=== PATIENT | male | born 1970 | race Caucasian/White ===

== ENCOUNTER 2017-07-08 16:45 | Inpatient (IN) | payer MEDICAID, SELFPAY ==
[2017-07-08] VITALS (16 sets, daily range): BP systolic 113–173; BP diastolic 72–119; PULSE 55–84; RESP 11–24; TEMP 36.2–37.3; O2SAT 95–100; BMI 24.3; BMI 29.2; BMI 27.5
--- NOTE | 2017-07-08 17:02 | CT_ITS ---
STUDY: CT BRAIN WITHOUT CONTRAST REASON FOR EXAM: Male, 46 years old. CVA. Prior head injury. RADIATION DOSAGE (If Supplied By Facility): CTDIvol = ( 44.99 ) mGy, DLP = ( 796.11 ) mGycm TECHNIQUE: Transaxial CT imaging of the brain was performed without administration of intravenous contrast material. Individualized dose optimization techniques were used for this CT. COMPARISON: July 25, 2016 FINDINGS: Again seen are small calcific densities in the subcutaneous fat of the bilateral parietal regions. The soft tissues are otherwise unremarkable. There are remote aurea holes in the right frontal bone. The calvarium is otherwise intact. There are surgical changes about the right orbit which appear unchanged from prior exam. Normal size ventricles and extra-axial spaces for the patient's age. Normal white matter tracts of the cerebral hemispheres. There is minimal hypodensity beneath the aurea holes in the right frontal lobe which is chronic. Normal basal ganglia and thalami. Normal brainstem. Normal cerebellum. There is no intracranial hemorrhage. There are no findings of an acute ischemic infarction. Normal visualized paranasal sinuses. CT/Brain/Head without Contrast IMPRESSION: 1. No evidence for acute intracranial process. Again seen is stable encephalomalacia in the right frontal area underlying remote aurea holes. 2. Stable fracture of the right orbit and facial bones with surgical fusion unchanged from prior study N.B. : The above information has been verbally conveyed by Lalo Garza DO to Anastasiia Jaramillo, Referring Physician, on 07/08/2017 17:25:10 (ET). Electronically Signed: Lalo Garza DO at 17:25 EDT Tel [phone], Service support , N.B. : The above information has been verbally conveyed by Lalo Garza DO to Anastasiia Jaramillo, Referring Physician, on 07/08/2017 17:25:10 (ET).
--- NOTE | 2017-07-08 17:05 | RAD_ITS ---
STUDY: X-RAY CHEST REASON FOR EXAM: Male, 46 years old. Possible OD. Altered mental status. TECHNIQUE: Single AP portable view of the chest. COMPARISON: December 04, 2015. FINDINGS: Without There is a decreased inspiratory effort. There is no focal mass or infiltrate in the lungs. There is a linear density in the left upper lobe with subpleural calcifications. Normal size heart. Normal mediastinum and davonte. Normal visualized pulmonary arteries. Normal visualized aortic arch and descending thoracic aorta. Normal visualized thoracic spine. Normal visualized ribs, clavicles, and shoulders. There is no demonstrated abnormality of the visualized soft tissue structures of the upper abdomen. RAD/Chest 1 View IMPRESSION: Limited inspiration. Atelectasis versus infiltrate in the left upper lobe. The study is otherwise unremarkable Electronically Signed: Lalo Garza DO at 17:33 EDT Tel [phone], Service support ,
--- NOTE | 2017-07-08 17:07 | EKG12_ITS ---
Test Reason : STROKE Blood Pressure : / mmHG Vent. Rate : 055 BPM Atrial Rate : 055 BPM P-R Int : 126 ms QRS Dur : 098 ms QT Int : 410 ms P-R-T Axes : 000 -24 -12 degrees QTc Int : 392 ms Sinus bradycardia Inferior infarct , age undetermined Abnormal ECG Confirmed by LUCIA ORTEGA ([id number]), editor managing newspaper BRINDA SABILLON ([id number]) on 07/11/2017 1:30:55 PM Referred By: Confirmed By:LUCIA ORTEGA
[2017-07-08 17:20] LABS: Bedside Glucose 90 mg/dL (70-110)
--- NOTE | 2017-07-08 17:39 | CT_ITS ---
STUDY: CTA OF THE BRAIN REASON FOR EXAM: Male, 46 years old. Stroke protocol. RADIATION DOSAGE (If Supplied By Facility): CTDIvol = ( 25.77 ) mGy, DLP = ( 694.99 ) mGycm TECHNIQUE: CT angiography was performed with a multi-detector CT scanner. Data acquisition was obtained from the skull base through the vertex following intravenous administration of ml of . MIP images were reconstructed from the axial data set. Post-processing of the angiographic images was performed, with multiplanar reformation and 3D reconstruction. Individualized dose optimization techniques were used for this CT. COMPARISON: CT of the head, July 08, 2017. FINDINGS: Normal bilateral petrous carotid arteries. Normal right cavernous carotid artery with a normal supraclinoid bifurcation. Normal left cavernous carotid artery with a normal supraclinoid bifurcation. Normal right A1 segments of the anterior cerebral artery. Normal left A1 segments of the anterior cerebral artery. Normal intact anterior communicating artery (ACOM). Normal bilateral A2 segments of the anterior cerebral arteries. Normal right M1 and M2 segments of the middle cerebral arteries, with a normal M1 bifurcation. Normal left M1 and M2 segments of the middle cerebral arteries, with a normal M1 bifurcation. There is non-visualization of the right posterior communicating artery (PCOM). Normal left posterior communicating artery (PCOM). Normal bilateral vertebral arteries. Normal basilar artery with a normal basilar bifurcation. The visualized bilateral superior cerebellar (SCA) arteries are normal. Normal bilateral P1, P2 and visualized P3 segments of the posterior cerebral arteries. There is no demonstrated aneurysm of the [place]. There is encephalomalacia in the right frontal area underlying remote aurea holes. This is unchanged from the earlier CT. CT/CTA Head W/WO Contrast IMPRESSION: Normal [place] without a demonstrated aneurysm or hemodynamically significant stenosis. Electronically Signed: Lalo Garza DO at 18:17 EDT Tel [phone], Service support ,
--- NOTE | 2017-07-08 17:39 | CT_ITS ---
STUDY: CTA NECK WITH CONTRAST REASON FOR EXAM: Male, 46 years old. Stroke protocol. CVA. RADIATION DOSAGE (If Supplied By Facility): CTDIvol = ( 25.77 ) mGy, DLP = ( 694.99 ) mGycm TECHNIQUE: CT angiography with multi-detector data acquisition was performed from the aortic arch to the skull base following intravenous administration of 75 ml of Isovue 370 contrast. MIP images were reconstructed from the axial data set. Post-processing of the angiographic images was performed, with multiplanar reformation and 3D reconstruction. Individualized dose optimization techniques were used for this CT. COMPARISON: None. FINDINGS: AORTIC ARCH: Normal visualized aortic arch. Normal origins of the brachiocephalic, left common carotid, and left subclavian arteries. RIGHT CAROTID ARTERIES: Normal right common carotid artery (CCA). Normal right common carotid bulb. Normal origin of the right internal carotid (ICA) artery without a hemodynamically significant stenosis. Normal visualized cervical portion of the right internal carotid artery. Normal origin of the right external carotid artery (ECA). LEFT CAROTID ARTERIES: Normal left common carotid artery (CCA). Normal left common carotid bulb. Normal origin of the left internal carotid (ICA) artery without a hemodynamically significant stenosis. Normal visualized cervical portion of the left internal carotid artery. Normal origin of the left external carotid artery (ECA). VERTEBRAL ARTERIES: Normal bilateral vertebral arteries. There are marked degenerative changes of the cervical spine. CT/CTA Neck W/WO Contrast IMPRESSION: Normal bilateral cervical carotid and vertebral arteries. Electronically Signed: Lalo Garza DO at 18:19 EDT Tel [phone], Service support ,
[2017-07-08 17:40] LABS: Absolute Lymphocyte Count 1.35 X10^3/ul (0.83-4.51); Absolute Neutrophil Count 2.9 X10^3/uL (2.0-7.7); Basophil# 0.02 X10^3/uL; Basophil% 0.4 % (0-1); Eosinophil# 0.18 X10^3/uL; Eosinophils% 3.6 % (0-5); Hematocrit 43.9 % (40-54); Hemoglobin 14.1 g/dl (13.0-16.5); Lymphocyte # 1.35 X10^3/ul (4.0); Lymphocyte % 26.7 % (19-41); Mean Corp Hgb Conc 32.1 g/gl (32-36); Mean Corpuscular Hgb 30.3 pg (27.0-32.0); Mean Corpuscular Volume 94.2 fL (80-94); Mean Platelet Vol. 10.6 fl (6.2-12.0); Monocyte# 0.56 X10^3/uL; Monocyte% 11.1 % (0-10); Neutrophil # 2.94 X10^3/uL (2.7-7.7); Platelet Count 246 K/mm3 (150-450); RBC Distribution Width CV 12.5 % (11.6-14.6); RBC Distribution Width SD 42.2 fl (35.1-43.9); Red Blood Count 4.66 M/mm3 (4.6-6.2); White Blood Count 5.1 K/mm3 (4.4-11.0)
[2017-07-08 17:41] LABS: POSITIVE COUNT NO; POSITIVE DIFFERENTIAL NO; POSITIVE MORPHOLOGY NO
[2017-07-08 17:48] LABS: Partial Thromboplast Time 25.5 Seconds (24.1-36.2)
--- NOTE | 2017-07-08 17:56 | ED.RN ---
PT CONTINUOUSLY SAYS YES FOR EVERTHING. ANY OTHER RESPONSE HE SEEMS TO STRUGGLE AND IS NOT ABLE TO GET IT OUT. FOR INITIAL NIH PT WAS ABLE TO LOOK AT ME AND FOLLOW MY FINGER. FOR 2ND NIH HE SAID YES WHEN ASKED IF HE WAS LOOKING AT ME BUT WAS NOT. HE WAS NOT ABLE TO FOLLOW THE FIINGER AT ALL. PT IS BLIND IN THE RIGHT EYE. PT IMPROVED VERY SLIGHLY WITH THE RIGHT ARM. HE MOVES IT TO SCRATCH HIS NOSE WHEN NEEDED TO BUT NOT WHEN ASKED TO. VERY LITTLE EFFORT AGAINST GRAVITY. PT SHOW NO REACTION TO TOUCH ON EXTREMITIS. WITH HIS LIMITED COMMUNICATION IT IS UNKNOWN TO THE EXTENT IF HIS SENSORY IS INTACT.
[2017-07-08 17:57] LABS: Anion Gap 5 (5-15); BUN 11 mg/dL (7-18); BUN/Creat Ratio 9.6 RATIO (10-20); Calcium,Total 9.2 mg/dL (8.5-10.1); Chloride 103 mmol/L (98-107); Creatinine, Serum 1.14 mg/dL (0.70-1.30); EST Glomerular Filtration Rate 73 mL/min (>60); Est Glom Filt Rate - Afr Amer 88 mL/min (>60); Estimated Creatinine Clearance 81.82 ml/min; Glucose 88 mg/dL (74-106); Potassium 4.4 mmol/L (3.5-5.1); Sodium Level 139 mmol/L (136-145)
--- NOTE | 2017-07-08 18:01 | ED.RN ---
RADIOLOGY STATED HE SNEEZED AND HAD A BRIEF SEIZURE, BODY TWITCHING, WHILE GETTING HIS CTA. THEY STATED IT LASTED ROUGHLY 20 SEC AND TEN TE PT WAS BACK TO HIS BASELINE. PHYSICIAN NOTIFIED
--- NOTE | 2017-07-08 18:04 | ED.VISSUMM ---
- ER Visit Summary Date of Service: 07/08/17 Chief Complaint: Aphasia History of Present Illness: The patient is a 46 M presenting with change in mental status. Approximately 35 minutes prior to arrival patient developed change in mental status. He is unable to answer questions other than he answers all questions with the word yes. He is unable to follow commands. He has a history of stroke April 2017. At that time he presented with left-sided weakness and change in mental status. Physical Examination: Vitals are stable. Patient is afebrile. Alert no acute distress. HEENT exam chronic right eye irregularity and drainage Neck is supple. Lungs are clear and equal bilaterally. Heart is regular rate and rhythm. Abdomen is soft nontender nondistended. Extremities are unremarkable. Skin is warm and dry. NIH 8 Remainder of exam is unremarkable. Emergency Department Course and Treatment: Patient is unable to follow commands or answer questions. He has weakness of the right upper extremity. Stroke team was activated on patient arrival. CT head shows no acute process. EKG is sinus bradycardia rate of 55. CBC chemistries unremarkable. INR is 1.0. Troponin is negative. Discussed with Dr. Howard who recommends a stat CTA head and neck. Patient had a stroke 2 months ago and is not a TPA candidate. While in CT scan he had 20 second generalized seizure. CTA head and neck was unremarkable. Discussed with Dr. Howard. He recommends loading with Keppra. Recommends admission for MRI, EEG. Discussed with the hospitalist for admission. Disposition: Admission Impression: Generalized seizure, aphasia, right upper extremity weakness This note was generated with [employer] dictation software. It may contain incorrect words, spelling, and punctuation that were not noted in review of the chart prior to signing ED Disposition - Plan for ED Patient: Chief Complaint: Alt LOC Referrals: Care Physician,No Primary [Primary Care Provider] -
--- NOTE | 2017-07-08 18:08 | ED.DCSUM_ITS ---
- ER Visit Summary Date of Service: 07/08/17 Chief Complaint: Aphasia History of Present Illness: The patient is a 46 M presenting with change in mental status. Approximately 35 minutes prior to arrival patient developed change in mental status. He is unable to answer questions other than he answers all questions with the word yes. He is unable to follow commands. He has a history of stroke April 2017. At that time he presented with left- sided weakness and change in mental status. Physical Examination: Vitals are stable. Patient is afebrile. Alert no acute distress. HEENT exam chronic right eye irregularity and drainage Neck is supple. Lungs are clear and equal bilaterally. Heart is regular rate and rhythm. Abdomen is soft nontender nondistended. Extremities are unremarkable. Skin is warm and dry. NIH 8 Remainder of exam is unremarkable. Emergency Department Course and Treatment: Patient is unable to follow commands or answer questions. He has weakness of the right upper extremity. Stroke team was activated on patient arrival. CT head shows no acute process. EKG is sinus bradycardia rate of 55. CBC chemistries unremarkable. INR is 1.0. Troponin is negative. Discussed with Dr. Howard who recommends a stat CTA head and neck. Patient had a stroke 2 months ago and is not a TPA candidate. While in CT scan he had 20 second generalized seizure. CTA head and neck was unremarkable. Discussed with Dr. Howard. He recommends loading with Keppra. Recommends admission for MRI, EEG. Discussed with the hospitalist for admission. Disposition: Admission Impression: Generalized seizure, aphasia, right upper extremity weakness This note was generated with [employer] dictation software. It may contain incorrect words, spelling, and punctuation that were not noted in review of the chart prior to signing ED Disposition - Plan for ED Patient: Chief Complaint: Alt LOC Referrals: Care Physician,No Primary [Primary Care Provider] -
--- NOTE | 2017-07-08 19:05 | ED.RN ---
PT APPEARS TO BE HAVING TWITCHING EPISODE WHICH HAS HIM LEANING TOWARDS THE LEFT. HE IS ABLE TO VERBALLY RESPOND DURING THIS TIME BUT HIS BODY IS RIGID. WHEN THE EPISODE ENDS HIS SPEECH APPEARS TO BE MORE CLEAR THOUGH STILL VERY LIMITED. PT IS ALSO ABLE TO TURN HIS HEAD AND LOOK AT PEOPLE AROUND HIM. PHYSICIAN IS AWARE OF THESE EPISODE AND THAT THEY INTERMITTENTLY HAPPEN
--- NOTE | 2017-07-08 19:36 | PCM.HP.STD ---
Problem List (1) CVA (cerebral vascular accident) Status: Chronic Qualifiers: CVA mechanism: unspecified Qualified Code(s): I63.9 - Cerebral infarction, unspecified Comment: 04/2017 right medial occipital lobe CVA (2) Seizure disorder Status: Chronic (3) HTN (hypertension) Status: Chronic Qualifiers: Hypertension type: essential hypertension Qualified Code(s): I10 - Essential (primary) hypertension (4) HLD (hyperlipidemia) Status: Chronic Qualifiers: Hyperlipidemia type: unspecified Qualified Code(s): E78.5 - Hyperlipidemia, unspecified (5) GERD (gastroesophageal reflux disease) Status: Chronic Qualifiers: Esophagitis presence: esophagitis presence not specified Qualified Code(s): K21.9 - Gastro-esophageal reflux disease without esophagitis (6) Iron deficiency anemia Status: Chronic Qualifiers: Iron deficiency anemia type: unspecified iron deficiency Qualified Code(s): D50.9 - Iron deficiency anemia, unspecified (7) Anxiety and depression Status: Chronic (8) Acute ischemic stroke Status: Acute (9) Seizure in response to acute event Status: Acute History of Present Illness Date of Admission: 07/08/17 Chief Complaint: Aphasia, Seizure The patient is a 46 y/o M w/ PMHx: Seizure disorder s/p Trauma as Youth w/ facial/head surgery, 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 In the ED patient noted initially to answer yes to every questions and was unable to follow any commands. In the ED NIH 8-->RN 13, difficult to assess secondary to not following commands. In the ED work-up included AF, HR 55-->78, BP 165/96, RR 13, 99% on 2L NC, unremarkable CBC, normal coags, unremarkable BMP, normal trop x 1, CT brain w/ no acute evidence stroke, stable encephalomalacia R frontal area underlying remote aurea holes, stable fracture R orbit and facial bones with surgical fusion unchanged from prior study, CXR with atelectasis LUE otherwise unremarkable, CTA Head and Neck unremarkable. In the ED patient administered narcan secondary to concern for vicodin accidental overdose noted per son and keppra 1,000 IV load. While in the ED obtaining CT Head, patient was noted to have onset suspected generalized seizure activity lasting ~ 20 seconds. Patient with recent CVA Rere thus no TPA candidate. Neurology contacted upon his presentation and recommended given normal appearing CTA Head and Neck admission, pending UTox/EtOH levels, MRI brain without and without, EEG with planned evaluation in AM in addition to continued keppra 750 mg BID. Patient following start of Keppra load had repeat generalized seizure lasing 1 min 30 seconds, resolved following IV ativan in the ED. Neurology updated and requested continued plan of care. Past Medical History Past Medical History (Chronic Problems): Chronic Problems (This Medical Record has been edited. Action required.) CVA (cerebral vascular accident) (Chronic) 04/2017 right medial occipital lobe CVA Seizure disorder (Chronic) HTN (hypertension) (Chronic) HLD (hyperlipidemia) (Chronic) GERD (gastroesophageal reflux disease) (Chronic) Iron deficiency anemia (Chronic) Anxiety and depression (Chronic) Allergies Penicillins Allergy (Verified 05/16/16 04:12) Hives propoxyphene napsylate [From Darvocet-N] Allergy (Verified 05/16/16 04:12) Other hot flashes Home Medications: Ambulatory Orders Medication Instructions Recorded Aspirin [Aspirin, Baby] 81 mg PO DAILY@0800 10/17/13 Carboxymethylcellulose Sodium 15 ml OP DAILY 10/17/13 [Lubricant Eye] Etodolac [Etodolac ER] 400 mg PO BID PRN 10/17/13 Fenofibrate [Tricor] 145 mg PO DAILY 10/17/13 Ferrous Sulfate [Iron Supplement] 345 mg PO BID 10/17/13 Multivit-Min/FA/Lycopene/Lut 1 each PO DAILY 10/17/13 [Centrum Silver Tablet] Franklin-3/Dha/Epa/Fish Oil [Fish Oil 1,000 mg PO BID 10/17/13 Dr 500 mg Softgel] Omeprazole [Prilosec] 20 mg PO BID 10/17/13 Tamsulosin HCl [Flomax] 0.4 mg PO QHS 10/17/13 Acetaminophen/Diphenhydramine 1 each PO Q6H PRN PRN 10/23/15 [Tylenol Pm Ex-Strength Caplet] Docusate Sodium [Colace] 100 mg PO BID 10/23/15 Neomycin Sulfate/Polymyxin/Hc 1 drop OPHTHALMIC 4X/DAY 10/23/15 [Otocort Soln] Sertraline HCl 50 mg PO DAILY 07/25/16 Docusate Sodium [Colace] 100 mg PO DAILY 04/27/17 Fenofibrate [Tricor] 145 mg PO DAILY 04/27/17 Ferrous Sulfate 325 mg PO DAILY@0800 04/27/17 Meloxicam 15 mg PO DAILY 04/27/17 Sertraline HCl [Zoloft] 50 mg PO DAILY 04/27/17 Tamsulosin HCl 0.4 mg PO TID 04/27/17 Neomycin/Polymyxin B/Dexametha 2 drop OPHTHALMIC DAILY 04/28/17 [Msygzo-Wqoen-Ahftcegw Eye Drop] Omeprazole 40 mg PO DAILY 04/28/17 Sodium Chloride 3.5 gm OP 4X/DAY PRN 04/29/17 Aspirin [Aspirin, Baby] 81 mg PO DAILY@0800 tab.chew 05/02/17 Atorvastatin Calcium [Lipitor] 80 mg PO QHS #30 tab 05/02/17 Clopidogrel Bisulfate [Plavix] 75 mg PO DAILY 30 Days #30 tab 05/02/17 Surgical History: - - Interval facial surgery as well as right eye surgery and bur hole status post head trauma as youth, left lower extremity surgery status post trauma as youth. Psychiatric History: Anxiety, Depression Lives: With Family Smoking Status: Former smoker Tobacco Use: Non-smoker Alcohol: None Drugs: None - *Family History Maternal History Items: Diabetes, Heart Disease Paternal History Items: - - from suicide. Review of Systems Constitutional: Denies: Chills, Fever, Weight Change HEENT: Denies: Head Aches, Sinus Congestion, Sinus Drainage Cardiovascular: Denies: Chest Pain, Palpitations Respiratory: Denies: Cough, Shortness of breath at rest, Sputum production Gastrointestinal: Denies: Abdominal Pain, Nausea, Vomiting Genitourinary: Denies: Dysuria Musculoskeletal: Denies: Joint Pain, Joint Tenderness Skin: Denies: Rash, Wounds Neurological: Reports: Balance problems, Confusion, Focal weakness. Denies: Numbness, Tingling Psychiatric: Reports: Anxiety, Depression. Denies: Homicidal Ideations, Suicidal Ideations Hematologic/ Lymphatic: Reports: Anemia - ROS given per family present, Patient unable to give ROS secondary to post-ictal status.. Denies: Easy Bruising, Easy Bleeding VTE Information - Inpt Only VTE Present on Admission: No VTE Mechan Device Prophylaxis: SCD's VTE Pharm Prophylaxis ordered?: Yes Patient Problems: Active and Suspected Problems (This Medical Record has been edited. Action required.) Acute ischemic stroke (Acute) Seizure in response to acute event (Acute) Subjective: Laying in the ED bed, recent seizure, s/p ativan, no acute distress. Objective: Physical Examination: General: Minimally awakens to stimuli, recent seizure, post-ictal s/p ativan, not alert, not oriented, unable to follow commands, laying in the ED bed, NAD. Skin: normal color, turgor, no icterus, cyanosis. HEENT: AT/NC, several old facial/head scars from trauma as youth, R eye prosthesis, blind R eye, unable to assess EOM, LP sluggish, dry MM, no carotid bruits or JVD noted. Lungs: Diminished BS BL bases, no rales, ronchi or wheezing. Heart: regular rate and rhythm; no gallop, rub audible. Abdomen: soft, NTTP, ND, normal BS, no HSM. Extremities: no cyanosis, clubbing, or edema. Neurological: Minimally awakens to stimuli, recent seizure, post-ictal s/p ativan, not alert, not oriented, unable to follow commands, laying in the ED bed; cognitive function not baseline intact; LE sluggish; unable to assess CN, unable to assess sensation, occasional movement L side UE w/ pain, equiv bab. Psychiatric: affect appears flat, sedate, no acute evidence of depressive or anxiety feelings. - Physical Exam Vital Signs Temp Pulse Resp BP Pulse Ox 97.2 F L 78 24 H 153/119 H 100 07/08/17 16:47 07/08/17 19:00 07/08/17 19:00 07/08/17 19:00 07/08/17 19:00 Oxygen Flow Rate (L/min) 2 Oxygen Delivery Method Nasal Cannula Weight: 203 lb 7.787 oz Body Mass Index (BMI) 29.2 Finger Stick Blood Glucose 90 Laboratory Tests Past 24 Hrs 07/08/17 07/08/1707/08/18 16:52 16:52 16:52 WBC 5.1 RBC 4.66 Hgb 14.1 Hct 43.9 MCV 94.2 H MCH 30.3 MCHC 32.1 RDW 12.5 RDW Differential 42.2 Plt Count 246 MPV 10.6 Immature Gran % (Auto) 0.200 Neut % (Auto) 58.0 Lymph % (Auto) 26.7 Barber % (Auto) 11.1 H Eos % (Auto) 3.6 Baso % (Auto) 0.4 Absolute Neuts (auto) 2.9 Absolute Lymphs (auto) 1.35 Total Counted Not Reportable PT 13.0 INR 1.0 APTT 25.5 Sodium 139 Potassium 4.4 Chloride 103 Carbon Dioxide 31.0 Anion Gap 5 BUN 11 Creatinine 1.14 Estim Creat Clear Calc 81.82 Est GFR (MDRD) Af Amer 88 Est GFR (MDRD) Non-Af 73 BUN/Creatinine Ratio 9.6 L Glucose 88 Calcium 9.2 Troponin I < 0.02 POC Glucose 07/08/17 16:56 POC Glucose 90 Assessment/Plan Active and Suspected Problems (This Medical Record has been edited. 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 In the ED patient noted initially to answer yes to every questions and was unable to follow any commands. (1) R Sided Hemiplegia, Aphasia concerning for Recurrent CVA w/ Seizure Activity w/ Prior Seizure history youth s/p head trauma w/ Prior 04/2017 Acute R Medial Occipital CVA: In the ED work-up included AF, HR 55-->78, BP 165/96, RR 13, 99% on 2L NC, unremarkable CBC, normal coags, unremarkable BMP, normal trop x 1, CT brain w/ no acute evidence stroke, stable encephalomalacia R frontal area underlying remote aurea holes, stable fracture R orbit and facial bones with surgical fusion unchanged from prior study, CXR with atelectasis LUE otherwise unremarkable, CTA Head and Neck unremarkable. UTox, EtOH level pending, family denies elicit drugs. Will admit to the ICU, will obtain MRI Brain without and without, CTA head and neck without acute findings, recent ECHO 04/2017 thus will not repeat, obtain EEG in AM, PT/OT/Speech/Nutrition evaluation per protocol. Pending Neurology evaluation. Will allow permissive HTN, IVFs, maintain on SD ASA given unsafe oral intake, once appropriate restart BP regimen, statin w/ AM FLP, fall precautions. Mag, Phos, TSH pending. PRN ativan IV for recurrent seizure activity. 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 (3) Hypertension: Permissive. (4) Hyperlipidemia: Holding oral agent, FLP in AM. (5) Anxiety and Depression: Holding oral regimen. (6) GERD: Famotidine IV. (7) DVT Prophylaxis: SCDs, lovenox. Code Visit Inpatient E&M: 26473 Init Hosp L3
--- NOTE | 2017-07-08 19:46 | HP.PCM_ITS ---
Problem List (1) CVA (cerebral vascular accident) Status: Chronic Qualifiers: CVA mechanism: unspecified Qualified Code(s): I63.9 - Cerebral infarction, unspecified Comment: 04/2017 right medial occipital lobe CVA (2) Seizure disorder Status: Chronic (3) HTN (hypertension) Status: Chronic Qualifiers: Hypertension type: essential hypertension Qualified Code(s): I10 - Essential (primary) hypertension (4) HLD (hyperlipidemia) Status: Chronic Qualifiers: Hyperlipidemia type: unspecified Qualified Code(s): E78.5 - Hyperlipidemia , unspecified (5) GERD (gastroesophageal reflux disease) Status: Chronic Qualifiers: Esophagitis presence: esophagitis presence not specified Qualified Code(s) : K21.9 - Gastro-esophageal reflux disease without esophagitis (6) Iron deficiency anemia Status: Chronic Qualifiers: Iron deficiency anemia type: unspecified iron deficiency Qualified Code(s) : D50.9 - Iron deficiency anemia, unspecified (7) Anxiety and depression Status: Chronic (8) Acute ischemic stroke Status: Acute (9) Seizure in response to acute event Status: Acute History of Present Illness Date of Admission: 07/08/17 Chief Complaint: Aphasia, Seizure The patient is a 46 y/o M w/ PMHx: Seizure disorder s/p Trauma as Youth w/ facial/head surgery, 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 In the ED patient noted initially to answer yes to every questions and was unable to follow any commands. In the ED NIH 8-->RN 13, difficult to assess secondary to not following commands. In the ED work-up included AF, HR 55-->78, BP 165/96, RR 13, 99% on 2L NC, unremarkable CBC, normal coags, unremarkable BMP, normal trop x 1, CT brain w/ no acute evidence stroke, stable encephalomalacia R frontal area underlying remote aurea holes, stable fracture R orbit and facial bones with surgical fusion unchanged from prior study, CXR with atelectasis LUE otherwise unremarkable, CTA Head and Neck unremarkable. In the ED patient administered narcan secondary to concern for vicodin accidental overdose noted per son and keppra 1,000 IV load. While in the ED obtaining CT Head, patient was noted to have onset suspected generalized seizure activity lasting ~ 20 seconds. Patient with recent CVA Rere thus no TPA candidate. Neurology contacted upon his presentation and recommended given normal appearing CTA Head and Neck admission, pending UTox/EtOH levels, MRI brain without and without, EEG with planned evaluation in AM in addition to continued keppra 750 mg BID. Patient following start of Keppra load had repeat generalized seizure lasing 1 min 30 seconds, resolved following IV ativan in the ED. Neurology updated and requested continued plan of care. Past Medical History Past Medical History (Chronic Problems): Chronic Problems (This Medical Record has been edited. Action required.) CVA (cerebral vascular accident) (Chronic) 04/2017 right medial occipital lobe CVA Seizure disorder (Chronic) HTN (hypertension) (Chronic) HLD (hyperlipidemia) (Chronic) GERD (gastroesophageal reflux disease) (Chronic) Iron deficiency anemia (Chronic) Anxiety and depression (Chronic) Allergies Penicillins Allergy (Verified 05/16/16 04:12) Hives propoxyphene napsylate [From Darvocet-N] Allergy (Verified 05/16/16 04:12) Other hot flashes Home Medications: Ambulatory Orders Medication Instructions Recorded Aspirin [Aspirin, Baby] 81 mg PO DAILY@0800 10/17/13 Carboxymethylcellulose Sodium 15 ml OP DAILY 10/17/13 [Lubricant Eye] Etodolac [Etodolac ER] 400 mg PO BID PRN 10/17/13 Fenofibrate [Tricor] 145 mg PO DAILY 10/17/13 Ferrous Sulfate [Iron Supplement] 345 mg PO BID 10/17/13 Multivit-Min/FA/Lycopene/Lut 1 each PO DAILY 10/17/13 [Centrum Silver Tablet] [place]-3/Dha/Epa/Fish Oil [Fish Oil 1,000 mg PO BID 10/17/13 Dr 500 mg Softgel] Omeprazole [Prilosec] 20 mg PO BID 10/17/13 Tamsulosin HCl [Flomax] 0.4 mg PO QHS 10/17/13 Acetaminophen/Diphenhydramine 1 each PO Q6H PRN PRN 10/23/15 [Tylenol Pm Ex-Strength Caplet] Docusate Sodium [Colace] 100 mg PO BID 10/23/15 Neomycin Sulfate/Polymyxin/Hc 1 drop OPHTHALMIC 4X/DAY 10/23/15 [Otocort Soln] Sertraline HCl 50 mg PO DAILY 07/25/16 Docusate Sodium [Colace] 100 mg PO DAILY 04/27/17 Fenofibrate [Tricor] 145 mg PO DAILY 04/27/17 Ferrous Sulfate 325 mg PO DAILY@0800 04/27/17 Meloxicam 15 mg PO DAILY 04/27/17 Sertraline HCl [Zoloft] 50 mg PO DAILY 04/27/17 Tamsulosin HCl 0.4 mg PO TID 04/27/17 Neomycin/Polymyxin B/Dexametha 2 drop OPHTHALMIC DAILY 04/28/17 [Nptbuv-Grinp-Nskuujkj Eye Drop] Omeprazole 40 mg PO DAILY 04/28/17 Sodium Chloride 3.5 gm OP 4X/DAY PRN 04/29/17 Aspirin [Aspirin, Baby] 81 mg PO DAILY@0800 tab.chew 05/02/17 Atorvastatin Calcium [Lipitor] 80 mg PO QHS #30 tab 05/02/17 Clopidogrel Bisulfate [Plavix] 75 mg PO DAILY 30 Days #30 tab 05/02/17 Surgical History: - - Interval facial surgery as well as right eye surgery and bur hole status post head trauma as youth, left lower extremity surgery status post trauma as youth. Psychiatric History: Anxiety, Depression Lives: With Family Smoking Status: Former smoker Tobacco Use: Non-smoker Alcohol: None Drugs: None - *Family History Maternal History Items: Diabetes, Heart Disease Paternal History Items: - - from suicide. Review of Systems Constitutional: Denies: Chills, Fever, Weight Change HEENT: Denies: Head Aches, Sinus Congestion, Sinus Drainage Cardiovascular: Denies: Chest Pain, Palpitations Respiratory: Denies: Cough, Shortness of breath at rest, Sputum production Gastrointestinal: Denies: Abdominal Pain, Nausea, Vomiting Genitourinary: Denies: Dysuria Musculoskeletal: Denies: Joint Pain, Joint Tenderness Skin: Denies: Rash, Wounds Neurological: Reports: Balance problems, Confusion, Focal weakness. Denies: Numbness, Tingling Psychiatric: Reports: Anxiety, Depression. Denies: Homicidal Ideations, Suicidal Ideations Hematologic/ Lymphatic: Reports: Anemia - ROS given per family present, Patient unable to give ROS secondary to post-ictal status.. Denies: Easy Bruising, Easy Bleeding VTE Information - Inpt Only VTE Present on Admission: No VTE Mechan Device Prophylaxis: SCD's VTE Pharm Prophylaxis ordered?: Yes Patient Problems: Active and Suspected Problems (This Medical Record has been edited. Action required.) Acute ischemic stroke (Acute) Seizure in response to acute event (Acute) Subjective: Laying in the ED bed, recent seizure, s/p ativan, no acute distress. Objective: Physical Examination: General: Minimally awakens to stimuli, recent seizure, post-ictal s/p ativan, not alert, not oriented, unable to follow commands, laying in the ED bed, NAD. Skin: normal color, turgor, no icterus, cyanosis. HEENT: AT/NC, several old facial/head scars from trauma as youth, R eye prosthesis, blind R eye, unable to assess EOM, LP sluggish, dry MM, no carotid bruits or JVD noted. Lungs: Diminished BS BL bases, no rales, ronchi or wheezing. Heart: regular rate and rhythm; no gallop, rub audible. Abdomen: soft, NTTP, ND, normal BS, no HSM. Extremities: no cyanosis, clubbing, or edema. Neurological: Minimally awakens to stimuli, recent seizure, post-ictal s/p ativan, not alert, not oriented, unable to follow commands, laying in the ED bed ; cognitive function not baseline intact; LE sluggish; unable to assess CN, unable to assess sensation, occasional movement L side UE w/ pain, equiv bab. Psychiatric: affect appears flat, sedate, no acute evidence of depressive or anxiety feelings. - Physical Exam Vital Signs Temp Pulse Resp BP Pulse Ox 97.2 F L 78 24 H 153/119 H 100 07/08/17 16:47 07/08/17 19:00 07/08/17 19:00 07/08/17 19:00 07/08/17 19:00 Oxygen Flow Rate (L/min) 2 Oxygen Delivery Method Nasal Cannula Weight: 203 lb 7.787 oz Body Mass Index (BMI) 29.2 Finger Stick Blood Glucose 90 Laboratory Tests Past 24 Hrs 07/08/17 07/08/1707/08/18 16:52 16:52 16:52 WBC 5.1 RBC 4.66 Hgb 14.1 Hct 43.9 MCV 94.2 H MCH 30.3 MCHC 32.1 RDW 12.5 RDW Differential 42.2 Plt Count 246 MPV 10.6 Immature Gran % (Auto) 0.200 Neut % (Auto) 58.0 Lymph % (Auto) 26.7 [place] % (Auto) 11.1 H Eos % (Auto) 3.6 Baso % (Auto) 0.4 Absolute Neuts (auto) 2.9 Absolute Lymphs (auto) 1.35 Total Counted Not Reportable PT 13.0 INR 1.0 APTT 25.5 Sodium 139 Potassium 4.4 Chloride 103 Carbon Dioxide 31.0 Anion Gap 5 BUN 11 Creatinine 1.14 Estim Creat Clear Calc 81.82 Est GFR (MDRD) Af Amer 88 Est GFR (MDRD) Non-Af 73 BUN/Creatinine Ratio 9.6 L Glucose 88 Calcium 9.2 Troponin I < 0.02 POC Glucose 07/08/17 16:56 POC Glucose 90 Assessment/Plan Active and Suspected Problems (This Medical Record has been edited. 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 In the ED patient noted initially to answer yes to every questions and was unable to follow any commands. (1) R Sided Hemiplegia, Aphasia concerning for Recurrent CVA w/ Seizure Activity w/ Prior Seizure history youth s/p head trauma w/ Prior 04/2017 Acute R Medial Occipital CVA: In the ED work-up included AF, HR 55-->78, BP 165/96, RR 13, 99% on 2L NC, unremarkable CBC, normal coags, unremarkable BMP, normal trop x 1, CT brain w/ no acute evidence stroke, stable encephalomalacia R frontal area underlying remote aurea holes, stable fracture R orbit and facial bones with surgical fusion unchanged from prior study, CXR with atelectasis LUE otherwise unremarkable, CTA Head and Neck unremarkable. UTox, EtOH level pending , family denies elicit drugs. Will admit to the ICU, will obtain MRI Brain without and without, CTA head and neck without acute findings, recent ECHO 2017 thus will not repeat, obtain EEG in AM, PT/OT/Speech/Nutrition evaluation per protocol. Pending Neurology evaluation. Will allow permissive HTN, IVFs, maintain on MN ASA given unsafe oral intake, once appropriate restart BP regimen , statin w/ AM FLP, fall precautions. Mag, Phos, TSH pending. PRN ativan IV for recurrent seizure activity. 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 (3) Hypertension: Permissive. (4) Hyperlipidemia: Holding oral agent, FLP in AM. (5) Anxiety and Depression: Holding oral regimen. (6) GERD: Famotidine IV. (7) DVT Prophylaxis: SCDs, lovenox. Code Visit Inpatient E&M: 38278 Init Hosp L3
[2017-07-08] MEDS: LORazepam 2 MG/ML Syringe 1 MG IV (19:53)
--- NOTE | 2017-07-08 20:04 | ED.RN ---
THIS RN ENTERED ROOM, PT TWITCHING IN ALL LIMBS, FACIAL GRIMACING. AFTER SEVERAL MINUTES, PT STARTED TONIC-CLONIC SEIZURE, LEGS AND ARMS UP IN AIR AND RIGID, FACE RED AND CONTORTED- THESE MOVEMENTS LASTED APPROX 1 MIN 15 SECONDS, PT POSTICTAL AFTER EXCEPT FOR SLIGHT TWITCHING THROUGHOUT BODY, ATIVAN 1MG IV GIVEN PER MD.
--- NOTE | 2017-07-08 20:08 | ED.RN ---
PT UNABLE TO COMMUNICATE REGARDING HOME MEDS, FAMILY SENT HOME TO GET MEDICATION BOTTLES, HAVE NOT RETURNED.
[2017-07-08 21:00] LABS: Amphetamine Urine VISTA NEGATIVE (<1000 ng/mL); Barbiturate Urine VISTA NEGATIVE (< 200 ng/mL); Benzodiazepine Urine VISTA NEGATIVE (< 200 ng/mL); Cocaine Urine VISTA NEGATIVE (< 300 ng/mL); Ecstacy Urine VISTA NEGATIVE (< 500 ng/mL); Methadone Urine VISTA NEGATIVE (< 300 ng/mL); PCP Urine VISTA NEGATIVE (< 25 ng/mL); THC Urine VISTA NEGATIVE (< 50 ng/mL); Vista UDS pH Range 6
--- NOTE | 2017-07-08 21:22 | MRI_ITS ---
STUDY: MRI BRAIN WITH AND WITHOUT CONTRAST REASON FOR EXAM: Male, 46 years old. Seizure and altered mental status. TECHNIQUE: Standardized multiplanar fat and water weighted pulse sequences were obtained. 8 ml of Gadavist contrast material was administered intravenously for the contrast portion of the examination. COMPARISON: None. FINDINGS: Normal size of the ventricles and extra-axial spaces for the patient's age. Right frontal region of encephalomalacia and postoperative craniotomy changes are present. Right facial postoperative changes and plating are present. There is no evidence for recent intracranial ischemia or other cause of cytotoxic edema on diffusion weighted imaging (DWI). Normal T2* images of the brain without demonstrated susceptibility artifact. There is no demonstrated hemosiderin stain. Normal bilateral basal ganglia. Normal thalami. There is no extra-axial fluid accumulation. Normal flow voids within the major intracranial circulation suggesting patency by spin echo criteria. Normal venous enhancement. There is no enhancing intra-axial or extra-axial abnormality. Normal sella turcica, pituitary gland, infundibular stalk, optic chiasm and hypothalamus. Normal tectal plate and pineal gland. Normal midbrain, paul and medulla. Normal cerebellum. Normal basal cisterns. Normal bilateral temporal bones. Normal bilateral internal auditory canals. No demonstrated orbital abnormality, within the constraints of a routine brain study. Normal visualized paranasal sinuses. Normal calvarium and skull base. Normal visualized soft tissue structures. Normal visualized upper cervical spine. MRI/Brain W/WO Contrast IMPRESSION: 1. Right frontal encephalomalacia changes and postoperative changes as above. No evidence of acute intracranial bleed, mass or ischemia. Electronically Signed: David Husain DO at 12:41 EDT , Service support ,
--- NOTE | 2017-07-08 21:30 | NURSING ---
Unable to assess NIH. Pt. is currently postdictal.
[2017-07-08 21:59] LABS: Bacteria 0 SEEN /hpf (None Seen); Mucous, Urine 0 SEEN /hpf (<or=2+); Squamous Epithelial Cells - UA 0 SEEN /hpf (0-5); White Blood Cells 0 SEEN /hpf (0-5)
[2017-07-08 22:41] LABS: AST(SGOT) 22 U/L (15-37); Alanine Aminotransfer ALT/SGPT 27 U/L (16-61); Albumin, Serum 3.9 g/dL (3.2-5.0); Alkaline Phosphatase 40 U/L (45-117); Bilirubin, Direct 0.09 mg/dL (0.00-0.30); Globulin 3.9 g/dL (2.2-4.2); Magnesium 1.9 mg/dL (1.6-2.6); Protein, Total 7.8 g/dL (6.4-8.2)
[2017-07-08 22:43] LABS: Color, Urine Yellow (Yellow); Glucose, Dipstick Normal (Normal); Ketone-Dipstick Negative (Negative); Leukocyte Esterase-Dipstick Negative /ul (Negative); Nitrite-Dipstick Negative (Negative); Occult Blood-Urine 10 /ul (Negative); Protein-Dipstick Negative (Negative); Urine Bilirubin Dipstick Negative (Negative); Urine Clarity Sl. Cloudy (Clear); Urine Urobilinogen 1 mg/dl (Normal)
[2017-07-08 22:48] LABS: Phosphorus 3.4 mg/dL (2.5-4.9)
[2017-07-08 23:04] LABS: Red Blood Cells-Urine 0-5 SEEN /hpf (0-5)
[2017-07-08 23:15] LABS: M R Staph aureus DNA By PCR Negative (Negative); Probe Check PASS; Specimen Processing Control PASS
[2017-07-08] MEDS: Neomycin/Bacitracin/Polymyxin Opth. Ointment 1 APPLIC RIGHT EYE (23:27)
[2017-07-09] VITALS (28 sets, daily range): BP systolic 112–159; BP diastolic 64–92; PULSE 54–78; RESP 11–22; TEMP 36.9–37.9; O2SAT 91–98; BMI 27.5
[2017-07-09] MEDS: Neomycin/Bacitracin/Polymyxin Opth. Ointment 1 APPLIC RIGHT EYE ×4 (04:43→22:15)
[2017-07-09] MEDS: 0.9% NaCl Peripheral Flush Adult/Peds IV ×2 (04:44→09:43)
[2017-07-09 04:51] LABS: Hematocrit 41.3 % (40-54); Hemoglobin 13.2 g/dl (13.0-16.5); Mean Corpuscular Hgb 30.2 pg (27.0-32.0); Mean Corpuscular Volume 94.5 fL (80-94); Platelet Count 214 K/mm3 (150-450); RBC Distribution Width CV 12.8 % (11.6-14.6); RBC Distribution Width SD 43.8 fl (35.1-43.9); Red Blood Count 4.37 M/mm3 (4.6-6.2); White Blood Count 7.3 K/mm3 (4.4-11.0)
[2017-07-09 04:53] LABS: Scan Indicated on CBC? Y/N NO
[2017-07-09 05:08] LABS: ALB/GLOB Ratio 0.9 RATIO (0.9-2.4); AST(SGOT) 19 U/L (15-37); Alanine Aminotransfer ALT/SGPT 24 U/L (16-61); Albumin, Serum 3.4 g/dL (3.2-5.0); Alkaline Phosphatase 36 U/L (45-117); Anion Gap 8 (5-15); BUN 10 mg/dL (7-18); BUN/Creat Ratio 10.1 RATIO (10-20); Calcium,Total 8.4 mg/dL (8.5-10.1); Chloride 103 mmol/L (98-107); Cholesterol 205 mg/dL (200); Creatinine, Serum 0.99 mg/dL (0.70-1.30); EST Glomerular Filtration Rate 85 mL/min (>60); Est Glom Filt Rate - Afr Amer 103 mL/min (>60); Estimated Creatinine Clearance 94.22 ml/min; Globulin 3.6 g/dL (2.2-4.2); Glucose 86 mg/dL (74-106); High Density Lipoprotein 33 mg/dL; Potassium 3.5 mmol/L (3.5-5.1); Sodium Level 139 mmol/L (136-145); Triglycerides 147 mg/dL; Very Low Density Lipoprotein 29 mg/dL (5-40)
[2017-07-09] MEDS: 0.9% Normal Saline 1,000 ML 100 ML IV ×2 (07:15→18:28)
[2017-07-09] MEDS: Enoxaparin 40 MG/0.4 ML Syringe SC (09:42)
--- NOTE | 2017-07-09 11:23 | PN_ITS ---
Patient Problems: Active and Suspected Problems (This Medical Record has been edited. Action required.) Acute ischemic stroke (Acute) Seizure in response to acute event (Acute) Subjective: Patient was admitted last night for aphagia and seizure-like movement. He had recent acute right medial occipital lobe ischemic stroke with left-sided weakness in April 2017. Time is admitted with aphasia intermittent noted by the family talking irrelevant and incoherent. The patient is lethargic in ICU. Temperature low-grade 99.4 Fahrenheit in ICU. Intake and output review shows positive fluid balance 460 mL. Vitals/I&O's: Vital Signs Temp Pulse Resp BP Pulse Ox 99.3 F H 57 L 14 132/80 H 95 07/09/17 09:00 07/09/17 09:00 07/09/17 09:00 07/09/17 09:00 07/09/17 09:00 Oxygen Flow Rate (L/min) 2 Oxygen Delivery Method Room Air Weight: 194 lb 14.218 oz Body Mass Index (BMI) 27.5 Intake and Output for Last 24 Hours 07/07/17 07/08/17 07/09/17 23:59 23:59 23:59 Intake Total 190 / 190 684 / 684 Output Total 800 / 800 225 / 225 Balance -610 / -610 459 / 459 General: Confused, Disoriented, Lethargic, - HEENT: Atraumatic, Normocephalic, - - Right eye cornea sloughs out with redness suggestive of conjunctivitis. 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 Left eye pupil is reactive. Old facial/head a scar from trauma at youth. Oral: Dry Mucosa Neck: Supple, No JVD, Negative Carotid Bruits Lungs: No rhonchi, No wheeze, No rales, Diminished Cardiovascular: Regular rate, Regular Rhythm, Normal S2, No murmurs, Bradycardic - Bradycardia, HR runs in 50s- 60s Abdomen: Bowel Sounds Present, Soft, Non Tender, Non-Distended, - - Fully catheter Extremities: No edema Musculoskeletal: - Neurological: - - Complete neuro exam not possible as patient is not able to follow command. Patient awakes momentarily on verbal stimulus. Post icteric. Laboratory Results 07/08/17 20:18: Urine Opiates Screen NEGATIVE, Urine Methadone Screen NEGATIVE, Ur Barbiturates Screen NEGATIVE, Ur Phencyclidine Scrn NEGATIVE, Ur Amphetamines Screen NEGATIVE, U Methamphetamin-MDMA NEGATIVE, U Benzodiazepines Scrn NEGATIVE, Urine Cocaine Screen NEGATIVE, U Cannabinoids Screen NEGATIVE, Ur Drug Screen Comment 07/08/17 21:40: MRSA (PCR) Negative 07/08/17 21:55: Urine Color Yellow, Urine Clarity Sl. Cloudy, Urine pH 8.0, Ur Specific [place] 1.010, Urine Protein Negative, Urine Glucose (UA) Normal, Urine Ketones Negative, Urine Occult Blood 10 H, Urine Nitrite Negative, Urine Bilirubin Negative, Urine Urobilinogen 1 H, Ur Leukocyte Esterase Negative, Urine RBC 0-5 SEEN, Urine WBC 0 SEEN, Ur Squamous Epith Cells 0 SEEN, Urine Bacteria 0 SEEN, Urine Mucus 0 SEEN 07/09/17 04:40: WBC 7.3, RBC 4.37 L, Hgb 13.2, Hct 41.3, MCV 94.5 H, MCH 30.2, MCHC 32.0, RDW 12.8, RDW Differential 43.8, Plt Count 214, MPV 10.0 07/09/17 04:40: Sodium 139, Potassium 3.5, Chloride 103, Carbon Dioxide 28.0, Anion Gap 8, BUN 10, Creatinine 0.99, Estim Creat Clear Calc 94.22, Est GFR ( MDRD) Af Amer 103, Est GFR (MDRD) Non-Af 85, BUN/Creatinine Ratio 10.1, Glucose 86, Calcium 8.4 L, Total Bilirubin 0.40, AST 19, ALT 24, Alkaline Phosphatase 36 L, Total Protein 7.0, Albumin 3.4, Globulin 3.6, Albumin/Globulin Ratio 0.9, Triglycerides 147, Cholesterol 205 H, LDL Cholesterol 143 H, VLDL Cholesterol 29 , HDL Cholesterol 33 L Current Medications Aspirin (Aspirin) 300 mg RECTAL DAILY [facility] Last Admin: 07/09/17 09:38 Dose: Not Given Enoxaparin Sodium (Lovenox) 40 mg SC DAILY@1000 [facility] Last Admin: 07/09/17 09:42 Dose: 40 mg Sodium Chloride () 1,000 mls @ 100 mls/hr IV .Q10H [facility] Last Admin: 07/09/17 07:15 Dose: 100 mls/hr Levetiracetam 750 mg/ N/A 150 mls @ 600 mls/hr IV BID [facility] Last Admin: 07/09/17 10:27 Dose: 600 mls/hr Famotidine (Pepcid 20mg) 20 mg in 50 mls @ 150 mls/hr IV Q12 [facility] Last Admin: 07/09/17 09:42 Dose: 150 mls/hr Sodium Chloride () 250 mls @ 15 mls/hr IV .[id number] PRN PRN Reason: SALINE FLUSH Lorazepam (Ativan) 2 mg PO Q2H PRN PRN; Protocol PRN Reason: CIWA score > 8 but <15 Lorazepam (Ativan) 2 mg PO UD PRN; Protocol PRN Reason: CIWA score >/=15. Lorazepam (Ativan) 2 mg IV Q2H PRN PRN; Protocol PRN Reason: CIWA score > 8 but <15 Lorazepam (Ativan) 2 mg IV UD PRN; Protocol PRN Reason: CIWA score >/=15. Lorazepam (Ativan) 1 mg IV Q4H PRN PRN PRN Reason: PRN seizure Magnesium Hydroxide (Milk Of Magnesia) 30 ml PO DAILY PRN PRN PRN Reason: Constipation Neomycin/Polymyxin/Bacitracin (Neosporin) 1 applic RIGHT EYE Q6H [facility] Last Admin: 07/09/17 04:43 Dose: 1 applicatio Ondansetron HCl (Zofran) 4 mg IV Q8H PRN PRN PRN Reason: NAUSEA Promethazine HCl (Phenergan (Ll)) 12.5 mg IV Q6H PRN PRN PRN Reason: NAUSEA/VOMITING Sodium Chloride () 5 - 30 ml IV UD PRN PRN Reason: SALINE FLUSH Last Admin: 07/09/17 09:43 Dose: 10 ml Medical Necessity - Tobacco Use Smoking Status: Former smoker Tobacco Use: Non-smoker Assessment/Plan Active and Suspected Problems (This Medical Record has been edited. Action required.) Acute ischemic stroke (Acute) Seizure in response to acute event (Acute) The 46-year-old gentleman with history of recent stroke was admitted for aphasia and seizure-like movement. He had recent acute right medial occipital lobe ischemic stroke with left-sided weakness in April 2017. Time is admitted with aphasia intermittent noted by the family talking irrelevant and incoherent. 1) right-sided hemiplegia with aphasia concern of acute stroke with history of recent stroke in April 2017: Patient CT head and neck is unremarkable. Neuro consult. On stroke protocol with PT/OT/speech/nutrition evaluation. Neuro consult. On permissive hypertension, IV fluid, BP and glucose control as per stroke protocol. Fall prevention. Right brain is ordered. U tox is negative. Alcohol level is normal. 2). Seizure disorder: Patient has history of seizure probably posttraumatic/ stroke associated: Neuro consult for further recommendation. On Keppra and as needed IV Ativan. On seizure precaution. 3. Hypertension: Keep the BP in permissive range as per stroke protocol for 24 hours. 4. Other comorbidities include anxiety and depression, GERD and dyslipidemia: Lipid profile shows LDL 143, total cholesterol 205 HDL 33. Will start on atorvastatin when speech clears for diet Clinical Impression(s) from Imaging Studies Brain CT 07/08/17 17:02 IMPRESSION: 1. No evidence for acute intracranial process. Again seen is stable encephalomalacia in the right frontal area underlying remote aurea holes. 2. Stable fracture of the right orbit and facial bones with surgical fusion unchanged from prior study Chest X-Ray 07/08/17 17:05 IMPRESSION: Limited inspiration. Atelectasis versus infiltrate in the left upper lobe. The study is otherwise unremarkable Head CTA 07/08/17 17:39 IMPRESSION: Normal [place] of [place] without a demonstrated aneurysm or hemodynamically significant stenosis. Neck CTA 07/08/17 17:39 IMPRESSION: Normal bilateral cervical carotid and vertebral arteries. Laboratory Results 07/08/17 16:52: WBC 5.1, RBC 4.66, Hgb 14.1, Hct 43.9, MCV 94.2 H, MCH 30.3, MCHC 32.1, RDW 12.5, RDW Differential 42.2, Plt Count 246, MPV 10.6, Immature Gran % (Auto) 0.200, Neut % (Auto) 58.0, Lymph % (Auto) 26.7, [place] % (Auto) 11.1 H, Eos % (Auto) 3.6, Baso % (Auto) 0.4, Absolute Neuts (auto) 2.9, Absolute Lymphs (auto) 1.35, Total Counted Not Reportable 07/08/17 16:52: PT 13.0, INR 1.0, APTT 25.5 07/08/17 16:52: Sodium 139, Potassium 4.4, Chloride 103, Carbon Dioxide 31.0, Anion Gap 5, BUN 11, Creatinine 1.14, Estim Creat Clear Calc 81.82, Est GFR ( MDRD) Af Amer 88, Est GFR (MDRD) Non-Af 73, BUN/Creatinine Ratio 9.6 L, Glucose 88, Calcium 9.2, Troponin I < 0.02 07/08/17 16:52: Ethyl Alcohol 5.0 07/08/17 16:52: Magnesium 1.9, Total Bilirubin 0.40, Direct Bilirubin 0.09, AST 22, ALT 27, Alkaline Phosphatase 40 L, Total Protein 7.8, Albumin 3.9, Globulin 3.9 07/08/17 16:52: Phosphorus 3.4 07/08/17 16:56: POC Glucose 90 07/08/17 20:18: Urine Opiates Screen NEGATIVE, Urine Methadone Screen NEGATIVE, Ur Barbiturates Screen NEGATIVE, Ur Phencyclidine Scrn NEGATIVE, Ur Amphetamines Screen NEGATIVE, U Methamphetamin-MDMA NEGATIVE, U Benzodiazepines Scrn NEGATIVE, Urine Cocaine Screen NEGATIVE, U Cannabinoids Screen NEGATIVE, Ur Drug Screen Comment 07/08/17 21:40: MRSA (PCR) Negative 07/08/17 21:55: Urine Color Yellow, Urine Clarity Sl. Cloudy, Urine pH 8.0, Ur Specific [place] 1.010, Urine Protein Negative, Urine Glucose (UA) Normal, Urine Ketones Negative, Urine Occult Blood 10 H, Urine Nitrite Negative, Urine Bilirubin Negative, Urine Urobilinogen 1 H, Ur Leukocyte Esterase Negative, Urine RBC 0-5 SEEN, Urine WBC 0 SEEN, Ur Squamous Epith Cells 0 SEEN, Urine Bacteria 0 SEEN, Urine Mucus 0 SEEN 07/09/17 04:40: WBC 7.3, RBC 4.37 L, Hgb 13.2, Hct 41.3, MCV 94.5 H, MCH 30.2, MCHC 32.0, RDW 12.8, RDW Differential 43.8, Plt Count 214, MPV 10.0 07/09/17 04:40: Sodium 139, Potassium 3.5, Chloride 103, Carbon Dioxide 28.0, Anion Gap 8, BUN 10, Creatinine 0.99, Estim Creat Clear Calc 94.22, Est GFR ( MDRD) Af Amer 103, Est GFR (MDRD) Non-Af 85, BUN/Creatinine Ratio 10.1, Glucose 86, Calcium 8.4 L, Total Bilirubin 0.40, AST 19, ALT 24, Alkaline Phosphatase 36 L, Total Protein 7.0, Albumin 3.4, Globulin 3.6, Albumin/Globulin Ratio 0.9, Triglycerides 147, Cholesterol 205 H, LDL Cholesterol 143 H, VLDL Cholesterol 29 , HDL Cholesterol 33 L Code Visit Inpatient E&M: 71569 Subs Hosp L3
--- NOTE | 2017-07-09 13:23 | CON.PCM_ITS ---
Reason for Consult Date of Consultation: 07/09/17 Reason for Consultation: seizure History of Present Illness: The patient is a 46 year old M unable to give history, as below he apparently had a sz in the ED. currently stable in ICU, breathing room air, awakens to voice but unable to answer questions or follow commands. stable per rn anesthetist, no sz overnight. 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 In the ED patient noted initially to answer yes to every questions and was unable to follow any commands. In the ED NIH 8-->RN 13, difficult to assess secondary to not following commands. In the ED work-up included AF, HR 55-->78, BP 165/96, RR 13 , 99% on 2L NC, unremarkable CBC, normal coags, unremarkable BMP, normal trop x 1, CT brain w/ no acute evidence stroke, stable encephalomalacia R frontal area underlying remote aurea holes, stable fracture R orbit and facial bones with surgical fusion unchanged from prior study, CXR with atelectasis LUE otherwise unremarkable, CTA Head and Neck unremarkable. In the ED patient administered narcan secondary to concern for vicodin accidental overdose noted per son and keppra 1,000 IV load. While in the ED obtaining CT Head, patient was noted to have onset suspected generalized seizure activity lasting ~ 20 seconds. Patient with recent CVA Rere thus no TPA candidate. Neurology contacted upon his presentation and recommended given normal appearing CTA Head and Neck admission , pending UTox/EtOH levels, MRI brain without and without, EEG with planned evaluation in AM in addition to continued keppra 750 mg BID. Patient following start of Keppra load had repeat generalized seizure lasing 1 min 30 seconds, resolved following IV ativan in the ED. Neurology updated and requested continued plan of care. Past Medical History Past Medical History (Chronic Problems): Chronic Problems (This Medical Record has been edited. Action required.) CVA (cerebral vascular accident) (Chronic) 04/2017 right medial occipital lobe CVA Seizure disorder (Chronic) HTN (hypertension) (Chronic) HLD (hyperlipidemia) (Chronic) GERD (gastroesophageal reflux disease) (Chronic) Iron deficiency anemia (Chronic) Anxiety and depression (Chronic) Allergies Penicillins Allergy (Verified 07/08/17 21:32) Hives propoxyphene napsylate [From Darvocet-N] Allergy (Verified 07/08/17 21:32) Other hot flashes Home Medications: Ambulatory Orders Medication Instructions Recorded Aspirin [Aspirin, Baby] 81 mg PO DAILY@0800 10/17/13 Etodolac [Etodolac ER] 400 mg PO BID 10/17/13 Ferrous Sulfate [Iron Supplement] 345 mg PO DAILY 10/17/13 Multivit-Min/FA/Lycopene/Lut 1 each PO DAILY 10/17/13 [Centrum Silver Tablet] Omeprazole [Prilosec] 20 mg PO DAILY 10/17/13 Tamsulosin HCl [Flomax] 0.4 mg PO QHS 10/17/13 Neomycin Sulfate/Polymyxin/Hc 1 drop OPHTHALMIC 4X/DAY 10/23/15 [Otocort Soln] Sertraline HCl 50 mg PO DAILY 07/25/16 Docusate Sodium [Colace] 100 mg PO DAILY 04/27/17 Acetaminophen [Tylenol Extra 500 mg PO Q6H PRN 07/08/17 Strength] Atorvastatin Calcium [Lipitor] 20 mg PO QHS 07/08/17 Mineral Oil/Petrolatum,White 3.5 gm OP BID 07/08/17 [Lubricant Eye Ointment] [place]-3 Fatty Acids/Fish Oil [Fish 1 each PO BID 07/08/17 Oil 1,000 mg Capsule] Surgical History: - - Interval facial surgery as well as right eye surgery and bur hole status post head trauma as youth, left lower extremity surgery status post trauma as youth. Psychiatric History: Anxiety, Depression Lives: With Family Smoking Status: Former smoker Tobacco Use: Non-smoker Alcohol: None Drugs: None - *Family History Maternal History Items: Diabetes, Heart Disease Paternal History Items: - - from suicide. Review of Systems Unable to obtain accurate/complete ROS d/t: unobtainable due to ams Patient Problems: Active and Suspected Problems (This Medical Record has been edited. Action required.) Acute ischemic stroke (Acute) Seizure in response to acute event (Acute) Objective: right eye appears remote traumaleft eye normal symmetric grimace bilat spontaneous movemtns - Physical Exam Vital Signs Temp Pulse Resp BP Pulse Ox 37.7 C H 56 L 15 145/81 H 94 07/09/17 13:00 07/09/17 13:00 07/09/17 13:00 07/09/17 13:00 07/09/17 13:00 Oxygen Flow Rate (L/min) 2 Oxygen Delivery Method Room Air Weight: 88.4 kg Body Mass Index (BMI) 27.5 Intake and Output for Last 24 Hours 07/07/17 07/08/17 07/09/17 23:59 23:59 23:59 Intake Total 190 / 190 684 / 684 Output Total 800 / 800 225 / 225 Balance -610 / -610 459 / 459 Laboratory Tests Past 24 Hrs 07/08/17 07/08/17 07/08/17 20:18 21:40 21:55 WBC RBC Hgb Hct MCV MCH MCHC RDW RDW Differential Plt Count MPV Sodium Potassium Chloride Carbon Dioxide Anion Gap BUN Creatinine Estim Creat Clear Calc Est GFR (MDRD) Af Amer Est GFR (MDRD) Non-Af BUN/Creatinine Ratio Glucose Calcium Total Bilirubin AST ALT Alkaline Phosphatase Total Protein Albumin Globulin Albumin/Globulin Ratio Triglycerides Cholesterol LDL Cholesterol VLDL Cholesterol HDL Cholesterol Urine Color Yellow Urine Clarity Sl. Cloudy Urine pH 8.0 Ur Specific [place] 1.010 Urine Protein Negative Urine Glucose (UA) Normal Urine Ketones Negative Urine Occult Blood 10 H Urine Nitrite Negative Urine Bilirubin Negative Urine Urobilinogen 1 H Ur Leukocyte Esterase Negative Urine RBC 0-5 SEEN Urine WBC 0 SEEN Ur Squamous Epith Cells 0 SEEN Urine Bacteria 0 SEEN Urine Mucus 0 SEEN Urine Opiates Screen NEGATIVE Urine Methadone Screen NEGATIVE Ur Barbiturates Screen NEGATIVE Ur Phencyclidine Scrn NEGATIVE Ur Amphetamines Screen NEGATIVE U Methamphetamin-MDMA NEGATIVE U Benzodiazepines Scrn NEGATIVE Urine Cocaine Screen NEGATIVE U Cannabinoids Screen NEGATIVE Ur Drug Screen Comment MRSA (PCR) Negative 07/09/17 07/09/17 04:40 04:40 WBC 7.3 RBC 4.37 L Hgb 13.2 Hct 41.3 MCV 94.5 H MCH 30.2 MCHC 32.0 RDW 12.8 RDW Differential 43.8 Plt Count 214 MPV 10.0 Sodium 139 Potassium 3.5 Chloride 103 Carbon Dioxide 28.0 Anion Gap 8 BUN 10 Creatinine 0.99 Estim Creat Clear Calc 94.22 Est GFR (MDRD) Af Amer 103 Est GFR (MDRD) Non-Af 85 BUN/Creatinine Ratio 10.1 Glucose 86 Calcium 8.4 L Total Bilirubin 0.40 AST 19 ALT 24 Alkaline Phosphatase 36 L Total Protein 7.0 Albumin 3.4 Globulin 3.6 Albumin/Globulin Ratio 0.9 Triglycerides 147 Cholesterol 205 H LDL Cholesterol 143 H VLDL Cholesterol 29 HDL Cholesterol 33 L Urine Color Urine Clarity Urine pH Ur Specific [place] Urine Protein Urine Glucose (UA) Urine Ketones Urine Occult Blood Urine Nitrite Urine Bilirubin Urine Urobilinogen Ur Leukocyte Esterase Urine RBC Urine WBC Ur Squamous Epith Cells Urine Bacteria Urine Mucus Urine Opiates Screen Urine Methadone Screen Ur Barbiturates Screen Ur Phencyclidine Scrn Ur Amphetamines Screen U Methamphetamin-MDMA U Benzodiazepines Scrn Urine Cocaine Screen U Cannabinoids Screen Ur Drug Screen Comment MRSA (PCR) mri reviewed, subtle abnormal high signal left thalamus consistent with recent sz. Current Home Med List Medication Instructions Recorded Confirmed Type Aspirin [Aspirin, Baby] 81 mg PO DAILY@0800 10/17/13 07/08/17 History Etodolac [Etodolac ER] 400 mg PO BID 10/17/13 07/08/17 History Ferrous Sulfate [Iron Supplement] 345 mg PO DAILY 10/17/13 07/08/17 History Multivit-Min/FA/Lycopene/Lut 1 each PO DAILY 10/17/13 07/08/17 History [Centrum Silver Tablet] Omeprazole [Prilosec] 20 mg PO DAILY 10/17/13 07/08/17 History Tamsulosin HCl [Flomax] 0.4 mg PO QHS 10/17/13 07/08/17 History Neomycin Sulfate/Polymyxin/Hc 1 drop OPHTHALMIC 4X/DAY 10/23/15 07/08/17 History [Otocort Soln] Sertraline HCl 50 mg PO DAILY 07/25/16 07/08/17 History Docusate Sodium [Colace] 100 mg PO DAILY 04/27/17 07/08/17 History Acetaminophen [Tylenol Extra 500 mg PO Q6H PRN 07/08/17 07/08/17 History Strength] Atorvastatin Calcium [Lipitor] 20 mg PO QHS 07/08/17 07/08/17 History Mineral Oil/Petrolatum,White 3.5 gm OP BID 07/08/17 07/08/17 History [Lubricant Eye Ointment] [place]-3 Fatty Acids/Fish Oil [Fish 1 each PO BID 07/08/17 07/08/17 History Oil 1,000 mg Capsule] Current Medications Generic Name Dose Route Start Last Admin Trade Name Freq PRN Reason Stop Dose Admin Aspirin 300 mg 07/09/17 10:00 07/09/17 09:38 Aspirin RECTAL Not Given DAILY SABA Enoxaparin Sodium 40 mg 07/09/17 10:00 07/09/17 09:42 Lovenox SC 40 mg DAILY@1000 SABA Administration Sodium Chloride 1,000 mls @ 100 mls/hr 07/08/17 21:22 07/09/17 07:15 IV 100 mls/hr .Q10H SABA Administration Levetiracetam 750 mg/ N/A 150 mls @ 600 mls/hr 07/08/17 22:00 07/09/17 10:27 IV 600 mls/hr BID SABA Administration Famotidine 20 mg in 50 mls @ 150 mls/hr 07/08/17 22:00 07/09/17 09:42 Pepcid 20mg IV 150 mls/hr Q12 SABA Administration Sodium Chloride 250 mls @ 15 mls/hr 07/09/17 01:40 IV .[id number] PRN SALINE FLUSH Lorazepam 2 mg 07/08/17 21:22 Ativan PO Q2H PRN PRN CIWA score > 8 but <15 Protocol Lorazepam 2 mg 07/08/17 21:22 Ativan PO UD PRN CIWA score >/=15. Protocol Lorazepam 2 mg 07/08/17 21:22 Ativan IV Q2H PRN PRN CIWA score > 8 but <15 Protocol Lorazepam 2 mg 07/08/17 21:22 Ativan IV UD PRN CIWA score >/=15. Protocol Lorazepam 1 mg 07/08/17 21:22 Ativan IV Q4H PRN PRN PRN seizure Magnesium Hydroxide 30 ml 07/08/17 21:22 Milk Of Magnesia PO DAILY PRN PRN Constipation Neomycin/Polymyxin/Bacitracin 1 applic 07/08/17 22:45 07/09/17 04:43 Neosporin RIGHT EYE 1 applicatio Q6H SABA Administration Ondansetron HCl 4 mg 07/08/17 21:22 Zofran IV Q8H PRN PRN NAUSEA Promethazine HCl 12.5 mg 07/08/17 21:22 Phenergan (Ll) IV Q6H PRN PRN NAUSEA/VOMITING Sodium Chloride 5 - 30 ml 07/09/17 01:40 07/09/17 09:43 IV 10 ml UD PRN Administration SALINE FLUSH Assessment/Plan Active and Suspected Problems (This Medical Record has been edited. Action required.) Acute ischemic stroke (Acute) Seizure in response to acute event (Acute) 1. gtc, now postictal improving, continue keppra, change to po when able eeg when feasible, repeat mri next week to eval for resolution of left thalamic signal abnormalities 2. recent occip infarct s/ptpa: no evidence new stroke, continue bp control, statin , asa
[2017-07-10] VITALS (18 sets, daily range): BP systolic 121–163; BP diastolic 65–84; PULSE 48–66; RESP 12–20; TEMP 36.8–37.6; O2SAT 94–99
[2017-07-10] MEDS: 0.9% Normal Saline 1,000 ML 100 ML IV (05:10)
[2017-07-10] MEDS: Neomycin/Bacitracin/Polymyxin Opth. Ointment 1 APPLIC RIGHT EYE ×4 (05:12→22:02)
--- NOTE | 2017-07-10 08:26 | PCM.PN.HOSP ---
Patient Problems: Active and Suspected Problems (This Medical Record has been edited. Action required.) Acute ischemic stroke (Acute) Seizure in response to acute event (Acute) Subjective: The patient does not follow simple command. Opens eyes on verbal stimulation. utters incomprehensible sounds/words. No fever. HR 50-60s; sinus bradycardia Objective: General: Confused, Disoriented, Lethargic, - HEENT: Atraumatic, Normocephalic, Right eye cornea sloughs out with redness suggestive of conjunctivitis although conjunctivitis improving. 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 Left eye pupil is reactive. Old facial/head a scar from trauma at youth. Oral: Dry Mucosa Neck: Supple, No JVD, Negative Carotid Bruits Lungs: No rhonchi, No wheeze, No rales, Diminished Cardiovascular: Regular rate, Regular Rhythm, Normal S2, No murmurs, Bradycardic - Bradycardia, HR runs in 50s- 60s Abdomen: Bowel Sounds Present, Soft, Non Tender, Non-Distended, - - Macario catheter Extremities: No edema Musculoskeletal: - Neurological: - Complete neuro exam not possible as patient is not able to follow command. Patient awakes momentarily on verbal stimulus. Post icteric. Right Knee DTR 3/4 Vitals/I&O's: Vital Signs Temp Pulse Resp BP Pulse Ox 98.5 F 55 L 12 121/69 H 97 07/10/17 07:00 07/10/17 07:00 07/10/17 07:00 07/10/17 07:00 07/10/17 07:33 Oxygen Flow Rate (L/min) 2 Oxygen Delivery Method Room Air Weight: 197 lb 8.547 oz Body Mass Index (BMI) 27.5 Intake and Output for Last 24 Hours 07/08/17 07/09/17 07/10/17 23:59 23:59 23:59 Intake Total 190 / 190 1854 / 1854 1224 / 1224 Output Total 800 / 800 1025 / 1025 425 / 425 Balance -610 / -610 829 / 829 799 / 799 Current Medications Aspirin (Aspirin) 300 mg RECTAL DAILY [facility] Last Admin: 07/09/17 09:38 Dose: Not Given Enoxaparin Sodium (Lovenox) 40 mg SC DAILY@1000 [facility] Last Admin: 03/17/18 09:42 Dose: 40 mg Sodium Chloride () 1,000 mls @ 100 mls/hr IV .Q10H [facility] Last Admin: 07/10/17 05:10 Dose: 100 mls/hr Levetiracetam 750 mg/ N/A 150 mls @ 600 mls/hr IV BID [facility] Last Admin: 07/09/17 22:14 Dose: 600 mls/hr Famotidine (Pepcid 20mg) 20 mg in 50 mls @ 150 mls/hr IV Q12 [facility] Last Admin: 07/09/17 22:15 Dose: 150 mls/hr Sodium Chloride () 250 mls @ 15 mls/hr IV .[id number] PRN PRN Reason: SALINE FLUSH Lorazepam (Ativan) 2 mg PO Q2H PRN PRN; Protocol PRN Reason: CIWA score > 8 but <15 Lorazepam (Ativan) 2 mg PO UD PRN; Protocol PRN Reason: CIWA score >/=15. Lorazepam (Ativan) 2 mg IV Q2H PRN PRN; Protocol PRN Reason: CIWA score > 8 but <15 Lorazepam (Ativan) 2 mg IV UD PRN; Protocol PRN Reason: CIWA score >/=15. Lorazepam (Ativan) 1 mg IV Q4H PRN PRN PRN Reason: PRN seizure Magnesium Hydroxide (Milk Of Magnesia) 30 ml PO DAILY PRN PRN PRN Reason: Constipation Neomycin/Polymyxin/Bacitracin (Neosporin) 1 applic RIGHT EYE Q6H [facility] Last Admin: 07/10/17 05:12 Dose: 1 applicatio Ondansetron HCl (Zofran) 4 mg IV Q8H PRN PRN PRN Reason: NAUSEA Promethazine HCl (Phenergan (Ll)) 12.5 mg IV Q6H PRN PRN PRN Reason: NAUSEA/VOMITING Sodium Chloride () 5 - 30 ml IV UD PRN PRN Reason: SALINE FLUSH Last Admin: 07/09/17 09:43 Dose: 10 ml Medical Necessity - Tobacco Use Smoking Status: Former smoker Tobacco Use: Non-smoker Assessment/Plan Active and Suspected Problems (This Medical Record has been edited. Action required.) Acute ischemic stroke (Acute) Seizure in response to acute event (Acute) The 46-year-old gentleman with history of recent stroke was admitted for aphasia and seizure-like movement. He had recent acute right medial occipital lobe ischemic stroke with left-sided weakness in April 2017. Time is admitted with aphasia intermittent noted by the family talking irrelevant and incoherent. 1) right-sided weakness with aphasia; most likely related to postictal state after seizure. acute stroke ruled out. history of recent stroke in April 2017: Patient CT head and neck is unremarkable. Neuro consult. On stroke protocol with PT/OT/speech/nutrition evaluation. Neuro consult. On permissive hypertension, IV fluid, BP and glucose control as per stroke protocol. Fall prevention. Right brain MRI showed right frontal encephalomalacia changes and postoperative changes. No evidence of acute intracranial bleed, mass or ischemia. U tox is negative. Alcohol level is normal. Patient seems stable for transfer to PCU. 2). Generalized tonic-clonic seizure with history of epilepsy: Patient has history of seizure probably posttraumatic/stroke associated: Seen by neurologist and advised MRI brain after 1 week; he does not as outpatient. On Keppra and as needed IV Ativan. On seizure precaution. 3. Hypertension: Keep the BP in permissive range as per stroke protocol for 24 hours. Blood pressure is in normal range 4. Other comorbidities include anxiety and depression, GERD and dyslipidemia: Lipid profile shows LDL 143, total cholesterol 205 HDL 33. Will start on atorvastatin when speech clears for diet. Clinical Impression(s) from Imaging Studies Brain CT 07/08/17 17:02 IMPRESSION: 1. No evidence for acute intracranial process. Again seen is stable encephalomalacia in the right frontal area underlying remote aurea holes. 2. Stable fracture of the right orbit and facial bones with surgical fusion unchanged from prior study Chest X-Ray 07/08/17 17:05 IMPRESSION: Limited inspiration. Atelectasis versus infiltrate in the left upper lobe. The study is otherwise unremarkable Electronically Signed: Lalo Garza DO at 17:33 EDT Tel [phone], Service support , Head CTA 07/08/17 17:39 IMPRESSION: Normal [place] without a demonstrated aneurysm or hemodynamically significant stenosis. Electronically Signed: Lalo Garza DO at 18:17 EDT Tel [phone], Service support , Neck CTA 07/08/17 17:39 IMPRESSION: Normal bilateral cervical carotid and vertebral arteries. Electronically Signed: Lalo Garza, DO at 18:19 EDT Tel [phone], Service support , Brain MRI 07/08/17 21:22 IMPRESSION: 1. Right frontal encephalomalacia changes and postoperative changes as above. No evidence of acute intracranial bleed, mass or ischemia. Electronically Signed: David Husain, DO at 12:41 EDT , Service support , Laboratory Results 07/08/17 16:52: WBC 5.1, RBC 4.66, Hgb 14.1, Hct 43.9, MCV 94.2 H, MCH 30.3, MCHC 32.1, RDW 12.5, RDW Differential 42.2, Plt Count 246, MPV 10.6, Immature Gran % (Auto) 0.200, Neut % (Auto) 58.0, Lymph % (Auto) 26.7, [place] % (Auto) 11.1 H, Eos % (Auto) 3.6, Baso % (Auto) 0.4, Absolute Neuts (auto) 2.9, Absolute Lymphs (auto) 1.35, Total Counted Not Reportable 07/08/17 16:52: PT 13.0, INR 1.0, APTT 25.5 07/08/17 16:52: Sodium 139, Potassium 4.4, Chloride 103, Carbon Dioxide 31.0, Anion Gap 5, BUN 11, Creatinine 1.14, Estim Creat Clear Calc 81.82, Est GFR (MDRD) Af Amer 88, Est GFR (MDRD) Non-Af 73, BUN/Creatinine Ratio 9.6 L, Glucose 88, Calcium 9.2, Troponin I < 0.02 07/08/17 16:52: Ethyl Alcohol 5.0 07/08/17 16:52: Magnesium 1.9, Total Bilirubin 0.40, Direct Bilirubin 0.09, AST 22, ALT 27, Alkaline Phosphatase 40 L, Total Protein 7.8, Albumin 3.9, Globulin 3.9 03/16/18 16:52: Phosphorus 3.4 07/08/17 16:56: POC Glucose 90 07/08/17 20:18: Urine Opiates Screen NEGATIVE, Urine Methadone Screen NEGATIVE, Ur Barbiturates Screen NEGATIVE, Ur Phencyclidine Scrn NEGATIVE, Ur Amphetamines Screen NEGATIVE, U Methamphetamin-MDMA NEGATIVE, U Benzodiazepines Scrn NEGATIVE, Urine Cocaine Screen NEGATIVE, U Cannabinoids Screen NEGATIVE, Ur Drug Screen Comment 07/08/17 21:40: MRSA (PCR) Negative 07/08/17 21:55: Urine Color Yellow, Urine Clarity Sl. Cloudy, Urine pH 8.0, Ur Specific [place] 1.010, Urine Protein Negative, Urine Glucose (UA) Normal, Urine Ketones Negative, Urine Occult Blood 10 H, Urine Nitrite Negative, Urine Bilirubin Negative, Urine Urobilinogen 1 H, Ur Leukocyte Esterase Negative, Urine RBC 0-5 SEEN, Urine WBC 0 SEEN, Ur Squamous Epith Cells 0 SEEN, Urine Bacteria 0 SEEN, Urine Mucus 0 SEEN 07/09/17 04:40: WBC 7.3, RBC 4.37 L, Hgb 13.2, Hct 41.3, MCV 94.5 H, MCH 30.2, MCHC 32.0, RDW 12.8, RDW Differential 43.8, Plt Count 214, MPV 10.0 07/09/17 04:40: Sodium 139, Potassium 3.5, Chloride 103, Carbon Dioxide 28.0, Anion Gap 8, BUN 10, Creatinine 0.99, Estim Creat Clear Calc 94.22, Est GFR (MDRD) Af Amer 103, Est GFR (MDRD) Non-Af 85, BUN/Creatinine Ratio 10.1, Glucose 86, Calcium 8.4 L, Total Bilirubin 0.40, AST 19, ALT 24, Alkaline Phosphatase 36 L, Total Protein 7.0, Albumin 3.4, Globulin 3.6, Albumin/Globulin Ratio 0.9, Triglycerides 147, Cholesterol 205 H, LDL Cholesterol 143 H, VLDL Cholesterol 29, HDL Cholesterol 33 L Code Visit Inpatient E&M: 03576 Subs Hosp L3
--- NOTE | 2017-07-10 08:45 | PN_ITS ---
Patient Problems: Active and Suspected Problems (This Medical Record has been edited. Action required.) Acute ischemic stroke (Acute) Seizure in response to acute event (Acute) Subjective: The patient does not follow simple command. Opens eyes on verbal stimulation. utters incomprehensible sounds/words. No fever. HR 50-60s; sinus bradycardia Objective: General: Confused, Disoriented, Lethargic, - HEENT: Atraumatic, Normocephalic, Right eye cornea sloughs out with redness suggestive of conjunctivitis although conjunctivitis improving. 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 Left eye pupil is reactive. Old facial /head a scar from trauma at youth. Oral: Dry Mucosa Neck: Supple, No JVD, Negative Carotid Bruits Lungs: No rhonchi, No wheeze, No rales, Diminished Cardiovascular: Regular rate, Regular Rhythm, Normal S2, No murmurs, Bradycardic - Bradycardia, HR runs in 50s- 60s Abdomen: Bowel Sounds Present, Soft, Non Tender, Non-Distended, - - Macario catheter Extremities: No edema Musculoskeletal: - Neurological: - Complete neuro exam not possible as patient is not able to follow command. Patient awakes momentarily on verbal stimulus. Post icteric. Right Knee DTR 3/4 Vitals/I&O's: Vital Signs Temp Pulse Resp BP Pulse Ox 98.5 F 55 L 12 121/69 H 97 07/10/17 07:00 07/10/17 07:00 07/10/17 07:00 07/10/17 07:00 07/10/17 07:33 Oxygen Flow Rate (L/min) 2 Oxygen Delivery Method Room Air Weight: 197 lb 8.547 oz Body Mass Index (BMI) 27.5 Intake and Output for Last 24 Hours 07/08/17 07/09/17 07/10/17 23:59 23:59 23:59 Intake Total 190 / 190 1854 / 1854 1224 / 1224 Output Total 800 / 800 1025 / 1025 425 / 425 Balance -610 / -610 829 / 829 799 / 799 Current Medications Aspirin (Aspirin) 300 mg RECTAL DAILY [facility] Last Admin: 07/09/17 09:38 Dose: Not Given Enoxaparin Sodium (Lovenox) 40 mg SC DAILY@1000 [facility] Last Admin: 03/17/18 09:42 Dose: 40 mg Sodium Chloride () 1,000 mls @ 100 mls/hr IV .Q10H [facility] Last Admin: 07/10/17 05:10 Dose: 100 mls/hr Levetiracetam 750 mg/ N/A 150 mls @ 600 mls/hr IV BID [facility] Last Admin: 07/09/17 22:14 Dose: 600 mls/hr Famotidine (Pepcid 20mg) 20 mg in 50 mls @ 150 mls/hr IV Q12 [facility] Last Admin: 07/09/17 22:15 Dose: 150 mls/hr Sodium Chloride () 250 mls @ 15 mls/hr IV .[id number] PRN PRN Reason: SALINE FLUSH Lorazepam (Ativan) 2 mg PO Q2H PRN PRN; Protocol PRN Reason: CIWA score > 8 but <15 Lorazepam (Ativan) 2 mg PO UD PRN; Protocol PRN Reason: CIWA score >/=15. Lorazepam (Ativan) 2 mg IV Q2H PRN PRN; Protocol PRN Reason: CIWA score > 8 but <15 Lorazepam (Ativan) 2 mg IV UD PRN; Protocol PRN Reason: CIWA score >/=15. Lorazepam (Ativan) 1 mg IV Q4H PRN PRN PRN Reason: PRN seizure Magnesium Hydroxide (Milk Of Magnesia) 30 ml PO DAILY PRN PRN PRN Reason: Constipation Neomycin/Polymyxin/Bacitracin (Neosporin) 1 applic RIGHT EYE Q6H [facility] Last Admin: 07/10/17 05:12 Dose: 1 applicatio Ondansetron HCl (Zofran) 4 mg IV Q8H PRN PRN PRN Reason: NAUSEA Promethazine HCl (Phenergan (Ll)) 12.5 mg IV Q6H PRN PRN PRN Reason: NAUSEA/VOMITING Sodium Chloride () 5 - 30 ml IV UD PRN PRN Reason: SALINE FLUSH Last Admin: 07/09/17 09:43 Dose: 10 ml Medical Necessity - Tobacco Use Smoking Status: Former smoker Tobacco Use: Non-smoker Assessment/Plan Active and Suspected Problems (This Medical Record has been edited. Action required.) Acute ischemic stroke (Acute) Seizure in response to acute event (Acute) The 46-year-old gentleman with history of recent stroke was admitted for aphasia and seizure-like movement. He had recent acute right medial occipital lobe ischemic stroke with left-sided weakness in April 2017. Time is admitted with aphasia intermittent noted by the family talking irrelevant and incoherent. 1) right-sided weakness with aphasia; most likely related to postictal state after seizure. acute stroke ruled out. history of recent stroke in April 2017 : Patient CT head and neck is unremarkable. Neuro consult. On stroke protocol with PT/OT/speech/nutrition evaluation. Neuro consult. On permissive hypertension, IV fluid, BP and glucose control as per stroke protocol. Fall prevention. Right brain MRI showed right frontal encephalomalacia changes and postoperative changes. No evidence of acute intracranial bleed, mass or ischemia. U tox is negative. Alcohol level is normal. Patient seems stable for transfer to PCU. 2). Generalized tonic-clonic seizure with history of epilepsy: Patient has history of seizure probably posttraumatic/stroke associated: Seen by neurologist and advised MRI brain after 1 week; he does not as outpatient. On Keppra and as needed IV Ativan. On seizure precaution. 3. Hypertension: Keep the BP in permissive range as per stroke protocol for 24 hours. Blood pressure is in normal range 4. Other comorbidities include anxiety and depression, GERD and dyslipidemia: Lipid profile shows LDL 143, total cholesterol 205 HDL 33. Will start on atorvastatin when speech clears for diet. Clinical Impression(s) from Imaging Studies Brain CT 07/08/17 17:02 IMPRESSION: 1. No evidence for acute intracranial process. Again seen is stable encephalomalacia in the right frontal area underlying remote aurea holes. 2. Stable fracture of the right orbit and facial bones with surgical fusion unchanged from prior study Chest X-Ray 07/08/17 17:05 IMPRESSION: Limited inspiration. Atelectasis versus infiltrate in the left upper lobe. The study is otherwise unremarkable Electronically Signed: Lalo Garza DO at 17:33 EDT Tel [phone], Service support , Head CTA 07/08/17 17:39 IMPRESSION: Normal [place] [facility] [place] [facility] [place] without a demonstrated aneurysm or hemodynamically significant stenosis. Electronically Signed: Lalo Garza DO at 18:17 EDT Tel [phone], Service support , Neck CTA 07/08/17 17:39 IMPRESSION: Normal bilateral cervical carotid and vertebral arteries. Electronically Signed: Lalo Garza, DO at 18:19 EDT Tel [phone], Service support , Brain MRI 07/08/17 21:22 IMPRESSION: 1. Right frontal encephalomalacia changes and postoperative changes as above. No evidence of acute intracranial bleed, mass or ischemia. Electronically Signed: David Husain, DO at 12:41 EDT , Service support , Laboratory Results 07/08/17 16:52: WBC 5.1, RBC 4.66, Hgb 14.1, Hct 43.9, MCV 94.2 H, MCH 30.3, MCHC 32.1, RDW 12.5, RDW Differential 42.2, Plt Count 246, MPV 10.6, Immature Gran % (Auto) 0.200, Neut % (Auto) 58.0, Lymph % (Auto) 26.7, [place] % (Auto) 11.1 H, Eos % (Auto) 3.6, Baso % (Auto) 0.4, Absolute Neuts (auto) 2.9, Absolute Lymphs (auto) 1.35, Total Counted Not Reportable 07/08/17 16:52: PT 13.0, INR 1.0, APTT 25.5 07/08/17 16:52: Sodium 139, Potassium 4.4, Chloride 103, Carbon Dioxide 31.0, Anion Gap 5, BUN 11, Creatinine 1.14, Estim Creat Clear Calc 81.82, Est GFR ( MDRD) Af Amer 88, Est GFR (MDRD) Non-Af 73, BUN/Creatinine Ratio 9.6 L, Glucose 88, Calcium 9.2, Troponin I < 0.02 07/08/17 16:52: Ethyl Alcohol 5.0 07/08/17 16:52: Magnesium 1.9, Total Bilirubin 0.40, Direct Bilirubin 0.09, AST 22, ALT 27, Alkaline Phosphatase 40 L, Total Protein 7.8, Albumin 3.9, Globulin 3.9 03/16/18 16:52: Phosphorus 3.4 07/08/17 16:56: POC Glucose 90 07/08/17 20:18: Urine Opiates Screen NEGATIVE, Urine Methadone Screen NEGATIVE, Ur Barbiturates Screen NEGATIVE, Ur Phencyclidine Scrn NEGATIVE, Ur Amphetamines Screen NEGATIVE, U Methamphetamin-MDMA NEGATIVE, U Benzodiazepines Scrn NEGATIVE, Urine Cocaine Screen NEGATIVE, U Cannabinoids Screen NEGATIVE, Ur Drug Screen Comment 07/08/17 21:40: MRSA (PCR) Negative 07/08/17 21:55: Urine Color Yellow, Urine Clarity Sl. Cloudy, Urine pH 8.0, Ur Specific [place] 1.010, Urine Protein Negative, Urine Glucose (UA) Normal, Urine Ketones Negative, Urine Occult Blood 10 H, Urine Nitrite Negative, Urine Bilirubin Negative, Urine Urobilinogen 1 H, Ur Leukocyte Esterase Negative, Urine RBC 0-5 SEEN, Urine WBC 0 SEEN, Ur Squamous Epith Cells 0 SEEN, Urine Bacteria 0 SEEN, Urine Mucus 0 SEEN 07/09/17 04:40: WBC 7.3, RBC 4.37 L, Hgb 13.2, Hct 41.3, MCV 94.5 H, MCH 30.2, MCHC 32.0, RDW 12.8, RDW Differential 43.8, Plt Count 214, MPV 10.0 07/09/17 04:40: Sodium 139, Potassium 3.5, Chloride 103, Carbon Dioxide 28.0, Anion Gap 8, BUN 10, Creatinine 0.99, Estim Creat Clear Calc 94.22, Est GFR ( MDRD) Af Amer 103, Est GFR (MDRD) Non-Af 85, BUN/Creatinine Ratio 10.1, Glucose 86, Calcium 8.4 L, Total Bilirubin 0.40, AST 19, ALT 24, Alkaline Phosphatase 36 L, Total Protein 7.0, Albumin 3.4, Globulin 3.6, Albumin/Globulin Ratio 0.9, Triglycerides 147, Cholesterol 205 H, LDL Cholesterol 143 H, VLDL Cholesterol 29 , HDL Cholesterol 33 L Code Visit Inpatient E&M: 92745 Subs Hosp L3
[2017-07-10] MEDS: Enoxaparin 40 MG/0.4 ML Syringe SC (10:02)
[2017-07-10] MEDS: Aspirin 300 MG Suppository RECTAL (10:28)
[2017-07-10] MEDS: Ondansetron 4 MG/2 ML Vial IV ×2 (10:50→18:09)
--- NOTE | 2017-07-10 20:05 | RAD_ITS ---
STUDY: X-RAY - ABDOMEN/PELVIS REASON FOR EXAM: Male, 46 years old. Abdominal distention. TECHNIQUE: AP supine and decubitus views of the abdomen and pelvis. COMPARISON: None. FINDINGS: Normal visualized lung bases. IVC filter in place showing normal orientation. Mobile gallstones are noted. There is an unremarkable bowel gas pattern. There is no demonstrated free abdominal air. The visualized liver, spleen and kidneys are grossly normal in size and morphology. Normal soft tissue structures. Normal visualized osseous structures. RAD/Abd Decub and/or Erect(Portabl IMPRESSION: 1. No evidence of air-fluid levels or dilatation to suggest ileus versus obstruction. 2. Multiple gallstones. 3. IVC filter showing normal orientation. Electronically Signed: David Husain DO at 20:38 EDT , Service support ,
[2017-07-11] VITALS (10 sets, daily range): BP systolic 134–149; BP diastolic 79–88; PULSE 46–84; RESP 8–18; TEMP 37–37.7; O2SAT 94–98
[2017-07-11 05:00] LABS: Basophil# 0.02 X10^3/uL; Basophil% 0.4 % (0-1); Eosinophil# 0.18 X10^3/uL; Eosinophils% 3.6 % (0-5); Hematocrit 39.4 % (40-54); Hemoglobin 12.8 g/dl (13.0-16.5); Lymphocyte % 22.3 % (19-41); Mean Corp Hgb Conc 32.5 g/gl (32-36); Mean Corpuscular Hgb 30.2 pg (27.0-32.0); Mean Corpuscular Volume 92.9 fL (80-94); Mean Platelet Vol. 10.4 fl (6.2-12.0); Monocyte# 0.68 X10^3/uL; Monocyte% 13.8 % (0-10); Neutrophil # 2.95 X10^3/uL (2.7-7.7); Neutrophil % 59.7 % (47-70); Platelet Count 203 K/mm3 (150-450); RBC Distribution Width CV 12.2 % (11.6-14.6); RBC Distribution Width SD 40.6 fl (35.1-43.9); Red Blood Count 4.24 M/mm3 (4.6-6.2); White Blood Count 4.9 K/mm3 (4.4-11.0)
[2017-07-11 05:05] LABS: POSITIVE COUNT NO; POSITIVE DIFFERENTIAL NO; POSITIVE MORPHOLOGY NO
[2017-07-11] MEDS: Neomycin/Bacitracin/Polymyxin Opth. Ointment 1 APPLIC RIGHT EYE ×3 (05:20→22:30)
[2017-07-11 05:22] LABS: Anion Gap 9 (5-15); BUN 8 mg/dL (7-18); BUN/Creat Ratio 9.6 RATIO (10-20); CPK Total, Creatine Kinase 108 U/L (39-308); Calcium,Total 8.4 mg/dL (8.5-10.1); Chloride 103 mmol/L (98-107); Creatinine, Serum 0.83 mg/dL (0.70-1.30); EST Glomerular Filtration Rate 105 mL/min (>60); Est Glom Filt Rate - Afr Amer 127 mL/min (>60); Estimated Creatinine Clearance 112.38 ml/min; Glucose 98 mg/dL (74-106); Potassium 3.7 mmol/L (3.5-5.1); Sodium Level 138 mmol/L (136-145)
[2017-07-11] MEDS: Enoxaparin 40 MG/0.4 ML Syringe SC (10:28)
--- NOTE | 2017-07-11 10:42 | MRI_ITS ---
STUDY: MRI BRAIN WITHOUT CONTRAST REASON FOR EXAM: Male, 46 years old. Status post seizure with abnormal thalamic signal undergoing bilateral-up examination. TECHNIQUE: Standardized multiplanar fat and water weighted pulse sequences were obtained. COMPARISON: MRI BRAIN-July 09, 2017 FINDINGS: Normal size of the ventricles and extra-axial spaces for the patient's age. There is re-demonstration of an area of encephalomalacia of the middle frontal gyrus of the right frontal lobe with minimal surrounding white matter gliosis (axial T2 series 6, image 18; axial T2 FLAIR series 7, image 18). There are a limited number of small white matter hyperintensities, distributed throughout the deep white matter tracts of the cerebral hemispheres, consistent with mild chronic white matter ischemic changes. There is no evidence for recent intracranial ischemia or other cause of cytotoxic edema on diffusion weighted imaging (DWI). Normal T2* images of the brain without demonstrated susceptibility artifact. There is no demonstrated hemosiderin stain. There are prominent perivascular spaces (PVS) involving the basal ganglia. There is mild prominence of the pulvinar of the left thalamus (axial T2 series 8, image 12), with minimal increased signal in the DWI images (axial DWI series 5, image 14), with normal signal on the ADC map (axial series 500 image 14). This finding is stable and unchanged as compared the prior examination of July 09, 2017. There is otherwise no enhancement T1 postcontrast images. There is no extra-axial fluid accumulation. Normal flow voids within the major intracranial circulation suggesting patency by spin echo criteria. Normal sella turcica, pituitary gland, infundibular stalk, optic chiasm and hypothalamus. Normal tectal plate and pineal gland. Normal midbrain, paul and medulla. Normal cerebellum. Normal basal cisterns. Normal bilateral temporal bones. Normal bilateral internal auditory canals. No demonstrated orbital abnormality, within the constraints of a routine brain study. Again noted are postsurgical changes with surgical plating involving the right maxilla and right zygomatic temporal arch (axial T2 series 6, image 5). Normal visualized soft tissue structures. Normal visualized upper cervical spine. MRI/Brain without Contrast IMPRESSION: 1. Mild stable asymmetric prominence of the pulvinar of the right thalamus, unchanged compared to the prior examination of July 09, 2017. 2. Encephalomalacia with surrounding white matter gliosis of the right frontal lobe. 3. No acute or evolving process. 4. Postsurgical changes the right maxilla and right zygomatic temporal arch. Electronically Signed: Jeronimo Barnett DO at 13:45 EDT Tel , Service support ,
--- NOTE | 2017-07-11 10:42 | PN.NEURO_ITS ---
Patient Problems: Active and Suspected Problems (This Medical Record has been edited. Action required.) Acute ischemic stroke (Acute) Seizure in response to acute event (Acute) Subjective: pt remains nonverbal, follows simple commands Objective: exam improved no facial asymmetry moves bilat upper and lower ext to command squeezes and releases to command mute - Physical Exam Vital Signs Temp Pulse Resp BP Pulse Ox 37.1 C 47 L 8 L 138/81 H 98 07/11/17 08:00 07/11/17 08:00 07/11/17 08:00 07/11/17 08:00 07/11/17 08:00 Oxygen Flow Rate (L/min) 2 Oxygen Delivery Method Room Air Weight: 88.6 kg Body Mass Index (BMI) 27.5 Intake and Output for Last 24 Hours 07/09/17 07/10/17 07/11/17 23:59 23:59 23:59 Intake Total 1854 / 1854 2003 / 2003 930 / 930 Output Total 1025 / 1025 725 / 725 1625 / 1625 Balance 829 / 829 1279 / 1279 -695 / -695 Laboratory Tests Past 24 Hrs 07/11/17 07/11/17 04:50 04:50 WBC 4.9 RBC 4.24 L Hgb 12.8 L Hct 39.4 L MCV 92.9 MCH 30.2 MCHC 32.5 RDW 12.2 RDW Differential 40.6 Plt Count 203 MPV 10.4 Immature Gran % (Auto) 0.200 Neut % (Auto) 59.7 Lymph % (Auto) 22.3 [place] % (Auto) 13.8 H Eos % (Auto) 3.6 Baso % (Auto) 0.4 Absolute Neuts (auto) 3.0 Absolute Lymphs (auto) 1.10 Total Counted Not Reportable Sodium 138 Potassium 3.7 Chloride 103 Carbon Dioxide 26.0 Anion Gap 9 BUN 8 Creatinine 0.83 Estim Creat Clear Calc 112.38 Est GFR (MDRD) Af Amer 127 Est GFR (MDRD) Non-Af 105 BUN/Creatinine Ratio 9.6 L Glucose 98 Calcium 8.4 L Total Creatine Kinase 108 Current Medications Generic Name Dose Route Start Last Admin Trade Name Freq PRN Reason Stop Dose Admin Aspirin 300 mg 07/09/17 10:00 07/10/17 10:28 Aspirin RECTAL 300 mg DAILY [facility] Administration Enoxaparin Sodium 40 mg 07/09/17 10:00 07/11/17 10:28 Lovenox SC 40 mg DAILY@1000 [facility] Administration Levetiracetam 750 mg/ N/A 150 mls @ 600 mls/hr 07/08/17 22:00 07/10/17 22:02 IV 600 mls/hr BID [facility] Administration Famotidine 20 mg in 50 mls @ 150 mls/hr 07/08/17 22:00 07/11/17 10:21 Pepcid 20mg IV 150 mls/hr Q12 [facility] Administration Sodium Chloride 250 mls @ 15 mls/hr 07/09/17 01:40 IV .[id number] PRN SALINE FLUSH Potassium Chloride 20 meq/ 1,010 mls @ 75 mls/hr 07/10/17 12:00 07/11/17 05: 20 Dextrose/Sodium Chloride IV 75 mls/hr .[id number] [facility] Administration Lorazepam 2 mg 07/08/17 21:22 Ativan PO Q2H PRN PRN CIWA score > 8 but <15 Protocol Lorazepam 2 mg 07/08/17 21:22 Ativan PO UD PRN CIWA score >/=15. Protocol Lorazepam 2 mg 07/08/17 21:22 Ativan IV Q2H PRN PRN CIWA score > 8 but <15 Protocol Lorazepam 2 mg 07/08/17 21:22 Ativan IV UD PRN CIWA score >/=15. Protocol Lorazepam 1 mg 07/08/17 21:22 Ativan IV Q4H PRN PRN PRN seizure Magnesium Hydroxide 30 ml 07/08/17 21:22 Milk Of Magnesia PO DAILY PRN PRN Constipation Neomycin/Polymyxin/Bacitracin 1 applic 07/08/17 22:45 07/11/17 05:20 Neosporin RIGHT EYE 1 applicatio Q6H [facility] Administration Ondansetron HCl 4 mg 07/10/17 10:48 07/10/17 18:09 Zofran IV 4 mg Q4H PRN PRN Administration NAUSEA/VOMITING Promethazine HCl 12.5 mg 07/08/17 21:22 Phenergan (Ll) IV Q6H PRN PRN NAUSEA/VOMITING Sodium Chloride 5 - 30 ml 07/09/17 01:40 07/09/17 09:43 IV 10 ml UD PRN Administration SALINE FLUSH Medical Necessity - Tobacco Use Smoking Status: Former smoker Tobacco Use: Non-smoker Assessment/Plan Active and Suspected Problems (This Medical Record has been edited. Action required.) Acute ischemic stroke (Acute) Seizure in response to acute event (Acute) 1. gtc, now postictal continues to improve, continue keppra, change to po when able repeat mri to eval for resolution of left thalamic signal abnormalities 2. recent occip infarct s/ptpa: no evidence new stroke, continue bp control, statin , asa
[2017-07-11] MEDS: Aspirin 300 MG Suppository RECTAL (11:01)
--- NOTE | 2017-07-11 11:42 | EEG ---
- Electroencephalogram Date of service 07/09/17 This is an 18 channel EEG performed with EKG reference leads, and photic stimulation utilizing the international 1020 electrode placement protocol on this 46-year-old male with a witnessed seizure. Background activity is slow at 5-6 Hz symmetrically. There are intermittent at times continuous left temporal sharp waves focused around the T3 electrode. Stimulation generates a normal symmetric driving response in the posterior leads. EKG rhythm recording is normal sinus rhythm throughout. Impression: This is an abnormal electroencephalogram due to the presence of left temporal sharp waves frequently, this is a epileptiform focus.
--- NOTE | 2017-07-11 17:38 | PCM.PROGNOTE ---
Patient Problems: Active and Suspected Problems (This Medical Record has been edited. Action required.) Acute ischemic stroke (Acute) Seizure in response to acute event (Acute) Subjective: Patient was seen and examined today, he would not respond verbally to any questions and did not follow any commands. EEG showed an epileptic focus, patient is still n.p.o. and is getting IV fluids and IV seizure medications. Patient is probably still post ictal, if he is unable to eat tomorrow I will have to address his nutritional needs. Speech therapy is seeing the patient - Physical Exam General: Alert, Well developed, - - Patient is nonverbal, does not follow commands HEENT: Normocephalic Oral: Moist Mucosa Neck: Supple, No JVD, No Nuchal Rigidity, Trachea Midline, Thyroid Normal Size and Texture Lungs: Clear to auscultation, Normal air movement, No rhonchi, No wheeze, No rales Cardiovascular: Regular rate, Regular Rhythm, Normal S1, Normal S2, No murmurs, No Ectopic Activity, PMI Normal, No rub noted, No Gallop Abdomen: Bowel Sounds Present, Soft, Non Tender, Non-Distended, No hernias noted Extremities: No clubbing, No cyanosis, No edema Skin: No rashes, No breakdown Neurological: Cranial nerves II-XII grossly intact, Neuro grossly intact Psych/Mental Status: Flat Affect, - - he is alert but does not respond to verbal stimuli Vital Signs Temp Pulse Resp BP Pulse Ox 98.6 F 62 17 149/79 H 98 07/11/17 14:14 07/11/17 16:00 07/11/17 14:14 07/11/17 14:14 07/11/17 14:14 Oxygen Flow Rate (L/min) 2 Oxygen Delivery Method Room Air Weight: 88.6 kg Body Mass Index (BMI) 27.5 Intake and Output for Last 24 Hours 07/09/17 07/10/17 07/11/17 23:59 23:59 23:59 Intake Total 1854 / 1854 2003 1420 / 1420 Output Total 1025 / 1025 725 / 725 2425 / 2425 Balance 829 / 829 1279 / 1279 -1005 / -1005 Laboratory Tests Past 24 Hrs 07/11/17 07/11/17 04:50 04:50 WBC 4.9 RBC 4.24 L Hgb 12.8 L Hct 39.4 L MCV 92.9 MCH 30.2 MCHC 32.5 RDW 12.2 RDW Differential 40.6 Plt Count 203 MPV 10.4 Immature Gran % (Auto) 0.200 Neut % (Auto) 59.7 Lymph % (Auto) 22.3 [place] % (Auto) 13.8 H Eos % (Auto) 3.6 Baso % (Auto) 0.4 Absolute Neuts (auto) 3.0 Absolute Lymphs (auto) 1.10 Total Counted Not Reportable Sodium 138 Potassium 3.7 Chloride 103 Carbon Dioxide 26.0 Anion Gap 9 BUN 8 Creatinine 0.83 Estim Creat Clear Calc 112.38 Est GFR (MDRD) Af Amer 127 Est GFR (MDRD) Non-Af 105 BUN/Creatinine Ratio 9.6 L Glucose 98 Calcium 8.4 L Total Creatine Kinase 108 Medical Necessity - Tobacco Use Smoking Status: Former smoker Tobacco Use: Non-smoker Assessment/Plan Active and Suspected Problems (This Medical Record has been edited. Action required.) Acute ischemic stroke (Acute) Seizure in response to acute event (Acute) #1 generalized clonic tonic seizure-patient appears postictal at this time, neurology is following the patient, he is getting IV antiseizure medications #2 cerebrovascular disease-no acute CVA noted #3 generalized debility-PT and OT will continue to work with patient as well as speech therapy, patient still appears to be postictal at this time Code Visit Inpatient E&M: [id number] Subs Hosp L2
[2017-07-11] MEDS: LORazepam 2 MG/ML Syringe 1 MG IV (22:30)
[2017-07-11] MEDS: 0.9% NaCl Peripheral Flush Adult/Peds IV (22:31)
[2017-07-12] VITALS (16 sets, daily range): BP systolic 109–136; BP diastolic 77–90; PULSE 56–78; RESP 12–18; TEMP 36.7–37.2; O2SAT 94–100
[2017-07-12] MEDS: 0.9% NaCl Peripheral Flush Adult/Peds IV ×3 (01:37→23:18)
[2017-07-12] MEDS: Haloperidol Lactate 5 MG/ML Vial IV ×2 (01:37→23:18)
[2017-07-12] MEDS: Neomycin/Bacitracin/Polymyxin Opth. Ointment 1 APPLIC RIGHT EYE ×4 (05:13→21:58)
[2017-07-12] MEDS: Enoxaparin 40 MG/0.4 ML Syringe SC (09:13)
[2017-07-12] MEDS: Aspirin 300 MG Suppository RECTAL (09:18)
--- NOTE | 2017-07-12 11:14 | NURSING ---
EEG in progress
--- NOTE | 2017-07-12 11:52 | PN.NEURO_ITS ---
Patient Problems: Active and Suspected Problems (This Medical Record has been edited. Action required.) Acute ischemic stroke (Acute) Seizure in response to acute event (Acute) Subjective: Patient somewhat more responsive today than yesterday, he does respond to verbal stimuli although briefly. staff weapons officer had noted similar. Objective: Neuro exam stable, moves all extremities spontaneously, - Physical Exam Vital Signs Temp Pulse Resp BP Pulse Ox 37.1 C 67 13 119/86 H 94 07/12/17 10:52 07/12/17 10:52 07/12/17 10:52 07/12/17 10:52 07/12/17 10:52 Oxygen Flow Rate (L/min) 2 Oxygen Delivery Method Room Air Weight: 88.5 kg Body Mass Index (BMI) 27.5 Intake and Output for Last 24 Hours 07/10/17 07/11/17 07/12/17 23:59 23:59 23:59 Intake Total 2003 3642 / 3642 515 / 515 Output Total 725 / 725 3625 / 3625 300 / 300 Balance 1279 / 1279 215 / 215 eeg reviewed, continues to have intermittent left temporo-occip sharp waves, improved compared to previous Medical Necessity - Tobacco Use Smoking Status: Former smoker Tobacco Use: Non-smoker Assessment/Plan Active and Suspected Problems (This Medical Record has been edited. Action required.) Acute ischemic stroke (Acute) Seizure in response to acute event (Acute) 1. gtc, now postictal. eeg improved continues to improve, continue keppra, change to po when able repeat mri to eval for resolution of left thalamic signal abnormalities: reviewed, stable, will need outpt f/u mri in 3 months 2. recent occip infarct s/ptpa: no evidence new stroke, continue bp control, statin , asa
--- NOTE | 2017-07-12 11:53 | EEG ---
- Electroencephalogram Date of service 07/12/17 18 channel bedside electroencephalogram is performed utilizing the International 10-20 electrode placement protocol on this 46-year-old male with a history of seizures. EEG is performed to evaluate for improvement of epileptiform changes after anticonvulsant therapy. Photic stimulation and EKG reference leads were placed, hyperventilation was not performed. Background activity remains low at 5-7 Hz symmetrically throughout the recording. There are intermittent low amplitude left temporal parietal sharp waves noted throughout the recording however these are much less frequent compared to the previous recording. No seizures are noted. Impression: Abnormal EEG due to the presence of diffuse moderate slowing as well as intermittent epileptiform changes, improved compared to previous electroencephalogram.
--- NOTE | 2017-07-12 13:26 | CASEMGMT ---
JABARI called patient's sister and left her a voice mail inquiring if she has a contact number to patient's son Justin. JABARI also called patient's mom's number leaving her a voice mail requesting the same. JABARI also called Geri in TCU who is covering for Alla in the rehab unit. JABARI left her a voice mail asking if she could talk with Dr Becker about patient going to the rehab unit. Mirian SARAVIA MSW
--- NOTE | 2017-07-12 13:30 | NURSING ---
Seen by speech therapy.
--- NOTE | 2017-07-12 14:24 | CASEMGMT ---
JABARI received a call from patient's sister, Jessie. She said Justin's phone number is [phone]. Mirian SARAVIA MSW
--- NOTE | 2017-07-12 14:56 | CASEMGMT ---
SW called patient's son Justin. SW spoke to him about d/c planning. He put SW on speaker phone so his grandma (patient's mom) could participate in conversation. They are okay with patient going to a [facility] short term if needed. He said the only thing is, it would have to be in [facility]. He mentioned patient has been to [facility] in the past. He also mentioned [facility] okay. JABARI told him that SW will follow and assist with d/c planning. Mirian SARAVIA MSW
--- NOTE | 2017-07-12 15:42 | CASEMGMT ---
JABARI called [facility] with referral as well as faxed referral. SW to follow for d/c planning. Mirian SARAVIA MSW
--- NOTE | 2017-07-12 16:25 | PCM.PROGNOTE ---
Patient Problems: Active and Suspected Problems (This Medical Record has been edited. Action required.) Acute ischemic stroke (Acute) Seizure in response to acute event (Acute) Subjective: Patient was seen and examined today, he is still not responding to verbal stimuli at the time of my examination early in the morning however, patient did become more responsive later on today. EEG was repeated today and showed generalized slowing with intermittent periods of epileptiform foci - Physical Exam General: Alert, No apparent distress, Well developed HEENT: Normocephalic Oral: Moist Mucosa Neck: Supple, No JVD, No Nuchal Rigidity, Trachea Midline, Thyroid Normal Size and Texture Lungs: Clear to auscultation, Normal air movement, No rhonchi, No wheeze, No rales Cardiovascular: Regular rate, Regular Rhythm, Normal S1, Normal S2, No murmurs, No Ectopic Activity Abdomen: Bowel Sounds Present, Soft, Non Tender, Non-Distended, No Hepato-splenomegaly, No hernias noted Extremities: No clubbing, No cyanosis, No edema Skin: No rashes, No breakdown Neurological: Cranial nerves II-XII grossly intact Psych/Mental Status: Flat Affect, - - Patient is alert but does not respond to verbal stimuli Vital Signs Temp Pulse Resp BP Pulse Ox 98.1 F 60 16 122/77 H 95 07/12/17 14:00 07/12/17 14:00 07/12/17 14:00 07/12/17 14:00 07/12/17 14:00 Oxygen Flow Rate (L/min) 2 Oxygen Delivery Method Room Air Weight: 88.5 kg Body Mass Index (BMI) 27.5 Intake and Output for Last 24 Hours 07/10/17 07/11/17 07/12/17 23:59 23:59 23:59 Intake Total 2003 3642 / 3642 1201 / 1201 Output Total 725 / 725 3625 / 3625 900 / 900 Balance 1279 / 1279 301 / 301 Medical Necessity - Tobacco Use Smoking Status: Former smoker Tobacco Use: Non-smoker Assessment/Plan Active and Suspected Problems (This Medical Record has been edited. Action required.) Acute ischemic stroke (Acute) Seizure in response to acute event (Acute) #1 generalized clonic tonic seizure-patient appears postictal at this time, neurology is following the patient, he is getting IV antiseizure medications #2 cerebrovascular disease-no acute CVA noted, continue rectal aspirin #3 generalized debility-PT and OT will continue to work with patient as well as speech therapy, patient still appears to be postictal at this time, unknown whether the patient will need temporary placement in a long-term facility Code Visit Inpatient E&M: 75289 Subs Hosp L2
--- NOTE | 2017-07-12 16:28 | PN_ITS ---
Patient Problems: Active and Suspected Problems (This Medical Record has been edited. Action required.) Acute ischemic stroke (Acute) Seizure in response to acute event (Acute) Subjective: Patient was seen and examined today, he is still not responding to verbal stimuli at the time of my examination early in the morning however, patient did become more responsive later on today. EEG was repeated today and showed generalized slowing with intermittent periods of epileptiform foci - Physical Exam General: Alert, No apparent distress, Well developed HEENT: Normocephalic Oral: Moist Mucosa Neck: Supple, No JVD, No Nuchal Rigidity, Trachea Midline, Thyroid Normal Size and Texture Lungs: Clear to auscultation, Normal air movement, No rhonchi, No wheeze, No rales Cardiovascular: Regular rate, Regular Rhythm, Normal S1, Normal S2, No murmurs, No Ectopic Activity Abdomen: Bowel Sounds Present, Soft, Non Tender, Non-Distended, No Hepato- splenomegaly, No hernias noted Extremities: No clubbing, No cyanosis, No edema Skin: No rashes, No breakdown Neurological: Cranial nerves II-XII grossly intact Psych/Mental Status: Flat Affect, - - Patient is alert but does not respond to verbal stimuli Vital Signs Temp Pulse Resp BP Pulse Ox 98.1 F 60 16 122/77 H 95 07/12/17 14:00 07/12/17 14:00 07/12/17 14:00 07/12/17 14:00 07/12/17 14:00 Oxygen Flow Rate (L/min) 2 Oxygen Delivery Method Room Air Weight: 88.5 kg Body Mass Index (BMI) 27.5 Intake and Output for Last 24 Hours 07/10/17 07/11/17 07/12/17 23:59 23:59 23:59 Intake Total 2003 3642 / 3642 1201 / 1201 Output Total 725 / 725 3625 / 3625 900 / 900 Balance 1279 / 1279 301 / 301 Medical Necessity - Tobacco Use Smoking Status: Former smoker Tobacco Use: Non-smoker Assessment/Plan Active and Suspected Problems (This Medical Record has been edited. Action required.) Acute ischemic stroke (Acute) Seizure in response to acute event (Acute) #1 generalized clonic tonic seizure-patient appears postictal at this time, neurology is following the patient, he is getting IV antiseizure medications #2 cerebrovascular disease-no acute CVA noted, continue rectal aspirin #3 generalized debility-PT and OT will continue to work with patient as well as speech therapy, patient still appears to be postictal at this time, unknown whether the patient will need temporary placement in a longterm facility Code Visit Inpatient E&M: 53686 Subs Hosp L2
[2017-07-13] VITALS (11 sets, daily range): BP systolic 112–125; BP diastolic 82–93; PULSE 58–86; RESP 12–16; TEMP 36.2–37.9; O2SAT 93–100
[2017-07-13] MEDS: 0.9% NaCl Peripheral Flush Adult/Peds IV (02:10)
[2017-07-13] MEDS: LORazepam 2 MG/ML Syringe IV (02:10)
--- NOTE | 2017-07-13 02:20 | NURSING ---
Patient yelling out that he has to pee. Able to follow commands as this RN assisted with urinal. Patient would not communicate the year or where he was. Will continue to monitor.
[2017-07-13] MEDS: Neomycin/Bacitracin/Polymyxin Opth. Ointment 1 APPLIC RIGHT EYE ×4 (05:05→21:42)
--- NOTE | 2017-07-13 09:37 | CASEMGMT ---
Addendum entered by Azra Rivero 07/13/17 12:36: SW called [facility] again, spoke w/Jessie, she did not review the referral yet, she will review it and let this SW know. RAMEZ Canales, RODBUSTER Original Note: SW called [facility], message left inquiring about if they can take pt in the event rehab cannot take pt. SW will continue to follow. RAMEZ Canales, RODBUSTER
[2017-07-13] MEDS: Enoxaparin 40 MG/0.4 ML Syringe SC (10:01)
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
--- NOTE | 2017-07-13 13:00 | PN_ITS ---
Patient Problems: Active and Suspected Problems (This Medical Record has been edited. Action required.) Acute ischemic stroke (Acute) Seizure in response to acute event (Acute) Subjective: Patient was seen and examined today, he remains confused and does not speak to this examiner. No recurrent seizures have been noted since yesterday speech therapy is allowing the patient to eat with supervision - Physical Exam General: No apparent distress, Well developed, Confused, Lethargic HEENT: Normocephalic Oral: Moist Mucosa Neck: Supple, No JVD, No Nuchal Rigidity, Trachea Midline, Thyroid Normal Size and Texture Lungs: Clear to auscultation, Normal air movement, No rhonchi, No wheeze, No rales Cardiovascular: Regular rate, Regular Rhythm, Normal S1, Normal S2, No murmurs, No Ectopic Activity, PMI Normal, No rub noted, No Gallop Abdomen: Bowel Sounds Present, Soft, Non Tender, Non-Distended, No hernias noted Extremities: No clubbing, No cyanosis, No edema, Capillary Refill Less than 3 Seconds Skin: No rashes, No breakdown Musculoskeletal: No Tenderness to Palpation of Joints or Extremities Neurological: Cranial nerves II-XII grossly intact, Neuro grossly intact Psych/Mental Status: - - Patient is lethargic this morning and confused Vital Signs Temp Pulse Resp BP Pulse Ox 97.2 F L 77 12 119/93 H 95 07/13/17 10:00 07/13/17 10:00 07/13/17 10:00 07/13/17 10:00 07/13/17 10:00 Oxygen Flow Rate (L/min) 2 Oxygen Delivery Method Room Air Weight: 88.5 kg Body Mass Index (BMI) 27.5 Intake and Output for Last 24 Hours 07/11/17 07/12/17 07/13/17 23:59 23:59 23:59 Intake Total 3642 / 3642 2147 / 2147 1199 / 1199 Output Total 3625 / 3625 1150 / 1150 1150 / 1150 Balance 997 / 997 49 / 49 Medical Necessity - Tobacco Use Smoking Status: Former smoker Tobacco Use: Non-smoker Assessment/Plan Active and Suspected Problems (This Medical Record has been edited. Action required.) Acute ischemic stroke (Acute) Seizure in response to acute event (Acute) #1 generalized clonic tonic seizure-patient appears postictal at this time, neurology is following the patient, he is getting IV antiseizure medications, no change in treatment at this time #2 cerebrovascular disease-no acute CVA noted, continue rectal aspirin #3 generalized debility-PT and OT will continue to work with patient as well as speech therapy, patient still appears to be postictal at this time, it seems likely the patient will require short-term placement in a longterm facility Code Visit Inpatient E&M: 04209 Subs Hosp L2
[2017-07-13] MEDS: Aspirin 300 MG Suppository RECTAL (14:15)
--- NOTE | 2017-07-13 15:01 | CASEMGMT ---
Received a phone call from Jessie mendoza [facility] and they are not going to accept patient. They do not feel he will get the therapy needed as patient's insurance (Medicaid) does not allow much therapy in nursing homes. SW to follow for d/c planning. Mirian SARAVIA WASTEWATER MANAGER
[2017-07-13] MEDS: Famotidine 20 MG Tablet PO (21:39)
[2017-07-13] MEDS: Acetaminophen 325 MG Tablet 650 MG PO (21:39)
[2017-07-14] VITALS (7 sets, daily range): BP systolic 91–116; BP diastolic 55–83; PULSE 57–74; RESP 11–18; TEMP 36.4–36.8; O2SAT 95–97
[2017-07-14] MEDS: Neomycin/Bacitracin/Polymyxin Opth. Ointment 1 APPLIC RIGHT EYE ×2 (04:44→17:03)
[2017-07-14] MEDS: Famotidine 20 MG Tablet PO (08:05)
[2017-07-14] MEDS: Aspirin 81 MG TAB.CHEW PO (08:05)
--- NOTE | 2017-07-14 08:53 | CASEMGMT ---
Addendum entered by Azra Rivero 07/14/17 10:51: SW called son Justin, message left. RAMEZ Canales, ELIZABETH Original Note: Addendum entered by Azra Rivero 07/14/17 10:50: [facility] can take pt, as per Shanna, she came to see pt from the facility. JABARI is still waiting to hear if pt will be accepted to our rehab unit. JABARI will continue to follow. RAMEZ Canales, ELIZABETH Original Note: SW spoke w/Sarina at [facility], she states they are still considering pt, however he would only get 30 minutes of therapy per day under Medicaid. She states they can do some restorative therapy and do the best they can do for the pt to get him the therapy he needs. JABARI faxed updates for their reconsideration. Physician speaking w/juliette about reconsidering for rehab. JABARI will continue to follow. RAMEZ Canales, ELIZABETH
[2017-07-14] MEDS: Enoxaparin 40 MG/0.4 ML Syringe SC (09:41)
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
--- NOTE | 2017-07-14 14:57 | CASEMGMT ---
Spoke with Geri and Dr Ugarte has accepted patient in the rehab unit. SW will let physician know as he will send patient today. SW will also let patient know this information and give him a pamphlet regarding visiting hours. Mirian JOHNSON
--- NOTE | 2017-07-14 15:08 | CASEMGMT ---
JABARI spoke with patient letting him know he will be going to the inpatient rehab unit here at [facility] today. JABARI gave him a pamphlet letting him know that there are visiting hours and JABARI has highlighted them on the pamphlet. JABARI also called patient's son and left him a voice mail letting him know patient will be going to the hospital's rehab unit today. JABARI then received a return call from Justin. JABARI let him know about patient going to [facility] 4th floor rehab unit. JABARI told him patient will be getting 3 hours of therapy daily so he can get home faster. He said he would be in later to see patient. Plan: [facility] 4th floor rehab unit. Mirian SARAVIA MSW
--- NOTE | 2017-07-14 15:29 | CASEMGMT ---
JABARI called [facility] and let Sarina know that patient will be going to [facility] 4th floor rehab unit. She thanked JABARI for the update. Mirian SARAVIA MSW
--- NOTE | 2017-07-14 16:04 | PCM.TXEXTCAR ---
- Diet 07/13/17 11:15 Diet: Regular Diet Food consistency:: Mechanical Soft/Ground Liquid Consistency:: Regular/Thin Dietary Modifications:: Mechanical Soft Diet Is pt able to select menu?: No Diet Comments: Supervision w/ assist, thin via straw, upright 90, meds crushed in puree - Wound(s) R eye Wound Type: past injury - Therapies Weight Bearing: Full weight bearing Physical Therapy: Eval and Treat Occupational Therapy: Eval and Treat Speech Therapy: Eval and Treat - Problem/Diagnosis (1) Cerebrovascular disease Status: Chronic Comment: recent occipital infarct Current Visit: Yes (2) Dysphagia Status: Acute Current Visit: Yes (3) Seizure disorder Status: Chronic Current Visit: Yes (4) GERD (gastroesophageal reflux disease) Status: Chronic Current Visit: Yes (5) Anxiety and depression Status: Chronic Current Visit: Yes - Allergies/Procedures Done in Hospital Allergies/Adverse Reactions: Allergies Penicillins Allergy (Verified 07/08/17 21:32) Hives propoxyphene napsylate [From Darvocet-N] Allergy (Verified 07/08/17 21:32) Other hot flashes Procedures: Electroencephalogram - Type of Care/Length of Stay Estimated LOS: Convalescent Care Less Than 30 days Type of Care Needed: Acute Rehab Rehab Potential: Good Prognosis: Good - Additional Orders/Day of Discharge H&P will serve as current which was dated: 07/08/17 Day of Discharge: 07/14/17 - Dietary and Speech Recommendations Dietitian Recommendations/Changes: Will provide Ensure pudding or magic cup w/ meals for additional calories/protein if consumed. - Follow Up Care Primary Care Physician: Care Physician,No Primary [Primary Care Provider] -
[2017-07-14] MEDS: 0.9% NaCl Peripheral Flush Adult/Peds IV (16:59)
[2017-07-14] MEDS: Ondansetron 4 MG/2 ML Vial IV (17:00)
--- NOTE | 2017-07-17 10:37 | PCM.DC.SUM ---
Discharge Date and Diagnosis Date of Admission: 07/08/17 Date of Discharge: 07/14/17 - Primary Discharge Diagnosis #1 generalized tonic-clonic seizures #2 cerebrovascular disease #3 generalized debility #4 encephalopathy secondary to postictal state - Secondary Discharge Diagnosis Chronic Problems (This Medical Record has been edited. Action required.) CVA (cerebral vascular accident) (Chronic) 04/2017 right medial occipital lobe CVA Seizure disorder (Chronic) HTN (hypertension) (Chronic) HLD (hyperlipidemia) (Chronic) GERD (gastroesophageal reflux disease) (Chronic) Iron deficiency anemia (Chronic) Anxiety and depression (Chronic) Cerebrovascular disease (Chronic) recent occipital infarct Hospital Course and Treatment Operations: None Procedures: Electroencephalogram Summary of Care Provided: The patient is a 46 year old M who was seen in the emergency room at [facility] with a change in mental status. He was unable to follow commands or answer any questions. Stroke team was activated on arrival to the emergency room, CT showed no acute process, CBC was unremarkable, chemistry was unremarkable. Neurologist was contacted and recommended to set CT of the head and neck, while in the CT department patient had 05/16 generalized tonic-clonic seizure. CT of the head neck was unremarkable. Patient was loaded with IV Keppra and admitted to ICU, EEG was performed which showed a focus of seizure activity. Patient remained postictal for several days in the ICU, he finally woke up and became more appropriate. Patient was seen by PT and OT, it was felt he would benefit from custodial facility placement or placement in the rehab unit at [facility]. On 07/14/17, patient was seen and examined felt to be stable for transfer to the rehab department at [facility]. Discharge Diet: No Restrictions Home Medications: Medications to take at Discharge Etodolac [Etodolac ER] 400 mg PO BID 10/17/13 Omeprazole [Prilosec] 20 mg PO DAILY 10/17/13 Tamsulosin HCl [Flomax] 0.4 mg PO QHS 10/17/13 Sertraline HCl 50 mg PO DAILY 07/25/16 Atorvastatin Calcium [Lipitor] 20 mg PO QHS 07/08/17 Mineral Oil/Petrolatum,White [Lubricant Eye Ointment] 3.5 gm OP BID 07/08/17 Acetaminophen [Tylenol Tablet] 650 mg PO Q6H PRN PRN tablet 07/14/17 Aspirin [Aspirin, Baby] 81 mg PO DAILY@0800 07/14/17 levETIRAcetam oral solution [Keppra Solution] 750 mg PO BID 07/14/17 Primary Care Physician: Care Physician,No Primary [Primary Care Provider] - Disposition: Inpt Rehab Unit/Facility Minutes spent on discharge:: 35 Patient Condition:: Stable Medical Necessity - Tobacco Use Smoking Status: Former smoker Tobacco Use: Non-smoker Meaningful Use Info Meaningful Use Diagnoses (Choose all that apply): None applicable Code Visit Inpatient E&M: 28697 Disch Hosp
--- NOTE | 2017-07-17 10:41 | DS.PCM_ITS ---
Discharge Date and Diagnosis Date of Admission: 07/08/17 Date of Discharge: 07/14/17 - Primary Discharge Diagnosis #1 generalized tonic-clonic seizures #2 cerebrovascular disease #3 generalized debility #4 encephalopathy secondary to postictal state - Secondary Discharge Diagnosis Chronic Problems (This Medical Record has been edited. Action required.) CVA (cerebral vascular accident) (Chronic) 04/2017 right medial occipital lobe CVA Seizure disorder (Chronic) HTN (hypertension) (Chronic) HLD (hyperlipidemia) (Chronic) GERD (gastroesophageal reflux disease) (Chronic) Iron deficiency anemia (Chronic) Anxiety and depression (Chronic) Cerebrovascular disease (Chronic) recent occipital infarct Hospital Course and Treatment Operations: None Procedures: Electroencephalogram Summary of Care Provided: The patient is a 46 year old M who was seen in the emergency room at [facility] with a change in mental status. He was unable to follow commands or answer any questions. Stroke team was activated on arrival to the emergency room, CT showed no acute process, CBC was unremarkable, chemistry was unremarkable. Neurologist was contacted and recommended to set CT of the head and neck, while in the CT department patient had 05/16 generalized tonic-clonic seizure. CT of the head neck was unremarkable. Patient was loaded with IV Keppra and admitted to ICU, EEG was performed which showed a focus of seizure activity. Patient remained postictal for several days in the ICU, he finally woke up and became more appropriate. Patient was seen by PT and OT, it was felt he would benefit from shelter facility placement or placement in the rehab unit at [facility]. On 07/14/17, patient was seen and examined felt to be stable for transfer to the rehab department at [facility]. Discharge Diet: No Restrictions Home Medications: Medications to take at Discharge Etodolac [Etodolac ER] 400 mg PO BID 10/17/13 Omeprazole [Prilosec] 20 mg PO DAILY 10/17/13 Tamsulosin HCl [Flomax] 0.4 mg PO QHS 10/17/13 Sertraline HCl 50 mg PO DAILY 07/25/16 Atorvastatin Calcium [Lipitor] 20 mg PO QHS 07/08/17 Mineral Oil/Petrolatum,White [Lubricant Eye Ointment] 3.5 gm OP BID 07/08/17 Acetaminophen [Tylenol Tablet] 650 mg PO Q6H PRN PRN tablet 07/14/17 Aspirin [Aspirin, Baby] 81 mg PO DAILY@0800 07/14/17 levETIRAcetam oral solution [Keppra Solution] 750 mg PO BID 07/14/17 Primary Care Physician: Care Physician,No Primary [Primary Care Provider] - Disposition: Inpt Rehab Unit/Facility Minutes spent on discharge:: 35 Patient Condition:: Stable Medical Necessity - Tobacco Use Smoking Status: Former smoker Tobacco Use: Non-smoker Meaningful Use Info Meaningful Use Diagnoses (Choose all that apply): None applicable Code Visit Inpatient E&M: 88171 Disch Hosp
== END 2017-07-14 17:16 | disposition designated cancer center or children's hospital (05) | DRG 25 ==
LOC: ED 17:19 → ICU 19:55 → PCU 07-14 11:25
PROVIDERS: Internal Medicine; Admitting Provider Family Medicine; Emergency Provider Emergency Medicine; Visit Provider Internal Medicine
DX: G40.909 Epilepsy, unspecified, not intractable, without status epilepticus (principal); G93.40 Encephalopathy, unspecified; E78.5 Hyperlipidemia, unspecified; G93.89 Other specified disorders of brain; F32.9 Major depressive disorder, single episode, unspecified; F41.9 Anxiety disorder, unspecified; I10 Essential (primary) hypertension; R53.1 Weakness; K21.9 Gastro-esophageal reflux disease without esophagitis; Z87.891 Personal history of nicotine dependence; Z87.828 Personal history of other (healed) physical injury and trauma; Z86.73 Personal history of transient ischemic attack (TIA), and cerebral infarction without residual deficits; N40.0 Benign prostatic hyperplasia without lower urinary tract symptoms
CPT/HCPCS: 36415; 51702; 70450; 70496; 70498; 70551; 70553; 71045; 73502; 74019; 80048; 80053; 80061; 80076; 80307; 80320; 81001; 81240; 81241; 82550; 82962; 83735; 84100; 84484; 85025; 85027; 85300; 85301; 85302; 85303; 85610; 85730; 86146; 86147; 87641; 92507; 92523; 92526; 93005; 95819; 97110; 97112; 97116; 97163; 97166; 97530; 97535; 99285; A9585; J7030; J7050; Q9967; A4216; G0480; J2405

== ENCOUNTER 2017-07-14 17:28 | Inpatient (IN) | payer MEDICAID, SELFPAY ==
[2017-07-14 17:33] VITALS: BP 118/80; PULSE 70; RESP 16; TEMP 36.5; O2SAT 100; BMI 26.6; BMI 26.7
--- NOTE | 2017-07-14 18:47 | NURSING ---
Aware he is a fall risk and must ask for staff assist, demonstrated call simon use.
[2017-07-14 19:45] VITALS: BP 122/78; PULSE 74; RESP 17; TEMP 36.6; O2SAT 100
[2017-07-14] MEDS: Senna/Docusate Sodium 1 Tablet 2 TABLET PO (21:53)
[2017-07-14] MEDS: Petrolatum,White 3.75GM OPTH.TUBE 1 APPLIC OP (21:53)
[2017-07-14] MEDS: Atorvastatin Calcium 20 MG Tablet PO (21:54)
[2017-07-14] MEDS: levETIRAcetam Oral Solution 500 MG/5 ML 750 MG PO (21:54)
[2017-07-14] MEDS: Tamsulosin HCl 0.4 MG Capsule PO (21:54)
[2017-07-14] MEDS: Neomycin/Bacitracin/Polymyxin Opth. Ointment 1 APPLIC RIGHT EYE (22:24)
[2017-07-15 03:04] VITALS: BMI 26.6
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
[2017-07-15] MEDS: Acetaminophen 325 MG Tablet 650 MG PO (05:35)
[2017-07-15 06:00] LABS: Hematocrit 41.7 % (40-54); Hemoglobin 13.7 g/dl (13.0-16.5); Mean Corp Hgb Conc 32.9 g/gl (32-36); Mean Corpuscular Hgb 30.2 pg (27.0-32.0); Mean Corpuscular Volume 91.9 fL (80-94); Mean Platelet Vol. 10.4 fl (6.2-12.0); Platelet Count 197 K/mm3 (150-450); RBC Distribution Width CV 12.5 % (11.6-14.6); RBC Distribution Width SD 41.7 fl (35.1-43.9); Red Blood Count 4.54 M/mm3 (4.6-6.2); White Blood Count 4.8 K/mm3 (4.4-11.0)
[2017-07-15 06:06] LABS: Scan Indicated on CBC? Y/N NO
[2017-07-15 06:19] LABS: Anion Gap 7 (5-15); BUN 7 mg/dL (7-18); BUN/Creat Ratio 7.6 RATIO (10-20); Calcium,Total 8.7 mg/dL (8.5-10.1); Chloride 105 mmol/L (98-107); Creatinine, Serum 0.92 mg/dL (0.70-1.30); EST Glomerular Filtration Rate 94 mL/min (>60); Est Glom Filt Rate - Afr Amer 113 mL/min (>60); Estimated Creatinine Clearance 101.39 ml/min; Glucose 94 mg/dL (74-106); Potassium 3.8 mmol/L (3.5-5.1); Sodium Level 141 mmol/L (136-145)
[2017-07-15] MEDS: Enoxaparin 40 MG/0.4 ML Syringe SC (06:30)
[2017-07-15 08:18] VITALS: BP 130/82; PULSE 72; RESP 16; TEMP 36.1; O2SAT 94
[2017-07-15] MEDS: Aspirin 81 MG TAB.CHEW PO (08:27)
[2017-07-15] MEDS: levETIRAcetam Oral Solution 500 MG/5 ML 750 MG PO ×2 (08:27→21:55)
[2017-07-15] MEDS: Petrolatum,White 3.75GM OPTH.TUBE 1 APPLIC OP ×2 (08:29→21:54)
[2017-07-15] MEDS: Meloxicam 15 MG Tablet PO (08:30)
[2017-07-15] MEDS: Sertraline 50 MG Tablet PO (08:30)
[2017-07-15] MEDS: Pantoprazole Sodium 20 MG Tablet PO (08:30)
[2017-07-15] MEDS: Senna/Docusate Sodium 1 Tablet 2 TABLET PO (08:32)
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
[2017-07-15] MEDS: Neomycin/Bacitracin/Polymyxin Opth. Ointment 1 APPLIC RIGHT EYE ×4 (10:08→21:54)
--- NOTE | 2017-07-15 11:55 | PCM.RU.PYE ---
Admission Information Status Changes from Prescreening?: No changes Identified Actual Problem List:: Falls, Cognitve Impr/Memory Loss, Alteration in Sleep, Mobility Impaired, Self Care Deficit, Ineffect.D/C Plan r/t Psy Potential Problem List:: DVT, Bleeding, Infection, UTI, Aspiration, Falls, Skin Integrity, Depression Risk of Complications DVT: LMWH, RONNY Hose, Sequential Compression Device Bleeding: Monitor Lab Values, Nursing to Teach Precautions for anti-coagulation therapy., Wound, if applicable, to be assessed every shift., Stroke patients assessed for lethargy or change in status. Infection: Clinical Staff to Monitor for S/S of infection:, S/S of infection include fever, redness, warmth, etc. Urinary Tract Infection: Monitor for frequency, burning, discomfort, or incontinence., Nursing will obtain urine sample for urinalysis and C&S when ordered. Aspiration: Clinical staff will monitor for coughing, drooling, congestion., Speech will evaluate swallowing and dsyphasia., Nursing will monitor patient swallowing during meals. Falls: Patient will be evaluated for Fall Precautions, Patient will be placed on Fall Precautions as indicated per protocol. Skin Breakdown: Nursing will assess skin daily using assessment tool., Nursing will place on Skin Breakdown Precautions as indicated. Pain: Clinical staff will assess patient's pain level per protocol., Medications will be given, if needed, and the pain level reassessed., Other methods: Massage, distraction, decrease stimulus, etc. used PRN. Plan of Care Patient requires physician specializing in physical medicine and rehab oversight to provide close medical supervision of rehab issues including: Pain Management, Sleep Problems, Bowel and Bladder, Medical and co-morbidity Management, DVT prophylaxis, Rehabilitation Leadership, Coordination of treatment team Patient needs Physical Therapy: For a minimum of 1 hour, At least 5 out of 7 days Patient needs Physical Therapy to improve:: Mobility, Mobility, Mobility, Strengthening, Transfers, Stretching, ROM, Endurance, Stairs, Gait, Balance Patient needs Occupational Therapy: For a minimum of 1 hour, At least 5 out of 7 days Patient needs Occupational Therapy to improve ADL's incl.: Eating, Grooming, Bathing, Dressing, Toileting, Toilet transfers, Community Reintegration, Higher functioning activities, Household tasks, Adaptive Equipment, Splinting, Other activities as determined Patient requires speech therapy: For a minimum of 1 hour, At least 5 out of 7 days Patient requires speech therapy for: Swallowing, Cognition, Language Skills, Compensatory Strategies Patient requires 24/ Rehabilitation Nursing for: Pain Issues, Identifying and preventing risk factors, Monitoring and reporting current medical conditions, Assisting with ambulation, transfer, and all ADL's, Teaching patients about disease process and medications, Family teaching, Providing safe environment, Bowel and Bladder Issues, Skin integrity, Medication Management Patient needs University Internship/ Case Management for: Discharge Planning, Arranging Home Equipment or Services, Family Interventions Patient needs Dietary and Nutrition Services for: Adequate Nutrition, Nutritional Supplements, Nutritional Education Goals Patient will remain: free from falls, or injury at time of discharge. Patient will perform bed mobility at: MOD I level of assist. Patient will complete transfers from bed to chair at: MOD I level of assist. Patient will ambulate: 100 feet, with MOD I assist, with LRD Patient will complete upper body dressing at: MOD I level of assist. Patient will complete lower body dressing at: MOD I level of assist. Patient will complete toileting at: MOD I level of assist. Patient will perform bathing at: MOD I level of assist. Patient will complete grooming at: MOD I level of assist. Patient will complete home management skills at: MOD I level of assist. Patient will achieve: 12 stairs, at MOD I assist Patient will have pain level of: of 3 or less Patient's skin will: remain intact, free from infection. Patient will receive: adequate nutrition. Discharge Planning Pt Prognosis for Sig. Practical Improv. w/in Reasonable Time: Good Anticipated D/C Destination: Home with Outpt Therapy Was Preadmission Assessment Accurate?: Yes
[2017-07-15 14:40] VITALS: O2SAT 93
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
[2017-07-15 17:00] VITALS: BMI 26.6
--- NOTE | 2017-07-15 19:33 | PCM.PROGNOTE ---
Patient Problems: Active and Suspected Problems (This Medical Record has been edited. Action required.) Tinea unguium (Acute) Pain in left toe(s) (Acute) Pain in right toe(s) (Acute) Subjective: Patient was consulted to podiatry for thickened, discolored, elongated, painful toenails with the presence of subungual debris of toenails 1,2,3,4 and 5 of the right and left foot. Patient was evaluated bedside. No feelings of nausea, vomiting, fever, chills, or shortness of breath. - Physical Exam General: Alert, Cooperative, No apparent distress Extremities: Capillary Refill Less than 3 Seconds, No Calf Tenderness - negative marksu and russell sign bilateral, Edema - slight lower extremity edma bilateral, Peripheral Pulses Normal - DP pulses palpable bilateral and PT pulses non palpable bilateral Skin: No rashes, No breakdown, - - Thickened, discolored, elongated, painful toenails with the presence of subungual debris of toenails 1,2,3,4,5 of the right and left foot. Musculoskeletal: No Tenderness to Palpation of Joints or Extremities, - - tenderness to palpation of aforementioned toenails Neurological: Sensory exam intact to light touch and pain Psych/Mental Status: Appropriate Vital Signs Temp Pulse Resp BP Pulse Ox 97 F L 72 16 130/82 H 93 07/15/17 08:18 07/15/17 08:18 07/15/17 08:18 07/15/17 08:18 07/15/17 14:40 Oxygen Delivery Method Room Air Weight: 84.4 kg Body Mass Index (BMI) 26.6 Finger Stick Blood Glucose 90 Intake and Output for Last 24 Hours 07/13/17 07/14/17 07/15/17 23:59 23:59 23:59 Intake Total 120 / 120 600 / 600 Output Total 275 / 275 150 / 150 Balance -155 / -155 450 / 450 Laboratory Tests Past 24 Hrs 07/15/17 07/15/17 05:30 05:30 WBC 4.8 RBC 4.54 L Hgb 13.7 Hct 41.7 MCV 91.9 MCH 30.2 MCHC 32.9 RDW 12.5 RDW Differential 41.7 Plt Count 197 MPV 10.4 Sodium 141 Potassium 3.8 Chloride 105 Carbon Dioxide 29.0 Anion Gap 7 BUN 7 Creatinine 0.92 Estim Creat Clear Calc 101.39 Est GFR (MDRD) Af Amer 113 Est GFR (MDRD) Non-Af 94 BUN/Creatinine Ratio 7.6 L Glucose 94 Calcium 8.7 Medical Necessity - Tobacco Use Smoking Status: Former smoker Assessment/Plan Active and Suspected Problems (This Medical Record has been edited. Action required.) Tinea unguium (Acute) Pain in left toe(s) (Acute) Pain in right toe(s) (Acute) Patient was examined and evaluated beside. His toenails 1,2,3,4,5 of the right and left foot were carefully debrided using a nail nipper. This was done without incident and the patient indicated that his toenails felt better post debridement. Podiatry will follow on an as needed basis. Thank you for this consult.
[2017-07-15 20:09] VITALS: BP 129/74; PULSE 62; RESP 16; TEMP 36.6; O2SAT 96
[2017-07-15 21:50] VITALS: PULSE 62; RESP 16; O2SAT 96
[2017-07-15] MEDS: QUEtiapine 25 MG Tablet PO (21:54)
[2017-07-15] MEDS: Atorvastatin Calcium 20 MG Tablet PO (21:54)
[2017-07-15] MEDS: Tamsulosin HCl 0.4 MG Capsule PO (21:54)
[2017-07-16] MEDS: Enoxaparin 40 MG/0.4 ML Syringe SC (05:20)
--- NOTE | 2017-07-16 05:51 | NURSING ---
LPNs fims and handoff reviewed
[2017-07-16 08:30] VITALS: O2SAT 93
[2017-07-16] MEDS: Senna/Docusate Sodium 1 Tablet 2 TABLET PO ×2 (09:13→20:22)
[2017-07-16] MEDS: levETIRAcetam Oral Solution 500 MG/5 ML 750 MG PO ×2 (09:13→20:19)
[2017-07-16] MEDS: Aspirin 81 MG TAB.CHEW PO (09:13)
[2017-07-16] MEDS: Pantoprazole Sodium 20 MG Tablet PO (09:13)
[2017-07-16] MEDS: Meloxicam 15 MG Tablet PO (09:13)
[2017-07-16] MEDS: Sertraline 50 MG Tablet PO (09:13)
[2017-07-16 10:00] VITALS: BP 111/82; PULSE 83; RESP 18; TEMP 36.6; O2SAT 100
[2017-07-16] MEDS: Petrolatum,White 3.75GM OPTH.TUBE 1 APPLIC OP ×2 (10:41→20:21)
[2017-07-16] MEDS: Neomycin/Bacitracin/Polymyxin Opth. Ointment 1 APPLIC RIGHT EYE ×4 (10:41→20:21)
[2017-07-16 17:00] VITALS: BMI 26.6
[2017-07-16 18:52] VITALS: BP 113/70; PULSE 61; RESP 18; TEMP 36.7; O2SAT 96
[2017-07-16] MEDS: Tamsulosin HCl 0.4 MG Capsule PO (20:19)
[2017-07-16] MEDS: Atorvastatin Calcium 20 MG Tablet PO (20:21)
[2017-07-16] MEDS: QUEtiapine 25 MG Tablet PO (20:22)
[2017-07-16 23:57] VITALS: BMI 26.6
--- NOTE | 2017-07-17 05:07 | NURSING ---
Reviewed LPNs fims and handoff
[2017-07-17] MEDS: Enoxaparin 40 MG/0.4 ML Syringe SC (06:47)
[2017-07-17 07:22] VITALS: BP 104/74; PULSE 58; RESP 18; TEMP 36.4; O2SAT 95
[2017-07-17 07:44] VITALS: O2SAT 97
[2017-07-17] MEDS: Sertraline 50 MG Tablet PO (07:45)
[2017-07-17] MEDS: levETIRAcetam Oral Solution 500 MG/5 ML 750 MG PO ×2 (07:46→19:53)
[2017-07-17] MEDS: Pantoprazole Sodium 20 MG Tablet PO (07:46)
[2017-07-17] MEDS: Aspirin 81 MG TAB.CHEW PO (07:46)
[2017-07-17] MEDS: Meloxicam 15 MG Tablet PO (07:46)
[2017-07-17] MEDS: Senna/Docusate Sodium 1 Tablet 2 TABLET PO ×2 (07:47→19:59)
[2017-07-17 08:41] VITALS: BMI 26.6
[2017-07-17] MEDS: Neomycin/Bacitracin/Polymyxin Opth. Ointment 1 APPLIC RIGHT EYE ×4 (09:59→19:53)
[2017-07-17] MEDS: Petrolatum,White 3.75GM OPTH.TUBE 1 APPLIC OP ×2 (09:59→19:52)
--- NOTE | 2017-07-17 10:54 | NURSING ---
patient ambulated back and forth to C couple of steps x 2 assist d/t vision loss and unsteadiness multiple times this shift.
[2017-07-17] MEDS: Acetaminophen 325 MG Tablet 650 MG PO (12:09)
[2017-07-17 19:20] VITALS: PULSE 50; RESP 16; O2SAT 97; BMI 26.6
[2017-07-17] MEDS: Atorvastatin Calcium 20 MG Tablet PO (19:52)
[2017-07-17] MEDS: QUEtiapine 25 MG Tablet PO (19:52)
[2017-07-17] MEDS: Tamsulosin HCl 0.4 MG Capsule PO (19:52)
[2017-07-17 20:01] VITALS: BP 129/69; PULSE 50; RESP 16; TEMP 36.5; O2SAT 97
--- NOTE | 2017-07-18 02:03 | NURSING ---
Reviewed LPNs fims and handoff
[2017-07-18 05:00] VITALS: BMI 26.6
[2017-07-18] MEDS: Enoxaparin 40 MG/0.4 ML Syringe SC (05:15)
[2017-07-18 08:58] VITALS: BP 125/79; PULSE 70; RESP 16; TEMP 36.6; O2SAT 97
[2017-07-18] MEDS: Neomycin/Bacitracin/Polymyxin Opth. Ointment 1 APPLIC RIGHT EYE ×4 (09:02→20:16)
[2017-07-18] MEDS: Meloxicam 15 MG Tablet PO (09:02)
[2017-07-18] MEDS: levETIRAcetam Oral Solution 500 MG/5 ML 750 MG PO ×2 (09:02→20:15)
[2017-07-18] MEDS: Sertraline 50 MG Tablet PO (09:02)
[2017-07-18] MEDS: Aspirin 81 MG TAB.CHEW PO (09:02)
[2017-07-18] MEDS: Pantoprazole Sodium 20 MG Tablet PO (09:02)
[2017-07-18] MEDS: Petrolatum,White 3.75GM OPTH.TUBE 1 APPLIC OP ×2 (09:03→20:16)
--- NOTE | 2017-07-18 09:56 | PCM.PN.NEU ---
Subjective: Patient seen and examined. Tolerating therapy. No more night terrors since admission. Denies any shortness of breath or chest pains. Denies any aura or flashing lights. Tolerating regular diet. No issues with GI/. - Physical Exam General: Alert, Oriented x3, Cooperative HEENT: Atraumatic, PERRLA, EOMI, Normocephalic Neck: Supple, No JVD, Negative Carotid Bruits Lungs: Clear to auscultation, Normal air movement Cardiovascular: Regular rate, No murmurs Abdomen: Bowel Sounds Present, Soft, Non Tender Extremities: No edema, Capillary Refill Less than 3 Seconds Skin: No rashes, No breakdown Musculoskeletal: No Tenderness to Palpation of Joints or Extremities Neurological: Cranial nerves II-XII grossly intact Psych/Mental Status: Normal Affect, Appropriate Vital Signs Temp Pulse Resp BP Pulse Ox 97.9 F 70 16 125/79 H 97 07/18/17 08:58 07/18/17 08:58 07/18/17 08:58 07/18/17 08:58 07/18/17 08:58 Oxygen Delivery Method Room Air Weight: 84.4 kg Body Mass Index (BMI) 26.6 Finger Stick Blood Glucose 90 Intake and Output for Last 24 Hours 07/16/17 07/17/17 07/18/17 23:59 23:59 23:59 Intake Total 120 / 120 480 / 480 240 / 240 Balance 120 / 120 480 / 480 240 / 240 Active Medications Acetaminophen (Tylenol) 650 mg PO Q6H PRN PRN PRN Reason: PAIN Last Admin: 07/17/17 12:09 Dose: 650 mg Aspirin (Aspirin, Baby) 81 mg PO DAILY@0800 [facility] Last Admin: 07/18/17 09:02 Dose: 81 mg Atorvastatin Calcium (Lipitor) 20 mg PO QHS [facility] Last Admin: 07/17/17 19:52 Dose: 20 mg Bisacodyl (Dulcolax) 10 mg RECTAL .PRN X 1 PRN PRN Reason: Constipation Enoxaparin Sodium (Lovenox) 40 mg SC DAILY@0600 [facility] Last Admin: 07/18/17 05:15 Dose: 40 mg Levetiracetam (Keppra Oral Solution) 750 mg PO BID [facility] Last Admin: 07/18/17 09:02 Dose: 750 mg Lorazepam (Ativan) 1 mg PO Q6H PRN PRN PRN Reason: AGITATION Magnesium Hydroxide (Milk Of Magnesia) 30 ml PO .PRN X 1 PRN PRN Reason: Constipation Meloxicam (Mobic) 15 mg PO DAILY [facility] Last Admin: 07/18/17 09:02 Dose: 15 mg Multi-Ingredient Cream (Lacrilube) 1 applic OP BID [facility] Last Admin: 07/18/17 09:03 Dose: 1 applicatio Neomycin/Polymyxin/Bacitracin (Neosporin) 1 applic RIGHT EYE 4X/DAY [facility] Last Admin: 07/18/17 09:02 Dose: 1 applic Pantoprazole Sodium (Protonix) 20 mg PO DAILY [facility] Last Admin: 07/18/17 09:02 Dose: 20 mg Quetiapine Fumarate (Seroquel) 25 mg PO QHS [facility] Last Admin: 07/17/17 19:52 Dose: 25 mg Senna/Docusate Sodium (Senokot-S, Sharmila-Colace) 2 tablet PO BID [facility] Last Admin: 07/18/17 09:00 Dose: Not Given Sertraline HCl (Zoloft) 50 mg PO DAILY [facility] Last Admin: 07/18/17 09:02 Dose: 50 mg Tamsulosin HCl (Flomax) 0.4 mg PO QHS [facility] Last Admin: 07/17/17 19:52 Dose: 0.4 mg Medical Necessity - Tobacco Use Smoking Status: Former smoker Assessment/Plan Debility 2/2 status epilepticus, complicated by a previous right medial occipital lobe stroke. Goal of rehab is [place] of functional independence. Plan: - Physical therapy for gait and balance - Occupational Therapy for ADLs - Speech therapy - As needed analgesics - Bowel protocol - Stroke prevention on ASA, Statin and Lovenox - DVT prophylaxis: SCDs, ASA, Lovenox - Seizures => Keppra 750mg BID - Hx BPH: continue Flomax - Hx Anxiety: continue Zoloft - Night terrors Started on Seroquel 25mg at HS, will obtain an EKG prior to giving first dose
--- NOTE | 2017-07-18 10:01 | PN.NEURO_ITS ---
Subjective: Patient seen and examined. Tolerating therapy. No more night terrors since admission. Denies any shortness of breath or chest pains. Denies any aura or flashing lights. Tolerating regular diet. No issues with GI/. - Physical Exam General: Alert, Oriented x3, Cooperative HEENT: Atraumatic, PERRLA, EOMI, Normocephalic Neck: Supple, No JVD, Negative Carotid Bruits Lungs: Clear to auscultation, Normal air movement Cardiovascular: Regular rate, No murmurs Abdomen: Bowel Sounds Present, Soft, Non Tender Extremities: No edema, Capillary Refill Less than 3 Seconds Skin: No rashes, No breakdown Musculoskeletal: No Tenderness to Palpation of Joints or Extremities Neurological: Cranial nerves II-XII grossly intact Psych/Mental Status: Normal Affect, Appropriate Vital Signs Temp Pulse Resp BP Pulse Ox 97.9 F 70 16 125/79 H 97 07/18/17 08:58 07/18/17 08:58 07/18/17 08:58 07/18/17 08:58 07/18/17 08:58 Oxygen Delivery Method Room Air Weight: 84.4 kg Body Mass Index (BMI) 26.6 Finger Stick Blood Glucose 90 Intake and Output for Last 24 Hours 07/16/17 07/17/17 07/18/17 23:59 23:59 23:59 Intake Total 120 / 120 480 / 480 240 / 240 Balance 120 / 120 480 / 480 240 / 240 Active Medications Acetaminophen (Tylenol) 650 mg PO Q6H PRN PRN PRN Reason: PAIN Last Admin: 07/17/17 12:09 Dose: 650 mg Aspirin (Aspirin, Baby) 81 mg PO DAILY@0800 [facility] Last Admin: 07/18/17 09:02 Dose: 81 mg Atorvastatin Calcium (Lipitor) 20 mg PO QHS [facility] Last Admin: 07/17/17 19:52 Dose: 20 mg Bisacodyl (Dulcolax) 10 mg RECTAL .PRN X 1 PRN PRN Reason: Constipation Enoxaparin Sodium (Lovenox) 40 mg SC DAILY@0600 [facility] Last Admin: 07/18/17 05:15 Dose: 40 mg Levetiracetam (Keppra Oral Solution) 750 mg PO BID [facility] Last Admin: 07/18/17 09:02 Dose: 750 mg Lorazepam (Ativan) 1 mg PO Q6H PRN PRN PRN Reason: AGITATION Magnesium Hydroxide (Milk Of Magnesia) 30 ml PO .PRN X 1 PRN PRN Reason: Constipation Meloxicam (Mobic) 15 mg PO DAILY [facility] Last Admin: 07/18/17 09:02 Dose: 15 mg Multi-Ingredient Cream (Lacrilube) 1 applic OP BID [facility] Last Admin: 07/18/17 09:03 Dose: 1 applicatio Neomycin/Polymyxin/Bacitracin (Neosporin) 1 applic RIGHT EYE 4X/DAY [facility] Last Admin: 07/18/17 09:02 Dose: 1 applic Pantoprazole Sodium (Protonix) 20 mg PO DAILY [facility] Last Admin: 07/18/17 09:02 Dose: 20 mg Quetiapine Fumarate (Seroquel) 25 mg PO QHS [facility] Last Admin: 07/17/17 19:52 Dose: 25 mg Senna/Docusate Sodium (Senokot-S, Sharmila-Colace) 2 tablet PO BID [facility] Last Admin: 07/18/17 09:00 Dose: Not Given Sertraline HCl (Zoloft) 50 mg PO DAILY [facility] Last Admin: 07/18/17 09:02 Dose: 50 mg Tamsulosin HCl (Flomax) 0.4 mg PO QHS [facility] Last Admin: 07/17/17 19:52 Dose: 0.4 mg Medical Necessity - Tobacco Use Smoking Status: Former smoker Assessment/Plan Debility 2/2 status epilepticus, complicated by a previous right medial occipital lobe stroke. Goal of rehab is [place] of functional independence. Plan: - Physical therapy for gait and balance - Occupational Therapy for ADLs - Speech therapy - As needed analgesics - Bowel protocol - Stroke prevention on ASA, Statin and Lovenox - DVT prophylaxis: SCDs, ASA, Lovenox - Seizures => Keppra 750mg BID - Hx BPH: continue Flomax - Hx Anxiety: continue Zoloft - Night terrors Started on Seroquel 25mg at HS, will obtain an EKG prior to giving first dose
[2017-07-18 10:42] VITALS: BMI 26.6
[2017-07-18 19:37] VITALS: BP 118/73; PULSE 58; RESP 16; TEMP 36.7; O2SAT 96
[2017-07-18] MEDS: Tamsulosin HCl 0.4 MG Capsule PO (20:15)
[2017-07-18] MEDS: Atorvastatin Calcium 20 MG Tablet PO (20:16)
[2017-07-18] MEDS: Senna/Docusate Sodium 1 Tablet 2 TABLET PO (20:16)
[2017-07-18] MEDS: QUEtiapine 25 MG Tablet PO (20:20)
[2017-07-18 23:14] VITALS: BMI 26.6
--- NOTE | 2017-07-19 01:38 | NURSING ---
Reviewed and agree with COOKER SULFITE documentation and [facility] charting.
[2017-07-19] MEDS: Enoxaparin 40 MG/0.4 ML Syringe SC (05:15)
[2017-07-19] MEDS: Acetaminophen 325 MG Tablet 650 MG PO (05:53)
[2017-07-19 08:32] VITALS: BP 130/77; PULSE 85; RESP 16; TEMP 37.3; O2SAT 98
[2017-07-19] MEDS: Aspirin 81 MG TAB.CHEW PO (08:58)
[2017-07-19] MEDS: Sertraline 50 MG Tablet PO (08:58)
[2017-07-19] MEDS: Senna/Docusate Sodium 1 Tablet 2 TABLET PO ×2 (08:59→20:33)
[2017-07-19] MEDS: Pantoprazole Sodium 20 MG Tablet PO (08:59)
[2017-07-19] MEDS: Petrolatum,White 3.75GM OPTH.TUBE 1 APPLIC OP ×2 (08:59→20:32)
[2017-07-19] MEDS: levETIRAcetam Oral Solution 500 MG/5 ML 750 MG PO ×2 (09:00→20:31)
[2017-07-19] MEDS: Neomycin/Bacitracin/Polymyxin Opth. Ointment 1 APPLIC RIGHT EYE ×4 (11:24→20:33)
[2017-07-19] MEDS: Meloxicam 15 MG Tablet PO (11:24)
--- NOTE | 2017-07-19 12:08 | PN.NEURO_ITS ---
Subjective: patient seen lying quietly in bed. No new complaints. Tolerating therapy. No issues with /GI. - Physical Exam General: Alert, Oriented x3, Cooperative HEENT: Atraumatic, PERRLA, EOMI, Normocephalic Neck: Supple, No JVD, Negative Carotid Bruits Lungs: Clear to auscultation, Normal air movement Cardiovascular: Regular rate, No murmurs Abdomen: Bowel Sounds Present, Soft, Non Tender Extremities: No edema, Capillary Refill Less than 3 Seconds Skin: No rashes, No breakdown Musculoskeletal: No Tenderness to Palpation of Joints or Extremities Neurological: Cranial nerves II-XII grossly intact Psych/Mental Status: Normal Affect, Appropriate Vital Signs Temp Pulse Resp BP Pulse Ox 99.2 F H 85 16 130/77 H 98 07/19/17 08:32 07/19/17 08:32 07/19/17 08:32 07/19/17 08:32 07/19/17 08:32 Oxygen Delivery Method Room Air Weight: 84.4 kg Body Mass Index (BMI) 26.6 Finger Stick Blood Glucose 90 Intake and Output for Last 24 Hours 07/17/17 07/18/17 07/19/17 23:59 23:59 23:59 Intake Total 480 / 480 480 / 480 420 / 420 Balance 480 / 480 480 / 480 420 / 420 Active Medications Acetaminophen (Tylenol) 650 mg PO Q6H PRN PRN PRN Reason: PAIN Last Admin: 07/19/17 05:53 Dose: 650 mg Aspirin (Aspirin, Baby) 81 mg PO DAILY@0800 [facility] Last Admin: 07/19/17 08:58 Dose: 81 mg Atorvastatin Calcium (Lipitor) 20 mg PO QHS [facility] Last Admin: 07/18/17 20:16 Dose: 20 mg Bisacodyl (Dulcolax) 10 mg RECTAL .PRN X 1 PRN PRN Reason: Constipation Enoxaparin Sodium (Lovenox) 40 mg SC DAILY@0600 [facility] Last Admin: 07/19/17 05:15 Dose: 40 mg Levetiracetam (Keppra Oral Solution) 750 mg PO BID [facility] Last Admin: 07/19/17 09:00 Dose: 750 mg Lorazepam (Ativan) 1 mg PO Q6H PRN PRN PRN Reason: AGITATION Magnesium Hydroxide (Milk Of Magnesia) 30 ml PO .PRN X 1 PRN PRN Reason: Constipation Meloxicam (Mobic) 15 mg PO DAILY [facility] Last Admin: 07/19/17 11:24 Dose: 15 mg Multi-Ingredient Cream (Lacrilube) 1 applic OP BID [facility] Last Admin: 07/19/17 08:59 Dose: 1 applicatio Neomycin/Polymyxin/Bacitracin (Neosporin) 1 applic RIGHT EYE 4X/DAY [facility] Last Admin: 07/19/17 11:24 Dose: 1 applic Pantoprazole Sodium (Protonix) 20 mg PO DAILY [facility] Last Admin: 07/19/17 08:59 Dose: 20 mg Quetiapine Fumarate (Seroquel) 25 mg PO QHS [facility] Last Admin: 07/18/17 20:20 Dose: 25 mg Senna/Docusate Sodium (Senokot-S, Sharmila-Colace) 2 tablet PO BID [facility] Last Admin: 07/19/17 08:59 Dose: 2 tablet Sertraline HCl (Zoloft) 50 mg PO DAILY [facility] Last Admin: 07/19/17 08:58 Dose: 50 mg Tamsulosin HCl (Flomax) 0.4 mg PO QHS [facility] Last Admin: 07/18/17 20:15 Dose: 0.4 mg Medical Necessity - Tobacco Use Smoking Status: Former smoker Assessment/Plan Debility 2/2 status epilepticus, complicated by a previous right medial occipital lobe stroke. Goal of rehab is judaism of functional independence. Plan: - Physical therapy for gait and balance - Occupational Therapy for ADLs - Speech therapy - As needed analgesics - Bowel protocol - Stroke prevention on ASA, Statin and Lovenox - DVT prophylaxis: SCDs, ASA, Lovenox - Seizures => Keppra 750mg BID - Hx BPH: continue Flomax - Hx Anxiety: continue Zoloft - Night terrors Started on Seroquel 25mg at HS, will obtain an EKG prior to giving first dose
[2017-07-19 14:24] VITALS: BMI 26.6
[2017-07-19 19:38] VITALS: BP 119/74; PULSE 60; RESP 16; TEMP 36.9; O2SAT 98
[2017-07-19] MEDS: Tamsulosin HCl 0.4 MG Capsule PO (20:31)
[2017-07-19] MEDS: QUEtiapine 25 MG Tablet PO (20:33)
[2017-07-19] MEDS: Atorvastatin Calcium 20 MG Tablet PO (20:34)
[2017-07-19 23:52] VITALS: BMI 26.6
--- NOTE | 2017-07-20 01:00 | NURSING ---
Reviewed and agree with [employer] documentation and [facility] charting.
[2017-07-20] MEDS: Enoxaparin 40 MG/0.4 ML Syringe SC (05:16)
[2017-07-20] MEDS: Senna/Docusate Sodium 1 Tablet 2 TABLET PO ×2 (08:19→22:56)
[2017-07-20] MEDS: Pantoprazole Sodium 20 MG Tablet PO (08:19)
[2017-07-20] MEDS: Aspirin 81 MG TAB.CHEW PO (08:19)
[2017-07-20] MEDS: levETIRAcetam Oral Solution 500 MG/5 ML 750 MG PO ×2 (08:20→22:57)
[2017-07-20] MEDS: Meloxicam 15 MG Tablet PO (08:20)
[2017-07-20] MEDS: Sertraline 50 MG Tablet PO (08:20)
[2017-07-20 08:21] VITALS: BP 111/76; PULSE 76; RESP 17; TEMP 36.5; O2SAT 91
[2017-07-20] MEDS: Petrolatum,White 3.75GM OPTH.TUBE 1 APPLIC OP ×2 (08:23→22:56)
--- NOTE | 2017-07-20 08:56 | PCM.PN.NEU ---
Subjective: Patient seen and examined. Tolerating therapy. No new complaints. Denies any shortness of breath or chest pains. No issues with GI/. - Physical Exam General: Alert, Oriented x3, Cooperative HEENT: Atraumatic, PERRLA, EOMI, Normocephalic Neck: Supple, No JVD, Negative Carotid Bruits Lungs: Clear to auscultation, Normal air movement Cardiovascular: Regular rate, No murmurs Abdomen: Bowel Sounds Present, Soft, Non Tender Extremities: No edema, Capillary Refill Less than 3 Seconds Skin: No rashes, No breakdown Musculoskeletal: No Tenderness to Palpation of Joints or Extremities Neurological: Cranial nerves II-XII grossly intact Psych/Mental Status: Normal Affect, Appropriate Vital Signs Temp Pulse Resp BP Pulse Ox 97.7 F L 76 17 111/76 91 07/20/17 08:21 07/20/17 08:21 07/20/17 08:21 07/20/17 08:21 07/20/17 08:21 Oxygen Delivery Method Room Air Weight: 85.9 kg Body Mass Index (BMI) 26.6 Finger Stick Blood Glucose 90 Intake and Output for Last 24 Hours 07/18/17 07/19/17 07/20/17 23:59 23:59 23:59 Intake Total 480 / 480 660 / 660 420 / 420 Balance 480 / 480 660 / 660 420 / 420 Active Medications Acetaminophen (Tylenol) 650 mg PO Q6H PRN PRN PRN Reason: PAIN Last Admin: 07/19/17 05:53 Dose: 650 mg Aspirin (Aspirin, Baby) 81 mg PO DAILY@0800 [facility] Last Admin: 07/20/17 08:19 Dose: 81 mg Atorvastatin Calcium (Lipitor) 20 mg PO QHS [facility] Last Admin: 07/19/17 20:34 Dose: 20 mg Bisacodyl (Dulcolax) 10 mg RECTAL .PRN X 1 PRN PRN Reason: Constipation Enoxaparin Sodium (Lovenox) 40 mg SC DAILY@0600 [facility] Last Admin: 07/20/17 05:16 Dose: 40 mg Levetiracetam (Keppra Oral Solution) 750 mg PO BID [facility] Last Admin: 07/20/17 08:20 Dose: 750 mg Lorazepam (Ativan) 1 mg PO Q6H PRN PRN PRN Reason: AGITATION Magnesium Hydroxide (Milk Of Magnesia) 30 ml PO .PRN X 1 PRN PRN Reason: Constipation Meloxicam (Mobic) 15 mg PO DAILY [facility] Last Admin: 07/20/17 08:20 Dose: 15 mg Multi-Ingredient Cream (Lacrilube) 1 applic OP BID [facility] Last Admin: 07/20/17 08:23 Dose: 1 applicatio Neomycin/Polymyxin/Bacitracin (Neosporin) 1 applic RIGHT EYE 4X/DAY [facility] Last Admin: 07/19/17 20:33 Dose: 1 applic Pantoprazole Sodium (Protonix) 20 mg PO DAILY [facility] Last Admin: 07/20/17 08:19 Dose: 20 mg Quetiapine Fumarate (Seroquel) 25 mg PO QHS [facility] Last Admin: 07/19/17 20:33 Dose: 25 mg Senna/Docusate Sodium (Senokot-S, Sharmila-Colace) 2 tablet PO BID [facility] Last Admin: 07/20/17 08:19 Dose: 2 tablet Sertraline HCl (Zoloft) 50 mg PO DAILY [facility] Last Admin: 07/20/17 08:20 Dose: 50 mg Tamsulosin HCl (Flomax) 0.4 mg PO QHS [facility] Last Admin: 07/19/17 20:31 Dose: 0.4 mg Medical Necessity - Tobacco Use Smoking Status: Former smoker Assessment/Plan Debility 2/2 status epilepticus, complicated by a previous right medial occipital lobe stroke. Goal of rehab is [place] of functional independence. Plan: - Physical therapy for gait and balance - Occupational Therapy for ADLs - Speech therapy - As needed analgesics - Bowel protocol - Stroke prevention on ASA, Statin and Lovenox - DVT prophylaxis: SCDs, ASA, Lovenox - Seizures => Keppra 750mg BID - Hx BPH: continue Flomax - Hx Anxiety: continue Zoloft - Night terrors Started on Seroquel 25mg at HS, will obtain an EKG prior to giving first dose - Check labs this morning, CBC, CMP
--- NOTE | 2017-07-20 09:06 | PN.NEURO_ITS ---
Subjective: Patient seen and examined. Tolerating therapy. No new complaints. Denies any shortness of breath or chest pains. No issues with GI/. - Physical Exam General: Alert, Oriented x3, Cooperative HEENT: Atraumatic, PERRLA, EOMI, Normocephalic Neck: Supple, No JVD, Negative Carotid Bruits Lungs: Clear to auscultation, Normal air movement Cardiovascular: Regular rate, No murmurs Abdomen: Bowel Sounds Present, Soft, Non Tender Extremities: No edema, Capillary Refill Less than 3 Seconds Skin: No rashes, No breakdown Musculoskeletal: No Tenderness to Palpation of Joints or Extremities Neurological: Cranial nerves II-XII grossly intact Psych/Mental Status: Normal Affect, Appropriate Vital Signs Temp Pulse Resp BP Pulse Ox 97.7 F L 76 17 111/76 91 07/20/17 08:21 07/20/17 08:21 07/20/17 08:21 07/20/17 08:21 07/20/17 08:21 Oxygen Delivery Method Room Air Weight: 85.9 kg Body Mass Index (BMI) 26.6 Finger Stick Blood Glucose 90 Intake and Output for Last 24 Hours 07/18/17 07/19/17 07/20/17 23:59 23:59 23:59 Intake Total 480 / 480 660 / 660 420 / 420 Balance 480 / 480 660 / 660 420 / 420 Active Medications Acetaminophen (Tylenol) 650 mg PO Q6H PRN PRN PRN Reason: PAIN Last Admin: 07/19/17 05:53 Dose: 650 mg Aspirin (Aspirin, Baby) 81 mg PO DAILY@0800 [facility] Last Admin: 07/20/17 08:19 Dose: 81 mg Atorvastatin Calcium (Lipitor) 20 mg PO QHS [facility] Last Admin: 07/19/17 20:34 Dose: 20 mg Bisacodyl (Dulcolax) 10 mg RECTAL .PRN X 1 PRN PRN Reason: Constipation Enoxaparin Sodium (Lovenox) 40 mg SC DAILY@0600 [facility] Last Admin: 07/20/17 05:16 Dose: 40 mg Levetiracetam (Keppra Oral Solution) 750 mg PO BID [facility] Last Admin: 07/20/17 08:20 Dose: 750 mg Lorazepam (Ativan) 1 mg PO Q6H PRN PRN PRN Reason: AGITATION Magnesium Hydroxide (Milk Of Magnesia) 30 ml PO .PRN X 1 PRN PRN Reason: Constipation Meloxicam (Mobic) 15 mg PO DAILY [facility] Last Admin: 07/20/17 08:20 Dose: 15 mg Multi-Ingredient Cream (Lacrilube) 1 applic OP BID [facility] Last Admin: 07/20/17 08:23 Dose: 1 applicatio Neomycin/Polymyxin/Bacitracin (Neosporin) 1 applic RIGHT EYE 4X/DAY [facility] Last Admin: 07/19/17 20:33 Dose: 1 applic Pantoprazole Sodium (Protonix) 20 mg PO DAILY [facility] Last Admin: 07/20/17 08:19 Dose: 20 mg Quetiapine Fumarate (Seroquel) 25 mg PO QHS [facility] Last Admin: 07/19/17 20:33 Dose: 25 mg Senna/Docusate Sodium (Senokot-S, Sharmila-Colace) 2 tablet PO BID [facility] Last Admin: 07/20/17 08:19 Dose: 2 tablet Sertraline HCl (Zoloft) 50 mg PO DAILY [facility] Last Admin: 07/20/17 08:20 Dose: 50 mg Tamsulosin HCl (Flomax) 0.4 mg PO QHS [facility] Last Admin: 07/19/17 20:31 Dose: 0.4 mg Medical Necessity - Tobacco Use Smoking Status: Former smoker Assessment/Plan Debility 2/2 status epilepticus, complicated by a previous right medial occipital lobe stroke. Goal of rehab is mormonism of functional independence. Plan: - Physical therapy for gait and balance - Occupational Therapy for ADLs - Speech therapy - As needed analgesics - Bowel protocol - Stroke prevention on ASA, Statin and Lovenox - DVT prophylaxis: SCDs, ASA, Lovenox - Seizures => Keppra 750mg BID - Hx BPH: continue Flomax - Hx Anxiety: continue Zoloft - Night terrors Started on Seroquel 25mg at HS, will obtain an EKG prior to giving first dose - Check labs this morning, CBC, CMP
[2017-07-20 10:21] LABS: Hematocrit 44.6 % (40-54); Hemoglobin 14.5 g/dl (13.0-16.5); Mean Corp Hgb Conc 32.5 g/gl (32-36); Mean Corpuscular Hgb 30.3 pg (27.0-32.0); Mean Corpuscular Volume 93.1 fL (80-94); Mean Platelet Vol. 10.4 fl (6.2-12.0); Platelet Count 246 K/mm3 (150-450); RBC Distribution Width CV 12.4 % (11.6-14.6); RBC Distribution Width SD 41.6 fl (35.1-43.9); Red Blood Count 4.79 M/mm3 (4.6-6.2); White Blood Count 6.5 K/mm3 (4.4-11.0)
[2017-07-20 10:22] LABS: Scan Indicated on CBC? Y/N NO
[2017-07-20 10:57] LABS: ALB/GLOB Ratio 0.8 RATIO (0.9-2.4); AST(SGOT) 33 U/L (15-37); Alanine Aminotransfer ALT/SGPT 47 U/L (16-61); Albumin, Serum 3.5 g/dL (3.2-5.0); Alkaline Phosphatase 61 U/L (45-117); Anion Gap 8 (5-15); BUN 13 mg/dL (7-18); Calcium,Total 8.9 mg/dL (8.5-10.1); Chloride 101 mmol/L (98-107); Creatinine, Serum 0.93 mg/dL (0.70-1.30); EST Glomerular Filtration Rate 92 mL/min (>60); Est Glom Filt Rate - Afr Amer 112 mL/min (>60); Globulin 4.6 g/dL (2.2-4.2); Glucose 107 mg/dL (74-106); Protein, Total 8.1 g/dL (6.4-8.2); Sodium Level 136 mmol/L (136-145)
[2017-07-20] MEDS: Neomycin/Bacitracin/Polymyxin Opth. Ointment 1 APPLIC RIGHT EYE ×4 (11:35→22:56)
[2017-07-20 12:08] VITALS: BMI 26.6
--- NOTE | 2017-07-20 19:26 | NURSING ---
PT TAKEN VIA WHEELCHAIR BY HIS SON TO VISIT [facility]. WILL RETURN SOON. PT REPORTS TO FEEL WELL. SPEECH IS CLEAR AND APPROPRIATE.
[2017-07-20 20:23] VITALS: BP 135/81; PULSE 60; RESP 12; TEMP 36.6; O2SAT 97
[2017-07-20] MEDS: QUEtiapine 25 MG Tablet PO (22:55)
[2017-07-20] MEDS: Atorvastatin Calcium 20 MG Tablet PO (22:56)
[2017-07-20] MEDS: Tamsulosin HCl 0.4 MG Capsule PO (22:58)
[2017-07-21 05:00] VITALS: BMI 26.6
[2017-07-21] MEDS: Enoxaparin 40 MG/0.4 ML Syringe SC (05:48)
[2017-07-21 07:32] VITALS: BP 117/72; PULSE 68; RESP 18; TEMP 36.6; O2SAT 95
[2017-07-21] MEDS: Sertraline 50 MG Tablet PO (08:03)
[2017-07-21] MEDS: Meloxicam 15 MG Tablet PO (08:03)
[2017-07-21] MEDS: Senna/Docusate Sodium 1 Tablet 2 TABLET PO (08:03)
[2017-07-21] MEDS: Aspirin 81 MG TAB.CHEW PO (08:03)
[2017-07-21] MEDS: levETIRAcetam Oral Solution 500 MG/5 ML 750 MG PO (08:03)
[2017-07-21] MEDS: Pantoprazole Sodium 20 MG Tablet PO (08:03)
--- NOTE | 2017-07-21 08:45 | PCM.PN.NEU ---
Subjective: Staffed in team meeting. Family at bedside. Questions answered. With Physical therapy, he is walking using the walking about 60 to 70 feet, he needs max cues to navigate around objects. He is able to go up and down 10 steps with one hand rail. He performed the TUG (Get up and Go) test x 10 in 25 sec, prior to this would take 3 to 4 minutes. With Occupational therapy he is managing his clothing at moderate assist, he is moderate independence for using the bathroom, he is able to wipe himself, does need cues to remind him to wash his hands. With Speech therapy, he is having issues with is perception it is improving, he is able to feed himself now and is on a Mechanical soft diet, still has some issues with swallowing. With Nursing no issues. His vision is worse after his seizures per his family and him, according to the family he was driving and was independent with his own care, will have him see the poultry farmer, he was positive for Anti-cardiolipin IgM AB will consult Hematology. He will need a driving assessment evaluation prior to regaining his driving privileges. - Physical Exam General: Alert, Oriented x3, Cooperative HEENT: Atraumatic, PERRLA, EOMI, Normocephalic Neck: Supple, No JVD, Negative Carotid Bruits Lungs: Clear to auscultation, Normal air movement Cardiovascular: Regular rate, No murmurs Abdomen: Bowel Sounds Present, Soft, Non Tender Extremities: No edema, Capillary Refill Less than 3 Seconds Skin: No rashes, No breakdown Musculoskeletal: No Tenderness to Palpation of Joints or Extremities Neurological: Cranial nerves II-XII grossly intact Psych/Mental Status: Normal Affect, Appropriate Vital Signs Temp Pulse Resp BP Pulse Ox 97.8 F 68 18 117/72 95 07/21/17 07:32 07/21/17 07:32 07/21/17 07:32 07/21/17 07:32 07/21/17 07:32 Oxygen Delivery Method Room Air Weight: 85.9 kg Body Mass Index (BMI) 26.6 Finger Stick Blood Glucose 90 Intake and Output for Last 24 Hours 07/19/17 07/20/17 07/21/17 23:59 23:59 23:59 Intake Total 660 / 660 980 / 980 Balance 660 / 660 980 / 980 Laboratory Tests Past 24 Hrs 07/20/17 07/20/17 10:05 10:05 WBC 6.5 RBC 4.79 Hgb 14.5 Hct 44.6 MCV 93.1 MCH 30.3 MCHC 32.5 RDW 12.4 RDW Differential 41.6 Plt Count 246 MPV 10.4 Sodium 136 Potassium 4.0 Chloride 101 Carbon Dioxide 27.0 Anion Gap 8 BUN 13 Creatinine 0.93 Estim Creat Clear Calc 100.30 Est GFR (MDRD) Af Amer 112 Est GFR (MDRD) Non-Af 92 BUN/Creatinine Ratio 14.0 Glucose 107 H Calcium 8.9 Total Bilirubin 0.30 AST 33 ALT 47 Alkaline Phosphatase 61 Total Protein 8.1 Albumin 3.5 Globulin 4.6 H Albumin/Globulin Ratio 0.8 L Active Medications Acetaminophen (Tylenol) 650 mg PO Q6H PRN PRN PRN Reason: PAIN Last Admin: 07/19/17 05:53 Dose: 650 mg Aspirin (Aspirin, Baby) 81 mg PO DAILY@0800 [facility] Last Admin: 07/21/17 08:03 Dose: 81 mg Atorvastatin Calcium (Lipitor) 20 mg PO QHS [facility] Last Admin: 07/20/17 22:56 Dose: 20 mg Bisacodyl (Dulcolax) 10 mg RECTAL .PRN X 1 PRN PRN Reason: Constipation Enoxaparin Sodium (Lovenox) 40 mg SC DAILY@0600 [facility] Last Admin: 07/21/17 05:48 Dose: 40 mg Levetiracetam (Keppra Oral Solution) 750 mg PO BID [facility] Last Admin: 07/21/17 08:03 Dose: 750 mg Lorazepam (Ativan) 1 mg PO Q6H PRN PRN PRN Reason: AGITATION Magnesium Hydroxide (Milk Of Magnesia) 30 ml PO .PRN X 1 PRN PRN Reason: Constipation Meloxicam (Mobic) 15 mg PO DAILY [facility] Last Admin: 07/21/17 08:03 Dose: 15 mg Multi-Ingredient Cream (Lacrilube) 1 applic OP BID [facility] Last Admin: 07/20/17 22:56 Dose: 1 applicatio Neomycin/Polymyxin/Bacitracin (Neosporin) 1 applic RIGHT EYE 4X/DAY [facility] Last Admin: 07/20/17 22:56 Dose: 1 applic Nutritional Formula (Lactose Free) (Ensure Enlive) 120 ml PO 4X/DAY [facility] Pantoprazole Sodium (Protonix) 20 mg PO DAILY [facility] Last Admin: 07/21/17 08:03 Dose: 20 mg Quetiapine Fumarate (Seroquel) 25 mg PO QHS [facility] Last Admin: 07/20/17 22:55 Dose: 25 mg Senna/Docusate Sodium (Senokot-S, Sharmila-Colace) 2 tablet PO BID [facility] Last Admin: 07/21/17 08:03 Dose: 2 tablet Sertraline HCl (Zoloft) 50 mg PO DAILY [facility] Last Admin: 07/21/17 08:03 Dose: 50 mg Tamsulosin HCl (Flomax) 0.4 mg PO QHS [facility] Last Admin: 07/20/17 22:58 Dose: 0.4 mg Medical Necessity - Tobacco Use Smoking Status: Former smoker Assessment/Plan Debility 2/2 status epilepticus, complicated by a previous right medial occipital lobe stroke. Goal of rehab is yazdanism of functional independence. Plan: - Physical therapy for gait and balance - Occupational Therapy for ADLs - Speech therapy - As needed analgesics - Bowel protocol - Stroke prevention on ASA, Statin and Lovenox - DVT prophylaxis: SCDs, ASA, Lovenox - Seizures => Keppra 750mg BID - Hx BPH: continue Flomax - Hx Anxiety: continue Zoloft - Night terrors Started on Seroquel 25mg at HS, will obtain an EKG prior to giving first dose - Check labs this morning, CBC, CMP - Consult Hematology for positive IgM AB - Consult Ophthalmology for worsening vision since seizures
--- NOTE | 2017-07-21 08:56 | PN.NEURO_ITS ---
Subjective: Staffed in team meeting. Family at bedside. Questions answered. With Physical therapy, he is walking using the walking about 60 to 70 feet, he needs max cues to navigate around objects. He is able to go up and down 10 steps with one hand rail. He performed the TUG (Get up and Go) test x 10 in 25 sec, prior to this would take 3 to 4 minutes. With Occupational therapy he is managing his clothing at moderate assist, he is moderate independence for using the bathroom , he is able to wipe himself, does need cues to remind him to wash his hands. With Speech therapy, he is having issues with is perception it is improving, he is able to feed himself now and is on a Mechanical soft diet, still has some issues with swallowing. With Nursing no issues. His vision is worse after his seizures per his family and him, according to the family he was driving and was independent with his own care, will have him see the educational aid, he was positive for Anti-cardiolipin IgM AB will consult Hematology. He will need a driving assessment evaluation prior to regaining his driving privileges. - Physical Exam General: Alert, Oriented x3, Cooperative HEENT: Atraumatic, PERRLA, EOMI, Normocephalic Neck: Supple, No JVD, Negative Carotid Bruits Lungs: Clear to auscultation, Normal air movement Cardiovascular: Regular rate, No murmurs Abdomen: Bowel Sounds Present, Soft, Non Tender Extremities: No edema, Capillary Refill Less than 3 Seconds Skin: No rashes, No breakdown Musculoskeletal: No Tenderness to Palpation of Joints or Extremities Neurological: Cranial nerves II-XII grossly intact Psych/Mental Status: Normal Affect, Appropriate Vital Signs Temp Pulse Resp BP Pulse Ox 97.8 F 68 18 117/72 95 07/21/17 07:32 07/21/17 07:32 07/21/17 07:32 07/21/17 07:32 07/21/17 07:32 Oxygen Delivery Method Room Air Weight: 85.9 kg Body Mass Index (BMI) 26.6 Finger Stick Blood Glucose 90 Intake and Output for Last 24 Hours 07/19/17 07/20/17 07/21/17 23:59 23:59 23:59 Intake Total 660 / 660 980 / 980 Balance 660 / 660 980 / 980 Laboratory Tests Past 24 Hrs 07/20/17 07/20/17 10:05 10:05 WBC 6.5 RBC 4.79 Hgb 14.5 Hct 44.6 MCV 93.1 MCH 30.3 MCHC 32.5 RDW 12.4 RDW Differential 41.6 Plt Count 246 MPV 10.4 Sodium 136 Potassium 4.0 Chloride 101 Carbon Dioxide 27.0 Anion Gap 8 BUN 13 Creatinine 0.93 Estim Creat Clear Calc 100.30 Est GFR (MDRD) Af Amer 112 Est GFR (MDRD) Non-Af 92 BUN/Creatinine Ratio 14.0 Glucose 107 H Calcium 8.9 Total Bilirubin 0.30 AST 33 ALT 47 Alkaline Phosphatase 61 Total Protein 8.1 Albumin 3.5 Globulin 4.6 H Albumin/Globulin Ratio 0.8 L Active Medications Acetaminophen (Tylenol) 650 mg PO Q6H PRN PRN PRN Reason: PAIN Last Admin: 07/19/17 05:53 Dose: 650 mg Aspirin (Aspirin, Baby) 81 mg PO DAILY@0800 [facility] Last Admin: 07/21/17 08:03 Dose: 81 mg Atorvastatin Calcium (Lipitor) 20 mg PO QHS [facility] Last Admin: 07/20/17 22:56 Dose: 20 mg Bisacodyl (Dulcolax) 10 mg RECTAL .PRN X 1 PRN PRN Reason: Constipation Enoxaparin Sodium (Lovenox) 40 mg SC DAILY@0600 [facility] Last Admin: 07/21/17 05:48 Dose: 40 mg Levetiracetam (Keppra Oral Solution) 750 mg PO BID [facility] Last Admin: 07/21/17 08:03 Dose: 750 mg Lorazepam (Ativan) 1 mg PO Q6H PRN PRN PRN Reason: AGITATION Magnesium Hydroxide (Milk Of Magnesia) 30 ml PO .PRN X 1 PRN PRN Reason: Constipation Meloxicam (Mobic) 15 mg PO DAILY [facility] Last Admin: 07/21/17 08:03 Dose: 15 mg Multi-Ingredient Cream (Lacrilube) 1 applic OP BID [facility] Last Admin: 07/20/17 22:56 Dose: 1 applicatio Neomycin/Polymyxin/Bacitracin (Neosporin) 1 applic RIGHT EYE 4X/DAY [facility] Last Admin: 07/20/17 22:56 Dose: 1 applic Nutritional Formula (Lactose Free) (Ensure Enlive) 120 ml PO 4X/DAY [facility] Pantoprazole Sodium (Protonix) 20 mg PO DAILY [facility] Last Admin: 07/21/17 08:03 Dose: 20 mg Quetiapine Fumarate (Seroquel) 25 mg PO QHS [facility] Last Admin: 07/20/17 22:55 Dose: 25 mg Senna/Docusate Sodium (Senokot-S, Sharmila-Colace) 2 tablet PO BID [facility] Last Admin: 07/21/17 08:03 Dose: 2 tablet Sertraline HCl (Zoloft) 50 mg PO DAILY [facility] Last Admin: 07/21/17 08:03 Dose: 50 mg Tamsulosin HCl (Flomax) 0.4 mg PO QHS [facility] Last Admin: 07/20/17 22:58 Dose: 0.4 mg Medical Necessity - Tobacco Use Smoking Status: Former smoker Assessment/Plan Debility 2/2 status epilepticus, complicated by a previous right medial occipital lobe stroke. Goal of rehab is religion of functional independence. Plan: - Physical therapy for gait and balance - Occupational Therapy for ADLs - Speech therapy - As needed analgesics - Bowel protocol - Stroke prevention on ASA, Statin and Lovenox - DVT prophylaxis: SCDs, ASA, Lovenox - Seizures => Keppra 750mg BID - Hx BPH: continue Flomax - Hx Anxiety: continue Zoloft - Night terrors Started on Seroquel 25mg at HS, will obtain an EKG prior to giving first dose - Check labs this morning, CBC, CMP - Consult Hematology for positive IgM AB - Consult Ophthalmology for worsening vision since seizures
[2017-07-21] MEDS: Petrolatum,White 3.75GM OPTH.TUBE 1 APPLIC OP ×2 (10:01→21:33)
[2017-07-21] MEDS: Neomycin/Bacitracin/Polymyxin Opth. Ointment 1 APPLIC RIGHT EYE ×4 (10:01→21:34)
--- NOTE | 2017-07-21 10:09 | NURSING ---
Hemotology consulted d/t anticardiolipin IgM level of 14. Hemotology office called kyle wills NP consults this week. information faxed to office.
--- NOTE | 2017-07-21 10:23 | NURSING ---
eye appoinment made per dr cain request. patient has appt at [facility] with dr brown on 07/26/2017 @ 1684 and sister steve will take and aware.
--- NOTE | 2017-07-21 10:30 | NURSING ---
dr billings office notified about f/u on right hand 4th digit splint, was previously seeing dr billings. appointment scheduled for 07/26/17 @1500. steve jaramillo aware and will be transporting patient to both eye and ortho appt.
[2017-07-21 10:46] VITALS: BMI 26.6
--- NOTE | 2017-07-21 12:47 | CASEMGMT ---
Team meeting held. Patient present as well as patient family. No discharge date set at this time. Patient to continue with further care treatment on the Inpatient Rehab Unit. Patient plans to discharge home with family at time of discharge. Support given. Will continue to follow. Verena JENKINS, POCKET STITCHER
--- NOTE | 2017-07-21 14:45 | NURSING ---
soy tang spoke with kyle Tang from hematology and lab work ordered
[2017-07-21 21:29] VITALS: BP 120/74; PULSE 67; RESP 17; TEMP 36.5; O2SAT 94
[2017-07-21] MEDS: Tamsulosin HCl 0.4 MG Capsule 0.8 MG PO (21:33)
[2017-07-21] MEDS: QUEtiapine 25 MG Tablet PO (21:33)
[2017-07-21] MEDS: Atorvastatin Calcium 20 MG Tablet PO (21:33)
[2017-07-21] MEDS: levETIRAcetam 750 MG Tablet PO (21:49)
[2017-07-21 21:55] VITALS: BMI 26.6
[2017-07-22] MEDS: Enoxaparin 40 MG/0.4 ML Syringe SC (05:14)
[2017-07-22 08:09] VITALS: BP 119/71; PULSE 87; RESP 17; TEMP 37.1; O2SAT 95
[2017-07-22] MEDS: Aspirin 81 MG TAB.CHEW PO (08:37)
[2017-07-22] MEDS: Sertraline 50 MG Tablet PO (08:37)
[2017-07-22] MEDS: Pantoprazole Sodium 20 MG Tablet PO (08:37)
[2017-07-22] MEDS: Meloxicam 15 MG Tablet PO (08:37)
[2017-07-22] MEDS: Petrolatum,White 3.75GM OPTH.TUBE 1 APPLIC OP ×2 (08:37→20:35)
[2017-07-22] MEDS: levETIRAcetam 750 MG Tablet PO ×2 (08:37→20:36)
[2017-07-22] MEDS: Neomycin/Bacitracin/Polymyxin Opth. Ointment 1 APPLIC RIGHT EYE ×4 (10:54→20:34)
--- NOTE | 2017-07-22 13:45 | PCM.PN.NEU ---
Subjective: patient seen and examined. no new issues. tolerating therapy. consults for worsen vision after the seizure is on 07/26 1320, Ortho for finger fx is 07/26 at 1500, and with Hematology, they would like the coag studies repeated and will follow as an outpatient. Other luque he is doing well, no issues with GI/. - Physical Exam General: Alert, Oriented x3, Cooperative HEENT: Atraumatic, PERRLA, EOMI, Normocephalic Neck: Supple, No JVD, Negative Carotid Bruits Lungs: Clear to auscultation, Normal air movement Cardiovascular: Regular rate, No murmurs Abdomen: Bowel Sounds Present, Soft, Non Tender Extremities: No edema, Capillary Refill Less than 3 Seconds Skin: No rashes, No breakdown Musculoskeletal: No Tenderness to Palpation of Joints or Extremities Neurological: Cranial nerves II-XII grossly intact Psych/Mental Status: Normal Affect, Appropriate Vital Signs Temp Pulse Resp BP Pulse Ox 98.8 F 87 17 119/71 95 07/22/17 08:09 07/22/17 08:09 07/22/17 08:09 07/22/17 08:09 07/22/17 08:09 Oxygen Delivery Method Room Air Weight: 85.9 kg Body Mass Index (BMI) 26.6 Finger Stick Blood Glucose 90 Intake and Output for Last 24 Hours 07/20/17 07/21/17 07/22/17 23:59 23:59 23:59 Intake Total 980 / 980 780 / 780 860 / 860 Balance 980 / 980 780 / 780 860 / 860 Laboratory Tests Past 24 Hrs 07/21/17 15:45 Protein C Antigen Pending Functional Protein C Pending Prot C Funct Activity Pending Antithrombin III Ag Pending Func Antithrombin III Pending Factor V Leiden Mutat Pending Beta-2-GPI IgG Ab Pending Beta-2-GPI IgA Ab Pending Beta-2-GPI IgM Ab Pending Anti-Cardiolipin IgG Ab Pending Anti-Cardiolipin IgM Ab Pending Factor II DNA Analysis Pending Active Medications Acetaminophen (Tylenol) 650 mg PO Q6H PRN PRN PRN Reason: PAIN Last Admin: 07/19/17 05:53 Dose: 650 mg Aspirin (Aspirin, Baby) 81 mg PO DAILY@0800 [facility] Last Admin: 07/22/17 08:37 Dose: 81 mg Atorvastatin Calcium (Lipitor) 20 mg PO QHS [facility] Last Admin: 07/21/17 21:33 Dose: 20 mg Bisacodyl (Dulcolax) 10 mg RECTAL .PRN X 1 PRN PRN Reason: Constipation Enoxaparin Sodium (Lovenox) 40 mg SC DAILY@0600 [facility] Last Admin: 07/22/17 05:14 Dose: 40 mg Levetiracetam (Keppra Tablet) 750 mg PO BID [facility] Last Admin: 07/22/17 08:37 Dose: 750 mg Lorazepam (Ativan) 1 mg PO Q6H PRN PRN PRN Reason: AGITATION Magnesium Hydroxide (Milk Of Magnesia) 30 ml PO .PRN X 1 PRN PRN Reason: Constipation Meloxicam (Mobic) 15 mg PO DAILY [facility] Last Admin: 07/22/17 08:37 Dose: 15 mg Multi-Ingredient Cream (Lacrilube) 1 applic OP BID [facility] Last Admin: 07/22/17 08:37 Dose: 1 applicatio Neomycin/Polymyxin/Bacitracin (Neosporin) 1 applic RIGHT EYE 4X/DAY [facility] Last Admin: 07/22/17 10:54 Dose: 1 applic Nutritional Formula (Lactose Free) (Ensure Enlive) 120 ml PO 4X/DAY [facility] Last Admin: 07/22/17 08:37 Dose: 120 ml Pantoprazole Sodium (Protonix) 20 mg PO DAILY [facility] Last Admin: 07/22/17 08:37 Dose: 20 mg Quetiapine Fumarate (Seroquel) 25 mg PO QHS [facility] Last Admin: 07/21/17 21:33 Dose: 25 mg Senna/Docusate Sodium (Senokot-S, Sharmila-Colace) 2 tablet PO BID [facility] Last Admin: 07/22/17 08:42 Dose: Not Given Sertraline HCl (Zoloft) 50 mg PO DAILY [facility] Last Admin: 07/22/17 08:37 Dose: 50 mg Tamsulosin HCl (Flomax) 0.8 mg PO QHS [facility] Last Admin: 07/21/17 21:33 Dose: 0.8 mg Medical Necessity - Tobacco Use Smoking Status: Former smoker Assessment/Plan Debility 2/2 status epilepticus, complicated by a previous right medial occipital lobe stroke. Goal of rehab is judaism of functional independence. Plan: - Physical therapy for gait and balance - Occupational Therapy for ADLs - Speech therapy - As needed analgesics - Bowel protocol - Stroke prevention on ASA, Statin and Lovenox - DVT prophylaxis: SCDs, ASA, Lovenox - Seizures => Keppra 750mg BID - Hx BPH: continue Flomax - Hx Anxiety: continue Zoloft - Night terrors Started on Seroquel 25mg at HS, will obtain an EKG prior to giving first dose - Check labs this morning, CBC, CMP - Consult Hematology for positive IgM AB => repeat coag studies, and see as an outpatient - Consult Ophthalmology for worsening vision since seizures => appointment is for 3 at 1320 - Consult Ortho for fx finger => appointment is on 07/26 at 1500
--- NOTE | 2017-07-22 13:50 | PN.NEURO_ITS ---
Subjective: patient seen and examined. no new issues. tolerating therapy. consults for worsen vision after the seizure is on 07/26 1320, Ortho for finger fx is 07/26 at 1500, and with Hematology, they would like the coag studies repeated and will follow as an outpatient. Other luque he is doing well, no issues with GI/. - Physical Exam General: Alert, Oriented x3, Cooperative HEENT: Atraumatic, PERRLA, EOMI, Normocephalic Neck: Supple, No JVD, Negative Carotid Bruits Lungs: Clear to auscultation, Normal air movement Cardiovascular: Regular rate, No murmurs Abdomen: Bowel Sounds Present, Soft, Non Tender Extremities: No edema, Capillary Refill Less than 3 Seconds Skin: No rashes, No breakdown Musculoskeletal: No Tenderness to Palpation of Joints or Extremities Neurological: Cranial nerves II-XII grossly intact Psych/Mental Status: Normal Affect, Appropriate Vital Signs Temp Pulse Resp BP Pulse Ox 98.8 F 87 17 119/71 95 07/22/17 08:09 07/22/17 08:09 07/22/17 08:09 07/22/17 08:09 07/22/17 08:09 Oxygen Delivery Method Room Air Weight: 85.9 kg Body Mass Index (BMI) 26.6 Finger Stick Blood Glucose 90 Intake and Output for Last 24 Hours 07/20/17 07/21/17 07/22/17 23:59 23:59 23:59 Intake Total 980 / 980 780 / 780 860 / 860 Balance 980 / 980 780 / 780 860 / 860 Laboratory Tests Past 24 Hrs 07/21/17 15:45 Protein C Antigen Pending Functional Protein C Pending Prot C Funct Activity Pending Antithrombin III Ag Pending Func Antithrombin III Pending Factor V Leiden Mutat Pending Beta-2-GPI IgG Ab Pending Beta-2-GPI IgA Ab Pending Beta-2-GPI IgM Ab Pending Anti-Cardiolipin IgG Ab Pending Anti-Cardiolipin IgM Ab Pending Factor II DNA Analysis Pending Active Medications Acetaminophen (Tylenol) 650 mg PO Q6H PRN PRN PRN Reason: PAIN Last Admin: 07/19/17 05:53 Dose: 650 mg Aspirin (Aspirin, Baby) 81 mg PO DAILY@0800 [facility] Last Admin: 07/22/17 08:37 Dose: 81 mg Atorvastatin Calcium (Lipitor) 20 mg PO QHS [facility] Last Admin: 07/21/17 21:33 Dose: 20 mg Bisacodyl (Dulcolax) 10 mg RECTAL .PRN X 1 PRN PRN Reason: Constipation Enoxaparin Sodium (Lovenox) 40 mg SC DAILY@0600 [facility] Last Admin: 07/22/17 05:14 Dose: 40 mg Levetiracetam (Keppra Tablet) 750 mg PO BID [facility] Last Admin: 07/22/17 08:37 Dose: 750 mg Lorazepam (Ativan) 1 mg PO Q6H PRN PRN PRN Reason: AGITATION Magnesium Hydroxide (Milk Of Magnesia) 30 ml PO .PRN X 1 PRN PRN Reason: Constipation Meloxicam (Mobic) 15 mg PO DAILY [facility] Last Admin: 07/22/17 08:37 Dose: 15 mg Multi-Ingredient Cream (Lacrilube) 1 applic OP BID [facility] Last Admin: 07/22/17 08:37 Dose: 1 applicatio Neomycin/Polymyxin/Bacitracin (Neosporin) 1 applic RIGHT EYE 4X/DAY [facility] Last Admin: 07/22/17 10:54 Dose: 1 applic Nutritional Formula (Lactose Free) (Ensure Enlive) 120 ml PO 4X/DAY [facility] Last Admin: 07/22/17 08:37 Dose: 120 ml Pantoprazole Sodium (Protonix) 20 mg PO DAILY [facility] Last Admin: 07/22/17 08:37 Dose: 20 mg Quetiapine Fumarate (Seroquel) 25 mg PO QHS [facility] Last Admin: 07/21/17 21:33 Dose: 25 mg Senna/Docusate Sodium (Senokot-S, Sharmila-Colace) 2 tablet PO BID [facility] Last Admin: 07/22/17 08:42 Dose: Not Given Sertraline HCl (Zoloft) 50 mg PO DAILY [facility] Last Admin: 07/22/17 08:37 Dose: 50 mg Tamsulosin HCl (Flomax) 0.8 mg PO QHS [facility] Last Admin: 07/21/17 21:33 Dose: 0.8 mg Medical Necessity - Tobacco Use Smoking Status: Former smoker Assessment/Plan Debility 2/2 status epilepticus, complicated by a previous right medial occipital lobe stroke. Goal of rehab is sikh of functional independence. Plan: - Physical therapy for gait and balance - Occupational Therapy for ADLs - Speech therapy - As needed analgesics - Bowel protocol - Stroke prevention on ASA, Statin and Lovenox - DVT prophylaxis: SCDs, ASA, Lovenox - Seizures => Keppra 750mg BID - Hx BPH: continue Flomax - Hx Anxiety: continue Zoloft - Night terrors Started on Seroquel 25mg at HS, will obtain an EKG prior to giving first dose - Check labs this morning, CBC, CMP - Consult Hematology for positive IgM AB => repeat coag studies, and see as an outpatient - Consult Ophthalmology for worsening vision since seizures => appointment is for 3 at 1320 - Consult Ortho for fx finger => appointment is on 07/26 at 1500
[2017-07-22 15:17] VITALS: BMI 26.6
[2017-07-22 20:30] VITALS: BP 122/77; PULSE 62; RESP 17; TEMP 36.6; O2SAT 97
[2017-07-22] MEDS: QUEtiapine 25 MG Tablet PO (20:34)
[2017-07-22] MEDS: Tamsulosin HCl 0.4 MG Capsule 0.8 MG PO (20:34)
[2017-07-22] MEDS: Atorvastatin Calcium 20 MG Tablet PO (20:34)
[2017-07-23] MEDS: Enoxaparin 40 MG/0.4 ML Syringe SC (05:30)
[2017-07-23] MEDS: Petrolatum,White 3.75GM OPTH.TUBE 1 APPLIC OP ×2 (07:44→19:46)
[2017-07-23] MEDS: levETIRAcetam 750 MG Tablet PO ×2 (07:45→19:45)
[2017-07-23] MEDS: Pantoprazole Sodium 20 MG Tablet PO (07:45)
[2017-07-23] MEDS: Aspirin 81 MG TAB.CHEW PO (07:46)
[2017-07-23] MEDS: Meloxicam 15 MG Tablet PO (07:46)
[2017-07-23] MEDS: Sertraline 50 MG Tablet PO (07:47)
[2017-07-23 08:37] VITALS: BP 141/87; PULSE 71; RESP 16; TEMP 36.8; O2SAT 99
[2017-07-23] MEDS: Neomycin/Bacitracin/Polymyxin Opth. Ointment 1 APPLIC RIGHT EYE ×4 (11:35→19:45)
[2017-07-23 15:18] VITALS: BMI 26.6
[2017-07-23 19:36] VITALS: BP 120/76; PULSE 68; RESP 17; TEMP 36.7; O2SAT 96; BMI 26.6
[2017-07-23] MEDS: Tamsulosin HCl 0.4 MG Capsule 0.8 MG PO (19:44)
[2017-07-23] MEDS: Atorvastatin Calcium 20 MG Tablet PO (19:45)
[2017-07-23] MEDS: QUEtiapine 25 MG Tablet PO (19:47)
[2017-07-24] MEDS: Enoxaparin 40 MG/0.4 ML Syringe SC (05:09)
[2017-07-24] MEDS: Aspirin 81 MG TAB.CHEW PO (08:17)
[2017-07-24] MEDS: Senna/Docusate Sodium 1 Tablet 2 TABLET PO ×2 (08:17→19:59)
[2017-07-24] MEDS: levETIRAcetam 750 MG Tablet PO ×2 (08:17→19:58)
[2017-07-24] MEDS: Sertraline 50 MG Tablet PO (08:17)
[2017-07-24] MEDS: Pantoprazole Sodium 20 MG Tablet PO (08:17)
[2017-07-24] MEDS: Meloxicam 15 MG Tablet PO (08:19)
[2017-07-24] MEDS: Petrolatum,White 3.75GM OPTH.TUBE 1 APPLIC OP ×2 (08:21→19:58)
[2017-07-24 09:16] VITALS: BP 114/65; PULSE 57; RESP 16; TEMP 36.4; O2SAT 95
[2017-07-24] MEDS: Neomycin/Bacitracin/Polymyxin Opth. Ointment 1 APPLIC RIGHT EYE ×4 (11:30→19:58)
[2017-07-24 13:33] VITALS: BMI 26.6
[2017-07-24 19:45] VITALS: BMI 26.6
[2017-07-24 19:52] VITALS: BP 129/77; PULSE 61; RESP 16; TEMP 36.6; O2SAT 92
[2017-07-24] MEDS: Atorvastatin Calcium 20 MG Tablet PO (19:58)
[2017-07-24] MEDS: Tamsulosin HCl 0.4 MG Capsule 0.8 MG PO (19:58)
[2017-07-24] MEDS: QUEtiapine 25 MG Tablet PO (19:59)
--- NOTE | 2017-07-25 03:31 | NURSING ---
REVIEWED AND AGREE WITH [employer] AND HANDOFF CHARTING.
[2017-07-25] MEDS: Enoxaparin 40 MG/0.4 ML Syringe SC (04:59)
[2017-07-25 07:14] VITALS: BP 113/71; PULSE 84; RESP 16; TEMP 36.6; O2SAT 98
[2017-07-25] MEDS: Pantoprazole Sodium 20 MG Tablet PO (07:38)
[2017-07-25] MEDS: levETIRAcetam 750 MG Tablet PO ×2 (07:38→20:03)
[2017-07-25] MEDS: Senna/Docusate Sodium 1 Tablet 2 TABLET PO ×2 (07:38→20:04)
[2017-07-25] MEDS: Meloxicam 15 MG Tablet PO (07:38)
[2017-07-25] MEDS: Sertraline 50 MG Tablet PO (07:38)
[2017-07-25] MEDS: Aspirin 81 MG TAB.CHEW PO (07:38)
[2017-07-25] MEDS: Petrolatum,White 3.75GM OPTH.TUBE 1 APPLIC OP ×2 (07:39→20:03)
[2017-07-25] MEDS: Neomycin/Bacitracin/Polymyxin Opth. Ointment 1 APPLIC RIGHT EYE ×4 (07:39→20:04)
[2017-07-25 09:43] VITALS: BMI 26.6
--- NOTE | 2017-07-25 10:13 | PN.NEURO_ITS ---
Subjective: Patient seen during Occupational therapy session. No new complaints, vision is improving slightly able to distinguish colors and can see large print at arms length. He is Tolerating therapy. No issues with GI/. Has both an eye appointment and a ortho appointment tomorrow, at 1:20 and 3 pm. Patient continues to perseverate on no driving for 6 months after discharge 2/2 recent seizure activity and lack of visual perception in his left eye. He is blind in his right eye. - Physical Exam General: Alert, Oriented x3, Cooperative HEENT: Atraumatic, PERRLA, EOMI, Normocephalic Neck: Supple, No JVD, Negative Carotid Bruits Lungs: Clear to auscultation, Normal air movement Cardiovascular: Regular rate, No murmurs Abdomen: Bowel Sounds Present, Soft, Non Tender Extremities: No edema, Capillary Refill Less than 3 Seconds Skin: No rashes, No breakdown Musculoskeletal: No Tenderness to Palpation of Joints or Extremities Neurological: Cranial nerves II-XII grossly intact Psych/Mental Status: Normal Affect, Appropriate Vital Signs Temp Pulse Resp BP Pulse Ox 97.8 F 84 16 113/71 98 07/25/17 07:14 07/25/17 07:14 07/25/17 07:14 07/25/17 07:14 07/25/17 07:14 Oxygen Delivery Method Room Air Weight: 85.9 kg Body Mass Index (BMI) 26.6 Finger Stick Blood Glucose 90 Intake and Output for Last 24 Hours 07/23/17 07/24/17 07/25/17 23:59 23:59 23:59 Intake Total 720 / 720 520 / 520 Balance 720 / 720 520 / 520 Active Medications Acetaminophen (Tylenol) 650 mg PO Q6H PRN PRN PRN Reason: PAIN Last Admin: 07/19/17 05:53 Dose: 650 mg Aspirin (Aspirin, Baby) 81 mg PO DAILY@0800 [facility] Last Admin: 07/25/17 07:38 Dose: 81 mg Atorvastatin Calcium (Lipitor) 20 mg PO QHS [facility] Last Admin: 07/24/17 19:58 Dose: 20 mg Bisacodyl (Dulcolax) 10 mg RECTAL .PRN X 1 PRN PRN Reason: Constipation Enoxaparin Sodium (Lovenox) 40 mg SC DAILY@0600 [facility] Last Admin: 07/25/17 04:59 Dose: 40 mg Levetiracetam (Keppra Tablet) 750 mg PO BID [facility] Last Admin: 07/25/17 07:38 Dose: 750 mg Lorazepam (Ativan) 1 mg PO Q6H PRN PRN PRN Reason: AGITATION Magnesium Hydroxide (Milk Of Magnesia) 30 ml PO .PRN X 1 PRN PRN Reason: Constipation Meloxicam (Mobic) 15 mg PO DAILY [facility] Last Admin: 07/25/17 07:38 Dose: 15 mg Multi-Ingredient Cream (Lacrilube) 1 applic OP BID [facility] Last Admin: 07/25/17 07:39 Dose: 1 applicatio Neomycin/Polymyxin/Bacitracin (Neosporin) 1 applic RIGHT EYE 4X/DAY [facility] Last Admin: 07/25/17 07:39 Dose: 1 applic Nutritional Formula (Lactose Free) (Ensure Enlive) 120 ml PO 4X/DAY [facility] Last Admin: 07/25/17 07:40 Dose: 120 ml Pantoprazole Sodium (Protonix) 20 mg PO DAILY [facility] Last Admin: 07/25/17 07:38 Dose: 20 mg Quetiapine Fumarate (Seroquel) 25 mg PO QHS [facility] Last Admin: 07/24/17 19:59 Dose: 25 mg Senna/Docusate Sodium (Senokot-S, Sharmila-Colace) 2 tablet PO BID [facility] Last Admin: 07/25/17 07:38 Dose: 2 tablet Sertraline HCl (Zoloft) 50 mg PO DAILY [facility] Last Admin: 07/25/17 07:38 Dose: 50 mg Tamsulosin HCl (Flomax) 0.8 mg PO QHS [facility] Last Admin: 07/24/17 19:58 Dose: 0.8 mg Medical Necessity - Tobacco Use Smoking Status: Former smoker Assessment/Plan Debility 2/2 status epilepticus, complicated by a previous right medial occipital lobe stroke. Goal of rehab is alevism of functional independence. Plan: - Physical therapy for gait and balance - Occupational Therapy for ADLs - Speech therapy - As needed analgesics - Bowel protocol - Stroke prevention on ASA, Statin and Lovenox - DVT prophylaxis: SCDs, ASA, Lovenox - Seizures => Keppra 750mg BID - Hx BPH: continue Flomax - Hx Anxiety: continue Zoloft - Night terrors Started on Seroquel 25mg at HS, will obtain an EKG prior to giving first dose - Check labs this morning, CBC, CMP - Consult Hematology for positive IgM AB => repeat coag studies, and see as an outpatient - Consult Ophthalmology for worsening vision since seizures => appointment is for 43 at 1320 - Consult Ortho for fx finger => appointment is on 3 at 1500 - Set up driving assessment 6 months after recent seizure activity if he remains seizure free during that time.
[2017-07-25 20:01] VITALS: BP 122/86; PULSE 67; RESP 16; TEMP 36.6; O2SAT 94
[2017-07-25] MEDS: Atorvastatin Calcium 20 MG Tablet PO (20:03)
[2017-07-25] MEDS: Tamsulosin HCl 0.4 MG Capsule 0.8 MG PO (20:03)
[2017-07-25] MEDS: QUEtiapine 25 MG Tablet PO (20:04)
[2017-07-25 20:10] VITALS: BMI 26.6
--- NOTE | 2017-07-26 01:48 | NURSING ---
Reviewed and agree with SUPERVISOR [employer] documentation & FIMS charting.
[2017-07-26] MEDS: Enoxaparin 40 MG/0.4 ML Syringe SC (05:11)
[2017-07-26 08:17] VITALS: BP 125/76; PULSE 67; RESP 17; TEMP 36.5; O2SAT 98
[2017-07-26] MEDS: Petrolatum,White 3.75GM OPTH.TUBE 1 APPLIC OP ×2 (10:16→20:44)
[2017-07-26] MEDS: Aspirin 81 MG TAB.CHEW PO (10:18)
[2017-07-26] MEDS: levETIRAcetam 750 MG Tablet PO ×2 (10:18→20:44)
[2017-07-26] MEDS: Pantoprazole Sodium 20 MG Tablet PO (10:18)
[2017-07-26] MEDS: Meloxicam 15 MG Tablet PO (10:18)
[2017-07-26] MEDS: Sertraline 50 MG Tablet PO (10:20)
[2017-07-26] MEDS: Neomycin/Bacitracin/Polymyxin Opth. Ointment 1 APPLIC RIGHT EYE ×4 (10:24→20:44)
--- NOTE | 2017-07-26 12:30 | NURSING ---
Sister and mother here to take patient to appointments at the eye dr and the orthopedic dr.
[2017-07-26 12:35] VITALS: BMI 26.6
[2017-07-26] MEDS: Acetaminophen 325 MG Tablet 650 MG PO (16:21)
[2017-07-26 20:37] VITALS: BP 124/71; PULSE 64; RESP 16; TEMP 36.8; O2SAT 93
[2017-07-26] MEDS: Tamsulosin HCl 0.4 MG Capsule 0.8 MG PO (20:44)
[2017-07-26] MEDS: Atorvastatin Calcium 20 MG Tablet PO (20:44)
[2017-07-26] MEDS: QUEtiapine 25 MG Tablet PO (20:45)
[2017-07-26] MEDS: Senna/Docusate Sodium 1 Tablet 2 TABLET PO (20:45)
[2017-07-26 20:56] VITALS: BMI 26.6
--- NOTE | 2017-07-27 01:28 | NURSING ---
Reviewed and agree with TOOL DRAWING CHECKER documentation and FIMS charting.
--- NOTE | 2017-07-27 01:28 | NURSING ---
Pt continues to dwell on lack of driving privileges. Pt claims that he covered his left eye and saw the smoke alarm light on ceiling with right eye.
--- NOTE | 2017-07-27 01:34 | NURSING ---
Reviewed and agree with ALTERNATIVE DISPUTE RESOLUTION MEDIATOR documentation and FIMS charting.
[2017-07-27] MEDS: Enoxaparin 40 MG/0.4 ML Syringe SC (05:04)
[2017-07-27 07:56] VITALS: BP 125/77; PULSE 72; RESP 18; TEMP 36.9; O2SAT 98
[2017-07-27] MEDS: Petrolatum,White 3.75GM OPTH.TUBE 1 APPLIC OP ×2 (08:22→22:03)
[2017-07-27] MEDS: levETIRAcetam 750 MG Tablet PO ×2 (08:23→22:03)
[2017-07-27] MEDS: Sertraline 50 MG Tablet PO (08:23)
[2017-07-27] MEDS: Meloxicam 15 MG Tablet PO (08:23)
[2017-07-27] MEDS: Aspirin 81 MG TAB.CHEW PO (08:23)
[2017-07-27] MEDS: Pantoprazole Sodium 20 MG Tablet PO (08:24)
[2017-07-27] MEDS: Acetaminophen 325 MG Tablet 650 MG PO (09:32)
[2017-07-27] MEDS: Neomycin/Bacitracin/Polymyxin Opth. Ointment 1 APPLIC RIGHT EYE ×4 (09:33→22:02)
--- NOTE | 2017-07-27 10:04 | PCM.PN.NEU ---
Subjective: Patient seen and examined. Tolerating therapy. Saw Ortho for Fx left ring ring, splint removed, may start Occupational therapy on that hand. 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 No issues with GI/. - Physical Exam General: Alert, Oriented x3, Cooperative HEENT: Atraumatic, PERRLA, EOMI, Normocephalic Neck: Supple, No JVD, Negative Carotid Bruits Lungs: Clear to auscultation, Normal air movement Cardiovascular: Regular rate, No murmurs Abdomen: Bowel Sounds Present, Soft, Non Tender Extremities: No edema, Capillary Refill Less than 3 Seconds Skin: No rashes, No breakdown Musculoskeletal: No Tenderness to Palpation of Joints or Extremities Neurological: Cranial nerves II-XII grossly intact Psych/Mental Status: Normal Affect, Appropriate Vital Signs Temp Pulse Resp BP Pulse Ox 98.4 F 72 18 125/77 H 98 07/27/17 07:56 07/27/17 07:56 07/27/17 07:56 07/27/17 07:56 07/27/17 07:56 Oxygen Delivery Method Room Air Weight: 89 kg Body Mass Index (BMI) 26.6 Finger Stick Blood Glucose 90 Intake and Output for Last 24 Hours 07/25/17 07/26/17 07/27/17 23:59 23:59 23:59 Intake Total 240 / 240 1000 / 1000 360 / 360 Balance 240 / 240 1000 / 1000 360 / 360 Active Medications Acetaminophen (Tylenol) 650 mg PO Q6H PRN PRN PRN Reason: PAIN Last Admin: 07/27/17 09:32 Dose: 650 mg Aspirin (Aspirin, Baby) 81 mg PO DAILY@0800 [facility] Last Admin: 07/27/17 08:23 Dose: 81 mg Atorvastatin Calcium (Lipitor) 20 mg PO QHS [facility] Last Admin: 07/26/17 20:44 Dose: 20 mg Bisacodyl (Dulcolax) 10 mg RECTAL .PRN X 1 PRN PRN Reason: Constipation Enoxaparin Sodium (Lovenox) 40 mg SC DAILY@0600 [facility] Last Admin: 07/27/17 05:04 Dose: 40 mg Levetiracetam (Keppra Tablet) 750 mg PO BID [facility] Last Admin: 07/27/17 08:23 Dose: 750 mg Lorazepam (Ativan) 1 mg PO Q6H PRN PRN PRN Reason: AGITATION Magnesium Hydroxide (Milk Of Magnesia) 30 ml PO .PRN X 1 PRN PRN Reason: Constipation Meloxicam (Mobic) 15 mg PO DAILY [facility] Last Admin: 07/27/17 08:23 Dose: 15 mg Multi-Ingredient Cream (Lacrilube) 1 applic OP BID [facility] Last Admin: 07/27/17 08:22 Dose: 1 applicatio Neomycin/Polymyxin/Bacitracin (Neosporin) 1 applic RIGHT EYE 4X/DAY [facility] Last Admin: 07/27/17 09:33 Dose: 1 applic Pantoprazole Sodium (Protonix) 20 mg PO DAILY [facility] Last Admin: 07/27/17 08:24 Dose: 20 mg Quetiapine Fumarate (Seroquel) 25 mg PO QHS [facility] Last Admin: 07/26/17 20:45 Dose: 25 mg Senna/Docusate Sodium (Senokot-S, Sharmila-Colace) 2 tablet PO BID [facility] Last Admin: 07/27/17 08:28 Dose: Not Given Sertraline HCl (Zoloft) 50 mg PO DAILY [facility] Last Admin: 07/27/17 08:23 Dose: 50 mg Tamsulosin HCl (Flomax) 0.8 mg PO QHS [facility] Last Admin: 07/26/17 20:44 Dose: 0.8 mg Medical Necessity - Tobacco Use Smoking Status: Former smoker Assessment/Plan Debility 2/2 status epilepticus, complicated by a previous right medial occipital lobe stroke. Goal of rehab is hindu of functional independence. Plan: - Physical therapy for gait and balance - Occupational Therapy for ADLs - Speech therapy - As needed analgesics - Bowel protocol - Stroke prevention on ASA, Statin and Lovenox - DVT prophylaxis: SCDs, ASA, Lovenox - Seizures => Keppra 750mg BID - Hx BPH: continue Flomax - Hx Anxiety: continue Zoloft - Night terrors Started on Seroquel 25mg at HS, will obtain an EKG prior to giving first dose - Check labs this morning, CBC, CMP - Consult Hematology for positive IgM AB => repeat coag studies, and see as an outpatient - Consult Ophthalmology for worsening vision since seizures => appointment is for 07/26 at 1320 - Vision is 20/50 and 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 Has follow up appointment on 08/22/17 @ 1400hrs. - Consult Ortho for fx finger => appointment is on 07/26 at 1500 - Splint removed from Left ring finger by Ortho, May start Occupational therapy - Set up driving assessment 6 months after recent seizure activity if he remains seizure free during that time. - Splint removed from Left ring finger by Ortho, May start Occupational therapy -
--- NOTE | 2017-07-27 10:16 | PN.NEURO_ITS ---
Subjective: Patient seen and examined. Tolerating therapy. Saw Ortho for Fx left ring ring , splint removed, may start Occupational therapy on that hand. 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 No issues with GI/. - Physical Exam General: Alert, Oriented x3, Cooperative HEENT: Atraumatic, PERRLA, EOMI, Normocephalic Neck: Supple, No JVD, Negative Carotid Bruits Lungs: Clear to auscultation, Normal air movement Cardiovascular: Regular rate, No murmurs Abdomen: Bowel Sounds Present, Soft, Non Tender Extremities: No edema, Capillary Refill Less than 3 Seconds Skin: No rashes, No breakdown Musculoskeletal: No Tenderness to Palpation of Joints or Extremities Neurological: Cranial nerves II-XII grossly intact Psych/Mental Status: Normal Affect, Appropriate Vital Signs Temp Pulse Resp BP Pulse Ox 98.4 F 72 18 125/77 H 98 07/27/17 07:56 07/27/17 07:56 07/27/17 07:56 07/27/17 07:56 07/27/17 07:56 Oxygen Delivery Method Room Air Weight: 89 kg Body Mass Index (BMI) 26.6 Finger Stick Blood Glucose 90 Intake and Output for Last 24 Hours 07/25/17 07/26/17 07/27/17 23:59 23:59 23:59 Intake Total 240 / 240 1000 / 1000 360 / 360 Balance 240 / 240 1000 / 1000 360 / 360 Active Medications Acetaminophen (Tylenol) 650 mg PO Q6H PRN PRN PRN Reason: PAIN Last Admin: 07/27/17 09:32 Dose: 650 mg Aspirin (Aspirin, Baby) 81 mg PO DAILY@0800 [facility] Last Admin: 07/27/17 08:23 Dose: 81 mg Atorvastatin Calcium (Lipitor) 20 mg PO QHS [facility] Last Admin: 07/26/17 20:44 Dose: 20 mg Bisacodyl (Dulcolax) 10 mg RECTAL .PRN X 1 PRN PRN Reason: Constipation Enoxaparin Sodium (Lovenox) 40 mg SC DAILY@0600 [facility] Last Admin: 07/27/17 05:04 Dose: 40 mg Levetiracetam (Keppra Tablet) 750 mg PO BID [facility] Last Admin: 07/27/17 08:23 Dose: 750 mg Lorazepam (Ativan) 1 mg PO Q6H PRN PRN PRN Reason: AGITATION Magnesium Hydroxide (Milk Of Magnesia) 30 ml PO .PRN X 1 PRN PRN Reason: Constipation Meloxicam (Mobic) 15 mg PO DAILY [facility] Last Admin: 07/27/17 08:23 Dose: 15 mg Multi-Ingredient Cream (Lacrilube) 1 applic OP BID [facility] Last Admin: 07/27/17 08:22 Dose: 1 applicatio Neomycin/Polymyxin/Bacitracin (Neosporin) 1 applic RIGHT EYE 4X/DAY [facility] Last Admin: 07/27/17 09:33 Dose: 1 applic Pantoprazole Sodium (Protonix) 20 mg PO DAILY [facility] Last Admin: 07/27/17 08:24 Dose: 20 mg Quetiapine Fumarate (Seroquel) 25 mg PO QHS [facility] Last Admin: 07/26/17 20:45 Dose: 25 mg Senna/Docusate Sodium (Senokot-S, Sharmila-Colace) 2 tablet PO BID [facility] Last Admin: 07/27/17 08:28 Dose: Not Given Sertraline HCl (Zoloft) 50 mg PO DAILY [facility] Last Admin: 07/27/17 08:23 Dose: 50 mg Tamsulosin HCl (Flomax) 0.8 mg PO QHS [facility] Last Admin: 07/26/17 20:44 Dose: 0.8 mg Medical Necessity - Tobacco Use Smoking Status: Former smoker Assessment/Plan Debility 2/2 status epilepticus, complicated by a previous right medial occipital lobe stroke. Goal of rehab is evangelical of functional independence. Plan: - Physical therapy for gait and balance - Occupational Therapy for ADLs - Speech therapy - As needed analgesics - Bowel protocol - Stroke prevention on ASA, Statin and Lovenox - DVT prophylaxis: SCDs, ASA, Lovenox - Seizures => Keppra 750mg BID - Hx BPH: continue Flomax - Hx Anxiety: continue Zoloft - Night terrors Started on Seroquel 25mg at HS, will obtain an EKG prior to giving first dose - Check labs this morning, CBC, CMP - Consult Hematology for positive IgM AB => repeat coag studies, and see as an outpatient - Consult Ophthalmology for worsening vision since seizures => appointment is for 07/26 at 1320 - Vision is 20/50 and 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 Has follow up appointment on 08/22/17 @ 1400hrs. - Consult Ortho for fx finger => appointment is on 07/26 at 1500 - Splint removed from Left ring finger by Ortho, May start Occupational therapy - Set up driving assessment 6 months after recent seizure activity if he remains seizure free during that time. - Splint removed from Left ring finger by Ortho, May start Occupational therapy -
[2017-07-27 15:16] VITALS: BMI 26.6
[2017-07-27 19:25] VITALS: BP 122/74; PULSE 66; RESP 12; TEMP 36.6; O2SAT 96
[2017-07-27] MEDS: QUEtiapine 25 MG Tablet PO (22:02)
[2017-07-27] MEDS: Senna/Docusate Sodium 1 Tablet 2 TABLET PO (22:02)
[2017-07-27] MEDS: Atorvastatin Calcium 20 MG Tablet PO (22:03)
[2017-07-27] MEDS: Tamsulosin HCl 0.4 MG Capsule 0.8 MG PO (22:03)
[2017-07-28] MEDS: Enoxaparin 40 MG/0.4 ML Syringe SC (06:15)
[2017-07-28 08:09] VITALS: BP 130/70; PULSE 67; RESP 17; TEMP 36.6; O2SAT 98
[2017-07-28] MEDS: Petrolatum,White 3.75GM OPTH.TUBE 1 APPLIC OP ×2 (08:16→23:42)
[2017-07-28] MEDS: Aspirin 81 MG TAB.CHEW PO (08:17)
[2017-07-28] MEDS: Neomycin/Bacitracin/Polymyxin Opth. Ointment 1 APPLIC RIGHT EYE ×4 (08:17→23:43)
[2017-07-28] MEDS: Sertraline 50 MG Tablet PO (08:17)
[2017-07-28] MEDS: levETIRAcetam 750 MG Tablet PO ×2 (08:17→23:42)
[2017-07-28] MEDS: Pantoprazole Sodium 20 MG Tablet PO (08:17)
[2017-07-28] MEDS: Senna/Docusate Sodium 1 Tablet 2 TABLET PO ×2 (08:17→23:41)
[2017-07-28] MEDS: Meloxicam 15 MG Tablet PO (08:18)
--- NOTE | 2017-07-28 10:00 | PCM.PN.NEU ---
Subjective: Staffed in team meeting. Family at bedside. Questions answered. With Physical therapy, he is standby assist for bed mobility, and transfers, unless the room is dimly lite then he requires a little more assistance. He is able to walk about 350 - 500 feet with a walker at standby assist. He has worked on going up a ramp and pushing buttons on the elevator. he is able to go up and down 3 flight of stairs using one hand rail at contact guard for safety. With Occupational therapy he is standby assist for toilet hygiene, bathing and putting on clothing up and lower body. With Speech therapy he is on a regular texture with thin liquid diet. He is able to self feed, he occasionally needs assistance with open containers. He continues to have issues with reasoning skills and problem solving, will continue to work on this. With Nursing, no issues. Will be discharged home on Tuesday 08/01 with home health to include, Physical therapy, Occupational therapy and Nursing to help set up medications, if the patient remains stable. - Physical Exam General: Alert, Oriented x3, Cooperative HEENT: Atraumatic, PERRLA, EOMI, Normocephalic Neck: Supple, No JVD, Negative Carotid Bruits Lungs: Clear to auscultation, Normal air movement Cardiovascular: Regular rate, No murmurs Abdomen: Bowel Sounds Present, Soft, Non Tender Extremities: No edema, Capillary Refill Less than 3 Seconds Skin: No rashes, No breakdown Musculoskeletal: No Tenderness to Palpation of Joints or Extremities Neurological: Cranial nerves II-XII grossly intact Psych/Mental Status: Normal Affect, Appropriate Vital Signs Temp Pulse Resp BP Pulse Ox 97.9 F 67 17 130/70 H 98 07/28/17 08:09 07/28/17 08:09 07/28/17 08:09 07/28/17 08:09 07/28/17 08:09 Oxygen Delivery Method Room Air Weight: 89 kg Body Mass Index (BMI) 26.6 Finger Stick Blood Glucose 90 Intake and Output for Last 24 Hours 07/26/17 07/27/17 07/28/17 23:59 23:59 23:59 Intake Total 1000 / 1000 980 / 980 320 / 320 Balance 1000 / 1000 980 / 980 320 / 320 Active Medications Acetaminophen (Tylenol) 650 mg PO Q6H PRN PRN PRN Reason: PAIN Last Admin: 07/27/17 09:32 Dose: 650 mg Aspirin (Aspirin, Baby) 81 mg PO DAILY@0800 [facility] Last Admin: 07/28/17 08:17 Dose: 81 mg Atorvastatin Calcium (Lipitor) 20 mg PO QHS [facility] Last Admin: 07/27/17 22:03 Dose: 20 mg Bisacodyl (Dulcolax) 10 mg RECTAL .PRN X 1 PRN PRN Reason: Constipation Enoxaparin Sodium (Lovenox) 40 mg SC DAILY@0600 [facility] Last Admin: 07/28/17 06:15 Dose: 40 mg Levetiracetam (Keppra Tablet) 750 mg PO BID [facility] Last Admin: 07/28/17 08:17 Dose: 750 mg Lorazepam (Ativan) 1 mg PO Q6H PRN PRN PRN Reason: AGITATION Magnesium Hydroxide (Milk Of Magnesia) 30 ml PO .PRN X 1 PRN PRN Reason: Constipation Meloxicam (Mobic) 15 mg PO DAILY [facility] Last Admin: 07/28/17 08:18 Dose: 15 mg Multi-Ingredient Cream (Lacrilube) 1 applic OP BID [facility] Last Admin: 07/28/17 08:16 Dose: 1 applicatio Neomycin/Polymyxin/Bacitracin (Neosporin) 1 applic RIGHT EYE 4X/DAY [facility] Last Admin: 07/28/17 08:17 Dose: 1 applic Pantoprazole Sodium (Protonix) 20 mg PO DAILY [facility] Last Admin: 07/28/17 08:17 Dose: 20 mg Quetiapine Fumarate (Seroquel) 25 mg PO QHS [facility] Last Admin: 07/27/17 22:02 Dose: 25 mg Senna/Docusate Sodium (Senokot-S, Sharmila-Colace) 2 tablet PO BID [facility] Last Admin: 07/28/17 08:17 Dose: 2 tablet Sertraline HCl (Zoloft) 50 mg PO DAILY [facility] Last Admin: 07/28/17 08:17 Dose: 50 mg Tamsulosin HCl (Flomax) 0.8 mg PO QHS [facility] Last Admin: 07/27/17 22:03 Dose: 0.8 mg Medical Necessity - Tobacco Use Smoking Status: Former smoker Assessment/Plan Debility 2/2 status epilepticus, complicated by a previous right medial occipital lobe stroke. Goal of rehab is worship of functional independence. Plan: - Physical therapy for gait and balance - Occupational Therapy for ADLs - Speech therapy - As needed analgesics - Bowel protocol - Stroke prevention on ASA, Statin and Lovenox - DVT prophylaxis: SCDs, ASA, Lovenox - Seizures => Keppra 750mg BID - Hx BPH: continue Flomax - Hx Anxiety: continue Zoloft - Night terrors Started on Seroquel 25mg at HS, will obtain an EKG prior to giving first dose - Check labs this morning, CBC, CMP - Consult Hematology for positive IgM AB => repeat coag studies, and see as an outpatient - Consult Ophthalmology for worsening vision since seizures => appointment is for 07/26 at 1320 - Vision is 20/50 and 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 Has follow up appointment on 08/22/17 @ 1400hrs. - Consult Ortho for fx finger => appointment is on 07/26 at 1500 - Splint removed from Left ring finger by Ortho, May start Occupational therapy - Set up driving assessment 6 months after recent seizure activity if he remains seizure free during that time. - Splint removed from Left ring finger by Ortho, May start Occupational therapy - Plan: Discharge on Tuesday 08/01 home with Home health, to include PT/OT and Nursing
--- NOTE | 2017-07-28 10:15 | PN.NEURO_ITS ---
Subjective: Staffed in team meeting. Family at bedside. Questions answered. With Physical therapy, he is standby assist for bed mobility, and transfers, unless the room is dimly lite then he requires a little more assistance. He is able to walk about 350 - 500 feet with a walker at standby assist. He has worked on going up a ramp and pushing buttons on the elevator. he is able to go up and down 3 flight of stairs using one hand rail at contact guard for safety. With Occupational therapy he is standby assist for toilet hygiene, bathing and putting on clothing up and lower body. With Speech therapy he is on a regular texture with thin liquid diet. He is able to self feed, he occasionally needs assistance with open containers. He continues to have issues with reasoning skills and problem solving, will continue to work on this. With Nursing, no issues. Will be discharged home on Tuesday 08/01 with home health to include, Physical therapy, Occupational therapy and Nursing to help set up medications, if the patient remains stable. - Physical Exam General: Alert, Oriented x3, Cooperative HEENT: Atraumatic, PERRLA, EOMI, Normocephalic Neck: Supple, No JVD, Negative Carotid Bruits Lungs: Clear to auscultation, Normal air movement Cardiovascular: Regular rate, No murmurs Abdomen: Bowel Sounds Present, Soft, Non Tender Extremities: No edema, Capillary Refill Less than 3 Seconds Skin: No rashes, No breakdown Musculoskeletal: No Tenderness to Palpation of Joints or Extremities Neurological: Cranial nerves II-XII grossly intact Psych/Mental Status: Normal Affect, Appropriate Vital Signs Temp Pulse Resp BP Pulse Ox 97.9 F 67 17 130/70 H 98 07/28/17 08:09 07/28/17 08:09 07/28/17 08:09 07/28/17 08:09 07/28/17 08:09 Oxygen Delivery Method Room Air Weight: 89 kg Body Mass Index (BMI) 26.6 Finger Stick Blood Glucose 90 Intake and Output for Last 24 Hours 07/26/17 07/27/17 07/28/17 23:59 23:59 23:59 Intake Total 1000 / 1000 980 / 980 320 / 320 Balance 1000 / 1000 980 / 980 320 / 320 Active Medications Acetaminophen (Tylenol) 650 mg PO Q6H PRN PRN PRN Reason: PAIN Last Admin: 07/27/17 09:32 Dose: 650 mg Aspirin (Aspirin, Baby) 81 mg PO DAILY@0800 [facility] Last Admin: 07/28/17 08:17 Dose: 81 mg Atorvastatin Calcium (Lipitor) 20 mg PO QHS [facility] Last Admin: 07/27/17 22:03 Dose: 20 mg Bisacodyl (Dulcolax) 10 mg RECTAL .PRN X 1 PRN PRN Reason: Constipation Enoxaparin Sodium (Lovenox) 40 mg SC DAILY@0600 [facility] Last Admin: 07/28/17 06:15 Dose: 40 mg Levetiracetam (Keppra Tablet) 750 mg PO BID [facility] Last Admin: 07/28/17 08:17 Dose: 750 mg Lorazepam (Ativan) 1 mg PO Q6H PRN PRN PRN Reason: AGITATION Magnesium Hydroxide (Milk Of Magnesia) 30 ml PO .PRN X 1 PRN PRN Reason: Constipation Meloxicam (Mobic) 15 mg PO DAILY [facility] Last Admin: 07/28/17 08:18 Dose: 15 mg Multi-Ingredient Cream (Lacrilube) 1 applic OP BID [facility] Last Admin: 07/28/17 08:16 Dose: 1 applicatio Neomycin/Polymyxin/Bacitracin (Neosporin) 1 applic RIGHT EYE 4X/DAY [facility] Last Admin: 07/28/17 08:17 Dose: 1 applic Pantoprazole Sodium (Protonix) 20 mg PO DAILY [facility] Last Admin: 07/28/17 08:17 Dose: 20 mg Quetiapine Fumarate (Seroquel) 25 mg PO QHS [facility] Last Admin: 07/27/17 22:02 Dose: 25 mg Senna/Docusate Sodium (Senokot-S, Sharmila-Colace) 2 tablet PO BID [facility] Last Admin: 07/28/17 08:17 Dose: 2 tablet Sertraline HCl (Zoloft) 50 mg PO DAILY [facility] Last Admin: 07/28/17 08:17 Dose: 50 mg Tamsulosin HCl (Flomax) 0.8 mg PO QHS [facility] Last Admin: 07/27/17 22:03 Dose: 0.8 mg Medical Necessity - Tobacco Use Smoking Status: Former smoker Assessment/Plan Debility 2/2 status epilepticus, complicated by a previous right medial occipital lobe stroke. Goal of rehab is shinto of functional independence. Plan: - Physical therapy for gait and balance - Occupational Therapy for ADLs - Speech therapy - As needed analgesics - Bowel protocol - Stroke prevention on ASA, Statin and Lovenox - DVT prophylaxis: SCDs, ASA, Lovenox - Seizures => Keppra 750mg BID - Hx BPH: continue Flomax - Hx Anxiety: continue Zoloft - Night terrors Started on Seroquel 25mg at HS, will obtain an EKG prior to giving first dose - Check labs this morning, CBC, CMP - Consult Hematology for positive IgM AB => repeat coag studies, and see as an outpatient - Consult Ophthalmology for worsening vision since seizures => appointment is for 07/26 at 1320 - Vision is 20/50 and 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 Has follow up appointment on 08/22/17 @ 1400hrs. - Consult Ortho for fx finger => appointment is on 07/26 at 1500 - Splint removed from Left ring finger by Ortho, May start Occupational therapy - Set up driving assessment 6 months after recent seizure activity if he remains seizure free during that time. - Splint removed from Left ring finger by Ortho, May start Occupational therapy - Plan: Discharge on Tuesday 08/01 home with Home health, to include PT/OT and Nursing
[2017-07-28 11:31] VITALS: BMI 26.6
--- NOTE | 2017-07-28 16:21 | CASEMGMT ---
Team meeting held. Patient present as well as patient family. Collaborating with team and patient, discharge date set for 08/01/17. Patient plans to discharge home with family at time of discharge. Physical therapy and nursing recommending for patient to continue with services within the home. Patient is agreeable to home health services. Patient also reporting a need for a walker. Support given. Proposed discharge date: 08/01/17 PLAN: Discharge home with family and home health services. Will continue to follow to set up home health care and walker. Verena JENKINS, STITCHER HAND
[2017-07-28 20:22] VITALS: BP 112/63; PULSE 69; RESP 12; TEMP 36.9; O2SAT 92
[2017-07-28] MEDS: Atorvastatin Calcium 20 MG Tablet PO (23:41)
[2017-07-28] MEDS: QUEtiapine 25 MG Tablet PO (23:41)
[2017-07-28] MEDS: Tamsulosin HCl 0.4 MG Capsule 0.8 MG PO (23:42)
[2017-07-29] MEDS: Enoxaparin 40 MG/0.4 ML Syringe SC (06:00)
[2017-07-29 08:16] VITALS: BP 128/86; PULSE 79; RESP 17; TEMP 36.8; O2SAT 98
[2017-07-29] MEDS: Pantoprazole Sodium 20 MG Tablet PO (08:43)
[2017-07-29] MEDS: Senna/Docusate Sodium 1 Tablet 2 TABLET PO ×2 (08:43→20:03)
[2017-07-29] MEDS: Acetaminophen 325 MG Tablet 650 MG PO (08:44)
[2017-07-29] MEDS: Sertraline 50 MG Tablet PO (08:44)
[2017-07-29] MEDS: Meloxicam 15 MG Tablet PO (08:44)
[2017-07-29] MEDS: Aspirin 81 MG TAB.CHEW PO (08:44)
[2017-07-29] MEDS: levETIRAcetam 750 MG Tablet PO ×2 (08:44→20:03)
[2017-07-29] MEDS: Neomycin/Bacitracin/Polymyxin Opth. Ointment 1 APPLIC RIGHT EYE ×4 (11:08→20:02)
[2017-07-29 11:28] VITALS: BMI 26.6
--- NOTE | 2017-07-29 12:08 | CASEMGMT ---
Social Work Spoke with patient in room. Collaborating on home health services agency options, patient requesting for a referral to be made to [facility]. Patient also does not have a preference of [employer] for walker, [employer] to be utilized. Patient family to provide transportation home for patient at time of discharge. Support given. Telephone call to [facility], referral made to for fdc and physical therapy. Orders and clinical information faxed. Will fax discharge information when obtained. Telephone call to Tarah Roman. Referral made for walker, walker to be delivered to patient room prior to discharge, order faxed. Proposed discharge date: 08/01/17 PLAN: Discharge home with family and home health services. Verena JENKINS, HEAD AUTOMATIC SAWYER
--- NOTE | 2017-07-29 13:06 | PCM.PN.NEU ---
Subjective: Patient seen and examined. No new complaints. Tolerating therapy. Denies any shortness of breath, or chest pains. Continue to see shadows with his left eye, and can make out words if it is large print. No issues with GI/. - Physical Exam General: Alert, Oriented x3, Cooperative HEENT: Atraumatic, PERRLA, EOMI, Normocephalic Neck: Supple, No JVD, Negative Carotid Bruits Lungs: Clear to auscultation, Normal air movement Cardiovascular: Regular rate, No murmurs Abdomen: Bowel Sounds Present, Soft, Non Tender Extremities: No edema, Capillary Refill Less than 3 Seconds Skin: No rashes, No breakdown Musculoskeletal: No Tenderness to Palpation of Joints or Extremities Neurological: Cranial nerves II-XII grossly intact Psych/Mental Status: Normal Affect, Appropriate Vital Signs Temp Pulse Resp BP Pulse Ox 98.2 F 79 17 128/86 H 98 07/29/17 08:16 07/29/17 08:16 07/29/17 08:16 07/29/17 08:16 07/29/17 08:16 Oxygen Delivery Method Room Air Weight: 89 kg Body Mass Index (BMI) 26.6 Finger Stick Blood Glucose 90 Intake and Output for Last 24 Hours 07/27/17 07/28/17 07/29/17 23:59 23:59 23:59 Intake Total 980 / 980 680 / 680 320 / 320 Balance 980 / 980 680 / 680 320 / 320 Active Medications Acetaminophen (Tylenol) 650 mg PO Q6H PRN PRN PRN Reason: PAIN Last Admin: 07/29/17 08:44 Dose: 650 mg Aspirin (Aspirin, Baby) 81 mg PO DAILY@0800 [facility] Last Admin: 07/29/17 08:44 Dose: 81 mg Atorvastatin Calcium (Lipitor) 20 mg PO QHS [facility] Last Admin: 07/28/17 23:41 Dose: 20 mg Bisacodyl (Dulcolax) 10 mg RECTAL .PRN X 1 PRN PRN Reason: Constipation Enoxaparin Sodium (Lovenox) 40 mg SC DAILY@0600 [facility] Last Admin: 07/29/17 06:00 Dose: 40 mg Levetiracetam (Keppra Tablet) 750 mg PO BID [facility] Last Admin: 07/29/17 08:44 Dose: 750 mg Lorazepam (Ativan) 1 mg PO Q6H PRN PRN PRN Reason: AGITATION Magnesium Hydroxide (Milk Of Magnesia) 30 ml PO .PRN X 1 PRN PRN Reason: Constipation Meloxicam (Mobic) 15 mg PO DAILY [facility] Last Admin: 07/29/17 08:44 Dose: 15 mg Multi-Ingredient Cream (Lacrilube) 1 applic OP BID [facility] Last Admin: 07/29/17 11:08 Dose: Not Given Neomycin/Polymyxin/Bacitracin (Neosporin) 1 applic RIGHT EYE 4X/DAY [facility] Last Admin: 07/29/17 11:08 Dose: 1 applic Pantoprazole Sodium (Protonix) 20 mg PO DAILY [facility] Last Admin: 07/29/17 08:43 Dose: 20 mg Quetiapine Fumarate (Seroquel) 25 mg PO QHS [facility] Last Admin: 07/28/17 23:41 Dose: 25 mg Senna/Docusate Sodium (Senokot-S, Sharmila-Colace) 2 tablet PO BID [facility] Last Admin: 07/29/17 08:43 Dose: 2 tablet Sertraline HCl (Zoloft) 50 mg PO DAILY [facility] Last Admin: 07/29/17 08:44 Dose: 50 mg Tamsulosin HCl (Flomax) 0.8 mg PO QHS [facility] Last Admin: 07/28/17 23:42 Dose: 0.8 mg Medical Necessity - Tobacco Use Smoking Status: Former smoker Assessment/Plan Debility 2/2 status epilepticus, complicated by a previous right medial occipital lobe stroke. Goal of rehab is adventism of functional independence. Plan: - Physical therapy for gait and balance - Occupational Therapy for ADLs - Speech therapy - As needed analgesics - Bowel protocol - Stroke prevention on ASA, Statin and Lovenox - DVT prophylaxis: SCDs, ASA, Lovenox - Seizures => Keppra 750mg BID - Hx BPH: continue Flomax - Hx Anxiety: continue Zoloft - Night terrors Started on Seroquel 25mg at HS, will obtain an EKG prior to giving first dose - Check labs this morning, CBC, CMP - Consult Hematology for positive IgM AB => repeat coag studies, and see as an outpatient - Consult Ophthalmology for worsening vision since seizures => appointment is for 07/26 at 1320 - Vision is 20/50 and 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 Has follow up appointment on 08/22/17 @ 1400hrs. - Consult Ortho for fx finger => appointment is on 07/26 at 1500 - Splint removed from Left ring finger by Ortho, May start Occupational therapy - Set up driving assessment 6 months after recent seizure activity if he remains seizure free during that time. - Splint removed from Left ring finger by Ortho, May start Occupational therapy - Plan: Discharge on Tuesday 08/01 home with Home health, to include PT/OT and Nursing
--- NOTE | 2017-07-29 17:31 | PCM.PN.HOSP ---
Subjective: CC: Follow-up on seizure disorder. Objective: The patient had tonic clonic activity with a prolonged postictal state. He is doing well and has no complaint except worsening vision. He denies diplopia, headache, palpitations or rapid heartbeat. Vitals/I&O's: Vital Signs Temp Pulse Resp BP Pulse Ox 98.2 F 79 17 128/86 H 98 07/29/17 08:16 07/29/17 08:16 07/29/17 08:16 07/29/17 08:16 07/29/17 08:16 Oxygen Delivery Method Room Air Weight: 89 kg Body Mass Index (BMI) 26.6 Finger Stick Blood Glucose 90 Intake and Output for Last 24 Hours 07/27/17 07/28/17 07/29/17 23:59 23:59 23:59 Intake Total 980 / 980 680 / 680 640 / 640 Balance 980 / 980 680 / 680 640 / 640 General: Alert, Oriented x3 Neck: Supple, No JVD Lungs: Clear to auscultation Cardiovascular: Regular rate, Normal S1, Normal S2 Abdomen: Bowel Sounds Present, Soft, Non Tender, Bowel Sounds Not Present Neurological: Cranial nerves II-XII grossly intact, Deep Tendon Reflexes 2+/4 and Symmetrical, Motor Exam 5/5 strength throughout Current Medications Acetaminophen (Tylenol) 650 mg PO Q6H PRN PRN PRN Reason: PAIN Last Admin: 07/29/17 08:44 Dose: 650 mg Aspirin (Aspirin, Baby) 81 mg PO DAILY@0800 [facility] Last Admin: 07/29/17 08:44 Dose: 81 mg Atorvastatin Calcium (Lipitor) 20 mg PO QHS [facility] Last Admin: 07/28/17 23:41 Dose: 20 mg Bisacodyl (Dulcolax) 10 mg RECTAL .PRN X 1 PRN PRN Reason: Constipation Enoxaparin Sodium (Lovenox) 40 mg SC DAILY@0600 [facility] Last Admin: 07/29/17 06:00 Dose: 40 mg Levetiracetam (Keppra Tablet) 750 mg PO BID [facility] Last Admin: 07/29/17 08:44 Dose: 750 mg Lorazepam (Ativan) 1 mg PO Q6H PRN PRN PRN Reason: AGITATION Magnesium Hydroxide (Milk Of Magnesia) 30 ml PO .PRN X 1 PRN PRN Reason: Constipation Meloxicam (Mobic) 15 mg PO DAILY [facility] Last Admin: 07/29/17 08:44 Dose: 15 mg Multi-Ingredient Cream (Lacrilube) 1 applic OP BID [facility] Last Admin: 07/29/17 11:08 Dose: Not Given Neomycin/Polymyxin/Bacitracin (Neosporin) 1 applic RIGHT EYE 4X/DAY [facility] Last Admin: 07/29/17 13:42 Dose: 1 applic Pantoprazole Sodium (Protonix) 20 mg PO DAILY [facility] Last Admin: 07/29/17 08:43 Dose: 20 mg Quetiapine Fumarate (Seroquel) 25 mg PO QHS [facility] Last Admin: 07/28/17 23:41 Dose: 25 mg Senna/Docusate Sodium (Senokot-S, Sharmila-Colace) 2 tablet PO BID [facility] Last Admin: 07/29/17 08:43 Dose: 2 tablet Sertraline HCl (Zoloft) 50 mg PO DAILY [facility] Last Admin: 07/29/17 08:44 Dose: 50 mg Tamsulosin HCl (Flomax) 0.8 mg PO QHS [facility] Last Admin: 07/28/17 23:42 Dose: 0.8 mg Medical Necessity - Tobacco Use Smoking Status: Former smoker Assessment/Plan 1. Seizure Disorder; he is on Keppra, continue without change. 2. Coronary artery disease; the patient reports no symptoms of angina or heart failure, will continue his cardioprotective medications. 3. Dysphagia ; continue diet as recommended. 4. Debility; PT/OT 5. GERD ; he is on Protonix 6. Small disturbance; consults with ophthalmology
[2017-07-29 20:00] VITALS: BP 139/51; PULSE 69; RESP 16; TEMP 36.4; O2SAT 95
[2017-07-29] MEDS: Tamsulosin HCl 0.4 MG Capsule 0.8 MG PO (20:02)
[2017-07-29] MEDS: QUEtiapine 25 MG Tablet PO (20:03)
[2017-07-29] MEDS: Petrolatum,White 3.75GM OPTH.TUBE 1 APPLIC OP (20:03)
[2017-07-29] MEDS: Atorvastatin Calcium 20 MG Tablet PO (20:03)
[2017-07-29 20:08] LABS: Protein C Antigen 114 % (60-150); Protein C, Functional 173 % (73-180)
[2017-07-30] MEDS: Enoxaparin 40 MG/0.4 ML Syringe SC (05:52)
[2017-07-30 07:44] VITALS: BP 113/63; PULSE 56; RESP 18; TEMP 36.3; O2SAT 95
[2017-07-30] MEDS: Petrolatum,White 3.75GM OPTH.TUBE 1 APPLIC OP ×2 (07:45→19:40)
[2017-07-30] MEDS: Aspirin 81 MG TAB.CHEW PO (07:45)
[2017-07-30] MEDS: Neomycin/Bacitracin/Polymyxin Opth. Ointment 1 APPLIC RIGHT EYE ×4 (07:45→19:41)
[2017-07-30] MEDS: Pantoprazole Sodium 20 MG Tablet PO (07:45)
[2017-07-30] MEDS: levETIRAcetam 750 MG Tablet PO ×2 (07:45→19:41)
[2017-07-30] MEDS: Meloxicam 15 MG Tablet PO (07:46)
[2017-07-30] MEDS: Sertraline 50 MG Tablet PO (07:46)
[2017-07-30 09:17] LABS: Anti-Cardiolipin Ab, IgG, Qn < 9 GPL U/mL (0-14); Anti-Cardiolipin Ab, IgM, Qn 12 MPL U/mL (0-12); Anti-Thrombin 3 AG, Immunol 82 % (72-124); Antithrombin 3 Function 78 % (75-135); Beta-2-Glycoprotein I IgA <9 (0-25); Beta-2-Glycoprotein I IgG <9 (0-20); Beta-2-Glycoprotein I IgM <9 (0-32)
[2017-07-30 10:23] VITALS: BMI 26.6
[2017-07-30 19:23] VITALS: BP 128/71; PULSE 69; RESP 16; TEMP 36.5; O2SAT 95
[2017-07-30 19:37] VITALS: BMI 26.6
[2017-07-30] MEDS: QUEtiapine 25 MG Tablet PO (19:40)
[2017-07-30] MEDS: Tamsulosin HCl 0.4 MG Capsule 0.8 MG PO (19:41)
[2017-07-30] MEDS: Atorvastatin Calcium 20 MG Tablet PO (19:41)
[2017-07-31] MEDS: Enoxaparin 40 MG/0.4 ML Syringe SC (05:20)
[2017-07-31 07:33] VITALS: BP 109/68; PULSE 69; RESP 16; TEMP 36.5; O2SAT 96
[2017-07-31] MEDS: Aspirin 81 MG TAB.CHEW PO (07:44)
[2017-07-31] MEDS: levETIRAcetam 750 MG Tablet PO ×2 (07:44→20:17)
[2017-07-31] MEDS: Sertraline 50 MG Tablet PO (07:45)
[2017-07-31] MEDS: Meloxicam 15 MG Tablet PO (07:45)
[2017-07-31] MEDS: Pantoprazole Sodium 20 MG Tablet PO (07:45)
[2017-07-31] MEDS: Neomycin/Bacitracin/Polymyxin Opth. Ointment 1 APPLIC RIGHT EYE ×4 (07:47→20:16)
[2017-07-31] MEDS: Petrolatum,White 3.75GM OPTH.TUBE 1 APPLIC OP ×2 (07:48→20:17)
[2017-07-31 11:15] VITALS: BMI 26.6
--- NOTE | 2017-07-31 13:31 | NURSING ---
dr cain aware of pending lab results, no new orders.
--- NOTE | 2017-07-31 14:45 | PN_ITS ---
Subjective: Patient seen and examined. He was admitted with status epilepticus that resolved after administration of Keppra. He has remained stable since. Patient seen and examined in the rehab unit. He had no complaints was lying in bed watching television. He denied any fever or chills, any cough or chest pain , shortness of breath, any abdominal pain, any diarrhea vomiting. Review of systems otherwise negative. He Is due to be discharged tomorrow at 4 PM. Vitals/I&O's: Vital Signs Temp Pulse Resp BP Pulse Ox 97.7 F L 69 16 109/68 96 07/31/17 07:33 07/31/17 07:33 07/31/17 07:33 07/31/17 07:33 07/31/17 07:33 Oxygen Delivery Method Room Air Weight: 196 lb 3.382 oz Body Mass Index (BMI) 26.6 Finger Stick Blood Glucose 90 Intake and Output for Last 24 Hours 07/29/17 07/30/17 07/31/17 23:59 23:59 23:59 Intake Total 1000 / 1000 780 / 780 520 / 520 Balance 1000 / 1000 780 / 780 520 / 520 General: Alert, Oriented x3, Cooperative HEENT: Atraumatic, PERRLA, EOMI, Normocephalic, - - Well-healed craniotomy scar. Oral: Moist Mucosa Neck: Supple, No JVD, Negative Carotid Bruits Lungs: Clear to auscultation, Normal air movement, No rhonchi, No wheeze, No rales Cardiovascular: Regular rate, Regular Rhythm, Normal S1, Normal S2, No murmurs Abdomen: Bowel Sounds Present, Soft, Non Tender, Non-Distended, No Hepato- splenomegaly Extremities: No clubbing, No cyanosis, No edema, Capillary Refill Less than 3 Seconds Skin: No rashes, No breakdown Musculoskeletal: No Tenderness to Palpation of Joints or Extremities Lymphatic: No Cervical, Supraclavicular, or Inguinal Adenopathy Neurological: Cranial nerves II-XII grossly intact Psych/Mental Status: Normal Affect, Appropriate, Alert and oriented to time, place, person, mood and affect Current Medications Acetaminophen (Tylenol) 650 mg PO Q6H PRN PRN PRN Reason: PAIN Last Admin: 07/29/17 08:44 Dose: 650 mg Aspirin (Aspirin, Baby) 81 mg PO DAILY@0800 [facility] Last Admin: 07/31/17 07:44 Dose: 81 mg Atorvastatin Calcium (Lipitor) 20 mg PO QHS [facility] Last Admin: 07/30/17 19:41 Dose: 20 mg Bisacodyl (Dulcolax) 10 mg RECTAL .PRN X 1 PRN PRN Reason: Constipation Enoxaparin Sodium (Lovenox) 40 mg SC DAILY@0600 [facility] Last Admin: 07/31/17 05:20 Dose: 40 mg Levetiracetam (Keppra Tablet) 750 mg PO BID [facility] Last Admin: 07/31/17 07:44 Dose: 750 mg Lorazepam (Ativan) 1 mg PO Q6H PRN PRN PRN Reason: AGITATION Magnesium Hydroxide (Milk Of Magnesia) 30 ml PO .PRN X 1 PRN PRN Reason: Constipation Meloxicam (Mobic) 15 mg PO DAILY [facility] Last Admin: 07/31/17 07:45 Dose: 15 mg Multi-Ingredient Cream (Lacrilube) 1 applic OP BID [facility] Last Admin: 07/31/17 07:48 Dose: 1 applicatio Neomycin/Polymyxin/Bacitracin (Neosporin) 1 applic RIGHT EYE 4X/DAY [facility] Last Admin: 07/31/17 13:53 Dose: 1 applic Pantoprazole Sodium (Protonix) 20 mg PO DAILY [facility] Last Admin: 07/31/17 07:45 Dose: 20 mg Quetiapine Fumarate (Seroquel) 25 mg PO QHS [facility] Last Admin: 07/30/17 19:40 Dose: 25 mg Senna/Docusate Sodium (Senokot-S, Sharmila-Colace) 2 tablet PO BID [facility] Last Admin: 07/31/17 07:45 Dose: Not Given Sertraline HCl (Zoloft) 50 mg PO DAILY [facility] Last Admin: 07/31/17 07:45 Dose: 50 mg Tamsulosin HCl (Flomax) 0.8 mg PO QHS [facility] Last Admin: 07/30/17 19:41 Dose: 0.8 mg Medical Necessity - Tobacco Use Smoking Status: Former smoker Assessment/Plan 1. Seizure Disorder: Stable. Currently on Keppra. Neurology on board. 2. Coronary artery disease; stable. On aspirin and atorvastatin, 3. Dysphagia ; continue diet as recommended. 4. Debility; PT/OT 5. GERD ; on protonix 6. DVT prophylaxis: On Lovenox 6. Right eye visual impairment: stable. To follow up with ophthalmology Code Visit Inpatient E&M: 30455 Subs Hosp L2
[2017-07-31 19:51] VITALS: BP 142/90; PULSE 78; RESP 18; TEMP 36.9; O2SAT 94
[2017-07-31 19:52] VITALS: BMI 26.6
[2017-07-31] MEDS: Senna/Docusate Sodium 1 Tablet 2 TABLET PO (20:15)
[2017-07-31] MEDS: Atorvastatin Calcium 20 MG Tablet PO (20:17)
[2017-07-31] MEDS: Tamsulosin HCl 0.4 MG Capsule 0.8 MG PO (20:18)
[2017-07-31] MEDS: QUEtiapine 25 MG Tablet PO (21:09)
[2017-08-01] MEDS: Enoxaparin 40 MG/0.4 ML Syringe SC (05:14)
[2017-08-01 07:23] VITALS: BP 130/91; PULSE 81; RESP 16; TEMP 36.4; O2SAT 95
[2017-08-01] MEDS: Neomycin/Bacitracin/Polymyxin Opth. Ointment 1 APPLIC RIGHT EYE ×2 (07:40→13:19)
[2017-08-01] MEDS: Petrolatum,White 3.75GM OPTH.TUBE 1 APPLIC OP (07:40)
[2017-08-01] MEDS: Pantoprazole Sodium 20 MG Tablet PO (07:40)
[2017-08-01] MEDS: levETIRAcetam 750 MG Tablet PO (07:40)
[2017-08-01] MEDS: Aspirin 81 MG TAB.CHEW PO (07:40)
[2017-08-01] MEDS: Meloxicam 15 MG Tablet PO (07:40)
[2017-08-01] MEDS: Senna/Docusate Sodium 1 Tablet 2 TABLET PO (07:40)
[2017-08-01] MEDS: Sertraline 50 MG Tablet PO (07:41)
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
--- NOTE | 2017-08-01 10:14 | DCINST_ITS ---
- Discharge Diagnoses Reason(s) for Visit for Discharge Instructions: Seizures You will use the following diet at home:: Regular Your food should be the consistency of: Regular Your liquids should be the consistency of: Regular/Thin Discharge Activity: May Not Drive - for next 6 months from seizure standpoint, will need to be cleared by the opthalmology from sight stand point., May Shower , May Take a Tub Bath, Use Walker Weight Bearing Status: Weight bearing as tolerated Call your doctor if you observe: Fever of 101 or Higher, Coldness, Increased Pain, Numbness or Tingling, Change in Color, Inability to urinate, Inability to have a bowel movement, Using more than one pad per hour, Shortness of breath, Dizziness, Fainting spells, Swelling in the ankles, Chest pain, Prolonged hiccoughing, Increased palpitations (irregular heartbeat), Calf discomfort, Uncontrolled pain Allergies/Adverse Reactions: Allergies Penicillins Allergy (Verified 07/08/17 21:32) Hives propoxyphene napsylate [From Darvocet-N] Allergy (Verified 07/08/17 21:32) Other hot flashes Medications to take at Discharge Etodolac [Etodolac ER] 400 mg PO BID 10/17/13 Omeprazole [Prilosec] 20 mg PO DAILY 10/17/13 Mineral Oil/Petrolatum,White [Lubricant Eye Ointment] 3.5 gm OP BID 07/08/17 Acetaminophen [Tylenol Tablet] 650 mg PO Q6H PRN PRN tablet 07/14/17 Aspirin [Aspirin, Baby] 81 mg PO DAILY@0800 07/14/17 Atorvastatin Calcium [Lipitor] 20 mg PO QHS #30 tab 08/01/17 Neomycin/Bacitracin/Polymyxin [Neosporin Ophthalmic Ointment] 1 applic RIGHT EYE 4X/DAY opth.tube 08/01/17 Quetiapine Fumarate [Seroquel] 25 mg PO QHS #30 tab 08/01/17 Sertraline HCl [Zoloft] 50 mg PO DAILY #30 tab 08/01/17 Tamsulosin HCl [Flomax] 0.8 mg PO QHS #30 cap 08/01/17 levETIRAcetam tablet [Keppra tablet] 750 mg PO BID #60 tab 08/01/17 The following prescriptions were given: Atorvastatin Calcium [Lipitor] 20 mg PO QHS #30 tab Quetiapine Fumarate [Seroquel] 25 mg PO QHS #30 tab Sertraline HCl [Zoloft] 50 mg PO DAILY #30 tab Tamsulosin HCl [Flomax] 0.8 mg PO QHS #30 cap levETIRAcetam tablet [Keppra tablet] 750 mg PO BID #60 tab Primary Care Physician: Care Physician,No Primary [Primary Care Provider] - Please Follow Up With: Harris Longo Please Follow Up With: Dr. Carrillo Proposed Discharge Date: 08/01/17
[2017-08-01 11:44] VITALS: BMI 26.6
--- NOTE | 2017-08-01 11:53 | CASEMGMT ---
Social Work Discharge information faxed to [facility]. Proposed discharge date: 08/01/17 PLAN: Discharge home with family and home health services. Verena JENKINS, TITLE SEARCHER
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
--- NOTE | 2017-08-01 15:18 | NURSING ---
patient d/c home with family, both family and patient verbalized understanding of d/c order and patient unable to resume driving at discharge per instruction.
== END 2017-08-01 15:19 | disposition home health service (06) | DRG 25 ==
PROVIDERS: Nurse Practitioner Acute Care; Admitting Provider Psychiatry & Neurology Neurology; Visit Provider Internal Medicine
DX: G40.401 Other generalized epilepsy and epileptic syndromes, not intractable, with status epilepticus (principal); I69.354 Hemiplegia and hemiparesis following cerebral infarction affecting left non-dominant side; R13.10 Dysphagia, unspecified; B35.1 Tinea unguium; E78.5 Hyperlipidemia, unspecified; I25.10 Atherosclerotic heart disease of native coronary artery without angina pectoris; K21.9 Gastro-esophageal reflux disease without esophagitis; F41.9 Anxiety disorder, unspecified; F32.9 Major depressive disorder, single episode, unspecified; I10 Essential (primary) hypertension; Z79.899 Other long term (current) drug therapy; Z79.82 Long term (current) use of aspirin; N40.0 Benign prostatic hyperplasia without lower urinary tract symptoms; H54.61 Unqualified visual loss, right eye, normal vision left eye; Z87.891 Personal history of nicotine dependence; F51.4 Sleep terrors [night terrors]; M79.675 Pain in left toe(s); M79.674 Pain in right toe(s)
CPT/HCPCS: 36415; 80048; 80053; 81240; 81241; 85027; 85300; 85301; 85302; 85303; 86146; 86147; 92507; 92523; 92526; 97110; 97112; 97116; 97163; 97166; 97530; 97535

== ENCOUNTER 2017-10-21 10:00 | Outpatient (RCR) | payer MEDICAID, SELFPAY ==
--- NOTE | 2017-08-15 09:48 | HP.OTEVAL ---
Patient's Visit Information DEBI BERNAL is a 46 year old M, referred to Occupational Therapy by VLADIMIR Wells, with a diagnosis of Left displaced fx of ring finger. Date of Evaluation: 08/15/17 Occupational Therapist: JENS Duenas/Sandra, CHT - Subjective Subjective: This 46 year old male was seen for initial OT eval with dx of displaced middle phalanx fx- of left little finger- pt states Dr. Herron placed a splint on his RF -but shortly following pt states he was in the hospital following due to seizure- pt states he was in splint to long and can not straighten his finger. pt states he is right handed. pt states he is having difficulty with holding items. 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 with BADLs and IADLs by D/C Goal:: pt will demo a increase in left RF PIP ext to -10 or less and increase in left RF PIP flex to 95 degress or greater for pt to become ind. with BADLs and IADLs as putting his left hand in his pocket by D/C Goal:: pt will report no pain greater than 1/10 with use of bilateral hands for BADLS and IADLS by D/C Goal:: pt will report ind. with all BADLs and IADLS by d/c - Rehabilitation General Assessment: pt demo with a decrease in left RF AROM and strength that limits pts ind. with BADLs and IADLs Rehabilitation Potential: Good - Anticipated Interventions Anticipated Interventions: A/AAROM/PROM, Strengthening, Edema Control, Triggerpoint Release, Modalities, Orthoses - Visit Plan Frequency: 2-3x /Week Duration: 6 Weeks TEXT: Thank you for the opportunity to evaluate your patient. For Medicare and Medicare HMO plans, please review the plan of care and approve it. It will need to be FAXED BACK to us at [phone] for Medicare purposes. Please let me know if there are questions or concerns regarding this plan of care. Physician Signature: Date:
--- NOTE | 2017-09-27 15:00 | DT_ITS ---
This patient was seen during an EMR downtime September 26, 2017 - October 03, 2017. This patient may have a combination of paper and electronic documentation or all paper documentation. All documentation is viewable within the e-chart portion of [email or web address] for each patient visit.
--- NOTE | 2017-10-21 10:16 | HP.OTDCSUM ---
HP - OT D/C Summary It has been my pleasure to treat DEBI BERNAL under orders from VLADIMIR Wells, for the diagnosis of Left displaced fx of ring finger for a total of 14 visit(s). Please see the following information for a summary of their discharge status. - Objective Objective/Function: PIP ext -10. PIP flex 100. pt demo full composite fist of left hand. 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 with BADLs and IADLs by D/C Goal:: pt will demo a increase in left RF PIP ext to -10 or less and increase in left RF PIP flex to 95 degress or greater for pt to become ind. with BADLs and IADLs as putting his left hand in his pocket by D/C Goal:: pt will report no pain greater than 1/10 with use of bilateral hands for BADLS and IADLS by D/C Goal:: pt will report ind. with all BADLs and IADLS by d/c - Plan Plan: D/C - D/C Information Discharge Comments: Pt was seen for 14 OT visits- pt progressed well and has met all functional goals. pt is IND. with all BADLS and IADLS. pt d/c at this time. If there are questions or concerns regarding this patient's occupational therapy, please fell free to call me at [phone]. Thank you for the referral of this patient. Sincerely, Anjana Bailey, OTR/L, CHT
== END 2017-10-21 11:45 | disposition home or self-care (01) ==
LOC: OT 10:00
PROVIDERS: Family Provider Family Medicine; PCP Family Medicine; Visit Provider Physician Assistant Surgical
DX: S62.625D Displaced fracture of middle phalanx of left ring finger, subsequent encounter for fracture with routine healing (principal)
CPT/HCPCS: 97110; 97140; 97166; 97168; 97530; 97760

== ENCOUNTER → 2018-04-06 05:00 | Outpatient (REF) | payer MEDICAID, SELFPAY ==
[2018-04-06 08:59] LABS: Hematocrit 39.4 % (40-54); Hemoglobin 12.5 g/dl (13.0-16.5); Mean Corp Hgb Conc 31.7 g/gl (32-36); Mean Corpuscular Hgb 29.7 pg (27.0-32.0); Mean Corpuscular Volume 93.6 fL (80-94); Mean Platelet Vol. 10.8 fl (6.2-12.0); Platelet Count 251 K/mm3 (150-450); RBC Distribution Width CV 12.6 % (11.6-14.6); RBC Distribution Width SD 42.3 fl (35.1-43.9); Red Blood Count 4.21 M/mm3 (4.6-6.2); White Blood Count 4.8 K/mm3 (4.4-11.0)
[2018-04-06 09:03] LABS: Scan Indicated on CBC? Y/N NO
[2018-04-06 09:21] LABS: Albumin, Serum 3.2 g/dL (3.2-5.0); BUN 14 mg/dL (7-18); BUN/Creat Ratio 14.5 RATIO (10-20); Creatinine, Serum 0.96 mg/dL (0.70-1.30); EST Glomerular Filtration Rate 88 mL/min (>60); Est Glom Filt Rate - Afr Amer 106 mL/min (>60); Globulin 3.6 g/dL (2.2-4.2); Glucose 74 mg/dL (74-106); Protein, Total 6.8 g/dL (6.4-8.2)
[2018-04-06 09:22] LABS: ALB/GLOB Ratio 0.9 RATIO (0.9-2.4); AST(SGOT) 15 U/L (15-37); Alanine Aminotransfer ALT/SGPT 18 U/L (16-61); Alkaline Phosphatase 41 U/L (45-117); Anion Gap 7 (5-15); Calcium,Total 8.5 mg/dL (8.5-10.1); Chloride 108 mmol/L (98-107); Cholesterol 128 mg/dL (200); High Density Lipoprotein 29 mg/dL; Potassium 4.1 mmol/L (3.5-5.1); Sodium Level 144 mmol/L (136-145); Thyroid Stim Hormone (TSH) 1.48 uIU/mL (0.358-3.74); Triglycerides 164 mg/dL; Very Low Density Lipoprotein 33 mg/dL (5-40)
--- OUTSIDE RECORDS SUMMARY | 2018-05-22 23:48 | XMS RPT_ITS ---
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 vomiting, chest pain, or any unexpected problems, contact your Primary Care Provider. Call [facility] ([phone]) or report to the closest Emergency Room. Call 911 if necessary. 04/24/182049 <Electronically signed by Brian Cohen MD> Date Brian Cohen MD Cosigner Signature (If Indicated): Date CC: Galo Vasquez MD CBC W/DIFF, AUTOMATED Collected: 04/24/2018 Status: F Source: [place] 6:35 PM [facility] REPOSITORY TYPE CODE TESTS RESULT OUT OF RANGE REFERENCE UNITS LAB L100.1000 4.4-11.0 K/mm3 Normal WBC 5.4 LAB L100.1200 4.6-6.2 M/mm3 Low RBC 4.22 LAB L100.1300 13.0-16.5 g/dl Low HGB 12.3 LAB L100.1400 40-54 % Low HCT 38.8 LAB L100.1500 80-94 fL Normal MCV 91.9 LAB L100.1600 27.0-32.0 pg Normal MCH 29.1 LAB L100.1700 32-36 g/gl Low MCHC 31.7 LAB L100.1810 11.6-14.6 % Normal RDW CV 13.2 LAB L100.1820 35.1-43.9 fl High RDW SD 44.2 LAB L100.1900 150-450 K/mm3 Normal PLT 171 LAB L100.2000 6.2-12.0 fl Normal MPV 10.3 LAB L100.2100 47-70 % Normal NEUT% 65.8 LAB L100.2200 19-41 % Normal LY% 20.8 LAB L100.2300 0-10 % Normal MONO% 9.9 LAB L100.2400 0-5 % Normal EO% 3.1 LAB L100.2500 0-1 % Normal BASO% 0.2 LAB L100.2550 0.0-0.9 % Normal IM GRAN % 0.200 Result Comment: IG% - Immature Granulocytes (promyelocytes, myelocytes and metamyelocytes) > 1% indicates that a LEFT SHIFT is Present. LAB L100.2620 2.0-7.7 X10 3/uL Normal Absolute Neut 3.6 LAB L100.2720 0.83-4.51 X10 3/ul Normal Absolute Lymph 1.13 Performed By: #### L100.0100 #### [facility] [address] [place], [place], [address] PROTHROMBIN TIME W/INR Collected: 04/24/2018 Status: F Source: [place] 6:35 PM [facility] REPOSITORY TYPE CODE TESTS RESULT OUT OF RANGE REFERENCE UNITS LAB L300.4150 11.7-14.9 SECONDS Normal PROTIME 13.1 LAB L300.4200 Normal INR 1.0 Performed By: #### L300.3900, L300.4310 #### [facility] [address] [place], [address] PARTIAL THROMBOPLAST Collected: 04/24/2018 Status: F Source: [place] TIME 6:35 PM [facility] REPOSITORY TYPE CODE TESTS RESULT OUT OF RANGE REFERENCE UNITS LAB L300.4310 24.1-36.2 Seconds Normal PTT 26.9 Performed By: #### L300.3900, L300.4310 #### [facility] [address] [place], [address] BASIC METABOLIC Collected: 04/24/2018 Status: F Source: [place] PROFILE (BMP) 6:35 PM [facility] REPOSITORY TYPE CODE TESTS RESULT OUT OF RANGE REFERENCE UNITS LAB L501.0100 74-106 mg/dL High GLU 109 Result Comment: Fasting Glucose result from 100 to 125 mg/dL suggests IMPAIRED HOMEOSTASIS per A.D.A. criteria. Please note revised GLUCOSE reference range effective 2017. LAB L501.1000 7-18 mg/dL Normal BUN 11 LAB L501.1100 0.70-1.30 mg/dL Normal CREAT,SERUM 0.96 Result Comment: The validity of the calculated GFR AND GFRAA in patients over 70 years has not been determined. Clinical correlation is essential. LAB L501.1110 >60 mL/min Normal EST GFR 88 Result Comment: Non- GFR Calc LAB L501.1115 >60 mL/min Normal EST GFR - AA 107 Result Comment: GFR Calc LAB L501.1255 ml/min Normal Estimated CRCL 90.05 LAB L501.1300 10-20 RATIO Normal BUN/CRE 11.4 LAB L501.2200 8.5-10 mg/dL Normal .1 CA 9.0 LAB L501.5300 136-14 mmol/L Normal 5 NA 138 LAB L501.5600 3.5-5. mmol/L Normal 1 K 3.7 LAB L501.5900 98-107 mmol/L Normal CL 103 LAB L501.6100 21.0-3 mmol/L Normal 2.0 CO2 26.0 LAB L501.6200 5-15 Normal GAP 9 Performed By: #### L500.2500, L501.4010 #### [facility] [address] [place], [address] TROPONIN-I Collected: 04/24/2018 Status: F Source: [place] 6:35 PM [facility] REPOSITORY TYPE CODE TESTS RESULT OUT OF RANGE REFERENCE UNITS LAB L501.4010 <0.045 ng/mL Normal < 0.015 TROPONIN-I Result Comment: TROPONIN-I EXPECTED VALUES <0.045 Negative 0.045 - 0.590 Consistent with Cardiac Damage > OR = 0.600 Critical Value Not every elevated troponin is indicative of PR. These values should be used with clinical judgement in examining the patient's clinical picture for diagnosis. To establish a diagnosis of PR versus myocardial injury, there must be a demonstrated rise and/or fall in the troponin values, in addition to ischemic symptoms, EKG changes, new regional wall motion abnormality, and/or angiographical evidence. PLEASE NOTE: REFERENCE RANGES EDITED 17 Performed By: #### L500.2500, L501.4010 #### [facility] [address] [place], [address] CTA HEAD W/WO Observed: 04/24/2018 Status: F Source: [place] CONTRAST 5:55 PM [facility] REPOSITORY [facility] Imaging Services [address] [facility] [place] [address] CTA Head W/WO Contrast MR#: [id number] Acct: [id number] Name: YUVAL NICHOLS I Rep #: [id number] : 1970 M 47 From: Zonia Ratliff MD PCP: Galo Vasquez MD Status: REG ER Study: CTA Head W/WO Contrast Date of Exam: 04/24/18 Exam# [id number] Ordering Dr: Brian Cohen MD STUDY: CTA OF THE BRAIN REASON FOR EXAM: Male, 47 years old. CVA The clinical history provided for the CT of the head was headache with previous trauma, the chest x-ray history describes headache with cough. RADIATION DOSAGE (If Supplied By Facility): CTDIvol = ( 26.13 ) mGy, DLP = ( 697.00 ) mGycm TECHNIQUE: CT angiography was performed with a multi-detector CT scanner. Data acquisition was obtained from the skull base through the vertex following intravenous administration of 100 ml of Omnipaque 370. MIP images were reconstructed from the axial data set. Post-processing of the angiographic images was performed, with multiplanar reformation and 3D reconstruction. Individualized dose optimization techniques were used for this CT. COMPARISON: April 24, 2018 CT scan head FINDINGS: Normal bilateral petrous carotid arteries. Normal right cavernous carotid artery with a normal supraclinoid bifurcation. Normal left cavernous carotid artery with a normal supraclinoid bifurcation. Normal right A1 segments of the anterior cerebral artery. There is a mildly beaded appearance of the left A1 which may represent fibromuscular dysplasia. Normal intact anterior communicating artery (ACOM). Normal bilateral A2 segments of the anterior cerebral arteries. Normal right M1 and M2 segments of the middle cerebral arteries, with a normal M1 bifurcation. Normal left M1 and M2 segments of the middle cerebral arteries, with a normal M1 bifurcation. Normal right posterior communicating artery (PCOM). Normal left posterior communicating artery (PCOM). Normal bilateral vertebral arteries. Normal basilar artery with a normal basilar bifurcation. The visualized bilateral superior cerebellar (SCA) arteries are normal. Normal bilateral P1, P2 and visualized P3 segments of the posterior cerebral arteries. There is no demonstrated aneurysm of the [place]. There is right frontal low attenuation underlying the area of calvarial defect. There is been a aurea hole in the right frontoparietal region. There is postoperative change involving the right maxillary sinus and right zygomatic arch and right nasal bone. 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 CT/CTA Head W/WO Contrast IMPRESSION: Normal [place] without a demonstrated aneurysm or hemodynamically significant stenosis. Postoperative change in the right frontal region postoperative change calvarium. 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 Electronically Signed: Zonia Ratliff MD at 19:33 EST Tel , Service support , CC: Galo Vasquez MD; Brina Cohen MD Insole Toe Snipping Machine Operator: Signed CTA NECK W/WO Observed: 04/24/2018 Status: F Source: [place] CONTRAST 5:55 PM [facility] REPOSITORY [facility] Imaging Services [address] [place] [address] CTA Neck W/WO Contrast MR#: [id number] Acct: [id number] Name: YUVAL NICHOLS I Rep #: [id number] : 1970 M 47 From: Zonia Ratliff MD PCP: Galo Vasquez MD Status: REG ER Study: CTA Neck W/WO Contrast Date of Exam: 04/24/18 Exam# [id number] Ordering Dr: Brian Cohen MD STUDY: CTA NECK WITH AND WITHOUT CONTRAST REASON FOR EXAM: Male, 47 years old. Headache cough CVA RADIATION DOSAGE (If Supplied By Facility): CTDIvol = ( 26.13 ) mGy, DLP = ( 697.00 ) mGycm TECHNIQUE: CT angiography with multi-detector data acquisition was performed from the aortic arch to the skull base prior to and after intravenous administration of 100ML ml of Isovue 370 contrast. MIP images were reconstructed from the axial data set. Post-processing of the angiographic images was performed, with multiplanar reformation and 3D reconstruction. Individualized dose optimization techniques were used for this CT. COMPARISON: July 08, 2017 CT angiogram carotid FINDINGS: AORTIC ARCH: Normal visualized aortic arch. Normal origins of the brachiocephalic, left common carotid, and left subclavian arteries. RIGHT CAROTID ARTERIES: Normal right common carotid artery (CCA). Normal right common carotid bulb. Normal origin of the right internal carotid (ICA) artery without a hemodynamically significant stenosis. Normal visualized cervical portion of the right internal carotid artery. Normal origin of the right external carotid artery (ECA). LEFT CAROTID ARTERIES: Normal left common carotid artery (CCA). There is mild atherosclerotic plaque formation with minimal narrowing of the left carotid bulb. Normal origin of the left internal carotid (ICA) artery without a hemodynamically significant stenosis. There is atherosclerotic tortuous elongation of the cervical portion of the left internal carotid artery. Normal origin of the left external carotid artery (ECA). VERTEBRAL ARTERIES: Normal bilateral vertebral arteries. There is visualized postoperative change. In the right facial bones compatible with history of trauma including right lateral wall of the orbit trauma. There is advanced degenerative change of the cervical spine at the level of C3-C4 there is a broad disc osteophyte protrusion extending into the right side of the canal causing moderate right neural foramina narrowing moderate central stenosis. CT/CTA Neck W/WO Contrast IMPRESSION: Trace carotid bulb calcification otherwise Normal bilateral cervical carotid and vertebral arteries. Degenerative change of the cervical spine for which an MRI would be suggested for follow-up. Electronically Signed: Zonia Ratliff MD at 19:36 EST Tel , Service support , CC: Galo Vasquez MD; Brian Cohen MD Insole Toe Snipping Machine Operator: Signed BRAIN/HEAD WITHOUT Observed: 04/24/2018 Status: F Source: [place] CONTRAST 5:35 PM [facility] REPOSITORY [facility] Imaging Services [address] [place] [address] Brain/Head without Contrast MR#: [id number] Acct: [id number] Name: YUVAL NICHOLS Rep #: [id number] : 1970 M 47 From: Chivo Mackey MD PCP: Galo Vasquez MD Status: PRE ER Study: Brain/Head without Contrast Date of Exam: 04/24/18 Exam# [id number] Ordering Dr: Brian Cohen MD STUDY: CT BRAIN WITHOUT CONTRAST REASON FOR EXAM: Male, 47 years old. Headache today, previous trauma RADIATION DOSAGE (If Supplied By Facility): CTDIvol = ( 44.99 ) mGy, DLP = ( 779.24 ) mGycm TECHNIQUE: Transaxial CT imaging of the brain was performed without administration of intravenous contrast material. Individualized dose optimization techniques were used for this CT. COMPARISON: 07/08/2017 FINDINGS: Stable postsurgical changes noted in the right zygomatic arch and right orbital region from previous trauma. Stable subcutaneous granulomas calcifications Normal size ventricles and extra-axial spaces for the patient's age. Normal white matter tracts of the cerebral hemispheres. Stable likely postsurgical hypoattenuation in the right frontal lobe. Normal basal ganglia and thalami. Normal brainstem. Normal cerebellum. There is no intracranial hemorrhage. There are no findings of an acute ischemic infarction. Normal visualized paranasal sinuses. CT/Brain/Head without Contrast IMPRESSION: Age consistent and postsurgical changes, no acute findings Stable surgical hardware in the right zygomatic arch and orbit from previous trauma Electronically Signed: Roberto Mackey MD at 18:01 EST , Service support , CC: Galo Vasquez MD; Brian Cohen MD Insole Toe Snipping Machine Operator: Signed CHEST 1 VIEW Observed: 04/24/2018 Status: F Source: [place] 5:35 PM [facility] REPOSITORY [facility] Imaging Services [address] [place] [address] Chest 1 View MR#: [id number] Acct: [id number] Name: YUVAL NICHOLS Rep #: [id number] : 1970 M 47 From: Chivo Mackey MD PCP: Galo Vasquez MD Status: PRE ER Study: Chest 1 View Date of Exam: 04/24/18 Exam# [id number] Ordering Dr: Brian Cohen MD STUDY: X-RAY CHEST REASON FOR EXAM: Male, 47 years old. Cough, headache TECHNIQUE: Single AP portable view of the chest. COMPARISON: 07/08/2017 FINDINGS: The lungs are clear and expanded. There is no demonstrated pleural abnormality. Normal size heart. Normal mediastinum and davonte. Normal visualized pulmonary arteries. Normal visualized aortic arch and descending thoracic aorta. Normal visualized thoracic spine. Normal visualized ribs, clavicles, and shoulders. There is no demonstrated abnormality of the visualized soft tissue structures of the upper abdomen. RAD/Chest 1 View IMPRESSION: Normal x-ray examination of the chest. Electronically Signed: Roberto Mackey MD at 18:02 EST , Service support , CC: Galo Vasquez MD; Brian Cohen MD Insole Toe Snipping Machine Operator: Signed ALLIED HEALTH Observed: 04/10/2018 Status: COMPLETED Source: [place] 4:18 PM [facility] REPOSITORY HNO ID: [id number] Author: Ana Corrigan RN Service: Home Care Services Author Type: Registered Nurse Type: Allied Health Filed: 04/10/2018 4:20 PM Note Text: RIP MACHINE OPERATOR NOTE SERVICE DATE: 04/10/2018 SERVICE TIME: 4:19 PM Discharge: Aware of Discharge home today. Physician order placed for Home Care Services. Home Care Agency: [facility] Start of care date: 04/11/18--04/12/18 Supplies ordered: N/A Patient/Family agree to discharge plan: Yes SIGNATURE: Ana Corrigan RN PATIENT NAME: Yuval Nichols Jr. DATE: April 10, 2018 TIME: 4:19 PM CASE MANAGEM Observed: 04/10/2018 Status: COMPLETED Source: [place] 3:47 PM [facility] REPOSITORY HNO ID: [id number] Author: Angy OlmedoRnPlacido Evangelista RN Service: Care Management Author Type: Registered Nurse Type: Care Mgt Progress Note Filed: 04/10/2018 3:47 PM Note Text: CARE MANAGEMENT PROGRESS NOTE SERVICE DATE: 04/10/2018 SERVICE TIME: 3:47 PM LOS: 2 days Accepted by [facility]. SIGNATURE: Angy Evangelista RN PATIENT NAME: Yuval Nichols Jr. DATE: April 10, 2018 TIME: 3:47 PM PAGER/CONTACT #: [phone] CASE MANAGEM Observed: 04/10/2018 Status: COMPLETED Source: [place] 2:05 PM [facility] REPOSITORY HNO ID: [id number] Author: Angy (Rn) TEODORO Evangelista Service: Care Management Author Type: Registered Nurse Type: Care Mgt Progress Note Filed: 04/10/2018 2:06 PM Note Text: CARE MANAGEMENT PROGRESS NOTE SERVICE DATE: 04/10/2018 SERVICE TIME: 2:05 PM LOS: 2 days [facility] unable to accept. Next choice is [facility]. Awaiting acceptance. SIGNATURE: Angy Evangelista RN PATIENT NAME: Yuval Nichols Jr. DATE: April 10, 2018 TIME: 2:05 PM PAGER/CONTACT #: [phone] PLAN OF CARE Observed: 04/10/2018 Status: COMPLETED Source: [place] 1:46 PM [facility] REPOSITORY HNO ID: [id number] Author: Mirian Sparks (General Helper) Service: (none) Author Type: (none) Type: Plan of Care Filed: 04/10/2018 1:46 PM Note Text: HOSPICE ADMINISTRATOR BEDSIDE DELIVERY SURVEY 1. Patient to use [facility] Bedside Delivery - YES 2. If fax, patient would like us to fax prescriptions to Pharmacy of choice a. Pharmacy: b. Location: c. Phone: 3. Insurance card on file - YES 4. Credit card for payment - N/A No prescriptions yet. Please call extension [phone] or [phone] upon discharge. CNDS Observed: 04/10/2018 Status: COMPLETED Source: [place] 1:43 PM [facility] REPOSITORY HNO ID: [id number] Author: Chavez Holman Service: Trauma Author Type: Physician Pilot Can Router Type: Discharge Summaries Filed: 04/10/2018 1:44 PM Note Text: DISCHARGE SUMMARY PATIENT NAME: Yuval Nichols Jr. Code Status: Not on file Highest Readmission Risk Score: 19 The 30 day readmissions risk score is derived from an internally validated risk model which evaluates patient level characteristics, utilization history, medication orders and lab results up until the day of discharge. Patients with a score of 40 or above are considered highest risk for readmission. Specific patient level drivers will be listed at the bottom of the summary. Admission Information Admission Information ADMIT DATE: 04/08/2018 DISCHARGE DATE: 04/10/18 MY DOCTORS AND MEDICAL TEAM: My Main Hospital Doctor: Dean Archuleta Primary Care Provider: Galo Vasquez MD My Medical Team Members: Treatment Team: Attending Provider: Dean Archuleta Consulting: Nona Jane MY CONDITION AT DISCHARGE: Stable REASON I WAS IN THE HOSPITAL: Traumatic head bleed. SUMMARY OF WHAT HAPPENED WHILE I WAS IN THE HOSPITAL: You were evlauated in the emergency room on 04/08/18 by the trauma team after you suffered a fall at the rehab facility you were in. CT scans and X-rays were taken as a part of your workup to help identify your injuries. You were found to have a subarachnoid hemorrhage (brain bleed) as a result of your fall. Due to this injury, you were admitted to the regular nursing floor under the trauma service. A neurosurgery consult was placed on your behalf due to your brain bleed. The neurosurgeon said that no surgical intervention would be needed at this time. We stopped your home aspirin and home Plavix dose because of your risk of bleeding in your head. We had the physical and occupational therapy teams evaluate you, and they recommended that you get some physical therapy at home after your discharge. You will need to follow up with the neurosurgeon in one week. You should NOT take Aspirin or Plavix until the neurosurgery team clears you to do so. You will also need to follow up with your primary care provider in two weeks to discuss your recent hospital visit. OTHER PROBLEMS/DIAGNOSIS: Active Problems: ICH (intracerebral hemorrhage) (HCC) Subarachnoid hemorrhage (HCC) Closed head injury Resolved Problems: Trauma Fall from ground level OPERATIONS PERFORMED WHILE IN THE HOSPITAL: None IMPORTANT TEST/PROCEDURES: No procedures performed TEST RESULTS NOT AVAILABLE AT THIS TIME: No pending results Discharge Disposition Discharge Disposition: Home With Home Care Activity When You Leave the Hospital Go home and rest. Resume normal activity after: You have been cleared by the neurosurgery team. May bathe and shower No lifting restrictions No prolonged bedrest, longer than 8 hours in a 24 hour period No walking restrictions Resume pre-hospital activity Diet Instructions Resume your pre-hospital diet For Pain When You Leave the Hospital Use acetaminophen (Tylenol) as recommended on the bottle Call Your Doctor If You have a severe headache You have lightheadedness, fainting, or confusion You have pain and swelling in your legs, especially if it is only on one side and not the other You have persistent nausea/vomiting over 24 hours You have swollen glands or cold and clammy skin Your temperature is greater than 101F Follow Up Appointments Follow-Up Appointment When: In 1 week Patient/Parents to call for appointment?: Yes Carolyne Edward [phone] [place] [address] PCP Requested Referral Follow-Up Appointment When: In 2 weeks Patient/Parents to call for appointment?: Yes Galo Thad Nanohannah [phone] [facility] [address] [facility] [address] PCP Requested Referral Additional Provider to Provider Information: No notes on file Transitions of Care Critical Issues: None LABS AND PROCEDURES PENDING AT DISCHARGE: No pending results. Ruled Out FOLLOW-UP APPOINTMENTS ALREADY SCHEDULED WITH A [facility] PROVIDER: No future appointments. ALLERGIES Allergen Reactions - Darvocet A500 [Prop* Other: See Comments Hot flashes - Penicillins Hives DISCHARGE MEDICATION: Current Discharge Medication List START taking these medications acetaminophen (TYLENOL) 650 mg Take 650 mg by mouth every 6 hours as needed for Pain. CONTINUE these medications which have NOT CHANGED atorvastatin (LIPITOR) 20 mg Take 20 mg by mouth once daily. docusate sodium (COLACE) 100 mg Take 100 mg by mouth once daily. etodolac (LODINE) 400 mg Take 400 mg by mouth twice daily. fenofibrate nanocrystallized (TRICOR) 145 mg Take 145 mg by mouth once daily. levETIRAcetam (KEPPRA) 750 mg Take 750 mg by mouth twice daily. Omeprazole 40 mg Take 40 mg by mouth once daily. QUEtiapine (SEROquel) 25 mg Take 25 mg by mouth daily at bedtime. sertraline (ZOLOFT) 50 mg Take 50 mg by mouth once daily. tamsulosin ER (FLOMAX) 0.8 mg Take 0.8 mg by mouth once daily. carboxymethylcellulose sodium (CELLUVISC) 1-2 Drops Use 1-2 Drops in the right eye twice daily. STOP taking these medications aspirin 81 mg Comments: Reason for Stopping: clopidogrel (PLAVIX) 75 mg Comments: Reason for Stopping: Patient was seen and evaluated by attending trauma surgeon on day of discharge and deemed medically stable for discharge home with home therapy. The patient's risk for 30-day readmission is determined using the following contributing factors: Pt variables contributing to increased readmission risk: 14 Most Recent BUN Result 13 Active Medication Orders 8.5 First Resulted Calcium During Admission 2 Number of Previous ED Visits (6 mos.) 1 Previous ED Visit (6 mos.)? 1 Insurance - Medicaid 1 Discharge Disposition - Home 1 Number of Hospitalizations (12 mos.) TIME OF CARE: Discharge Management: I personally spent greater than 30 minutes involved in the discharge management of this patient. 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 Yes Is This a Planned Readmission? No: s/p fall Followed Up with Appointment Prior to Admission: Patient scheduled, but readmitted prior Where Did the Patient Come From? [facility] Intervention Taken to Avoid Future Readmission? Advance Directive: Current Advance Directive: None Accessories Repairer Attempted to Assist with AD Completion: Yes Action: Education Provided;Patient Unwilling Health Literacy: 1. How often do you need to have someone help you when you read instructions, pamphlets, or other written material from your doctor or pharmacy? Rarely - 2 2. How confident are you filling out medical forms by yourself? Quite a bit - 2 If Patient scores > 3 on either question, the following interventions were put into place: Use of plain language and active listening with Patient and family, Teach back methods employed to ensure comprehension, Use concrete and specific phrases, avoid medical jargon, Forms of communication used with patient and family and Sit with Patient FUNCTIONAL AND COGNITIVE/BEHAVIORAL PRIOR TO ADMISSION: Baseline Mental Status: Alert AND Oriented, Person, Place , Time and Situation Functional Status: Independent Does Patient Currently Receive Any Community Services or Home Care? None Equipment Prior to Admission: None Has the Patient Been in a Fdc Facility in the Past 30 days? Yes. Where and Dates: [facility] SOCIAL: Living Arrangement: Home Lives With: Parent(s) Financial Resources: Disabled Primary Contact: Extended Emergency Contact Information Primary Emergency Contact: Angeli Nichols Mobile Relation: Son Secondary Emergency Contact: Yuval Nichols II Mobile Relation: Son Supportive: Yes Other Important Patient Contacts: None Caregiver Assessment: Caregiver is ready, willing and able to meet the patient's needs as recommended by the inter-professional team? Yes Patient's transition needs and plan for meeting these needs: Does the patient have an acute stroke diagnosis, or has the patient had a stroke during this admission? No Medication Adherence: I am convinced of the importance of my prescription medication: Agree mostly - 0 I worry that my prescription medication will do more harm than good to me Disagree mostly - 0 I feel financially burdened by my mwv-pi-xjudsa expenses for my prescription medication: Disagree completely - 0 Patient is categorized as low risk < 2 Are you interested in bedside delivery of your medications? Yes Food Concerns: In the Last Month, Have You had Trouble Getting Food? No trouble getting food During the Last Month, Have You Worried Whether Your Food Would Run Out Before You Had Enough Money to Buy More? No Is the Patient Psychosocially Complex? No ASSESSMENT AND PLAN: Medical Needs: None Psychosocial Needs: None FREEDOM OF CHOICE EXPLAINED: Yes . Financial Disclosure Provided Provider List: Home Care POTENTIAL TRANSITION PLANS Home Care PT/OT rec home with Home PT. Plans to return home with Mother. Agreeable to home therapy. First choice is [facility]. Awaiting acceptance. SIGNATURE: Angy Evangelista RN PATIENT NAME: Yuval Nichols Jr. DATE: April 10, 2018 TIME: 11:39 AM PAGER/CONTACT #: [phone] THERAPY NT Observed: 04/10/2018 Status: COMPLETED Source: [place] 11:21 AM CLINIC OTHER CAMPUS REPOSITORY HNO ID: [id number] Author: Cathy OlmedoOtr/LPlacido Valdez Service: Occupational Therapy Author Type: Occupational Therapist Type: Therapy (PT/OT/Speech/Resp) Filed: 04/10/2018 11:41 AM Note Text: Occupational Therapy Evaluation SERVICE DATE: 04/10/2018 SERVICE TIME: 1035 to 1050 ROOM: [id number] Recommended Discharge Disposition: Home Recommended Discharge Disposition Comments: Patient appears to be very near baseline functioning and would be appropriate for a safe d/c home once medically stable. He would benefit from increased supervision and physical assist at home during self care and functional mobility initally due to decreased safety awareness. Anticipated Discharge Needs: Physical Assist at Home;Supervision at Home Physical Assist at Home for: Cleaning;Laundry;Meals;Safety;Self Care;Shopping;Transportation Supervision at Home due to: Other: See Comment;Decreased safety awareness (General safety following recent hospitalization) OT Recommendations to Nursing: To Bathroom for ADL?s /and or Toileting;OOB for meals;With assist of 1 person OT 6 Clicks Score: 21 Precautions/Activity Restrictions: Fall Risk ASSESSMENT: OT Evaluation Low Complexity: Occupational Profile - Brief review of patient's medical record completed (please see current hospital course of evaluation). Occupational Performance - Pt presents with deficits in feeding, grooming, UE bathing/dressing, LE bathing/dressing, functional transfers, functional mobility, decreased safety awareness, decreased insight into deficits Complexity in Clinical Decision Making - The extent of clinical reasoning was low, number of treatment options limited, no need for modifications during the evaluation process, no comorbidities present to affect patient's occupational performance. Patient Disposition at Start of Session: OOB in Chair;Call Khalil in Reach Patient Disposition at End of Session: OOB in Chair;Call Khalil in Reach Tolerated Full Session Occupational Therapy Problem List: Safety Deficits;Impaired Self Care;Decreased Activity Tolerance;Decreased Strength;Functional Mobility Impairment Patient /Caregiver Goals: Go Home Goals for Plan of Care: Able to perform HEP with: Verbal Cues Only (UB strengthening program) Grooming with: Supervision (standing at sink) Upper Body Bathing with: Supervision Upper Body Dressing with: Supervision Lower Body Bathing with: Stand By Assistance Lower Body Dressing with: Stand By Assistance Chair Transfer with: Supervision Toilet Transfer with: Supervision Tolerate (minutes of functional activity): 35 Functional Activity with: Supervision Demonstrate Competence With Education with: Supervision (Safety during self care and functional mobility) Rehab Potential: Good PLAN: Treatment Frequency (times per week): 5 (1-5) Current admission Treatment Interventions: Education;Self Care / Home Management;Energy Conservation Training;Strengthening;Functional Mobility Training Plan of Care developed with: Patient TREATMENT INTERVENTIONS: Therapy Diagnosis: Reduced mobility-other;Decreased activities of daily living (ADL);Muscle Weakness (generalized);General symptoms and signs-other Interventions Provided: Evaluation $ Evaluation-Low (31962) Billed Units: 1 unit Educated on the role of OT in the acute care setting. Total Treatment Time (minutes): 15 FUNCTIONAL G CODE: OT 6 Clicks Score: 21 (04/10/18 1035) Self Care Current Status (G8987): CJ (04/10/18 1035) Self Care Goal Status (G8988): CH (04/10/18 1035) Based on clinical assessment and the score on the 6 Clicks Functional Assessment Tool, the G code and corresponding severity modifiers are documented above. SUBJECTIVE: Current Hospital Course: Chart reviewed; . he is a 47 year old male who reported to the ED on after he fell from his bed at the rehab facility he was in last night. His injuries include an acute hemorrhagic contusion and subarachnoid hemorrhage in the left frontal- temporal region. Reason for Occupational Therapy Consult: Post acute placement Relevant Past Medical History: Seizures, HTN, depression, recent stroke with residual left side weakness Patient Report: Sitting upright in chair, agreeable to OT evaluation. Denies any pain. My mom will help me out at home. Home Environment Patient Lives With: Family Assistance Available: 24 Hour Entry To Home: Stairs Number Of Stairs Into Home: 3 Equipment Owned: Wheeled Walker Prior Functional Level: Within Functional Limits Prior Functional Level Comments: Patient was using a walker at home OBJECTIVE: Cognition/Communication Deficits Communication Deficits: (Slightly slurred speech at times) Follows Commands: 2-step Commands;Cueing Needed Cueing to Follow Commands: Minimum Executive Function Deficits: Safety Awareness;Problem Solving;Sequencing;Judgement;Insight to Deficits Sequencing Deficit: Minimal impairment Judgement Deficit: Minimal impairment Insight to Deficits: Minimal impairment Problem Solving Deficit: Minimal impairment Safety Awareness Deficit: Minimal impairment Cognitive Clinical Tests and Screens: Mini Cog Clock Draw Test: 0-Abnormal Word Recall: 3-recalled words Mini Cog Score: 3 CURRENT FUNCTIONAL STATUS: Current Activities of Daily Living Assist Level Feeding Set Up Grooming Minimal Assistance (standing at sink) Bathing Upper Body Stand By Assistance Bathing Lower Body Minimal Assistance Dressing Upper Body Stand By Assistance Dressing Lower Body Minimal Assistance Toileting Stand By Assistance Functional Mobility Assist Level Rolling Supine to Sit Sit to Supine Scooting Sit to Stand Contact Guard Assistance Stand to Sit Contact Guard Assistance Bed to Chair Toilet/Commode Contact Guard Assistance Functional Mobility Contact Guard Assistance Hand Held Assist Range of Motion: WFL Strength: WFL Except;Upper Extremity Comments Strength Limitation Comments: 4/5 Right Upper Extremity Strength Comments: 4/5 Coordination Deficits: Finger opposition;In hand manipulation Finger Opposition Impairment: Bilateral Hand Manipulation Impairment: Bilateral Balance: Static Standing;Dynamic Standing Static Standing Balance: Contact Guard Assistance Dynamic Standing Balance: Contact Guard Assistance Please see discipline specific clinical documentation flowsheet for complete details for this therapy evaluation/treatment. SIGNATURE: Carolyn Trujillo/ERIKA PATIENT NAME: Yuval Nichols Jr. DATE: April 10, 2018 TIME: 11:21 AM THERAPY NT Observed: 04/10/2018 Status: COMPLETED Source: [place] 10:21 AM CLINIC OTHER CAMPUS REPOSITORY O ID: [id number] Author: Yanci (PtPlacido García Service: Physical Therapy Author Type: Physical Therapist Type: Therapy (PT/OT/Speech/Resp) Filed: 04/10/2018 10:28 AM Note Text: Physical Therapy Evaluation SERVICE DATE: 04/10/2018 SERVICE TIME: 50 to 101 ROOM: [place] [id number] Recommended Discharge Disposition: Home PT PT Recommendations to Nursing: Ambulate with device;To bathroom;In halls;OOB for Meals;With assist of 1 person Device: Wheeled Walker PT 6 Clicks Score: 23 Precautions/Activity Restrictions: Fall Risk ASSESSMENT : Patient who was admitted for fall the day he was to be discharged from rehab, presents with a stable hospital course and the past medical history of previous head injury limiting current functional level, as well as the social factors complicating the 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 This patient is near baseline functioning of walking with the walker and will benefit from continued skilled therapy in the hospital for treatment of safety with gait which require gait training in new environment to scan obstacles, family training, safety and endurance training. Currently the recommendation is home PT due to above listed functional deficits. Patient Disposition at Start of Session: Supine in Bed Patient Disposition at End of Session: OOB in Chair Tolerated Full Session Physical Therapy Problem List: Safety Deficits;Functional Mobility Impairment Patient /Caregiver Goals: Go Home Goals for Plan of Care: Transfer supine to/from sit with: Independent Transfer sit to/from stand with: Independent Ambulate with: Independent (patient will avoid obstacles 100% of the time) Distance: 50 Device: Wheeled Walker Ambulate up and down steps with: Independent Number of steps: flight Device: Rail Rehab Potential: Good PLAN: Treatment Frequency (times per week): 5 (2-5) Current admission Treatment Interventions: Education;Functional Mobility Training Plan of Care developed with: Patient TREATMENT INTERVENTIONS: Therapy Diagnosis: Abnormalities of gait and mobility-other Interventions Provided: Evaluation;Gait Training (88309) $ Evaluation-Low (54066) Billed Units: 1 unit Gait Training (20478) Treatment Minutes: 8 1 unit Skilled Intervention(s): Cued to keep walker close and to stay in the frame, cued to look up and scan the environment. Instructed to walk slower so he could look for obstacles and plan to change course to avoid them sooner. The patient was instructed on bilateral hand hold on one rail with stairs as he only has one rail at home. Total Timed Code Treatment Minutes: 8 Total Treatment Time (minutes): 24 FUNCTIONAL G CODE: PT 6 Clicks Score: 23 (04/10/18 0950) Mobility: Walking and Moving Around Current Status (G8978): CI (04/10/18 0950) Mobility: Walking and Moving Around Goal Status (G8979): CH (04/10/1850) Based on clinical assessment and the score on the 6 Clicks Functional Assessment Tool, the G code and corresponding severity modifiers are documented above. SUBJECTIVE: Current Hospital Course: Chart reviewed; fall at rehab Reason for Physical Therapy Consult : s/p fall at rehab Relevant Past Medical History: seizures, head injury in 1988 Patient Report: patient is in no pain and states he feels good Home Environment Patient Lives With: Family Assistance Available: 24 Hour Entry To Home: Stairs Number Of Stairs Into Home: 3 Equipment Owned: Wheeled Walker Prior Functional Level: Within Functional Limits Prior Functional Level Comments: Patient was using a walker at home OBJECTIVE: Range of Motion: WFL Strength: WFL CURRENT FUNCTIONAL STATUS: Current Functional Mobility Assist Level Additional Information Rolling Supine to Sit Contact Guard Assistance Sit to Supine Contact Guard Assistance Scooting Sit to Stand Stand By Assistance Stand to Sit Stand By Assistance Bed to Chair Toilet/Commode Gait Stand By Assistance Gait Device: Wheeled Walker Gait Distance (feet): 200x 2 Stairs Contact Guard Assistance Stairs Device: Rail Number of Stairs: 4 Curb Step Car Transfer General Gait Deviations: Wide base of support (cued to scan for obstacles due to right eye blind) Patient was colliding with obstacles on the left and when cued to scan the path better he was able to do so. Activity Tolerance: Standing Activity Standing Activity: gait and stairs Standing Activity Tolerance (in minutes): 10 JH-HLM: 7: Walk 25 feet or more Please see discipline specific clinical documentation flowsheet for complete details for this therapy evaluation/treatment. SIGNATURE: Yanci García PT PATIENT NAME: Yuval Nichols Jr. DATE: April 10, 2018 TIME: 10:22 AM PROGRESS Observed: 04/10/2018 Status: COMPLETED Source: [place] 8:32 AM CLINIC OTHER CAMPUS REPOSITORY HNO ID: [id number] Author: Chelo Jeffers Service: Trauma Author Type: Physician Type: Progress Notes Filed: 04/10/2018 10:29 AM Note Text: Trauma Progress Note SERVICE DATE: 04/10/2018 SUBJECTIVE: Patient denies any new or acute events overnight. He states he is doing well this morning. He denies any pain anywhere. He is voiding. He has had bowel function. He has not ambulated on his own yet. He denies any headaches. He denies any CP, SOB, COFFEY, N/V, ABD pain, or dizziness. OBJECTIVE: Vitals: Temp (24hrs), Av.4 ?C (97.5 ?F), Min:36 ?C (96.8 ?F), Max:36.8 ?C (98.2 ?F) BP 146/73 Pulse 71 Temp 36.6 ?C (97.9 ?F) (Temporal Artery) Resp 18 Ht 180.3 cm (5' 11) Wt 83.4 kg (183 lb 13.8 oz) SpO2 97% BMI 25.64 kg/m? O2 Therapy: Room Air IANDO: Date 04/09/18 0700 - 04/10/18 0659 04/10/18 0700 - 04/11/18 0659 Shift 5942-9089 6603-8300 3047-0818 24 Hour Total 2538-5673 7174-8947 1595-0476 24 Hour Total I N T A K E PO 5633 245 9291 PO 2524 530 0829 IV 442 378 4835 NS 0.9% 300 321 7259 Magnesium IVPB 100 100 Shift Total 2057 909 2966 O U T P U T Urine 023 748 0563 2450 Void (ml) 621 831 0718 2450 # of BMs Number of BMs 1 x 1 x Shift Total 031 633 7806 2450 Weight (kg) 83.4 83.4 83.4 83.4 83.4 83.4 83.4 83.4 MEDICATIONS Current Facility-Administered Medications: acetaminophen 650 mg tab(s) (TYLENOL) 650 mg ORAL q 6 H atorvastatin 20 mg tab(s) (LIPITOR) 20 mg ORAL DAILY carboxymethylcellulose sodium 1-2 Drop (CELLUVISC) 1-2 Drop RIGHT EYE BID fenofibrate 200 mg cap(s) (LOFIBRA) 200 mg ORAL DAILY levETIRAcetam (KEPPRA) tab(s) 750 mg 750 mg ORAL BID NaCl 0.9% 2-10 mL 2-10 mL INTRAVENOUS q 12 H ondansetron (PF) 4 mg injection (ZOFRAN) 4 mg INTRAVENOUS q 6 H PRN oxyCODONE IR 5 mg tab(s) (ROXICODONE) 5 mg ORAL q [address] 40 mg tab(s) (PROTONIX) 40 mg ORAL DAILY QUEtiapine 25 mg tab(s) (SEROquel) 25 mg ORAL AT BEDTIME senna-docusate 8.6-50 mg 1 tablet (SENNA-S) 1 tablet ORAL BID sertraline 50 mg tab(s) (ZOLOFT) 50 mg ORAL DAILY tamsulosin ER 0.8 mg cap(s) (FLOMAX) 0.8 mg ORAL DAILY Labs: Recent Labs 04/10/18 0254 04/09/18 0230 04/08/18 0910 04/08/18 0830 NA 138 142 -- -- 140 K 4.5 3.9 -- -- 4.1 CHLOR 109* 109* -- -- 107 CO2 25 25 -- -- 26 BUN 14 15 -- -- 13 CREAT 0.85 1.00 -- -- 0.83 GLUC 90 87 -- -- 88 ANION 9 12 -- -- 11 CA 8.2* 7.9* -- -- 8.5 MG 2.1 1.6 -- -- -- P 3.3 4.1 -- -- -- ALB -- -- -- -- 3.1* AST -- -- -- -- 13 ALT -- -- -- -- 20 ALKPHOS -- -- -- -- 35* TBILI -- -- -- -- 0.2 WBC 6.29 6.68 5.73 < > -- HB 11.8* 12.1* 13.2* < > -- HCT 37.0* 37.9* 41.2 < > -- PLT 263 271 247 < > -- INR -- -- 1.05 -- -- < > = values in this interval not displayed. PHYSICAL EXAM: Genl: Appears age appropriate. No acute distress. Resting comfortably. Head/Face: Normocephalic. Atraumatic. Eyes: EOMI. Sclera not icteric, not injected, Right eye blind, with hazy cornea appearance Neck: No mid-line masses. C-spine non-tender. Back: T AND L Spine non-tender, no step-offs noted. No flank tenderness. Resp: Lungs clear bilat. No wheezes. No rales. Breathing is non-labored on room air at 97%. CVS: RRR. No murmur, rub, gallop. 2+ pulses at RA, DP, PT bilat. GI: Abdomen is soft, non-tender, not distended. Bowel sounds normoactive. No peritonitis. MSK: Extremities without clubbing, cyanosis, edema. Normal ROM x 4. Skin: Warm and dry. No lesions of concern. Not jaundiced. Neuro: AANDOx3. Strength, sensation, proprioception normal. RODRÍGUEZ. GCS15. Psych: Normal mood. Normal affect. Appropriate insight into current situation. ASSESSMENT AND PLAN: Active Hospital Problems Diagnosis Date Noted - Trauma 04/10/2018 - Fall from ground level 04/10/2018 - Subarachnoid hemorrhage (HCC) 04/10/2018 - Closed head injury 04/10/2018 - ICH (intracerebral hemorrhage) (HCC) 04/08/2018 47 year old male s/p ground level fall Imaging performed: 1. CT H/N on 04/08 2. CXR and PXR on 04/[address] H on 04/09 - stable Traumatic Injuries: 1. ICH 2. SAH Care Plan: 1. Continue Keppra; repeat Head CT yesterday stable 2. Continue to monitor neuro exam 3. Holding DVT ppx 4. Holding home ASA and Plavix 5. Continue Seroquel 6. Current diet order: DIET FOOD CONSISTENCY CONTROLLED 7. Pain regimen: Scheduled Tylenol and PRN Roxicodone 8. Bowel regimen: Senna-S daily 9. Labs: Hg 11.8 from 12.1; WBC 6.29 from 6.68; Cr. 0.85 from 1.00 PPX: 1. DVT: Holding 2. Ulcer: Protonix 40 mg oral daily 3. Vit D level if > 65 yo: N/A Consulted Services and Recommendations: 1. Neurosurgery - no surgical intervention, they have signed off Dispo Plannin. PT/OT recs pending. Case management following. Plan for DC after PT/OT assessment. Follow Up Needs: 1. Neurosurgery in 2 weeks. 2. PCP in 3 weeks. Staff Trauma Surgeon: Dr. Jeffers Trauma Service Pager: For questions or concerns Mon-Fri 6a-5p please page [phone]. After 5pm and on Weekends and Holidays, please page [phone] if in ICU or [phone] if on RNF. SIGNATURE: Chavez Holman PA-C PATIENT NAME: Yuval Nichols Jr. DATE: April 10, 2018 TIME: 8:32 AM Pager: [phone] Trauma Attending Awake and Alert Repeat head CT OK Tolerating diet D/C planning after seen by PT/OT Lovenox if staying longer ASA per NS after follow up Chelo Jeffers MD MDRD GFR Collected: 04/10/2018 Status: F Source: [facility] 2:54 AM HEALTH SYSTEM REPOSITORY TYPE CODE TESTS RESULT OUT OF RANGE REFERENCE UNITS LAB GFRFN(LOINC >60mL/min/1.73m ) 2 eGFR >60 Result Comment: If the patient is , multiply the result by 1.210. Performed By: #### GFR #### [facility] [address] [place] [address] HEMOGRAM/DIFF Collected: 04/10/2018 Status: F Source: [facility] 2:54 AM HEALTH SYSTEM REPOSITORY TYPE CODE TESTS RESULT OUT OF REFERENCE UNITS RANGE LAB WBC(LOINC) 4.23-9.07 thou/cmm WBC 6.29 LAB RBC(LOINC) 4.63-6.08 mil/cmm Low RBC 4.01 LAB HGB(LOINC) 13.7-17.5 g/dL Low Hgb 11.8 LAB HCT(LOINC) 40.1-51.0 % Low Hct 37.0 LAB MCV(LOINC) 83.2-95.6 fl MCV 92.3 LAB MCH(LOINC) 25.7-32.2 pg MCH 29.4 LAB MCHC(LOINC 32.3-36.5 % ) Low MCHC 31.9 LAB RDW(LOINC) 11.6-14.4 % RDW 12.9 LAB RDWSD(LOIN 36.1-45.8 fl C) RDW SD 43.7 LAB PLT(LOINC) 141-365 thou/cmm Platelet 263 LAB MPV(LOINC) 8.7-12.0 fl MPV 10.5 LAB SEG(LOINC) % Seg Neutrophil 51.2 LAB IGRE(LOINC % ) Immature Grans 0.30 LAB LYMPH(LOIN % C) Lymphocyte 32.1 LAB MNO(LOINC) % Monocyte 9.9 LAB EOSIN(LOIN % C) Eosinophil 6.0 LAB BASO(LOINC % ) Basophil 0.5 LAB SEGN(LOINC 1.78-5.38 thou/cmm ) Abs. Neut (ANC) 3.22 LAB IGAB(LOINC 0.00-0.05 thou/cmm ) Abs Immature Grans 0.02 LAB LYMN(LOINC 0.84-2.85 thou/cmm ) Abs. Lymph 2.02 LAB MONON(LOIN 0.30-0.82 thou/cmm C) Abs. Tyler 0.62 LAB EOSN(LOINC 0.04-0.54 thou/cmm ) Abs. Eosin 0.38 LAB BASON(LOIN 0.01-0.08 thou/cmm C) Abs. Baso 0.03 Performed By: #### CBCD1 #### [place] [address] BASIC PANEL Collected: 04/10/2018 Status: F Source: [facility] 2:54 AM HEALTH SYSTEM REPOSITORY TYPE CODE TESTS RESULT OUT OF REFERENCE UNITS RANGE LAB NA(LOINC) 136-145 mEq/L Sodium Blood 138 LAB K(LOINC) 3.5-5.1 mEq/L Potassium Blood 4.5 LAB CL(LOINC) 98-107 mEq/L Chloride High Blood 109 LAB CO2(LOINC) 21-32 mEq/L CO2 Blood 25 LAB GLU(LOINC) 70-99 mg/dL Glucose Blood 90 LAB BUN(LOINC) 7-18 mg/dL BUN Blood 14 LAB CREA(LOINC 0.67-1.17 mg/dL ) Creatinine Blood 0.85 LAB CA(LOINC) 8.5-10.1 mg/dL Low Calcium Blood 8.2 LAB ANGAP(LOIN 8-16 C) Anion Gap 9 Performed By: #### P8 #### [place] [address] MAGNESIUM BLOOD Collected: 04/10/2018 Status: F Source: [facility] 2:54 AM HEALTH SYSTEM REPOSITORY TYPE CODE TESTS RESULT OUT OF REFERENCE UNITS RANGE LAB MAG(LOINC) 1.6-2.6 mg/dL Magnesium Blood 2.1 Performed By: #### MAG #### [place] [address] PHOSPHORUS BLOOD Collected: 04/10/2018 Status: F Source: [facility] 2:54 AM HEALTH SYSTEM REPOSITORY TYPE CODE TESTS RESULT OUT OF REFERENCE UNITS RANGE LAB PHOS(LOINC 2.5-4.9 mg/dL ) Phosphorus Blood 3.3 Performed By: #### PHOS #### [place] [address] NURSING PROG Observed: 04/09/2018 Status: COMPLETED Source: [place] 8:51 PM CLINIC OTHER CAMPUS REPOSITORY HNO ID: [id number] Author: Kat OlmedoRn) TEODORO Cooper Service: Nursing Author Type: Registered Nurse Type: Nursing Progress Note Filed: 04/09/2018 8:51 PM Note Text: Nursing Progress Note Patient Name: Yuval Nichols Jr. Patient Location: [place] [id number] Transfer Note: Patient transferred into room/unit 5214 in stable condition. Actions taken: Patient belongings with patient This note was completed by: Kat Cooper RN PROGRESS Observed: 04/09/2018 Status: COMPLETED Source: [place] 1:20 PM CLINIC OTHER CAMPUS REPOSITORY O ID: [id number] Author: Nona Jane Service: ADT-SICU Author Type: Physician Type: Progress Notes Filed: 04/10/2018 1:46 PM Note Text: Trauma Surgery Progress Note SERVICE DATE: 04/09/2018 Trauma Service Pager: For questions or concerns Mon-Fri 6a-5p please page [phone]. After 5pm and on Weekends and Holidays, please page [phone] if in ICU or [phone] if on RNF. SUBJECTIVE: No reported events ovenight. Denies any pain, numbness, weakness, nausea, vomiting. No other complaints. CTH this AM read as stable Tolerating diet DIET FOOD CONSISTENCY CONTROLLED OBJECTIVE: Vitals: Temp (24hrs), Av.3 ?C (97.3 ?F), Min:35.8 ?C (96.5 ?F), Max:36.6 ?C (97.9 ?F) BP 138/91 Pulse 67 Temp 36.1 ?C (97 ?F) (Axillary) Resp 17 Ht 180.3 cm (5' 11) Wt 83.4 kg (183 lb 13.8 oz) SpO2 95% BMI 25.64 kg/m? O2 Therapy: Room Air IANDO: Date 04/08/18699 - 04/09/1859 04/09/18699 - 04/10/18 0659 Shift 6620-1267 0238-1704 0854-9269 24 Hour Total 6988-7584 9244-1904 0521-8961 24 Hour Total I N T A K E PO 570 664 327 8678 1100 PO 570 326 869 6341 1100 IV 1850.3 951 2801.3 696 696 NS 0.9% 1850.3 951 2801.3 596 596 Magnesium IVPB 100 100 Shift Total 2420.3 1191 3611.3 1796 1796 O U T P U T Urine 390 909 1426 450 450 Void (ml) 699 171 2676 450 450 # of BMs Number of BMs 1 x 1 x Shift Total 828 476 7406 450 450 Weight (kg) 81.6 83.4 83.4 83.4 83.4 83.4 83.4 83.4 MEDICATIONS Current Facility-Administered Medications: acetaminophen 650 mg tab(s) (TYLENOL) 650 mg ORAL q 6 H atorvastatin 20 mg tab(s) (LIPITOR) 20 mg ORAL DAILY calcium gluconate 4 g in NaCl 0.9% 250 mL 4 g INTRAVENOUS PRN carboxymethylcellulose sodium 1-2 Drop (CELLUVISC) 1-2 Drop RIGHT EYE BID docusate sodium 100 mg cap(s) (COLACE) 100 mg ORAL DAILY docusate sodium 100 mg cap(s) (COLACE) 100 mg ORAL BID fenofibrate 200 mg cap(s) (LOFIBRA) 200 mg ORAL DAILY levETIRAcetam (KEPPRA) tab(s) 750 mg 750 mg ORAL BID magnesium sulfate in water 2 g in sterile water 50 ml 2 g INTRAVENOUS PRN NaCl 0.9% 2-10 mL 2-10 mL INTRAVENOUS q 12 H NaCl 0.9% iv infusion 100 mL/hr INTRAVENOUS CONTINUOUS ondansetron (PF) 4 mg injection (ZOFRAN) 4 mg INTRAVENOUS q 6 H PRN oxyCODONE IR 5 mg tab(s) (ROXICODONE) 5 mg ORAL q [address] 40 mg tab(s) (PROTONIX) 40 mg ORAL DAILY potassium chloride 80-120 mEq oral liquid 80-120 mEq ORAL/FEEDING TUBE PRN potassium chloride iv piggyback 20 mEq/100 mL 20 mEq INTRAVENOUS PRN QUEtiapine 25 mg tab(s) (SEROquel) 25 mg ORAL AT BEDTIME sertraline 50 mg tab(s) (ZOLOFT) 50 mg ORAL DAILY sodium glycerophosphate 45 mmol in NaCl 0.9% 250 mL (GLYCOPHOS) 45 mmol INTRAVENOUS PRN tamsulosin ER 0.8 mg cap(s) (FLOMAX) 0.8 mg ORAL DAILY Labs: Recent Labs 04/09/18 0230 04/08/18 0910 04/08/18 0830 NA 142 -- 140 K 3.9 -- 4.1 CHLOR 109* -- 107 CO2 25 -- 26 BUN 15 -- 13 CREAT 1.00 -- 0.83 GLUC 87 -- 88 ANION 12 -- 11 CA 7.9* -- 8.5 MG 1.6 -- -- P 4.1 -- -- ALB -- -- 3.1* AST -- -- 13 ALT -- -- 20 ALKPHOS -- -- 35* TBILI -- -- 0.2 WBC 6.68 5.73 -- HB 12.1* 13.2* -- HCT 37.9* 41.2 -- PLT 271 247 -- INR -- 1.05 -- Exam: GENERAL: No distress, chronic changes to R eye NEURO: AANDOx3, CN II-XII grossly intact HEENT: normocephalic aside from chronic R eye changes LUNGS: Unlabored breathing on RA CARDIAC: Regular rate and rhythm ABDOMEN: Soft, non-tender, non-distended EXTREMITIES: RODRÍGUEZ ASSESSMENT AND PLAN: Active Hospital Problems Diagnosis Date Noted - ICH (intracerebral hemorrhage) ([facility]) 04/08/2018 47 year old male with PMH seizures, anti-cardiolipin antibody, chronic stroke/trauma left sided neuro-changes s/p fall at rehab facility with acute hemorrhagic contusion and subarachnoid hemorrhage in the left frontal-temporal region Neuro: - Admit to NSICU - NSx consult: home romanra, 1u PLT, rpt CT Head stable - Neuro checks - May need neuro consult if concern for seizures - HOB>30 CV: - VSS - SBP <160 Resp: - On RA - IS GI: - D3 Diet - Home PPI : - Lytes prn - Strict Is and Os ID: - No antibiotics needed at this time - MRSA pending Heme: - History of Anti-cardiolipin antibody, will need OAC restarted once cleared by NSX - PLX/ASA held Endo: - No gluc abnromalities MSK: - PT/OT ordered PPX: - Home PPI - SCDs - Hold A/C due to acute head bleed Dispo: - possible RNF today SIGNATURE: Angeli Ba MD PATIENT NAME: Yuval Nichols Jr. DATE: April 09, 2018 TIME: 1:22 PM Pager: Trauma Service Pager: For questions or concerns Mon-Fri 6a-5p please page [phone]. After 5pm and on Weekends and Holidays, please page [phone] if in ICU or [phone] if on RNF. I provided 35 minutes of critical care services which were necessary due to above specified injuries and illnesses. This patient has a high probability of sudden, clinical significant deterioration, which required the highest level of care and preparedness to intervene urgently. I managed and supervised life or organ supporting interventions that require frequent assessments. This time does not include time devoted to teaching and to any procedure I billed separately. I have personally seen and examined this patient and participated in the sawyer components of this encounter with the multi-disciplinary ICU team. I discussed the management of this case with the resident and reviewed/confirmed their documentation, attached or in separate note. I personally reviewed today's actual images, the associated image reports, and current labs. I supervised the ordering of additional testing, imaging, labs, and/or consultations. The patient and/or family were fully informed of the findings and plan of care. They had the opportunity to ask questions and raise any issues of concern, all of which were answered and dealt with by me to their stated satisfaction. The critical care treatment was mainly directed to address the following issues: (S06.6X0A) Subarachnoid hemorrhage following injury, no loss of consciousness, initial encounter (HCC) (primary encounter diagnosis) Management included sedation, pain control and ventilation assessment including need for ventilator, weaning and/or extubation as indicated. Management of critical care illnesses are edited above by me, including system by system plan and are not only limited to infectious disease and tailoring the antibiotic therapy, nutrition assessment and supplementation, electrolyte correction and prevention of ICU related complications using ventilator bundle, sedation holiday and assessment and removal of lines and tubes where indicated. SIGNATURE: Nona Jane MD PATIENT NAME: Yuval Nichols Jr. DATE: April 09, 2018 TIME: 1:45 PM PROGRESS Observed: 04/09/2018 Status: COMPLETED Source: [place] 9:26 AM CLINIC OTHER CAMPUS REPOSITORY O ID: [id number] Author: Carolyne Edward Service: Neurosurgery Author Type: Physician Type: Progress Notes Filed: 04/09/2018 9:28 AM Note Text: Neurosurgery Progress Note SERVICE DATE: 04/09/2018 SUBJECTIVE: Stable overnight. No new complaints. OBJECTIVE: Vitals: Temp (24hrs), Av.4 ?C (97.6 ?F), Min:35.8 ?C (96.5 ?F), Max:36.8 ?C (98.2 ?F) BP 137/85 Pulse 72 Temp (!) 35.8 ?C (96.5 ?F) (Axillary) Resp 17 Ht 180.3 cm (5' 11) Wt 83.4 kg (183 lb 13.8 oz) SpO2 97% BMI 25.64 kg/m? O2 Therapy: Room Air IANDO: Date 04/08/18 07 - 04/09/18 0659 04/09/18 07 - 04/10/18 0659 Shift 3083-0894 4227-6580 2046-7707 24 Hour Total 5567-7956 8745-5924 1182-0155 24 Hour Total I N T A K E PO 570 240 810 PO 570 240 810 IV 1850.3 951 2801.3 263 263 NS 0.9% 1850.3 951 2801.3 213 213 Magnesium IVPB 50 50 Shift Total 2420.3 1191 3611.3 263 263 O U T P U T Urine 612 528 9243 Void (ml) 292 041 2118 Shift Total 529 522 7692 Weight (kg) 81.6 83.4 83.4 83.4 83.4 83.4 83.4 83.4 MEDICATIONS Current Facility-Administered Medications: acetaminophen 650 mg tab(s) (TYLENOL) 650 mg ORAL q 6 H atorvastatin 20 mg tab(s) (LIPITOR) 20 mg ORAL DAILY calcium gluconate 4 g in NaCl 0.9% 250 mL 4 g INTRAVENOUS PRN carboxymethylcellulose sodium 1-2 Drop (CELLUVISC) 1-2 Drop RIGHT EYE BID docusate sodium 100 mg cap(s) (COLACE) 100 mg ORAL DAILY docusate sodium 100 mg cap(s) (COLACE) 100 mg ORAL BID fenofibrate 200 mg cap(s) (LOFIBRA) 200 mg ORAL DAILY levETIRAcetam (KEPPRA) tab(s) 750 mg 750 mg ORAL BID magnesium sulfate in water 2 g in sterile water 50 ml 2 g INTRAVENOUS PRN NaCl 0.9% 2-10 mL 2-10 mL INTRAVENOUS q 12 H NaCl 0.9% iv infusion 100 mL/hr INTRAVENOUS CONTINUOUS ondansetron (PF) 4 mg injection (ZOFRAN) 4 mg INTRAVENOUS q 6 H PRN oxyCODONE IR 5 mg tab(s) (ROXICODONE) 5 mg ORAL q [address] 40 mg tab(s) (PROTONIX) 40 mg ORAL DAILY potassium chloride 80-120 mEq oral liquid 80-120 mEq ORAL/FEEDING TUBE PRN potassium chloride iv piggyback 20 mEq/100 mL 20 mEq INTRAVENOUS PRN QUEtiapine 25 mg tab(s) (SEROquel) 25 mg ORAL AT BEDTIME sertraline 50 mg tab(s) (ZOLOFT) 50 mg ORAL DAILY sodium glycerophosphate 45 mmol in NaCl 0.9% 250 mL (GLYCOPHOS) 45 mmol INTRAVENOUS PRN tamsulosin ER 0.8 mg cap(s) (FLOMAX) 0.8 mg ORAL DAILY Labs: Recent Labs 04/09/18 0230 04/08/18 0910 04/08/18 0830 NA 142 -- 140 K 3.9 -- 4.1 CHLOR 109* -- 107 CO2 25 -- 26 BUN 15 -- 13 CREAT 1.00 -- 0.83 GLUC 87 -- 88 ANION 12 -- 11 CA 7.9* -- 8.5 MG 1.6 -- -- P 4.1 -- -- ALB -- -- 3.1* AST -- -- 13 ALT -- -- 20 ALKPHOS -- -- 35* TBILI -- -- 0.2 WBC 6.68 5.73 -- HB 12.1* 13.2* -- HCT 37.9* 41.2 -- PLT 271 247 -- INR -- 1.05 -- Exam: GENERAL: No distress, Alert NEURO: Alert, oriented, Keesha HEENT: normocephalic, right forehead bruising LUNGS: Unlabored breathing CARDIAC: Regular rate and rhythm as above ABDOMEN: Soft, non-tender, non-distended EXTREMITIES: RODRÍGUEZ, No deformities, No edema SKIN: Skin color, texture, turgor normal, No rashes or lesions ASSESSMENT AND PLAN: Active Hospital Problems Diagnosis Date Noted - ICH (intracerebral hemorrhage) (HCC) 04/08/2018 47 year old male with traumatic SAH. His repeat CT was reviewed and shows no worsening. No surgical intervention is warranted. Neurosurgery will sign off at this time. Please reconsult if needed. SIGNATURE: Carolyne Edward MD PATIENT NAME: Yuval Nichols Jr. DATE: April 09, 2018 TIME: 9:26 AM Pager: [phone] PROGRESS Observed: 04/09/2018 Status: COMPLETED Source: [place] 7:17 AM CLINIC OTHER CAMPUS REPOSITORY HNO ID: [id number] Author: Dean Archuleta Service: Trauma Author Type: Physician Type: Progress Notes Filed: 04/10/2018 1:28 PM Note Text: Trauma Surgery Progress Note SERVICE DATE: 04/09/2018 Trauma Service Pager: For questions or concerns Mon-Fri 6a-5p please page [phone]. After 5pm and on Weekends and Holidays, please page [phone] if in ICU or [phone] if on RNF. SUBJECTIVE: No reported events ovenight. Denies any pain, numbness, weakness, nausea, vomiting. No other complaints. CTH this AM read as stable Tolerating diet DIET FOOD CONSISTENCY CONTROLLED OBJECTIVE: Vitals: Temp (24hrs), Av.6 ?C (97.8 ?F), Min:36.3 ?C (97.3 ?F), Max:36.8 ?C (98.2 ?F) BP 121/77 Pulse (!) 57 Temp 36.6 ?C (97.9 ?F) (Oral) Resp 10 Ht 180.3 cm (5' 11) Wt 83.4 kg (183 lb 13.8 oz) SpO2 96% BMI 25.64 kg/m? O2 Therapy: Room Air IANDO: Date 04/08/18699 - 04/09/1865804/09/18699 - 04/10/1859 Shift 6285-7842 0644-6146 6743-8127 24 Hour Total 6180-0001 9507-6148 6514-7944 24 Hour Total I N T A K E PO 570 240 810 PO 570 240 810 IV 1850.3 951 2801.3 NS 0.9% 1850.3 951 2801.3 Shift Total 2420.3 1191 3611.3 O U T P U T Urine 289 066 0470 Void (ml) 089 899 9884 Shift Total 898 119 8706 Weight (kg) 81.6 83.4 83.4 83.4 83.4 83.4 83.4 83.4 MEDICATIONS Current Facility-Administered Medications: acetaminophen 650 mg tab(s) (TYLENOL) 650 mg ORAL q 6 H atorvastatin 20 mg tab(s) (LIPITOR) 20 mg ORAL DAILY calcium gluconate 4 g in NaCl 0.9% 250 mL 4 g INTRAVENOUS PRN carboxymethylcellulose sodium 1-2 Drop (CELLUVISC) 1-2 Drop RIGHT EYE BID docusate sodium 100 mg cap(s) (COLACE) 100 mg ORAL DAILY docusate sodium 100 mg cap(s) (COLACE) 100 mg ORAL BID fenofibrate 200 mg cap(s) (LOFIBRA) 200 mg ORAL DAILY levETIRAcetam (KEPPRA) tab(s) 750 mg 750 mg ORAL BID magnesium sulfate in water 2 g in sterile water 50 ml 2 g INTRAVENOUS PRN NaCl 0.9% 2-10 mL 2-10 mL INTRAVENOUS q 12 H NaCl 0.9% iv infusion 100 mL/hr INTRAVENOUS CONTINUOUS ondansetron (PF) 4 mg injection (ZOFRAN) 4 mg INTRAVENOUS q 6 H PRN oxyCODONE IR 5 mg tab(s) (ROXICODONE) 5 mg ORAL q [address] 40 mg tab(s) (PROTONIX) 40 mg ORAL DAILY potassium chloride 80-120 mEq oral liquid 80-120 mEq ORAL/FEEDING TUBE PRN potassium chloride iv piggyback 20 mEq/100 mL 20 mEq INTRAVENOUS PRN QUEtiapine 25 mg tab(s) (SEROquel) 25 mg ORAL AT BEDTIME sertraline 50 mg tab(s) (ZOLOFT) 50 mg ORAL DAILY sodium glycerophosphate 45 mmol in NaCl 0.9% 250 mL (GLYCOPHOS) 45 mmol INTRAVENOUS PRN tamsulosin ER 0.8 mg cap(s) (FLOMAX) 0.8 mg ORAL DAILY Labs: Recent Labs 04/09/18 0230 04/08/18 0910 04/08/18 0830 NA 142 -- 140 K 3.9 -- 4.1 CHLOR 109* -- 107 CO2 25 -- 26 BUN 15 -- 13 CREAT 1.00 -- 0.83 GLUC 87 -- 88 ANION 12 -- 11 CA 7.9* -- 8.5 MG 1.6 -- -- P 4.1 -- -- ALB -- -- 3.1* AST -- -- 13 ALT -- -- 20 ALKPHOS -- -- 35* TBILI -- -- 0.2 WBC 6.68 5.73 -- HB 12.1* 13.2* -- HCT 37.9* 41.2 -- PLT 271 247 -- INR -- 1.05 -- Exam: GENERAL: No distress, chronic changes to R eye NEURO: AANDOx3, CN II-XII grossly intact HEENT: normocephalic aside from chronic R eye changes LUNGS: Unlabored breathing on RA CARDIAC: Regular rate and rhythm ABDOMEN: Soft, non-tender, non-distended EXTREMITIES: RODRÍGUEZ ASSESSMENT AND PLAN: Active Hospital Problems Diagnosis Date Noted - ICH (intracerebral hemorrhage) (HCC) 04/08/2018 47 year old male with PMH seizures, anti-cardiolipin antibody, chronic stroke/trauma left sided neuro-changes s/p fall at rehab facility with acute hemorrhagic contusion and subarachnoid hemorrhage in the left frontal-temporal region ? - D3 Diet - NSx consult: home dary, 1u PLT, rpt CT Head no change - Neuro checks - PT/OT today - Hold A/C due to acute head bleed - Home meds - pain/nausea control PRN I saw and evaluated the patient. Discussed with the resident and agree with resident's findings and plan as documented in the resident's note. Patient was awake alert and oriented. With no major complaints. Tolerating diet. Can potentially go to the floor today. SIGNATURE: Jey Fletcher MD PATIENT NAME: Yuval Nichols Jr. DATE: April 09, 2018 TIME: 7:18 AM Pager: Trauma Service Pager: For questions or concerns Mon-Fri 6a-5p please page [phone]. After 5pm and on Weekends and Holidays, please page [phone] if in ICU or [phone] HEAD W/O CONTRAST Observed: 04/09/2018 Status: F Source: [facility] 5:15 AM HEALTH SYSTEM REPOSITORY Performed at [facility] APPROVED BY: Galo Carlin MD BRAIN CT WITHOUT CONTRAST ENHANCEMENT Serial transverse images of the brain were obtained without contrast material. The study was performed within 24 hours of arrival to evaluate intracranial hemorrhage. CT Dose-Length Product (DLP): 774 mGy*cm CT Dose Reduction Employed: mAs or kVp was manually adjusted based on either the patient size or age Serial images redemonstrate evidence of acute hemorrhagic contusion and subarachnoid hemorrhage in the left frontal-temporal region. Mass effect is limited to partial effacement of sulci. Serial images demonstrate no definite evidence of acute infarction, mass lesion, or midline shift. Postoperative changes are again noted following a right frontal aurea hole craniectomies with associate d underlying encephalomalacia. There is generalized prominence of cortical subarachnoid spaces, cerebellar folia, and basal cisterns in conjunction with generalized ventricular dilatation. IMPRESSION: Acute hemorrhagic contusion and subarachnoid hemorrhage in the left frontal-temporal region as described above without significant associated mass effect, not significantly changed when comp ared with the previous study from 04/08/18. HEMOGRAM/DIFF Collected: 04/09/2018 Status: F Source: [facility] 2:30 AM HEALTH SYSTEM REPOSITORY TYPE CODE TESTS RESULT OUT OF REFERENCE UNITS RANGE LAB WBC(LOINC) 4.23-9.07 thou/cmm WBC 6.68 LAB RBC(LOINC) 4.63-6.08 mil/cmm Low RBC 4.06 LAB HGB(LOINC) 13.7-17.5 g/dL Low Hgb 12.1 LAB HCT(LOINC) 40.1-51.0 % Low Hct 37.9 LAB MCV(LOINC) 83.2-95.6 fl MCV 93.3 LAB MCH(LOINC) 25.7-32.2 pg MCH 29.8 LAB MCHC(LOINC 32.3-36.5 % ) Low MCHC 31.9 LAB RDW(LOINC) 11.6-14.4 % RDW 12.9 LAB RDWSD(LOIN 36.1-45.8 fl C) RDW SD 44.2 LAB PLT(LOINC) 141-365 thou/cmm Platelet 271 LAB MPV(LOINC) 8.7-12.0 fl MPV 10.2 LAB SEG(LOINC) % Seg Neutrophil 51.9 LAB IGRE(LOINC % ) Immature Grans 0.30 LAB LYMPH(LOIN % C) Lymphocyte 33.5 LAB MNO(LOINC) % Monocyte 9.1 LAB EOSIN(LOIN % C) Eosinophil 4.6 LAB BASO(LOINC % ) Basophil 0.6 LAB SEGN(LOINC 1.78-5.38 thou/cmm ) Abs. Neut (ANC) 3.47 LAB IGAB(LOINC 0.00-0.05 thou/cmm ) Abs Immature Grans 0.02 LAB LYMN(LOINC 0.84-2.85 thou/cmm ) Abs. Lymph 2.24 LAB MONON(LOIN 0.30-0.82 thou/cmm C) Abs. Tyler 0.61 LAB EOSN(LOINC 0.04-0.54 thou/cmm ) Abs. Eosin 0.31 LAB BASON(LOIN 0.01-0.08 thou/cmm C) Abs. Baso 0.04 Performed By: #### [id number] #### [place] [address] BASIC PANEL Collected: 04/09/2018 Status: F Source: [facility] 2:30 AM HEALTH SYSTEM REPOSITORY TYPE CODE TESTS RESULT OUT OF REFERENCE UNITS RANGE LAB NA(LOINC) 136-145 mEq/L Sodium Blood 142 LAB K(LOINC) 3.5-5.1 mEq/L Potassium Blood 3.9 LAB CL(LOINC) 98-107 mEq/L Chloride High Blood 109 LAB CO2(LOINC) 21-32 mEq/L CO2 Blood 25 LAB GLU(LOINC) 70-99 mg/dL Glucose Blood 87 LAB BUN(LOINC) 7-18 mg/dL BUN Blood 15 LAB CREA(LOINC 0.67-1.17 mg/dL ) Creatinine Blood 1.00 LAB CA(LOINC) 8.5-10.1 mg/dL Low Calcium Blood 7.9 LAB ANGAP(LOIN 8-16 C) Anion Gap 12 Performed By: #### P8 #### [place] [address] MAGNESIUM BLOOD Collected: 04/09/2018 Status: F Source: [facility] 2:30 AM HEALTH SYSTEM REPOSITORY TYPE CODE TESTS RESULT OUT OF REFERENCE UNITS RANGE LAB MAG(LOINC) 1.6-2.6 mg/dL Magnesium Blood 1.6 Performed By: #### MAG #### [facility] [address] [place] [address] PHOSPHORUS BLOOD Collected: 04/09/2018 Status: F Source: [facility] 2:30 AM HEALTH SYSTEM REPOSITORY TYPE CODE TESTS RESULT OUT OF REFERENCE UNITS RANGE LAB PHOS(LOINC 2.5-4.9 mg/dL ) Phosphorus Blood 4.1 Performed By: #### PHOS #### [facility] [address] [place] [address] IONIZED CALCIUM Collected: 04/09/2018 Status: F Source: [facility] 2:30 AM HEALTH SYSTEM REPOSITORY TYPE CODE TESTS RESULT OUT OF REFERENCE UNITS RANGE LAB CAION(LOINC 4.43-4.93 mg/dL ) Ionized 4.49 Calcium LAB PHCAI(LOINC 7.320-7.420 ) pH 7.353 LAB CAPH(LOINC) 4.36-4.73 mg/dL Ionized 4.39 Ca,PH7.4 Performed By: #### IONCA #### [facility] [address] [place] [address] Observed: 04/08/2018 Status: F Source: [facility] MRSA SCREEN 11:55 AM HEALTH SYSTEM REPOSITORY Test performed at [facility] No MRSA detected. Performed By: #### MRSA #### [facility] [address] [place] [address] ED NOTE Observed: 04/08/2018 Status: COMPLETED Source: [place] 11:29 AM CLINIC OTHER CAMPUS REPOSITORY HNO ID: [id number] Author: Meghan (Rn) TEODORO Dupont Service: Emergency Medicine Author Type: Registered Nurse Type: ED Notes Filed: 04/08/2018 11:29 AM Note Text: Dr Montejo to consent pt for platelets PELVIS 1 OR 2 VIEWS Observed: 04/08/2018 Status: F Source: [facility] 10:10 AM HEALTH SYSTEM REPOSITORY Performed at [facility] APPROVED BY: CANDELARIA SILVEIRA MD TECHNIQUE: PELVIS 1 OR 2 VIEWS EXAM DATE: 04/08/2018 10:10 AM CLINICAL HISTORY: Hip trauma, fx suspected, initial exam COMPARISON: None RESULT: There are nonspecific bony changes about the right ischium. Images of the hip joints demonstrate no evidence of fracture, nor of dislocation. IMPRESSION: Nonspecific bony changes about the right ischium may be secondary to trauma, but other etiologies are possible. Correlate with clinical findings and patient history. CHEST 1 VIEW Observed: 04/08/2018 Status: F Source: [facility] 10:10 AM HEALTH SYSTEM REPOSITORY Performed at [facility] APPROVED BY: Chon Maradiaga MD EXAM TITLE: CHEST 1 VIEW DATE: 04/08/2018 10:00 INDICATION: Blunt chest trauma secondary to a fall COMPARISON: 08/28/2009 FINDINGS: Lungs are clear and there is no visible pneumothorax. Heart is not enlarged. There is a healed appearing left sixth rib fracture. IMPRESSION: No acute process. Follow-up is suggested as clinically indicated. PLAN OF CARE Observed: 04/08/2018 Status: COMPLETED Source: [place] 9:59 AM CLINIC OTHER CAMPUS REPOSITORY HNO ID: [id number] Author: Narda Carcamo (General Helper) Service: (none) Author Type: Business Continuity Planning Director Type: Plan of Care Filed: 04/08/2018 10:00 AM Note Text: MEDICATION HISTORY Patient Name:Hernando Nichols Jr. : 1970 Source of history:Patient: Reliability of source: Appears reliable, clearly identified: Medication name and Pharmacy records: [facility] [phone] Medication Nonadherence Identified: No barriers noted The above information represents the best possible medication history: Yes Additional comments: N/A Allergies: ALLERGIES Allergen Reactions - Darvocet A500 [Prop* Other: See Comments Hot flashes - Penicillins Hives Preferred Pharmacy: [facility] [phone] Current [employer] Medications: Prior to Admission medications as of 04/08/18 0612 Medication Sig Last Dose Taking aspirin 81 mg chewable tablet Take 81 mg by mouth once daily. Yes atorvastatin (LIPITOR) 20 mg tablet Take 20 mg by mouth once daily. Yes clopidogrel (PLAVIX) 75 mg tablet Take 75 mg by mouth once daily. Yes docusate sodium (COLACE) 100 mg capsule Take 100 mg by mouth once daily. Yes etodolac (LODINE) 400 mg tablet Take 400 mg by mouth twice daily. Yes fenofibrate nanocrystallized (TRICOR) 145 mg tablet Take 145 mg by mouth once daily. Yes levETIRAcetam (KEPPRA) 750 mg tablet Take 750 mg by mouth twice daily. Yes Omeprazole 40 mg capsule Take 40 mg by mouth once daily. Yes QUEtiapine (SEROQUEL) 25 mg tablet Take 25 mg by mouth daily at bedtime. Yes sertraline (ZOLOFT) 50 mg tablet Take 50 mg by mouth once daily. Yes tamsulosin ER (FLOMAX) 0.4 mg cap Take 0.8 mg by mouth once daily. Yes carboxymethylcellulose sodium (CELLUVISC) 1 % dlgl Use 1-2 Drops in the right eye twice daily. Narda Carcamo ([employer]) [phone] April 08, 2018 10:00 AM ED NOTE Observed: 04/08/2018 Status: COMPLETED Source: [place] 9:58 AM [facility] OTHER CAMPUS REPOSITORY HNO ID: [id number] Author: Meghan OlmedoRn) TEODORO Dupont Service: Emergency Medicine Author Type: Registered Nurse Type: ED Notes Filed: 04/08/2018 10:01 AM Note Text: Dr Recio notified consent for Platelets not done; Dr montejo and Dr Stone notified, per Dr montejo pt can get consented on floor and given platelets there. Dr Recio needs to get consent CONSULT Observed: 04/08/2018 Status: COMPLETED Source: [place] 9:57 AM [facility] OTHER [place] REPOSITORY HNO ID: [id number] Author: Nona Jane Service: ADT-SICU Author Type: Physician Type: Consults Filed: 04/10/2018 1:46 PM Note Text: SICU CONSULT ARRIVAL DATE: April 08, 2018 ARRIVAL TIME: 9:30 AM CATEGORY: Level 3 INJURY DATE: April 08, 2018 INJURY TIME: last night Subjective This is a 47 year old White male with PMH of unspecified seizure disorder, recent stroke with residual left-sided weakness and decreased vision, HTN, HLD, GERD, + anti-cardiolipin antibody, crani in 1988 (per patient). Patient fell from his bed at the rehab facility he was in last night. GCS at Scene was 15. No LOC no amnesia. Patient remembers hitting his head, states he only has some pain on his left frontal scalp where a small hematoma can be seen. He denies any vision changes, weakness, numbness, nausea, emesis, abdominal pain, SOB, CP. Patient was recently admitted and discharged from [facility] for AMS, concern for stroke. CT Head and CTA H/N did not show any abnormalities at the time. BEM from that admission showed bilateral cortical dysfunction that is maximum in the right hemisphere with potential epileptogenicity arising from the right temporal parietal region greater than the left temporo-parietal region. Patient takes ASA and Plavix at home. HPI/CHIEF COMPLAINT: Fall BRIEF DESCRIPTION OF INJURIES: Acute hemorrhagic contusion and subarachnoid hemorrhage in the left frontal-temporal region LAST FLUIDS/MEAL: Last night CODE STATUS: Not discussed ALLERGIES Allergen Reactions - Darvocet A500 [Prop* Other: See Comments Hot flashes - Penicillins Hives (Not in a hospital admission) DATE OF LAST TETANUS: Unknown There is no immunization history on file for this patient. PAST MEDICAL HISTORY Diagnosis Date - Benign prostatic hyperplasia - GERD (gastroesophageal reflux disease) - Hyperlipemia - Hypertension - Major depression - Psychiatric disorder - Stroke (HCC) No past surgical history on file. Social History Marital status: Single Spouse name: Years of education: Number of children: Social History Main Topics Smoking status: Former Smoker Packs/day: 0.00 Years: 0.00 Smokeless tobacco: Never Used Alcohol use: No Drug use: No ROS: Is the patient having any pain? Yes LOCATION: left forehead Constitutional: Negative Eye/Ear/Nose: Negative Respiratory: Negative Cardiovascular: Negative GI/Liver/Biliary: Negative Genitourinary: Negative Psychiatric: Negative Neurologic: Negative Musculoskeletal: Negative Integument: Negative Endocrine: Negative Heme/Lymph: Negative Objective PRIMARY SURVEY AIRWAY: Patent BREATHING: Breath sounds equal CIRCULATION: PT/DP +, Radials +, Femoral + DISABILITY: Eye: 4=Spontaneous Verbal: 5=Oriented and Converses Motor: 6=Obeys Commands Total GCS: 15=4 Resp Rate: 10 to 29=4 Syst BP: > than 89=4 REVISED TRAUMA SCORE: 12 EXPOSE / ENVIRONMENT: Warm Blankets PROCEDURES: none SECONDARY SURVEY VITALS: 04/08/18 0630 04/08/18 0700 04/08/18 0800 04/08/18 0900 BP: 121/80 126/81 117/90 Pulse: 57 57 (!) 50 56 Resp: (!) 11 (!) 11 (!) 11 (!) 11 Temp: TempSrc: SpO2: 95% 96% 97% 97% Weight: Height: NEURO: Alert AND Oriented x 3, GCS 15, Cranial Nerves II-XII Intact, Moves All Extremities, Strength Symmetrical, decreased vision in left eye HEENT: Head: No lacerations or abrasions, no bony step offs, midface stable to palpation, Eyes: PERRL, conjunctiva/corneas without lesions, EOM intact, Ears: Canals without blood or CSF drainage, TMs clear, external ears without lacerations, Nose: Septum midline, no crepitus with motion, Throat: Oral mucosa without lacerations, teeth in place, tongue without lacerations. Small left forehead hematoma. Left eye with prior deformity and chronic decreased vision NECK: No midline pain with palpation, No pain with active ROM, No lacerations/wounds, Trachea midline RESPIRATORY: No abrasions or contusions, No crepitus, No TTP, Equal Excursion CARDIOVASCULAR: Heart rate regular ABDOMEN: Non-distended, Non-tenderness or peritoneal signs PELVIC/PERINEAL: Pelvis stable to palpation, No blood noted at urethra meatus BACK/SPINE: Thoracolumbar spinal column non-tender, No step off or deformity noted, No external injury noted EXTREMITIES: RODRÍGUEZ, no deformities, no lacerations/abrasions, contusions RADIOLOGICAL/OTHER TEST DATA: CT HEAD/NECK: Acute hemorrhagic contusion and subarachnoid hemorrhage in the left frontal-temporal region as described above without significant associated mass effect, consistent with a traumatic etiology. No definitive evidence of acute fracture or dislocation as described above. PRIOR TO ARRIVAL: No Loss of Consciousness No ETT LABS: CBC, Coags, BMP, Mg, Phos Recent Labs 04/08/18 0910 04/08/18 0830 WBC 5.73 -- HB 13.2* -- HCT 41.2 -- PLT 247 -- INR 1.05 -- APTT 23.3 -- NA -- 140 K -- 4.1 CHLOR -- 107 CO2 -- 26 BUN -- 13 CREAT -- 0.83 GLUC -- 88 CA -- 8.5 Liver Function, Amylase, AND Lipase Recent Labs 04/08/18 0830 TPROT 6.9 ALB 3.1* ALT 20 AST 13 ALKPHOS 35* TBILI 0.2 LIPASE 504* Assessment/Plan 47 year old male with PMH seizures, anti-cardiolipin antibody, chronic stroke/trauma left sided neuro-changes s/p fall at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 file - Alcohol use Not on file - Drug use: Unknown - Sexual activity: Not on file ALLERGIES Allergen Reactions - Darvocet A500 [Prop* Other: See Comments Hot flashes - Penicillins Hives Review of Systems Constitutional: Negative for chills and fever. HENT: Negative for congestion and sore throat. Eyes: Negative for visual disturbance. Respiratory: Negative for cough and shortness of breath. Cardiovascular: Negative for chest pain, palpitations and leg swelling. Gastrointestinal: Negative for abdominal pain, constipation, diarrhea, nausea and vomiting. Genitourinary: Negative for dysuria and frequency. Musculoskeletal: Negative for back pain and neck pain. Skin: Positive for wound. Negative for rash. Neurological: Negative for dizziness, weakness and light-headedness. Physical Exam BP 134/95 Pulse 63 Temp (Src) 97.7 (Oral) Resp 18 Ht 5' 8 (1.73m) Wt 180 lb (81.6kg) SpO2 99% BMI 27.38 kg/(m2). Physical Exam Constitutional: He is oriented to person, place, and time. He appears well-developed and well-nourished. No distress. HENT: Contusion over right forehead Superior to the right orbit. skull deformity surrounding the right orbit for an injury of patient was young. no hemotympanums. No hein sign. No raccoon eyes. No malocclusion. No intraoral trauma. Eyes: right eye deformed due to altered back injury Left eye pupils round and reactive to light. Extraocular motion intact. Neck: Normal range of motion. Neck supple. no C-spine tenderness step-offs or deformities. Cardiovascular: Normal rate, regular rhythm, normal heart sounds and intact distal pulses. No murmur heard. Pulmonary/Chest: Effort normal and breath sounds normal. No respiratory distress. He has no wheezes. Abdominal: Soft. Bowel sounds are normal. He exhibits no distension. There is no tenderness. Musculoskeletal: Normal range of motion. He exhibits no edema, tenderness or deformity. Neurological: He is alert and oriented to person, place, and time. No cranial nerve deficit. Skin: Skin is warm and dry. Capillary refill takes less than 2 seconds. He is not diaphoretic. Nursing note and vitals reviewed. Diagnostic Testing ED Labs Ordered and Reviewed - No data to display Procedures ED Course / Clinical Impression Clinical Impressions as of Apr 08 2300 Subarachnoid hemorrhage following injury, no loss of consciousness, initial encounter ([facility]) MDM / Disposition / Plan 47-year-old male presents after a fall. given patient's comorbid conditions we'll obtain CT brain and C-spine. CT brain demonstrated a traumatic subarachnoid hemorrhageand hemorrhagic contusion in the left frontotemporal region without mass effect. CT C-spine demonstrated no acute fractures or dislocations. Trauma surgery was consulted again to evaluate patient. Neurosurgery was consulted. Trauma labs were obtained. Patient was admitted to the surgical intensive care unit in stable condition. SIGNATURE: MD Benjamin Marvin (Res) [place] Resident 04/08/18 0957 Cassandra Rajan DO 04/25/18 0156 CBC-COMPLETE BLOOD CNT Collected: 04/06/2018 Status: F Source: [place] NO DIFF 6:30 AM [facility] REPOSITORY Order Comment: 104-2 TYPE CODE TESTS RESULT OUT OF RANGE REFERENCE UNITS LAB L100.1000 4.4-11.0 K/mm3 Normal WBC 4.8 LAB L100.1200 4.6-6.2 M/mm3 Low RBC 4.21 LAB L100.1300 13.0-16.5 g/dl Low HGB 12.5 LAB L100.1400 40-54 % Low HCT 39.4 LAB L100.1500 80-94 fL Normal MCV 93.6 LAB L100.1600 27.0-32.0 pg Normal MCH 29.7 LAB L100.1700 32-36 g/gl Low MCHC 31.7 LAB L100.1810 11.6-14.6 % Normal RDW CV 12.6 LAB L100.1820 35.1-43.9 fl Normal RDW SD 42.3 LAB L100.1900 150-450 K/mm3 Normal PLT 251 LAB L100.2000 6.2-12.0 fl Normal MPV 10.8 Performed By: #### L100.0500 #### [facility] [place], [address] COMPREHENSIVE METABOLIC Collected: 04/06/2018 Status: F Source: [place] PROFIL 6:30 AM [facility] REPOSITORY Order Comment: 104-2 PATIENT HAD A SIP OF POP PRIOR TO BLOOD DRAW TYPE CODE TESTS RESULT OUT OF RANGE REFERENCE UNITS LAB L501.0100 74-106 mg/dL Normal GLU 74 Result Comment: Please note revised GLUCOSE reference range effective 2017. LAB L501.1000 7-18 mg/dL Normal BUN 14 LAB L501.1100 0.70-1.30 mg/dL Normal CREAT,SERUM 0.96 Result Comment: The validity of the calculated GFR AND GFRAA in patients over 70 years has not been determined. Clinical correlation is essential. LAB L501.1110 >60 mL/min Normal EST GFR 88 Result Comment: Non- GFR Calc LAB L501.1115 >60 mL/min Normal EST GFR - AA 106 Result Comment: GFR Calc LAB L501.1300 10-20 RATIO Normal BUN/CRE 14.5 LAB L501.1500 6.4-8.2 g/dL T Normal PROT 6.8 LAB L501.1800 3.2-5.0 g/dL Normal ALB 3.2 LAB L501.1950 2.2-4.2 g/dL Normal GLOB 3.6 LAB L501.2000 0.9-2.4 RATIO Normal A/G 0.9 LAB L501.2200 8.5-10.1 mg/dL CA Normal 8.5 LAB L501.4100 15-37 U/L Normal AST 15 LAB L501.4305 45-117 U/L Low ALK P 41 LAB L501.4405 16-61 U/L Normal ALT 18 LAB L501.4600 0.20-1.00 mg/dL T Normal BILI 0.20 LAB L501.5300 136-145 mmol/L NA Normal 144 LAB L501.5600 3.5-5.1 mmol/L K Normal 4.1 LAB L501.5900 98-107 mmol/L High CL 108 LAB L501.6100 21.0-32.0 mmol/L Normal CO2 29.0 LAB L501.6200 5-15 Normal GAP 7 Performed By: #### L500.4050, L500.4100, L501.9520 #### [facility] [address] [place], [address] LIPID PROFILE Collected: 04/06/2018 Status: F Source: [place] 6:30 AM [facility] REPOSITORY Order Comment: 104-2 PATIENT HAD A SIP OF POP PRIOR TO BLOOD DRAW TYPE CODE TESTS RESULT OUT OF RANGE REFERENCE UNITS LAB L501.4900 200 mg/dL Normal CHOL 128 Result Comment: <200 mg/dL Desirable 200-240 mg/dL Borderline >240 mg/dL High Risk LAB L501.5000 mg/dL Normal TRIG 164 Result Comment: The drugs N-Acetylcysteine and Metamizole may falsely depress this assay. Serum Triglycerides Reference Interval Normal <150 mg/dL Borderline high 150 - 199 mg/dL High 200 - 499 mg/dL Very High > or = 500 mg/dL LAB L501.6400 mg/dL Low HDL 29 Result Comment: The drugs N-Acetylcysteine and Metamizole may falsely depress this assay. Reference Range HDL <40 mg/dL Low HDL Cholesterol HDL >or= 60 mg/dL High HDL Cholesterol LAB L501.6500 0-130 mg/dL Normal LDL 66 LAB L501.6600 5-40 mg/dL Normal VLDL 33 Performed By: #### L500.4050, L500.4100, L501.9520 #### [facility] [address] [place], [address] THYROID STIM HORMONE Collected: 04/06/2018 Status: F Source: [place] ([facility]) 6:30 AM [facility] REPOSITORY Order Comment: 104-2 PATIENT HAD A SIP OF POP PRIOR TO BLOOD DRAW TYPE CODE TESTS RESULT OUT OF RANGE REFERENCE UNITS LAB L501.9520 0.358-3.74 uIU/mL Normal TSH 1.48 Performed By: #### L500.4050, L500.4100, L501.9520 #### [facility] [address] [place], [place], [id number] CASE MANAGEM Observed: 03/31/2018 Status: COMPLETED Source: [place] 2:14 PM [facility] REPOSITORY HNO ID: [id number] Author: Viviane (Rn) TEODORO Smith Service: Care Management Author Type: Registered Nurse Type: Care Mgt Progress Note Filed: 03/31/2018 2:28 PM Note Text: CARE MANAGEMENT DISCHARGE NOTE SERVICE DATE: 03/31/2018 SERVICE TIME: 2:15 PM LOS: 6 days Admission Date: 03/25/2018 DISCHARGE ARRANGEMENT (list agency and phone number) long-term facility: Was an expedited discharge program used? No Provider: muriel [id number] CAREGIVER ASSESSMENT: Caregiver is ready, willing and able to meet the patient's needs as recommended by the inter-professional team? Yes Patient's transition needs and plan for meeting these needs: SNF Does the patient have an acute stroke diagnosis, or has the patient had a stroke during this admission? No HANDOFF COMMUNICATION: na TRANSPORTATION ARRANGEMENTS: Mode of Transportation: [employer] Agency and Phone #: [facility] ambulance ( [facility] ) [phone] / [phone]. Date of Trip: 03/31/2018 Type of Service: Wheelchair Is Patient Medicaid Pending: No Discussion of financial coverage occurred with Patient . Supervisor Real Estate Office Location: 8119 Destination: [facility] Financial Care Management Responsibility: None Estimated Charge: na Approving Help Desk Engineer: nano ADDITIONAL CONTACT RESOURCES: na Discharge Information Row Name Admission (Current) from 03/25/2018 in [place] 8100 NEURO/CARD Fdc Facility Agency [facility] [address] nurse Needs Prior to Discharge: To Be Determined Notified pt and pt's sister, will be discharged to SNF at 830 by wheelchair. SIGNATURE: Viviane Smith RN PATIENT NAME: Yuval Nichols Jr. DATE: March 31, 2018 TIME: 2:15 PM PAGER/CONTACT #: [phone] CNDS Observed: 03/31/2018 Status: COMPLETED Source: [place] 1:49 PM [facility] REPOSITORY O ID: [id number] Author: Patricia Marquez MD Service: Hospital Medicine Author Type: Resident Type: Discharge Summaries Filed: 03/31/2018 2:00 PM Note Text: Attestation signed by Christy Lakhani at 03/31/2018 5:59 PM Discussed discharge with pt, his sister, his home care companion and our team. See also today's progress note. Disposition - med stable for dc to rehab, see follow up recommendations below with regard to HCPOA/guardian designation needed due to concern for pt's baseline mental status, high risk for decompensation with any med compliance, neglect/self neglect as this admission was essentially due to same. DISCHARGE SUMMARY PATIENT NAME: Yuval Nichols Jr. ADMISSION DATE: 03/25/2018 DISCHARGE DATE: 03/31/2018 Attending Physician: Christy Lakhani Code Status: Not on file Highest Readmission Risk Score: 22 The 30 day readmissions risk score is derived from an internally validated risk model which evaluates patient level characteristics, utilization history, medication orders and lab results up until the day of discharge. Patients with a score of 40 or above are considered highest risk for readmission. Specific patient level drivers will be listed at the bottom of the summary. PRINCIPAL PROBLEM: Altered mental status HPI: Mr. Nichols is a 47 YOM with a PMH of unspecified seizure disorder, recent stroke with residual left-sided weakness, HTN, HLD, GERD, + anti-cardiolipin antibody, presenting as transfer from outside ED for AMS. Per son, they came to patient's home early this morning and found him minimally responsive. Tried to rouse patient and were unable to. Found patient in his own urine. 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 He also reports his father had stroke in April but cannot tell me where he was treated for this and there are no records available in care everywhere. After pesonally calling [facility] patient has had at least two admissions for exact same presentation. ? ED Course: CBC, BMP WNL. Mg+ 1.5. UDS negative, UA negative. Keppra level pending CT brain negative for acute process but demonstrates post-operative changes consistent with anterior right frontal craniotomy with encephalomalacia, small vessel chronic ischemia as well as generalized volume loss. CTA head/neck negative. CXR with patchy left atelectasis v infiltrate Patient given 1L NS bolus, 3g MgSO4, and placed on MIVF. Patient transferred to [facility] for further care due to possible need for neuro intensive care. Operations During Hospitalization: None Procedures During Hospitalization: EEG, CT Hospital Course: - Mr. Nichols is a 47 YOM with a PMH of unspecified seizure disorder, recent stroke with residual left-sided weakness, HTN, HLD, GERD, + anti-cardiolipin antibody, presenting as transfer from outside ED for AMS. - ED Course: CBC, BMP ?WNL. Mg+ 1.5. UDS negative, UA negative - CT brain negative for acute process but demonstrates post-operative changes consistent with anterior right frontal craniotomy with encephalomalacia, small vessel chronic ischemia as well as generalized volume loss. - CTA head/neck negative. - MRI was not done due to CI - CXR with patchy left atelectasis v infiltrate. - Patient was given 1L NS bolus, 3g MgSO4, and placed on MIVF in the ED - Keppra 750mg BID was started. - Pt had 6 beats of vtach 2nd day of admission, lytes were checked, significant for K 3.3, trop was neg, and EKG was checked which showed SINUS BRADYCARDIA WITH MARKED SINUS ARRHYTHMIA, POSSIBLE LEFT ATRIAL ENLARGEMENT - Pt was put on seizure precaution - Pt mental status improved than before , verbalizing, eating breakfast with no issues. - Psych followed up with pt, agrees with low dose zoloft and seroquel and adding for breakthrough agitation/hallucination ativan/benadryl/haldol. - BEM result showed a bilateral cortical dysfunction that is maximum in the right hemisphere with potential epileptogenicity arising from the right temporal parietal region greater than the left temporo-parietal region but no seizures recorded. - KEppra level came back 16 - Neuro followed up with pt, plan to continue keppra 750 BID - Plan per neuro to fu with Dr longo and DC when medically cleared - ST eval was done , recs thin liquids - PTOT were following up with pt. - pt was med stable on 03/30 for dc to rehab when arrangements made. Recoommended follow up before or after discharge with regard to HCPOA/?guardian designation in future as pt's baseline mental status causes concern for competency, with high risk for delirium - Plan was to fu with home care companion for placement Assessment AND Plan, Most Recent Note from ALL Problems our Service Addressed Neurology * Altered mental status Assessment: - uncertain etiology. Family provides minimal history and patient currently is non-verbal. - History of strokes and seizures, and patient could have a new stroke resulting in aphasia (difficult to determine if focal deficits as he is non-compliant with exam), as well as could be post-ictal from seizure activity. - Lab work up unremarkable thus far. Still unclear if any use of ETOH at home, and thus also need to consider w/d sz. - 03/27 Pt was agitated and irritable overnight , and he hit his head to the wall , was hallucinating , given haldol and ativan and he calmed down - Repeated head CT was done which was negative - Improved as of 03/28 - Psych followed up with pt, agrees with low dose zoloft and seroquel and adding for breakthrough agitation/hallucination ativan/benadryl/haldol. - BEM result showed a bilateral cortical dysfunction that is maximum in the right hemisphere with potential epileptogenicity arising from the right temporal parietal region greater than the left temporo-parietal region but no seizures recorded. - KEppra level came back 16 - MRI was not done as pt is eligible for that ?PLAN: -Continue home doses of ASA/Plavix, Statin. -Continue Keppra 750mg BID.,switched to PO -Continue to correct metabolic derangements -Monitor for possible ETOH w/d - CIWA. Unclear hx of ETOH use, thus also recommend, Thiamine, Folate, MVI, B12. -Seizure precautions. - Per neuro 03/29 : continue home dose keppra and DC when medically cleared, fu with Dr Donta Baron - Consider sitter if family won't be around with pt - Following up with home care companion for placement to SNF - Put pt on tele Stroke (HCC) Assessment: Prior CVA (04/2017), unspecified location. - Repeated CT without acute changes - TSH normal, lipid panel normal PLAN: - Continue with ASA, statin. - fu neuro recs Seizure ([facility]LY [facility]) Assessment: History of seizure disorder with recurrent breakthrough seizures, suspect medication non-compliance v breakthrough seizure. Low suspicion for infectious precipitant, drug ingestion, ETOH, strenuous exercise, or sleep deprivation. . - BEM result showed a bilateral cortical dysfunction that is maximum in the right hemisphere with potential epileptogenicity arising from the right temporal parietal region greater than the left temporo-parietal region but no seizures recorded. - Keppra level came back 16 PLAN: - Imaging negative for acute process. - Resumed 750 BID PO. - Seizure precautions. - Ativan PRN for breakthrough seizures. Ob - fu with neuro recs Cardiovascular Hypertension Assessment: HTN, controlled PLAN: Patient currently normotensive, does not appear to be on anti-hypertensive therapy at the moment. Monitor BP. Hydralazine PRN for SBP>160. Hyperlipidemia Assessment: HLD on statin therapy - Lipid panel with LDL 88 ? PLAN - continue with statin Gastrointestinal GERD (gastroesophageal reflux disease) Assessment: GERD without esophagitis PLAN: Continue with PPI Resolved Hospital Problems as of 03/31/2018 Noted - Resolved Hospital Ventricular tachycardia (HCC) 03/26/2018 - 03/31/2018 Hypokalemia 03/26/2018 - 03/28/2018 Transitions of Care Critical Issues: NEW BASELINE FOR PATIENT: Need SNF SPECIALIST FOLLOW-UP: Neurology and PCP LABS AND PROCEDURES PENDING AT DISCHARGE: No pending results. Consulting Teams During Hospitalization: Neurology: Dr Leahy Patient Condition @ Discharge: Fair Patient is able to complete ADLS but not IADLS which represents a return to baseline mental/physical health. Discharge Disposition: Fdc Facility Discharge Physical Exam: VITAL SIGNS: BP 132/82 Pulse 65 Temp 37.2 ?C (99 ?F) (Oral) Resp 16 Ht 175.3 cm (5' 9) Wt 84.4 kg (186 lb) SpO2 99% BMI 27.47 kg/m? GENERAL: Alert and oriented x1-2, answering appropriately, following commands LUNGS: Lungs clear to auscultation, Good diaphragmatic excursion CARDIAC: Normal S1 and S2; no rubs, murmurs, or gallops ABDOMEN: Abdomen soft, non-tender, BS normal, No masses or organomegaly EXTREMITIES: Extremities normal, no deformities, edema, clubbing or skin discoloration. Good capillary refill., No ulcers NEURO: Moves all four extremities. Withdrawals from pain, Previous traumatic right orbital area. Diet: Resume pre-hospital diet Activity: Resume pre-hospital activity Wound/Surgical Site Care: None ALLERGIES Allergen Reactions - Darvocet A500 [Prop* Other: See Comments Hot flashes - Penicillins Hives Discharge Medications: Current Discharge Medication List START taking these medications carboxymethylcellulose sodium (CELLUVISC) 1-2 Drops Use 1-2 Drops in the right eye twice daily. CONTINUE these medications which have NOT CHANGED omeprazole (PriLOSEC) 40 mg Take 40 mg by mouth once daily. tamsulosin ER (FLOMAX) 0.8 mg Take 0.8 mg by mouth once daily. docusate sodium (COLACE) 100 mg Take 100 mg by mouth once daily. QUEtiapine (SEROquel) 25 mg Take 25 mg by mouth daily at bedtime. fenofibrate nanocrystallized (TRICOR) 145 mg Take 145 mg by mouth once daily. sertraline (ZOLOFT) 50 mg Take 50 mg by mouth once daily. levETIRAcetam (KEPPRA) 750 mg Take 750 mg by mouth twice daily. atorvastatin (LIPITOR) 20 mg Take 20 mg by mouth once daily. clopidogrel (PLAVIX) 75 mg Take 75 mg by mouth once daily. aspirin 81 mg Take 81 mg by mouth once daily. etodolac (LODINE) 400 mg Take 400 mg by mouth twice daily. mineral oil-polyethylen, bulk, 90 % oint Future Appointments: Follow Up Appointments Follow-Up Appointment Follow up with PCP 2 weeks after hospital discharge When: In 2 weeks Patient/Parents to call for appointment?: Yes Galo Thad Pedro [phone] [facility] [address] [facility] [address] PCP Requested Referral Follow-Up Appointment Follow up with neurology 1 month after discharge When: In 4 weeks Patient/Parents to call for appointment?: Yes Lai Leahy MD [phone] [facility] [address] PCP Requested Referral Discharge Information Row Name Admission (Current) from 03/25/2018 in [place] 81 NEURO/CARD Fdc Facility Agency [facility] [address] [place] nurse The patient's risk for 30-day readmission is determined using the following contributing factors: Pt variables contributing to increased readmission risk: 17 Most Recent BUN Result 17 Active Medication Orders 8.3 First Resulted Calcium During Admission 1 Previous ED Visit (6 mos.)? 1 Number of Previous ED Visits (6 mos.) 1 Insurance - Medicaid 1 Active Anticoagulant TIME OF CARE: Discharge Management: I personally spent less than 30 minutes involved in the discharge management of this patient. SIGNATURE: Patricia Marquez MD PAGER: [phone] DATE: March 31, 2018 TIME: 1:51 PM PROGRESS Observed: 03/31/2018 Status: COMPLETED Source: [place] 11:02 AM [facility] OTHER CAMPUS REPOSITORY O ID: [id number] Author: Patricia Marquez MD Service: Hospital Medicine Author Type: Resident Type: Progress Notes Filed: 03/31/2018 11:03 AM Note Text: Attestation signed by Christy Lakhani at 03/31/2018 5:56 PM Discussed with team, chart reviewed, orders reviewed. Pt seen today at 1110, lying comfortable in bed, more verbal, sister at bedside. PT related that 'he still needs rehab, he was able to walk but walked into [facility] in the hallway'. Disposition - as below, med stable for dc to rehab, do recommended follow up at rehab with regard to HCPOA? Guardian? In future due to concern for pt's baseline mental status, high risk for decompensation with any med noncompliance, neglect/self neglect. SERVICE DATE: 03/31/2018 SERVICE TIME: 11:02 AM HOUSE MEDICINE SERVICE PROGRESS NOTE SUBJECTIVE Interval events: Improved - Pt has no current complaints, no events overnight - Still waiting for placement to rehab - Plan per neuro to fu with Dr longo and BRANDEE when medically cleared OBJECTIVE Medications: IV infusions: Scheduled: levETIRAcetam 750 mg BID QUEtiapine 25 mg AT BEDTIME enoxaparin 40 mg DAILY NaCl 0.9% 3-5 mL q 12 H melatonin 3 mg DAILY (8 PM) aspirin 81 mg DAILY atorvastatin 40 mg AT BEDTIME pantoprazole DR 40 mg DAILY (6 AM) fenofibrate 200 mg DAILY clopidogrel 75 mg DAILY sertraline 50 mg DAILY PRN: ondansetron 4 mg q 6 H PRN Or ondansetron (PF) 4 mg q 6 H PRN acetaminophen 650 mg q 6 H PRN oxyCODONE-acetaminophen 1-2 tablet q 4 H PRN LORazepam 1 mg q 6 H PRN Vital Signs: BP 121/74 Pulse 77 Temp (Src) 99.1 (Oral) Resp 16 Ht 5' 9 (1.75m) Wt 186 lb 11.2 oz (84.7kg) SpO2 94% BMI 27.56 kg/(m2). Physical Exam Performed: GENERAL: Alert and oriented x1-2, answering appropriately, following commands LUNGS: Lungs clear to auscultation, Good diaphragmatic excursion CARDIAC: Normal S1 and S2; no rubs, murmurs, or gallops ABDOMEN: Abdomen soft, non-tender, BS normal, No masses or organomegaly EXTREMITIES: Extremities normal, no deformities, edema, clubbing or skin discoloration. Good capillary refill., No ulcers NEURO: Moves all four extremities. Withdrawals from pain. Lines, Drains, and Airways Line Peripheral 03/28/18 0434 Short Right Forearm 22 Gauge 3 days Data: WBC (thou/cmm) Date Value 03/28/2018 6.19 RBC (mil/cmm) Date Value 03/28/2018 4.49 (L) Hemoglobin (g/dL) Date Value 03/25/2018 13.2 HGB (g/dL) Date Value 03/28/2018 13.6 (L) Hematocrit (%) Date Value 03/28/2018 40.3 MCV (fl) Date Value 03/28/2018 89.8 MCH (pg) Date Value 03/28/2018 30.3 MCHC (%) Date Value 03/28/2018 33.7 RDW-CV (%) Date Value 03/25/2018 13.0 Platelet Count (thou/cmm) Date Value 03/28/2018 231 MPV (fl) Date Value 03/28/2018 10.6 Glucose (mg/dL) Date Value 03/28/2018 108 (H) BUN (mg/dL) Date Value 03/28/2018 17 Creatinine (mg/dL) Date Value 03/28/2018 0.86 Sodium (mEq/L) Date Value 03/28/2018 138 Potassium (mEq/L) Date Value 03/28/2018 3.8 Chloride (mEq/L) Date Value 03/28/2018 104 CO2 (mEq/L) Date Value 03/28/2018 25 Protein, Total (g/dL) Date Value 03/25/2018 6.9 Albumin (g/dL) Date Value 03/28/2018 3.4 Calcium (mg/dL) Date Value 03/28/2018 9.1 Alkaline Phosphatase (U/L) Date Value 03/25/2018 38 Bilirubin, Total (mg/dL) Date Value 03/25/2018 0.3 AST (U/L) Date Value 03/25/2018 16 ALT (U/L) Date Value 03/25/2018 13 URINALYSIS Specific [place], Ur Date Value Ref Range Status 03/25/2018 1.015 1.001 - 1.029 Final Glucose, Urine Date Value Ref Range Status 03/25/2018 Negative Negative mg/dL Final Bilirubin, Urine Date Value Ref Range Status 03/25/2018 Negative Negative Final Ketones, Urine Date Value Ref Range Status 03/25/2018 Negative Negative Final Hemoglobin/Blood,Ur Date Value Ref Range Status 03/25/2018 Negative Negative Final Protein, Urine Date Value Ref Range Status 03/25/2018 Negative Negative mg/dL Final ASSESSMENT AND PLAN Assessment AND Plan, all Hosp Problems Active Hospital Problems as of 03/31/2018 Noted - Resolved Hospital GERD (gastroesophageal reflux disease) 03/25/2018 - Present Current Assessment AND Plan Assessment: GERD without esophagitis PLAN: Continue with PPI Hyperlipidemia 03/25/2018 - Present Current Assessment AND Plan Assessment: HLD on statin therapy - Lipid panel with LDL 88 ? PLAN - continue with statin Hypertension 03/25/2018 - Present Current Assessment AND Plan Assessment: HTN, controlled PLAN: Patient currently normotensive, does not appear to be on anti-hypertensive therapy at the moment. Monitor BP. Hydralazine PRN for SBP>160. * (Principal)Altered mental status 03/26/2018 - Present Current Assessment AND Plan Assessment: - uncertain etiology. Family provides minimal history and patient currently is non-verbal. - History of strokes and seizures, and patient could have a new stroke resulting in aphasia (difficult to determine if focal deficits as he is non-compliant with exam), as well as could be post-ictal from seizure activity. - Lab work up unremarkable thus far. Still unclear if any use of ETOH at home, and thus also need to consider w/d sz. - 03/27 Pt was agitated and irritable overnight , and he hit his head to the wall , was hallucinating , given haldol and ativan and he calmed down - Repeated head CT was done which was negative - Improved as of 12/4 - Psych followed up with pt, agrees with low dose zoloft and seroquel and adding for breakthrough agitation/hallucination ativan/benadryl/haldol. - BEM result showed a bilateral cortical dysfunction that is maximum in the right hemisphere with potential epileptogenicity arising from the right temporal parietal region greater than the left temporo-parietal region but no seizures recorded. - KEppra level came back 16 - MRI was not done as pt is eligible for that ?PLAN: -Continue home doses of ASA/Plavix, Statin. -Continue Keppra 750mg BID.,switched to PO -Continue to correct metabolic derangements -Monitor for possible ETOH w/d - CIWA. Unclear hx of ETOH use, thus also recommend, Thiamine, Folate, MVI, B12. -Seizure precautions. - Per neuro 03/29 : continue home dose keppra and DC when medically cleared, fu with Dr Donta Baron - Consider sitter if family won't be around with pt - Following up with home care companion for placement to SNF - Put pt on tele Seizure ([facility]) 03/25/2018 - Present Current Assessment AND Plan Assessment: History of seizure disorder with recurrent breakthrough seizures, suspect medication non-compliance v breakthrough seizure. Low suspicion for infectious precipitant, drug ingestion, ETOH, strenuous exercise, or sleep deprivation. . - BEM result showed a bilateral cortical dysfunction that is maximum in the right hemisphere with potential epileptogenicity arising from the right temporal parietal region greater than the left temporo-parietal region but no seizures recorded. - Keppra level came back 16 PLAN: - Imaging negative for acute process. - Resumed 750 BID PO. - Seizure precautions. - Ativan PRN for breakthrough seizures. Ob - fu with neuro recs Stroke ([facility]) 03/25/2018 - Present Current Assessment AND Plan Assessment: Prior CVA (04/2017), unspecified location. - Repeated CT without acute changes - TSH normal, lipid panel normal PLAN: - Continue with ASA, statin. - fu neuro recs Medication and Non-Pharmacologic VTE Prophylaxis/Anticoagulants Anticoagulant AND Antiplatelet Medications Start Dose Route Frequency Ordered Stop 03/26/18 0900 aspirin 81 mg chewable tab(s) 81 mg ORAL DAILY 03/25/189 -- 03/26/18 0900 clopidogrel 75 mg tab(s) (PLAVIX) 75 mg ORAL DAILY 03/25/180 -- 03/25/182099 enoxaparin 40 mg injection (LOVENOX) (Medical At Risk ) 40 mg SUBCUTANEOUS DAILY 03/25/181951 -- 03/28/18 1415 activity - mobilize patient (wi,mi) VTE Prophylaxis: VTE prophylaxis appropriate Plan of care discussed with: Attending SIGNATURE: Patricia Marquez MD PATIENT NAME: Yuval Nichols Jr. DATE: March 31, 2018 TIME: 11:02 AM PAGER/CONTACT #: [phone] THERAPY NT Observed: 03/31/2018 Status: COMPLETED Source: [place] 10:55 AM CLINIC OTHER CAMPUS REPOSITORY HNO ID: [id number] Author: Catalina (Pt) Yessica Service: Physical Therapy Author Type: Physical Therapist Type: Therapy (PT/OT/Speech/Resp) Filed: 03/31/2018 11:07 AM Note Text: Physical Therapy Treatment SERVICE DATE: 03/31/2018 SERVICE TIME: 0956 to 1035 ROOM: [place] [address] Recommended Discharge Disposition: Subacute/SNF Justification For Post Acute Needs: Anticipate that patient will require daily (5x/wk) skilled therapy in a post-acute facility setting at the time of acute hospital discharge;Medically complex PT Recommendations to Nursing: Ambulate with device;To bathroom;OOB for Meals;With assist of 1 person Device: Wheeled Walker PT 6 Clicks Score: 17 Precautions/Activity Restrictions: Bed/Chair Alarm;Fall Risk;Lines/Tubes/Drains;Seizure Precaution/Activity Restriction Comments: IV lock, telemetry ASSESSMENT : Patient able to demonstrate ambulation of limited distances this date, but with significant concerns for safety with transfers/ambulation. Pt ran into [facility]/furniture multiple times and required constant verbal cues for direction/turning/obstacle negotiation; pt with unequal and uneven gait patter with significant deviations. Pt able to demonstrate increased tolerance for activity/mobility this date, but with limited insights for safety and sequencing. Pt was able to complete exercises while sitting up at the EOB, but with verbal instructions and tactile cuing. Continue to recommend discharge to subacute/SNF; pt would not be safe to return to home at this time due to decreased insights for safety, mobility impairments, and poor insight/judgement. Patient Disposition at Start of Session: Supine in Bed;Call Khalil in Reach;Bed Alarm;Family Present Patient Disposition at End of Session: Supine in Bed;Call Khalil in Reach;Bed Alarm;Family Present Tolerated Full Session Without limitations Physical Therapy Problem List: Decreased Activity Tolerance;Functional Mobility Impairment;Balance Impaired Patient /Caregiver Goals: Go Home Goals for Plan of Care: Transfer supine to/from sit with: Stand By Assistance Transfer sit to/from stand with: Stand By Assistance Ambulate with: Stand By Assistance Distance: 20x2 Device: Wheeled Walker Goal: sit to/from stand x5 reps SBA Progress Toward Goals: Progressing as expected Rehab Potential: Fair PLAN: Treatment Frequency (times per week): 5 (1-5) Current admission Treatment Interventions: Education;Functional Mobility Training;Balance Training Plan of Care developed with: Patient TREATMENT INTERVENTIONS: Therapy Diagnosis: Reduced mobility-other;Unsteadiness on feet;Abnormalities of gait and mobility-other Interventions Provided: Therapeutic Exercise (15757);Therapeutic Activity (45725);Gait Training (61417) Therapeutic Exercise (48820) Treatment Minutes: 15 1 unit Skilled Intervention(s): Pt performed the following seated therapeutic exercises: AP, GS, hip flexion/marching, LAQs, and hip add with pillow, 2 x 10 each bilaterally with verbal instructions and tactile cues. Therapeutic Activity (36833) Treatment Minutes: 16 1 unit Skilled Intervention(s): Instructed patient in supine to sit pushing with upper extremities to sit up with HOB elevated and bed rails. Instructed patient in sit to supine using safe, effective technique with HOB flat. Instruction in sit to and from stand technique with proper hand placement and body positioning at edge of raised toilet seat with grab bars. Education with importance of progressing mobility and ambulation to increase strength during prolonged hospitalization. Educated pt on importance of OOB --> chair for all meals to maintain strength and mobility during hospitalization. Gait Training (28039) Treatment Minutes: 8 1 unit Skilled Intervention(s): Instruction in sit to stand technique with proper hand placement and body positioning at edge of bed for multiple trials. Instruction in stand to sit technique with LE's touching bed and reaching back for surface to control descent with UE support to guide descent. Instruction in sequencing, gait pattern, correction of gait deviations, and facilitation of normalization of gait pattern with wheeled walker with significant verbal and tactile cues for safe ambulation in the hallway. Instruction in use of equipment, cues for sequence and pattern and safety with obstacle negotiation. Total Timed Code Treatment Minutes: 39 Total Treatment Time (minutes): 39 FUNCTIONAL G CODE: PT 6 Clicks Score: 17 (03/31/18955) Mobility: Walking and Moving Around Current Status (G8978): CK (03/31/18955) Mobility: Walking and Moving Around Goal Status (G8979): CK (03/31/18955) Based on clinical assessment and the score on the 6 Clicks Functional Assessment Tool, the G code and corresponding severity modifiers are documented above. SUBJECTIVE: Current Hospital Course: Chart reviewed and no significant medical updates relevant to therapy were noted Reason for Physical Therapy Consult : eval and tx Relevant Past Medical History: Seizures, HTN, recent CVA in Apr 2017, HLD Patient Report: Pt agreeable to PT. Pt denies pain at this time. Pt's sister present in the room. Home Environment Patient Lives With: Family (mother? but she has been in/out of hospital) Assistance Available: (?) Prior Functional Level: Required Assistance;Within Functional Limits Assistance Required With: (pt unable to state and sister unclear) Prior Functional Level Comments: about PLOF/assist OBJECTIVE: CURRENT FUNCTIONAL STATUS: Current Functional Mobility Assist Level Additional Information Rolling Contact Guard Assistance Supine to Sit Contact Guard Assistance Sit to Supine Contact Guard Assistance Scooting Stand By Assistance Sit to Stand Minimal Assistance Stand to Sit Minimal Assistance Bed to Chair Toilet/Commode Minimal Assistance Gait Minimal Assistance Gait Device: Wheeled Walker Gait Distance (feet): 35' x4, 15' x2 Stairs Curb Step Car Transfer General Gait Deviations: Antalgic gait pattern;Step length decreased;Difficulty changing direction/turning;Non-functional gait speed (Running into [facility]/furniture; poor vision? Poor balance.) Balance: Static Sitting;Dynamic Sitting;Static Standing;Dynamic Standing Static Sitting Balance: Stand By Assistance (Fair at EOB with 0-1 UE support) Dynamic Sitting Balance: Contact Guard Assistance (Fair at EOB with 0-1 UE support) Static Standing Balance: Minimal Assistance (Fair with B UE support on FWW) Dynamic Standing Balance: Moderate Assistance (Fair - with B UE support on FWW) JH-HLM: 7: Walk 25 feet or more Please see discipline specific clinical documentation flowsheet for complete details for this therapy evaluation/treatment. SIGNATURE: Catalina Juan PT PATIENT NAME: Yuval Nichols DATE: March 31, 2018 TIME: 10:55 AM PROGRESS Observed: 03/30/2018 Status: COMPLETED Source: [place] 10:11 AM [facility] OTHER CAMPUS REPOSITORY O ID: [id number] Author: Patricia Marquez MD Service: Hospital Medicine Author Type: Resident Type: Progress Notes Filed: 03/30/2018 10:12 AM Note Text: Attestation signed by Christy Lakhani at 03/30/2018 5:18 PM Discussed with team, chart reviewed, orders reviewed. Discussed with home care companion as well. Pt seen today at 1135, looked well, lying in bed, sister at bedside reported no problems. No issues per RN. Sl more talkative today. Good PO intake reported. Disposition - as below, and as per my note of 03/29, neuro and psych recommendations appreciated, pt is med stable for dc to rehab when arrangements made. Do recoommend follow up before or after discharge with regard to HCPOA/?guardian designation in future as pt's baseline mental status causes concern for competency, with high risk for delirium (home care companion aware of concern, recommendations). SERVICE DATE: 03/30/2018 SERVICE TIME: 10:11 AM HOUSE MEDICINE SERVICE PROGRESS NOTE SUBJECTIVE Interval events: Improved - Pt has no current complaints - Per home care companion : Pt has picked out four SNF choices, referral placed. 1)[facility], 2)[facility], 3)[facility], 4)[facility] - Plan per neuro to fu with Dr longo and DC when medically cleared - ST eval was done , recs thin liquids OBJECTIVE Medications: IV infusions: Scheduled: levETIRAcetam 750 mg BID QUEtiapine 25 mg AT BEDTIME enoxaparin 40 mg DAILY NaCl 0.9% 3-5 mL q 12 H melatonin 3 mg DAILY (8 PM) aspirin 81 mg DAILY atorvastatin 40 mg AT BEDTIME pantoprazole DR 40 mg DAILY (6 AM) fenofibrate 200 mg DAILY clopidogrel 75 mg DAILY sertraline 50 mg DAILY PRN: ondansetron 4 mg q 6 H PRN Or ondansetron (PF) 4 mg q 6 H PRN acetaminophen 650 mg q 6 H PRN oxyCODONE-acetaminophen 1-2 tablet q 4 H PRN LORazepam 1 mg q 6 H PRN Vital Signs: BP 129/79 Pulse 61 Temp (Src) 98.6 (Oral) Resp 16 Ht 5' 9 (1.75m) Wt 189 lb 3.2 oz (85.8kg) SpO2 95% BMI 27.93 kg/(m2). Physical Exam Performed: GENERAL: Alert and oriented x1-2, answering appropriately, following commands LUNGS: Lungs clear to auscultation, Good diaphragmatic excursion CARDIAC: Normal S1 and S2; no rubs, murmurs, or gallops ABDOMEN: Abdomen soft, non-tender, BS normal, No masses or organomegaly EXTREMITIES: Extremities normal, no deformities, edema, clubbing or skin discoloration. Good capillary refill., No ulcers NEURO: Moves all four extremities. Withdrawals from pain. Lines, Drains, and Airways Line Peripheral 03/28/18 0434 Short Right Forearm 22 Gauge 2 days Data: WBC (thou/cmm) Date Value 03/28/2018 6.19 RBC (mil/cmm) Date Value 03/28/2018 4.49 (L) Hemoglobin (g/dL) Date Value 03/25/2018 13.2 HGB (g/dL) Date Value 03/28/2018 13.6 (L) Hematocrit (%) Date Value 03/28/2018 40.3 MCV (fl) Date Value 03/28/2018 89.8 MCH (pg) Date Value 03/28/2018 30.3 MCHC (%) Date Value 03/28/2018 33.7 RDW-CV (%) Date Value 03/25/2018 13.0 Platelet Count (thou/cmm) Date Value 03/28/2018 231 MPV (fl) Date Value 03/28/2018 10.6 Glucose (mg/dL) Date Value 03/28/2018 108 (H) BUN (mg/dL) Date Value 03/28/2018 17 Creatinine (mg/dL) Date Value 03/28/2018 0.86 Sodium (mEq/L) Date Value 03/28/2018 138 Potassium (mEq/L) Date Value 03/28/2018 3.8 Chloride (mEq/L) Date Value 03/28/2018 104 CO2 (mEq/L) Date Value 03/28/2018 25 Protein, Total (g/dL) Date Value 03/25/2018 6.9 Albumin (g/dL) Date Value 03/28/2018 3.4 Calcium (mg/dL) Date Value 03/28/2018 9.1 Alkaline Phosphatase (U/L) Date Value 03/25/2018 38 Bilirubin, Total (mg/dL) Date Value 03/25/2018 0.3 AST (U/L) Date Value 03/25/2018 16 ALT (U/L) Date Value 03/25/2018 13 URINALYSIS Specific [place], Ur Date Value Ref Range Status 03/25/2018 1.015 1.001 - 1.029 Final Glucose, Urine Date Value Ref Range Status 03/25/2018 Negative Negative mg/dL Final Bilirubin, Urine Date Value Ref Range Status 03/25/2018 Negative Negative Final Ketones, Urine Date Value Ref Range Status 03/25/2018 Negative Negative Final Hemoglobin/Blood,Ur Date Value Ref Range Status 03/25/2018 Negative Negative Final Protein, Urine Date Value Ref Range Status 03/25/2018 Negative Negative mg/dL Final ASSESSMENT AND PLAN Assessment AND Plan, all Hosp Problems Active Hospital Problems as of 03/30/2018 Noted - Resolved Hospital GERD (gastroesophageal reflux disease) 03/25/2018 - Present Current Assessment AND Plan Assessment: GERD without esophagitis PLAN: Continue with PPI Hyperlipidemia 03/25/2018 - Present Current Assessment AND Plan Assessment: HLD on statin therapy - Lipid panel with LDL 88 ? PLAN - continue with statin Hypertension 03/25/2018 - Present Current Assessment AND Plan Assessment: HTN, controlled PLAN: Patient currently normotensive, does not appear to be on anti-hypertensive therapy at the moment. Monitor BP. Hydralazine PRN for SBP>160. * (Principal)Altered mental status 03/26/2018 - Present Current Assessment AND Plan Assessment: - uncertain etiology. Family provides minimal history and patient currently is non-verbal. - History of strokes and seizures, and patient could have a new stroke resulting in aphasia (difficult to determine if focal deficits as he is non-compliant with exam), as well as could be post-ictal from seizure activity. - Lab work up unremarkable thus far. Still unclear if any use of ETOH at home, and thus also need to consider w/d sz. - 03/27 Pt was agitated and irritable overnight , and he hit his head to the wall , was hallucinating , given haldol and ativan and he calmed down - Repeated head CT was done which was negative - Improved as of 03/28 - Psych followed up with pt, agrees with low dose zoloft and seroquel and adding for breakthrough agitation/hallucination ativan/benadryl/haldol. - BEM result showed a bilateral cortical dysfunction that is maximum in the right hemisphere with potential epileptogenicity arising from the right temporal parietal region greater than the left temporo-parietal region but no seizures recorded. - KEppra level came back 16 - MRI was not done as pt is eligible for that ?PLAN: -Continue home doses of ASA/Plavix, Statin. -Continue Keppra 750mg BID.,switched to PO -Continue to correct metabolic derangements -Monitor for possible ETOH w/d - CIWA. Unclear hx of ETOH use, thus also recommend, Thiamine, Folate, MVI, B12. -Seizure precautions. - Per neuro 03/29 : continue home dose keppra and DC when medically cleared, fu with Dr Donta Baron - Consider sitter if family won't be around with pt - Following up with home care companion for placement to SNF - Put pt on tele Seizure (HCC) 03/25/2018 - Present Current Assessment AND Plan Assessment: History of seizure disorder with recurrent breakthrough seizures, suspect medication non-compliance v breakthrough seizure. Low suspicion for infectious precipitant, drug ingestion, ETOH, strenuous exercise, or sleep deprivation. . - BEM result showed a bilateral cortical dysfunction that is maximum in the right hemisphere with potential epileptogenicity arising from the right temporal parietal region greater than the left temporo-parietal region but no seizures recorded. - Keppra level came back 16 PLAN: - Imaging negative for acute process. - Loaded patient with 1g keppra and resumed 750 BID PO. - Seizure precautions. - Ativan PRN for breakthrough seizures. Ob - [facility] records from [facility]. - fu with neuro recs , continue home dose keppra 750BID Stroke (HCC) 03/25/2018 - Present Current Assessment AND Plan Assessment: Prior CVA (04/2017), unspecified location. - Repeated CT without acute changes - TSH normal, lipid panel normal PLAN: - Continue with ASA, statin. - fu neuro recs Ventricular tachycardia (HCC) 03/26/2018 - Present Current Assessment AND Plan Assessment: - Pt had 6 beat run of Vtach on tele night of 03/25 - Checked lytes, were normal except for K of 3.3 - Troponin was checked, was neg - Repeated CBC/ BMP 03/28 WNL PLAN: - monitor CBC,BMP Medication and Non-Pharmacologic VTE Prophylaxis/Anticoagulants Anticoagulant AND Antiplatelet Medications Start Dose Route Frequency Ordered Stop 03/26/18 0900 aspirin 81 mg chewable tab(s) 81 mg ORAL DAILY 03/25/18 2049 -- 03/26/18 0900 clopidogrel 75 mg tab(s) (PLAVIX) 75 mg ORAL DAILY 03/25/18 2110 -- 03/25/18 2100 enoxaparin 40 mg injection (LOVENOX) (Medical At Risk ) 40 mg SUBCUTANEOUS DAILY 03/25/18 1952 -- 03/28/18 1415 activity - mobilize patient (wi,mi) VTE Prophylaxis: VTE prophylaxis appropriate Plan of care discussed with: Attending SIGNATURE: Patricia Marquez MD PATIENT NAME: Yuval Nichols Jr. DATE: March 30, 2018 TIME: 10:11 AM PAGER/CONTACT #: [phone] THERAPY NT Observed: 03/29/2018 Status: COMPLETED Source: [place] 4:13 PM CLINIC OTHER CAMPUS REPOSITORY HNO ID: [id number] Author: Senia (Flower Maker) TERRY Hassan/MARY JO Service: Speech/Swallow Author Type: Speech Language Pathologist Type: Therapy (PT/OT/Speech/Resp) Filed: 03/29/2018 4:19 PM Note Text: Speech Therapy Treatment SERVICE DATE: 03/29/2018 SERVICE TIME: 1550 to 1609 ROOM: [place] [address] Nursing Recommendations: Reinforce use of swallowing strategies Diet Recommendations: Dysphagia Level 3 (Dysphagia Advanced) Thin liquids Medications whole in puree (pudding/applesauce) Swallowing Precautions Recommendations: Alert (patient should be fully alert for P.O. intake);Sit upright 90 degrees for all PO;Small Bite/Sip Results and Recommendations Discussed With: Patient;Family;Nurse Recommended Discharge Disposition: Home Justification For Post Acute Needs: May not tolerate higher intensity programing;Willing to participate IMPRESSION: Patient demonstrates mild oral dysphagia which is negatively impacting his/her ability to effectively maintain adequate nutrition and hydration and/or airway safety. Alertness has improved and patient is better able to focus on chewing and swallowing. Recommend change diet to the diet mentioned above. Rehabilitation Precautions: Aspiration Precautions;Modified Diet;Dysphagia Precaution/Activity Restriction Comments: Continous EEG ASSESSMENT: Swallow reassessed as patient is now more alert Vocal quality is clear Speech is clear Lingual and labial range of motion and strength are within functional limits Able to feed self Good lip seal on cup, straw and spoon Able to swallow thin liquid from straw without signs/symptoms of aspiration Able to chew a solid with success but with complaints of the solid hurting the roof of mouth Recommend change diet to Dysphagia 3 (dental soft) and thin liquids Tolerated Full Session Goals for Plan of Care: Swallow Goals: Patient will tolerate Dysphagia Level 1 (Pureed) diet consistency while utilizing compensatory/swallowing strategies given minimal cues in 90% of trials so that the patient will minimize the signs/symptoms of dysphagia. Goal met 03/29/2018 Patient will tolerate Dysphagia Level 3 (Dysphagia Advanced) diet consistency while utilizing compensatory/swallowing strategies given minimal cues in 90% of trials so that the patient will minimize the signs/symptoms of dysphagia. Patient will tolerate Thin Liquids consistency while utilizing compensatory/swallowing strategies given minimal cues in 90% of trials so that the patient will minimize the signs/symptoms of dysphagia. Tolerating 03/29/2018 Patient, Family will demonstrate adequate return of knowledge of all compensatory strategies/instruction to effectively assist the patient in immediate safety with oral intake and swallowing.- small bites/sips, sit up straight as possible. Patient /Caregiver Goals: Eat/Drink Without Restrictions Progress Toward Goals: Progressing as expected Rehab Potential: Good PLAN: Treatment Frequency (times per week): 3 Current admission Treatment Interventions: Dysphagia Management Plan of Care Developed with: Patient;Caregiver;Family TREATMENT INTERVENTIONS: Therapy Diagnosis: Dysphagia, oropharyngeal phase Interventions Provided: Dysphagia Therapy (97275) $ Dysphagia Therapy (23761) Billed Units: 1 unit Skilled Interventions: Reassessed swallow ability with various liquid and food textures to determine if safe for current food/drink textures versus at risk for aspiration.Provided education related to a typical swallowing mechanism in a compare and contrast manner compared to this patient's current skill set. , Educated and advised patient / caregiver on texture and liquid consistency recommendations. Total Treatment Time (minutes): 19 FUNCTIONAL G CODE: G Code Functional Limitations: Swallowing (03/27/181128) Swallow Current Status (G8996): CJ - At least 20 percent but less than 40 percent impaired, limited or restricted (03/27/181128) Swallow Goal Status (G8997): CI - At least 1 percent but less than 20 percent impaired, limited or restricted (03/27/181128) Based on clinical assessment and the score on the Functional Communication Measure (FCM), the G code and corresponding severity modifiers are documented above. SUBJECTIVE: Current Hospital Course: Chart reviewed and no significant medical updates relevant to therapy were noted Reason for Speech Therapy Consult: altered mental status Relevant Past Medical History: CVA with residual left weakness, blind right eye Patient Report: I usually chew solid food without my teeth. I think I can do it now. Home Environment Prior Functional Level: Unable to Assess Assistance Available: Unable to determine at this time Prior Swallowing Function/Diet Textures: Unable to determine at this time Please see discipline specific clinical documentation flowsheet for complete details for this therapy evaluation/treatment. SIGNATURE: Senia Hassan CCC-CAISSON WORKER PATIENT NAME: Yuval Nichols Jr. DATE: March 29, 2018 TIME: 4:13 PM CASE MANAGEM Observed: 03/29/2018 Status: COMPLETED Source: [place] 1:30 PM CLINIC OTHER CAMPUS REPOSITORY HNO ID: [id number] Author: Viviane OlmedoRn) TEODORO Smith Service: Care Management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 General Gait Deviations: Shuffling Gait Balance: Static Sitting;Static Standing;Dynamic Standing Static Sitting Balance: Contact Guard Assistance Static Standing Balance: Moderate Assistance Dynamic Standing Balance: Moderate Assistance JH-HLM: 4: Move to chair / commode Please see discipline specific clinical documentation flowsheet for complete details for this therapy evaluation/treatment. SIGNATURE: Erika Iraheta PT PATIENT NAME: Yuval Nichols Jr. DATE: March 28, 2018 TIME: 2:49 PM THERAPY NT Observed: 03/28/2018 Status: COMPLETED Source: [place] 2:46 PM CLINIC OTHER CAMPUS REPOSITORY HNO ID: [id number] Author: Cathy Ramirez/Keesha Valdez Service: Occupational Therapy Author Type: Occupational Therapist Type: Therapy (PT/OT/Speech/Resp) Filed: 03/28/2018 3:10 PM Note Text: Occupational Therapy Evaluation SERVICE DATE: 03/28/2018 SERVICE TIME: 1415 to 1425 ROOM: [place] [address] Recommended Discharge Disposition: Subacute/SNF Justification For Post Acute Needs: Anticipate that patient will require daily (5x/wk) skilled therapy in a post-acute facility setting at the time of acute hospital discharge OT Recommendations to Nursing: Encourage patient participation with in-bed ADL?s;With assist of 1 person OT 6 Clicks Score: 14 Precautions/Activity Restrictions: Fall Risk;Seizure;Lines/Tubes/Drains Precaution/Activity Restriction Comments: Continous EEG ASSESSMENT: OT Evaluation Moderate Complexity: Occupational Profile - Extended review of patient's medical record completed including patient's physical, cognitive, and psycho-social history (please see current hospital course of evaluation). Occupational Performance - Pt presents with deficits in feeding, grooming, UE bathing/dressing, LE bathing/dressing, functional transfers, functional mobility, decreased safety awareness, decreased insight into deficits Complexity in Clinical Decision Making - The extent of clinical reasoning was moderate, several treatment options present for the patient, need for modification during the evaluation was minimal/moderate, comorbidities affecting occupational performance: Seizures, HTN, HLD, recent stroke in April 2018 Patient Disposition at Start of Session: Supine in Bed;Call Khalil in Reach;Family Present Patient Disposition at End of Session: Supine in Bed;Call Khalil in Reach Tolerated Full Session Occupational Therapy Problem List: Safety Deficits;Impaired Self Care;Decreased Activity Tolerance;Decreased Strength;Functional Mobility Impairment Patient /Caregiver Goals: (Patient did not state) Goals for Plan of Care: Able to perform HEP with: Minimal Assistance (UB strengthening program) Grooming with: Minimal Assistance (sitting upright supported) Upper Body Bathing with: Minimal Assistance Upper Body Dressing with: Minimal Assistance Chair Transfer with: Moderate Assistance Toilet Transfer with: Moderate Assistance Tolerate (minutes of functional activity): 35 Functional Activity with: Moderate Assistance Additional Goal 1: Patient will follow 75% of commands with min verbal cues during self care activities. Increased Awareness of Cognitive Impairments as Related to ADL's/IADL's: Verbalized;Demonstrated Rehab Potential: Good PLAN: Treatment Frequency (times per week): 3 (1-3) Current admission Treatment Interventions: Education;Self Care / Home Management;Energy Conservation Training;Strengthening;Functional Mobility Training;Cognitive Training Plan of Care developed with: Patient TREATMENT INTERVENTIONS: Therapy Diagnosis: Reduced mobility-other;Decreased activities of daily living (ADL);Muscle Weakness (generalized);Unsteadiness on feet;General symptoms and signs-other;Signs and Symptoms Involving Cognitive Functions and Awareness Interventions Provided: Evaluation $ Evaluation-Moderate (40046) Billed Units: 1 unit Educated on the role of OT in the acute care setting. Total Treatment Time (minutes): 10 FUNCTIONAL G CODE: OT 6 Clicks Score: 14 (03/28/18 141) Self Care Current Status (G8987): CK (03/28/18 141) Self Care Goal Status (G8988): CJ (03/28/181414) Based on clinical assessment and the score on the 6 Clicks Functional Assessment Tool, the G code and corresponding severity modifiers are documented above. SUBJECTIVE: Current Hospital Course: Chart reviewed; . Mr. Nichols is a 47 YOM presenting as transfer from outside ED for AMS. EEG suggesting potential epileptogenicity arising from the right temporal region , but possible patient is having subclinical seizures and thus will get BEM. 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 Patient only verbalized a few words during the evaluation. Home Environment Patient Lives With: Family (mother? but she has been in/out of hospital) Assistance Available: (?) Prior Functional Level: Required Assistance;Within Functional Limits Assistance Required With: (pt unable to state and sister unclear) Prior Functional Level Comments: about PLOF/assist OBJECTIVE: Cognition/Communication Deficits Communication Deficits: Other: See Comment (Only verbalized a few words throughout evaluation) Responsiveness: Alert;Awake Follows Commands: 1-step Commands;Cueing Needed (Able to follow 50% of commands) Cueing to Follow Commands: Moderate Executive Function Deficits: Sequencing;Insight to Deficits;Judgement;Problem Solving;Safety Awareness Sequencing Deficit: Maximum impairment Judgement Deficit: Maximum impairment Insight to Deficits: Maximum impairment Problem Solving Deficit: Maximum impairment Safety Awareness Deficit: Maximum impairment CURRENT FUNCTIONAL STATUS: Current Activities of Daily Living Assist Level Feeding Set Up Grooming Moderate Assistance (can not complete standing at this time) Bathing Upper Body Moderate Assistance Bathing Lower Body Maximal Assistance Dressing Upper Body Moderate Assistance Dressing Lower Body Maximal Assistance Toileting Maximal Assistance Functional Mobility Assist Level Rolling Supine to Sit Moderate Assistance Sit to Supine Moderate Assistance Scooting Sit to Stand Moderate Assistance Stand to Sit Moderate Assistance Bed to Chair Toilet/Commode Functional Mobility Moderate Assistance (Couple of steps at edge of bed) Hand Held Assist Range of Motion: WFL Strength: WFL Except;Upper Extremity Comments Right Upper Extremity Strength Comments: 4-/5 Left Upper Extremity Strength Comments: 4-/5 Balance: Static Standing;Dynamic Standing Static Standing Balance: Moderate Assistance Dynamic Standing Balance: Moderate Assistance Please see discipline specific clinical documentation flowsheet for complete details for this therapy evaluation/treatment. SIGNATURE: Carolyn Trujillo/OT PATIENT NAME: Yuval Nichols Jr. DATE: March 28, 2018 TIME: 2:46 PM Evaluation and/or treatment directly supervised by licensed Occupational Therapist. I reviewed and agree with the documentation corresponding to this therapy visit. 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 No Advance Directive: Current Advance Directive: None Accessories Repairer Attempted to Assist with AD Completion: Yes Action: Patient Unwilling Health Literacy: 1. How often do you need to have someone help you when you read instructions, pamphlets, or other written material from your doctor or pharmacy? Always - 5 2. How confident are you filling out medical forms by yourself? Not at all - 5 If Patient scores > 3 on either question, the following interventions were put into place: Use of plain language and active listening with Patient and family FUNCTIONAL AND COGNITIVE/BEHAVIORAL PRIOR TO ADMISSION: Baseline Mental Status: Struggles to Understand. Functional Status: Independent Does Patient Currently Receive Any Community Services or Home Care? None Equipment Prior to Admission: None Has the Patient Been in a Fdc Facility in the Past 30 days? No SOCIAL: Living Arrangement: Home Lives With: Mother Financial Resources: Disabled Primary Contact: Extended Emergency Contact Information Primary Emergency Contact: Angeli Nichols Mobile Relation: Son Secondary Emergency Contact: Yuval Nichols II Mobile Relation: Son Supportive: No Other Important Patient Contacts: None Caregiver Assessment: Caregiver is ready, willing and able to meet the patient's needs as recommended by the inter-professional team? No Patient's transition needs and plan for meeting these needs: Unknown Does the patient have an acute stroke diagnosis, or has the patient had a stroke during this admission? No Medication Adherence: I am convinced of the importance of my prescription medication: Agree completely - 0 I worry that my prescription medication will do more harm than good to me Disagree completely - 0 I feel financially burdened by my [id number] expenses for my prescription medication: Disagree completely - 0 Patient is categorized as low risk < 2 Are you interested in bedside delivery of your medications? No Food Concerns: In the Last Month, Have You had Trouble Getting Food? No trouble getting food During the Last Month, Have You Worried Whether Your Food Would Run Out Before You Had Enough Money to Buy More? No Is the Patient Psychosocially Complex? Yes, refer to Social Work. ASSESSMENT AND PLAN: Medical Needs: Fall risk or frequent falls Psychosocial Needs: None FREEDOM OF CHOICE EXPLAINED: N/A POTENTIAL TRANSITION PLANS To Be Determined SW completed initial assessment. Patient and patients sister were present. Patient appeared to struggle to communicate with staff. Patient reported that he currently lives with his mother, patients sister reported that patient will not be living there following discharge and will be staying with his children. Patient reported that he has no issues getting food at home. Pt reported that he has no issues getting his medications or paying for food. Patients doctor consulted psychology to assess for competency SW will continue to follow SIGNATURE: ALICE Zambrano PATIENT NAME: Yuval Nichols Jr. DATE: March 28, 2018 TIME: 11:42 AM PAGER/CONTACT #: [phone] PROGRESS Observed: 03/28/2018 Status: COMPLETED Source: [place] 9:56 AM CLINIC OTHER CAMPUS REPOSITORY O ID: [id number] Author: Patricia (Rupa Marquez MD Service: Hospital Medicine Author Type: Resident Type: Progress Notes Filed: 03/28/2018 9:56 AM Note Text: Attestation signed by Christy Lakhani at 03/28/2018 4:47 PM Discussed with team, with home care companion and with PT/OT post evaluation. Chart reviewed, orders reviewed. Pt seen today at 1420, sister at bedside. Sister related that 'he was just hallucinating, was getting ready fight someone in the corner of the room'. Pt was oriented x1, was sitting in bed, continuous EEG ongoing, did agree to work with PT and OT . Disposition - as below, in addition, pt clearly does not have capacity to make medical decisions (SW agrees also with same), await final recommendations from neurology and psychiatry. Need dc planning from home care companion - PT and OT recommend subacute/SNF, concern pt needs a guardian (see also my 03/27 note). SERVICE DATE: 03/28/2018 SERVICE TIME: 9:56 AM [facility] PROGRESS NOTE SUBJECTIVE Interval events: Improved - Pt had no acute events overnight - Diet changed to thin liquids per ST - He was responding to questions asked with appropriate one- word answers. - He was able feed himself - Labs this morning with no acute change - pt will need SW workup for follow up disposition once discharged - MRI was not done due to CI, neuro recs appreciated. - Following up with EB for further recs OBJECTIVE Medications: IV infusions: Scheduled: QUEtiapine 25 mg AT BEDTIME levETIRAcetam 750 mg BID enoxaparin 40 mg DAILY NaCl 0.9% 3-5 mL q 12 H melatonin 3 mg DAILY (8 PM) aspirin 81 mg DAILY atorvastatin 40 mg AT BEDTIME pantoprazole DR 40 mg DAILY (6 AM) fenofibrate 200 mg DAILY clopidogrel 75 mg DAILY sertraline 50 mg DAILY PRN: ondansetron 4 mg q 6 H PRN Or ondansetron (PF) 4 mg q 6 H PRN acetaminophen 650 mg q 6 H PRN oxyCODONE-acetaminophen 1-2 tablet q 4 H PRN LORazepam 1 mg q 6 H PRN Vital Signs: BP 145/88 Pulse 69 Temp (Src) 98.2 (Oral) Resp 18 Ht 5' 9 (1.75m) Wt 189 lb 6.4 oz (85.9kg) SpO2 97% BMI 27.96 kg/(m2). Physical Exam Performed: GENERAL: Alert and oriented x1-2, answering appropriately, following commands LUNGS: Lungs clear to auscultation, Good diaphragmatic excursion CARDIAC: Normal S1 and S2; no rubs, murmurs, or gallops ABDOMEN: Abdomen soft, non-tender, BS normal, No masses or organomegaly EXTREMITIES: Extremities normal, no deformities, edema, clubbing or skin discoloration. Good capillary refill., No ulcers NEURO: Moves all four extremities. Withdrawals from pain. Lines, Drains, and Airways Line Peripheral 03/25/18 Admission to Hospital Left Hand 20 Gauge 3 days Peripheral 03/28/18 0434 Short Right Forearm 22 Gauge less than 1 day Data: WBC (thou/cmm) Date Value 03/28/2018 6.19 RBC (mil/cmm) Date Value 03/28/2018 4.49 (L) Hemoglobin (g/dL) Date Value 03/25/2018 13.2 HGB (g/dL) Date Value 03/28/2018 13.6 (L) Hematocrit (%) Date Value 03/28/2018 40.3 MCV (fl) Date Value 03/28/2018 89.8 MCH (pg) Date Value 03/28/2018 30.3 MCHC (%) Date Value 03/28/2018 33.7 RDW-CV (%) Date Value 03/25/2018 13.0 Platelet Count (thou/cmm) Date Value 03/28/2018 231 MPV (fl) Date Value 03/28/2018 10.6 Glucose (mg/dL) Date Value 03/28/2018 108 (H) BUN (mg/dL) Date Value 03/28/2018 17 Creatinine (mg/dL) Date Value 03/28/2018 0.86 Sodium (mEq/L) Date Value 03/28/2018 138 Potassium (mEq/L) Date Value 03/28/2018 3.8 Chloride (mEq/L) Date Value 03/28/2018 104 CO2 (mEq/L) Date Value 03/28/2018 25 Protein, Total (g/dL) Date Value 03/25/2018 6.9 Albumin (g/dL) Date Value 03/28/2018 3.4 Calcium (mg/dL) Date Value 03/28/2018 9.1 Alkaline Phosphatase (U/L) Date Value 03/25/2018 38 Bilirubin, Total (mg/dL) Date Value 03/25/2018 0.3 AST (U/L) Date Value 03/25/2018 16 ALT (U/L) Date Value 03/25/2018 13 URINALYSIS Specific [place], Ur Date Value Ref Range Status 03/25/2018 1.015 1.001 - 1.029 Final Glucose, Urine Date Value Ref Range Status 03/25/2018 Negative Negative mg/dL Final Bilirubin, Urine Date Value Ref Range Status 03/25/2018 Negative Negative Final Ketones, Urine Date Value Ref Range Status 03/25/2018 Negative Negative Final Hemoglobin/Blood,Ur Date Value Ref Range Status 03/25/2018 Negative Negative Final Protein, Urine Date Value Ref Range Status 03/25/2018 Negative Negative mg/dL Final ASSESSMENT AND PLAN Assessment AND Plan, all Hosp Problems Active Hospital Problems as of 03/28/2018 Noted - Resolved Hospital GERD (gastroesophageal reflux disease) 03/25/2018 - Present Current Assessment AND Plan Assessment: GERD without esophagitis PLAN: Continue with PPI Hyperlipidemia 03/25/2018 - Present Current Assessment AND Plan Assessment: HLD on statin therapy - Lipid panel with LDL 88 ? PLAN - continue with statin Hypertension 03/25/2018 - Present Current Assessment AND Plan Assessment: HTN, controlled PLAN: Patient currently normotensive, does not appear to be on anti-hypertensive therapy at the moment. Monitor BP. Hydralazine PRN for SBP>160. * (Principal)Altered mental status 03/26/2018 - Present Current Assessment AND Plan Assessment: - uncertain etiology. Family provides minimal history and patient currently is non-verbal. - History of strokes and seizures, and patient could have a new stroke resulting in aphasia (difficult to determine if focal deficits as he is non-compliant with exam), as well as could be post-ictal from seizure activity. - Lab work up unremarkable thus far. Still unclear if any use of ETOH at home, and thus also need to consider w/d sz. - 03/27 Pt was agitated and irritable overnight , and he hit his head to the wall , was hallucinating , given haldol and ativan and he calmed down - Repeated head CT was done which was negative - Improved as of 03/28 ?PLAN: - MRI was not done as pt is eligible for that, will wait after EBM for further barak recs. - EEG suggesting potential epileptogenicity arising from the right temporal region , but possible patient is having subclinical seizures and thus will get BEM. -Continue home doses of ASA/Plavix, Statin. -Continue Keppra 750mg BID., check keppra level , switched to PO -Continue to correct metabolic derangements -Monitor for possible ETOH w/d - CIWA. Unclear hx of ETOH use, thus also recommend, Thiamine, Folate, MVI, B12. -Seizure precautions. - fu with neuro recs - Psych consult - Consider sitter if family won't be around with pt - Needs SW assessment for safety of pt once discharged Seizure (HCC) 03/25/2018 - Present Current Assessment AND Plan Assessment: History of seizure disorder with recurrent breakthrough seizures, suspect medication non-compliance v breakthrough seizure. Low suspicion for infectious precipitant, drug ingestion, ETOH, strenuous exercise, or sleep deprivation. - EEG suggesting potential epileptogenicity arising from the right temporal region , but possible patient is having subclinical seizures and thus will get BEM. PLAN: - Imaging negative for acute process. - Loaded patient with 1g keppra and resumed 750 BID PO. - Check keppra level - EBM - Seizure precautions. - Ativan PRN for breakthrough seizures. Obtain records from [facility]. Stroke (HCC) 03/25/2018 - Present Current Assessment AND Plan Assessment: Prior CVA (04/2017), unspecified location. - Repeated CT without acute changes - TSH normal, lipid panel normal PLAN: - Continue with ASA, statin. - Will obtain records from OSH - fu neuro recs Ventricular tachycardia (HCC) 03/26/2018 - Present Current Assessment AND Plan Assessment: - Pt had 6 beat run of Vtach on tele night of 03/25 - Checked lytes, were normal except for K of 3.3 - Troponin was checked, was neg - Repeated CBC/ BMP 03/28 WNL PLAN: - monitor CBC,BMP Medication and Non-Pharmacologic VTE Prophylaxis/Anticoagulants Anticoagulant AND Antiplatelet Medications Start Dose Route Frequency Ordered Stop 03/26/18 0900 aspirin 81 mg chewable tab(s) 81 mg ORAL DAILY 03/25/182048 -- 03/26/18 0900 clopidogrel 75 mg tab(s) (PLAVIX) 75 mg ORAL DAILY 03/25/182109 -- 03/25/182099 enoxaparin 40 mg injection (LOVENOX) (Medical At Risk ) 40 mg SUBCUTANEOUS DAILY 03/25/181951 -- VTE Prophylaxis: VTE prophylaxis appropriate Plan of care discussed with: Attending SIGNATURE: Patricia Marquez MD PATIENT NAME: Yuval Nichols Jr. DATE: March 28, 2018 TIME: 9:56 AM PAGER/CONTACT #: [phone] CONSULT PROG Observed: 03/28/2018 Status: COMPLETED Source: [place] 8:56 AM CLINIC OTHER CAMPUS REPOSITORY HNO ID: [id number] Author: Macarena Cotto Service: Neurology General Author Type: Nurse Practitioner Type: Consult Progress Note Filed: 03/28/2018 9:10 AM Note Text: NEUROLOGY CONSULT PROGRESS NOTE SERVICE DATE: 03/28/2018 SERVICE TIME: 729 Current Attending Provider: Christy Lakhani Subjective Interval History: Patient awake in bed. Responds more verbally today. No complaints. Denies weakness, numbness, tingling, pain, vision or speech changes. Pt sister, and other family members in room. Sister concerned because pt was confused talking about bed moving. Spoke with RN reports pt has family nonstop in the room concerned that sister may be causing the patient to be more agitated. No Objective Physical Examination: Neurological: ? Mental Status: He is oriented to person. Responds clearer today but not all speech is clear words. Following commands ? 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 VFF on left. ? Muscle- resist gravity 5/5 strength throughout Coordination: finger to nose intact Sensation intact to light touch New Labs: WBC (thou/cmm) Date Value 03/28/2018 6.19 03/27/2018 6.34 03/26/2018 7.43 RBC (mil/cmm) Date Value 03/28/2018 4.49 03/27/2018 4.48 03/26/2018 4.38 Platelet Count (thou/cmm) Date Value 03/28/2018 231 03/27/2018 187 03/26/2018 196 BUN (mg/dL) Date Value 03/28/2018 17 03/27/2018 14 03/26/2018 10 Creatinine (mg/dL) Date Value 03/28/2018 0.86 03/27/2018 0.80 03/26/2018 0.87 CBC, Coags, BMP, Mg, Phos Recent Labs 03/28/18 0430 03/27/18 0408 03/26/18 0418 03/25/18 1100 INR -- -- -- 1.1 APTT -- -- -- 23.9 NA 138 136 139 140 K 3.8 3.5 3.3* 4.2 CHLOR 104 106 106 102 CO2 25 22 24 27 GLUC 108* 89 86 101* CA 9.1 9.0 8.3* 9.4 MG -- -- 1.8 1.5* P 3.7 -- 2.9 -- Liver Function, Amylase, AND Lipase Recent Labs 03/28/18 0430 03/25/18 1100 TPROT -- 6.9 ALB 3.4 4.1 ALT -- 13 AST -- 16 ALKPHOS -- 38 TBILI -- 0.3 DATA: Diagnostic tests reviewed for today's visit: Most recent labs and imaging results. Impression/Recommendations Principal Problem: 1.)Altered mental status -BEM-- pending read -MRI brain on hold until after BEM will need ativan prior -psych consult--- unknown psych history-- home Seroquel AND zolft -repeat CT no acute- 2.)Seizure -Keppra 750mg BID-- -Keppra 15.6 -seizure precautions -EEG- cortical dysfunction in the right ? hemispehre, with potential epileptogenicity arising from the right ? temporal region 3.)Stroke -ASA/plavix 4.)?? ETOH use 5.)DVT ppx- lovenox 6.) d/c planning- PT/OT eval SIGNATURE: Macarena Cotto APRN.EAR FLAP BINDER PATIENT NAME: Yuval Nichols Jr. DATE: March 28, 2018 TIME: 8:56 AM PAGER/CONTACT #: [phone] MDRD GFR Collected: 03/28/2018 Status: F Source: [facility] 4:30 AM HEALTH SYSTEM REPOSITORY TYPE CODE TESTS RESULT OUT OF RANGE REFERENCE UNITS LAB GFRFN(LOINC >60mL/min/1.73m ) 2 eGFR >60 Result Comment: If the patient is , multiply the result by 1.210. Performed By: #### GFR #### [place] [id number] HEMOGRAM Collected: 03/28/2018 Status: F Source: [facility] 4:30 AM HEALTH SYSTEM REPOSITORY TYPE CODE TESTS RESULT OUT OF REFERENCE UNITS RANGE LAB WBC(LOINC) 4.23-9.07 thou/cmm WBC 6.19 LAB RBC(LOINC) 4.63-6.08 mil/cmm Low RBC 4.49 LAB HGB(LOINC) 13.7-17.5 g/dL Low Hgb 13.6 LAB HCT(LOINC) 40.1-51.0 % Hct 40.3 LAB MCV(LOINC) 83.2-95.6 fl MCV 89.8 LAB MCH(LOINC) 25.7-32.2 pg MCH 30.3 LAB MCHC(LOINC) 32.3-36.5 % MCHC 33.7 LAB RDW(LOINC) 11.6-14.4 % RDW 12.8 LAB RDWSD(LOINC 36.1-45.8 fl ) RDW SD 41.8 LAB PLT(LOINC) 141-365 thou/cmm Platelet 231 LAB MPV(LOINC) 8.7-12.0 fl MPV 10.6 Performed By: #### CBC1 #### [facility] [address] [place] [id number] RENAL PANEL Collected: 03/28/2018 Status: F Source: [facility] 4:30 AM HEALTH SYSTEM REPOSITORY TYPE CODE TESTS RESULT OUT OF REFERENCE UNITS RANGE LAB NA(LOINC) 136-145 mEq/L Sodium Blood 138 LAB K(LOINC) 3.5-5.1 mEq/L Potassium Blood 3.8 Result Comment: SPECIMEN SLIGHTLY HEMOLYZED LAB CL(LOINC) 98-107 mEq/L Chloride Blood 104 LAB CO2(LOINC) 21-32 mEq/L CO2 Blood 25 LAB GLU(LOINC) 70-99 mg/dL Glucose High Blood 108 LAB BUN(LOINC) 7-18 mg/dL BUN Blood 17 LAB CREA(LOINC) 0.67-1.17 mg/dL Creatinine Blood 0.86 LAB CA(LOINC) 8.5-10.1 mg/dL Calcium Blood 9.1 LAB ALB(LOINC) 3.4-5.0 g/dL Albumin Blood 3.4 LAB PHOS(LOINC) 2.5-4.9 mg/dL Phosphorus Blood 3.7 Performed By: #### RENAL #### [place] [id number] LEVETIRACETAM Collected: 03/27/2018 Status: F Source: [facility] 1:25 PM HEALTH SYSTEM REPOSITORY TYPE CODE TESTS RESULT OUT OF REFERENCE UNITS RANGE LAB KEPPX(LOIN C) Levetiracetam SEE BELOW Result Comment: Levetiracetam 16.4 12.0-46.0 ug/mL This test is not suitable for patients receiving treatment with the drug brivaracetam (Briviact). The drug causes an interference that may lead to falsely elevated levetiracetam results. Reference ranges and high/low indicator flags are provided as general guidelines only. The treating physician must determine appropriate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 History of strokes and seizures, and patient could have a new stroke resulting in aphasia (difficult to determine if focal deficits as he is non-compliant with exam), as well as could be post-ictal from seizure activity. - Lab work up unremarkable thus far. Still unclear if any use of ETOH at home, and thus also need to consider w/d sz. ?PLAN: - Repeated head CT was done which was negative - Might need MRI if radiology clearance was approved - EEG suggesting potential epileptogenicity arising from the right temporal region , but possible patient is having subclinical seizures and thus will get BEM. -Continue home doses of ASA/Plavix, Statin. -Continue Keppra 750mg BID. - may need psych consult if no improvement -Continue to correct metabolic derangements -Monitor for possible ETOH w/d - CIWA. Unclear hx of ETOH use, thus also recommend, Thiamine, Folate, MVI, B12. -Seizure precautions. - fu with neuro recs Seizure (HCC) 03/25/2018 - Present Current Assessment AND Plan Assessment: History of seizure disorder with recurrent breakthrough seizures, suspect medication non-compliance v breakthrough seizure. Low suspicion for infectious precipitant, drug ingestion, ETOH, strenuous exercise, or sleep deprivation. - EEG suggesting potential epileptogenicity arising from the right temporal region , but possible patient is having subclinical seizures and thus will get BEM. PLAN: - Imaging negative for acute process. - Load patient with 1g keppra and resumed 750 BID IV since pt is not taking PO now . - Seizure precautions. - Ativan PRN for breakthrough seizures. Obtain records from [facility]. Stroke ([facility]) 03/25/2018 - Present Current Assessment AND Plan Assessment: Prior CVA (04/2017), unspecified location. - Repeated CT without acute changes - TSH normal, lipid panel normal PLAN: - Continue with ASA, statin. - Will obtain records from OSH. Neurology consult as above. - fu neuro recs Ventricular tachycardia (HCC) 03/26/2018 - Present Current Assessment AND Plan Assessment: - Pt had 6 beat run of Vtach on tele last night - Checked lytes, were normal except for K of 3.3 - Troponin was checked, was neg PLAN: - Replace lytes - Check EKG Hypokalemia 03/26/2018 - Present Current Assessment AND Plan Assessment: - K 3.3 ? PLAN: - Replace with 40meq tab - Recheck bmp Medication and Non-Pharmacologic VTE Prophylaxis/Anticoagulants Anticoagulant AND Antiplatelet Medications Start Dose Route Frequency Ordered Stop 03/26/18 0900 aspirin 81 mg chewable tab(s) 81 mg ORAL DAILY 03/25/189 -- 03/26/18 0900 clopidogrel 75 mg tab(s) (PLAVIX) 75 mg ORAL DAILY 03/25/180 -- 03/25/182099 enoxaparin 40 mg injection (LOVENOX) (Medical At Risk ) 40 mg SUBCUTANEOUS DAILY 03/25/181951 -- 03/25/181999 pneumatic compression stockings (wi,oh) VTE Prophylaxis: VTE prophylaxis appropriate Plan of care discussed with: Attending SIGNATURE: Patricia Marquez MD PATIENT NAME: Yuval Nichols Jr. DATE: March 26, 2018 TIME: 2:18 PM PAGER/CONTACT #: [phone] TROPONIN I Collected: 03/26/2018 Status: F Source: [facility] 12:45 PM HEALTH SYSTEM REPOSITORY TYPE CODE TESTS RESULT OUT OF REFERENCE UNITS RANGE LAB TROP(LOINC) 0.015-0.045 ng/ml Troponin I < 0.015 Performed By: #### TROP #### [facility] [address] [id number] EKG (AK,AV,EU,FV,HL,DERRICK,MM,SP) Observed: Status: F Source: [place] 03/26/2018 12:29 CLINIC OTHER PM CAMPUS REPOSITORY NAME : YUVAL NICHOLS PID : [id number] : 1970 Gender : Male Race : ORD : [id number] Procedure Date : Mar 26 2018 12:29 Edit Date : Mar 30 2018 08:37 Diagnosis:SINUS BRADYCARDIA WITH MARKED SINUS ARRHYTHMIA POSSIBLE LEFT ATRIAL ENLARGEMENT CANNOT RULE OUT ANTERIOR INFARCT , AGE UNDETERMINED ABNORMAL ECG NO PREVIOUS ECGS AVAILABLE Confirmed by Dean Thayer M.D. ([id number]) on 03/30/2018 8:36:59 AM Ventricular Rate : 56 BPM Atrial Rate : 56 BPM P-R Interval : 140 ms QRS Duration : 98 ms Q-T Interval : 428 ms QTC Calculation(Bezet) : 413 ms P [place] : 60 degrees R [place] : 20 degrees T [place] : 31 degrees Test Reason : Arrhythmia Location : 81 : [id number] Overread By : Dean Thayer M.D. Editted By : Dean Thayer M.D. Referred By : ASPEN ALMAZAN Acquired by : Crista SAMUEL CT HEAD W/O CONTRAST Observed: 03/26/2018 Status: F Source: [facility] 11:53 AM HEALTH SYSTEM REPOSITORY Performed at [facility] APPROVED BY: Alfredo Escudero MD Addendum Begins * * * * * * * * ORIGINAL REPORT * * * * * * * * EXAMINATION: CT HEAD W/O CONTRAST CLINICAL HISTORY: Altered mental status TECHNIQUE: Serial axial images without IV contrast were obtained from the vertex to the foramen magnum. MQ: CTBWO_3 CT Dose-Length Product (DLP): 774 mGy*cm CT Dose Reduction Employed: 3-dose reduction was manually adjusted based on patient's size and age COMPARISON: None. RESULT: Technical limitations: Decreased quality of exam due to motion artifact Post-operative change: None. Acute change: No evidence of an acute infarct or other acute parenchymal process. Hemorrhage: No evidence of acute intracranial hemorrhage. Mass Lesion / Mass Effect: There is no evidence of an intracranial mass or extraaxial fluid collection. No significant mass effect. Chronic change: None apparent. Parenchyma: There is no significant volume loss. The brain parenchyma is otherwise within normal limits for age. Ventricles: The ventricles are within normal limits of size and configuration for age. Paranasal sinuses and skull base: Previous postoperative changes with internal fixation right lateral orbital wall as well as mcmanus of the right maxillary sinus. Chronic right maxillary sinusitis griffin es. Postoperative changes of the right orbit. The skull base and imaged soft tissues are unremarkable. IMPRESSION: 1. No definite acute intracranial abnormality, with limitations due to motion artifact * * * * * * * * ADDENDUM #1 * * * * * * * * Impression: Previous CT scan of the brain that was performed on 03/25/2018 at [facility] is now available for direct comparison. Previous right frontal craniotomy with subjacent posttraumatic encephalomalacia right frontal lobe is unchanged, considering quality limitations due to motion artifact Addendum Ends EXAMINATION: CT HEAD W/O CONTRAST CLINICAL HISTORY: Altered mental status TECHNIQUE: Serial axial images without IV contrast were obtained from the vertex to the foramen magnum. MQ: CTBWO_3 CT Dose-Length Product (DLP): 774 mGy*cm CT Dose Reduction Employed: 3-dose reduction was manually adjusted based on patient's size and age COMPARISON: None. RESULT: Technical limitations: Decreased quality of exam due to motion artifact Post-operative change: None. Acute change: No evidence of an acute infarct or other acute parenchymal process. Hemorrhage: No evidence of acute intracranial hemorrhage. Mass Lesion / Mass Effect: There is no evidence of an intracranial mass or extraaxial fluid collection. No significant mass effect. Chronic change: None apparent. Parenchyma: There is no significant volume loss. The brain parenchyma is otherwise within normal limits for age. Ventricles: The ventricles are within normal limits of size and configuration for age. Paranasal sinuses and skull base: Previous postoperative changes with internal fixation right lateral orbital wall as well as mcmanus of the right maxillary sinus. Chronic right maxillary sinusitis griffin es. Postoperative changes of the right orbit. The skull base and imaged soft tissues are unremarkable. IMPRESSION: 1. No definite acute intracranial abnormality, with limitations due to motion artifact CONSULT Observed: 03/26/2018 Status: COMPLETED Source: [place] 10:01 AM [facility] OTHER CAMPUS REPOSITORY HNO ID: [id number] Author: Chavez Valle Jr. Service: Neurology General Author Type: Physician Type: Consults Filed: 03/26/2018 10:31 AM Note Text: CONSULT: NEUROLOGY SERVICE SERVICE DATE: 03/26/2018 SERVICE TIME: 10:01 AM REASON FOR CONSULT: AMS, ? seizure REQUESTING PHYSICIAN: Dr. Inocencio Vargas PRIMARY CARE PHYSICIAN: Galo Vasquez MD Subjective Mr. Nichols is a 47 year old right handed male with reported history of stroke and seizures earlier this year for which he was evaluated at OSH (? [place]). I have no access to any of these records, patient cannot provide history, and family (including son who is bedside) are poor historians. There is also a report of patient having plates and screws in his head since age 17 years old, but reason for such is unknown. Per admitting physician note there is also past medical history significant for residual left side weakness as result of storke, HTN, HLD, GERD, + anti-cardiolipin antibody. Pt presented to [facility] from [place] ER where he was taken after being found unresponsive at home. Reportedly was sitting in a recline covered in urine. There were no witnessed abnormal movements and no blood from the mouth. I have no other details regarding the event. The family at one point states that someone accused them of giving the patient ETOH, but the son states I just bought it, but I didn't give it to him. Patient's family does not know AED he takes at home, but it appears to be Keppra from those able to obtain some records prior to this AM. Last seizure was reported as 06/2017. Patient's sons report that he has had prolonged postictal phases in the past lasting several days in length CT brain performed in ER, on my review of images did not show evidence of an acute intracranial process and per radiology report: Acute ischemic change: ? None. ?ASPECT Score = 1 Hemorrhage: ? No evidence of acute intracranial hemorrhage. ?ECASS Hemorrhagic Transformation Score = Not Applicable Mass Lesion / Mass Effect: ?There is no evidence of an intracranial mass or extraaxial fluid collection. ? No significant mass effect. Chronic change: ? ?Postoperative changes consisting of anterior right frontal craniotomy with encephalomalacia of the underlying right frontal lobe. ?Low attenuation is present in the periventricular white matter which is a nonspecific finding but most likely the sequelae of chronic small vessel ischemia. ?Extensive postoperative changes along the right facial bones. Parenchyma: ?Ventricles and cortical sulci are prominent suggesting volume loss. ?The brain parenchyma is otherwise within normal limits for age. Ventricles: ? ? Ventriculomegaly concordant with the degree of parenchymal volume loss. Other: ?The visualized calvarium, skull base, orbits and extracranial soft tissues are otherwise normal. CTA head and neck was also unremarkable. Per radiology report: No significant stenosis in either carotid bifurcation by NASCET criteria. ?Patent cervical vertebral arteries. ?No clear evidence of prior cervical internal carotid or vertebral artery dissection. No evidence of significant large vessel intracranial occlusive disease. Labs reviewed and CMP unremarkable. Trop negative. Ethanol <11. Urine tox negative. CBC unremarkable. TSH 0.630. A1c 5.6. CK 183. UA unremarkable. ECG per report unremarkable: Diagnosis:NORMAL SINUS RHYTHM NORMAL ECG NO PREVIOUS ECGS AVAILABLE EEG performed earlier this AM and per prelim report: ? This EEG supports the diagnosis of a cortical dysfunction in the right ? hemispehre, with potential epileptogenicity arising from the right ? temporal region. There is also evidence of a severe diffuse ? encephalopathy. No EEG seizures were recorded. FUNCTIONAL STATUS: Independent PAST MEDICAL HISTORY ABOVE SOCIAL HISTORY: Family denies ETOH or tob use FAMILY HISTORY: Unknown per family. Prescriptions Prior to Admission: omeprazole (PRILOSEC) 20 mg capsule Take 40 mg by mouth once daily. Disp: Rfl: tamsulosin ER (FLOMAX) 0.4 mg cap Take 0.8 mg by mouth once daily. Disp: Rfl: docusate sodium (COLACE) 100 mg capsule Take 100 mg by mouth once daily. Disp: Rfl: QUEtiapine (SEROQUEL) 25 mg tablet Take 25 mg by mouth daily at bedtime. Disp: Rfl: fenofibrate nanocrystallized (TRICOR) 145 mg tablet Take 145 mg by mouth once daily. Disp: Rfl: sertraline (ZOLOFT) 50 mg tablet Take 50 mg by mouth once daily. Disp: Rfl: levETIRAcetam (KEPPRA) 750 mg tablet Take 750 mg by mouth twice daily. Disp: Rfl: atorvastatin (LIPITOR) 20 mg tablet Take 20 mg by mouth once daily. Disp: Rfl: clopidogrel (PLAVIX) 75 mg tablet Take 75 mg by mouth once daily. Disp: Rfl: aspirin 81 mg chewable tablet Take 81 mg by mouth once daily. Disp: Rfl: etodolac (LODINE) 400 mg tablet Take 400 mg by mouth twice daily. Disp: Rfl: mineral oil-polyethylen, bulk, 90 % oint Disp: Rfl: Current hospital medications: potassium chloride iv piggyback 20 mEq/100 mL 20 mEq INTRAVENOUS q 1 H levETIRAcetam 750 mg in NaCl 0.9% 100 mL (KEPPRA) 750 mg INTRAVENOUS BID enoxaparin 40 mg injection (LOVENOX) 40 mg SUBCUTANEOUS DAILY NaCl 0.9% 3-5 mL 3-5 mL INTRAVENOUS q 12 H ondansetron 4 mg tab(s) (ZOFRAN) 4 mg ORAL q 6 H PRN ondansetron (PF) 4 mg injection (ZOFRAN) 4 mg INTRAVENOUS q 6 H PRN acetaminophen 650 mg tab(s) (TYLENOL) 650 mg ORAL q 6 H PRN oxyCODONE-acetaminophen 5-325 mg 1-2 tablet (PERCOCET) 1-2 tablet ORAL q 4 H PRN melatonin 3 mg tab(s) 3 mg ORAL DAILY (8 PM) LORazepam 1 mg injection (ATIVAN) 1 mg INTRAVENOUS q 6 H PRN aspirin 81 mg chewable tab(s) 81 mg ORAL DAILY atorvastatin 40 mg tab(s) (LIPITOR) 40 mg ORAL AT BEDTIME pantoprazole DR 40 mg tab(s) (PROTONIX) 40 mg ORAL DAILY (6 AM) fenofibrate 200 mg cap(s) (LOFIBRA) 200 mg ORAL DAILY clopidogrel 75 mg tab(s) (PLAVIX) 75 mg ORAL DAILY sertraline 50 mg tab(s) (ZOLOFT) 50 mg ORAL DAILY Allergies As of Date: 03/25/2018 Allergen Noted Reaction DARVOCET A500 [PROPOXYPHENE N-SOCO*03/25/2018 Other: See Comments PENICILLINS 03/25/2018 Hives Fully Assessed 03/25/2018 COMPLETE REVIEW OF SYSTEMS: Cannot obtain as pt non-verbal. Objective PHYSICAL EXAM: GENERAL EXAM: General appearance: Lying in bed, non-verbal, holds left hand over left eye. 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 HEENT: NC/AT, nasal congestion absent, no oral lesions, membranes moist. NECK: No masses, supple. Lungs: CTA bilaterally. CV: RRR nl S1, S2. No carotid bruits. Abd: Soft, nontender, nondistended. Bowel sounds present. Extr: No cyanosis, clubbing or edema. Distal extremity pulses 2+. Capillary refill <2 sec. Skin: Cool to touch. NEUROLOGICAL EXAM: General: Awake, non-verbal, not following commands. CN: Left pupil responsive to light, pt will not cooperate for fundo exam, EOMI on left, VFF appears intact to confrontation on left, face strength at baseline per family, does not cooperate with hearing testing, palate and tongue movements are intact and symmetric. SCM and trapezius strength normal. Motor: Normal tone, bulk and strength (5/5) bilaterally (throughout extremities x4). Reflexes: 1/4 and symmetric, plantar stimulation is extensor meghan. Coordination: Does not cooperate with testing. Sensation: W/d to noxious x4. Gait: Does not cooperate with testing. Patient Vitals for the past 24 hrs: BP Temp Temp src Pulse Resp SpO2 Height Weight 03/26/18 0724 122/62 36.8 ?C (98.2 ?F) Axillary 60 20 95 % - - 03/26/18 0356 108/61 36.8 ?C (98.2 ?F) Axillary 60 20 94 % - 88.1 kg (194 lb 4.8 oz) 03/25/18 2308 144/71 37.2 ?C (99 ?F) Axillary 61 20 92 % - - 03/25/189 - - - - - - 175.3 cm (5' 9) - 03/25/18 1954 135/68 36.8 ?C (98.2 ?F) Axillary (!) 59 20 100 % - - 03/25/18 1856 144/80 36.8 ?C (98.2 ?F) Axillary 67 20 93 % - 85.6 kg (188 lb 11.2 oz) Body mass index is 28.69 kg/m?. DATA: Diagnostic tests reviewed for today's visit: Most recent labs and imaging results. WBC Date Value 03/26/2018 7.43 thou/cmm 03/25/2018 9.08 k/uL RBC Date Value 03/26/2018 4.38 mil/cmm 03/25/2018 4.52 m/uL Platelet Count Date Value 03/26/2018 196 thou/cmm 03/25/2018 225 k/uL BUN (mg/dL) Date Value 03/26/2018 10 03/25/2018 10 Creatinine (mg/dL) Date Value 03/26/2018 0.87 03/25/2018 0.91 CBC, Coags, BMP, Mg, Phos Recent Labs 03/26/18 0418 03/25/18 1100 INR -- 1.1 APTT -- 23.9 NA 139 140 K 3.3* 4.2 CHLOR 106 102 CO2 24 27 GLUC 86 101* CA 8.3* 9.4 MG 1.8 1.5* P 2.9 -- Liver Function, Amylase, AND Lipase Recent Labs 03/25/18 1100 TPROT 6.9 ALB 4.1 ALT 13 AST 16 ALKPHOS 38 TBILI 0.3 Impression/Recommendations Patient with AMS of uncertain etiology. Family provides minimal history and patient currently is non-verbal. History of strokes and seizures, and patient could have a new stroke resulting in aphasia (difficult to determine if focal deficits as he is non-compliant with exam), as well as could be post-ictal from seizure activity. Of note, he was not a candidate for IV TPA at OSH due to unknown time of onset as well as possible seizure. Lab work up unremarkable thus far. Still unclear if any use of ETOH at home, and thus also need to consider w/d sz. Plan as follows: -If can get clearance from radiology given prior head surgeries, will get MRI brain to evaluate for acute stroke. However in meantime will repeat CT brain to determine if a new stroke has declared itself. -Prelim EEG above, but possible patient is having subclinical seizures and thus will get BEM. -Continue home doses of ASA/Plavix, Statin. -Continue Keppra 750mg BID. -Pt also on Seroquel and Zoloft at home and question if possible psych history that is contributing to symptoms. If no medical etiology determined as cause of symptoms, and not improving, may need psych consult. -Continue to correct metabolic derangements as you are doing. -Monitor for possible ETOH w/d - CIWA. Unclear hx of ETOH use, thus also recommend, Thiamine, Folate, MVI, B12. -Seizure precautions. SIGNATURE: Chavez Valle MD PATIENT NAME: Yuval Nichols Jr. DATE: March 26, 2018 TIME: 10:01 AM PAGER: [phone] HEMOGRAM Collected: 03/26/2018 Status: F Source: [facility] 4:18 [facility] REPOSITORY TYPE CODE TESTS RESULT OUT OF REFERENCE UNITS RANGE LAB WBC(LOINC) 4.23-9.07 thou/cmm WBC 7.43 LAB RBC(LOINC) 4.63-6.08 mil/cmm Low RBC 4.38 LAB HGB(LOINC) 13.7-17.5 g/dL Low Hgb 12.9 LAB HCT(LOINC) 40.1-51.0 % Hct 40.5 LAB MCV(LOINC) 83.2-95.6 fl MCV 92.5 LAB MCH(LOINC) 25.7-32.2 pg MCH 29.5 LAB MCHC(LOINC) 32.3-36.5 % Low MCHC 31.9 LAB RDW(LOINC) 11.6-14.4 % RDW 12.8 LAB RDWSD(LOINC 36.1-45.8 fl ) RDW SD 43.7 LAB PLT(LOINC) 141-365 thou/cmm Platelet 196 LAB MPV(LOINC) 8.7-12.0 fl MPV 10.3 Performed By: #### CBC1 #### [place] [id number] BASIC PANEL Collected: 03/26/2018 Status: F Source: [facility] 4:18 HEALTH SYSTEM REPOSITORY TYPE CODE TESTS RESULT OUT OF REFERENCE UNITS RANGE LAB NA(LOINC) 136-145 mEq/L Sodium Blood 139 LAB K(LOINC) 3.5-5.1 mEq/L Low Potassium Blood 3.3 LAB CL(LOINC) 98-107 mEq/L Chloride Blood 106 LAB CO2(LOINC) 21-32 mEq/L CO2 Blood 24 LAB GLU(LOINC) 70-99 mg/dL Glucose Blood 86 LAB BUN(LOINC) 7-18 mg/dL BUN Blood 10 LAB CREA(LOINC 0.67-1.17 mg/dL ) Creatinine Blood 0.87 LAB CA(LOINC) 8.5-10.1 mg/dL Low Calcium Blood 8.3 LAB ANGAP(LOIN 8-16 C) Anion Gap 12 Performed By: #### P8 #### [place] [id number] LIPID PROFILE Collected: 03/26/2018 Status: F Source: [facility]. [facility] 4:18 AM HEALTH SYSTEM REPOSITORY TYPE CODE TESTS RESULT OUT OF REFERENCE UNITS RANGE LAB CHOL(LOINC 0-199 mg/dL ) Cholesterol Blood 150 Result Comment: <200 Desirable 200-240 Borderline >240 High LAB TRIG(LOINC) 0-149 mg/dL Triglyceride Blood 104 Result Comment: < 200 Desirable Result invalid if not a fasting specimen. LAB HDL2(LOINC) >40 mg/dL HDL Cholesterol 41 LAB CHHDL(LOINC) 2.1-7.3 CHOL/HDL 3.7 LAB LDL(LOINC) mg/dL LDL (Calculated) 88 Result Comment: No CAD and with fewer than 2 CAD risk factors <160 mg/dL No CAD but with 2 or more CAD risk factors <130 mg/dL Definite CAD or other atherosclerotic disease <100 mg/dL LAB VLDL(LOINC) <50 Desired mg/dL VLDL Cholesterol 21 LAB LDHDL(LOINC) 1.1-4.8 LDL/HDL 2.1 Result Comment: LDL,VLDL,LDL/HDL, Invalid if Triglyceride >400 Performed By: #### LIPD2 #### [place] [address] MAGNESIUM BLOOD Collected: 03/26/2018 Status: F Source: [facility] 4:18 AM HEALTH SYSTEM REPOSITORY TYPE CODE TESTS RESULT OUT OF REFERENCE UNITS RANGE LAB MAG(LOINC) 1.6-2.6 mg/dL Magnesium Blood 1.8 Performed By: #### MAG #### [place] [address] PHOSPHORUS BLOOD Collected: 03/26/2018 Status: F Source: [facility] 4:18 AM HEALTH SYSTEM REPOSITORY TYPE CODE TESTS RESULT OUT OF REFERENCE UNITS RANGE LAB PHOS(LOINC 2.5-4.9 mg/dL ) Phosphorus Blood 2.9 Performed By: #### PHOS #### [place] [address] TSH, 3RD GENERATION Collected: 03/26/2018 Status: F Source: [facility] 4:18 AM HEALTH SYSTEM REPOSITORY TYPE CODE TESTS RESULT OUT OF REFERENCE UNITS RANGE LAB TSH3(LOINC 0.358-3.740 uIU/mL ) TSH, 3rd generation 0.630 Performed By: #### TSH3 #### [facility] [address] [place], [place] [address] HGB A1C Collected: 03/26/2018 Status: F Source: [facility] 4:18 AM HEALTH SYSTEM REPOSITORY TYPE CODE TESTS RESULT OUT OF RANGE REFERENCE UNITS LAB A1C5(LOINC) 4.2-6.3 % Hgb A1c 5.6 Result Comment: Method is National Glycohemoglobin Standardization Program (NGSP) compliant. LAB ESAVG(LOINC) mg/dl Est. Avg Glucose 114 Performed By: #### HA1C #### [place] [id number] NURSING PROG Observed: 03/26/2018 Status: COMPLETED Source: [place] 4:04 AM [facility] REPOSITORY HNO ID: [id number] Author: Leilani Gillette) Libby Service: Nursing Author Type: Registered Nurse Type: Nursing Progress Note Filed: 03/26/2018 4:05 AM Note Text: Notified House Med of patient's 6 beat run of Vtach, new orders will be placed in chart. HISTORY PHYSICAL Observed: 03/25/2018 Status: COMPLETED Source: [place] 10:20 PM [facility] REPOSITORY HNO ID: [id number] Author: Aspen Almazan Service: Hospital Medicine Author Type: Physician Type: HANDP Filed: 03/26/2018 6:02 PM Note Text: SERVICE DATE: 03/25/2018 SERVICE TIME: 10:20 PM HOSPITAL MEDICINE HISTORY AND PHYSICAL PCP: Galo Vasquez MD SUBJECTIVE Chief Complaint: AMS HPI: Mr. Nichols is a 47 YOM with a PMH of unspecified seizure disorder, recent stroke with residual left-sided weakness, HTN, HLD, GERD, + anti-cardiolipin antibody, presenting as transfer from outside ED for AMS. Per son, they came to patient's home early this morning and found him minimally responsive. Tried to rouse patient and were unable to. Found patient in his own urine. 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 He also reports his father had stroke in April but cannot tell me where he was treated for this and there are no records available in care everywhere. After pesonally calling [facility] patient has had at least two admissions for exact same presentation. ED Course: CBC, BMP WNL. Mg+ 1.5. UDS negative, UA negative. Keppra level pending CT brain negative for acute process but demonstrates post-operative changes consistent with anterior right frontal craniotomy with encephalomalacia, small vessel chronic ischemia as well as generalized volume loss. CTA head/neck negative. CXR with patchy left atelectasis v infiltrate Patient given 1L NS bolus, 3g MgSO4, and placed on MIVF. Patient transferred to [facility] for further care due to possible need for neuro intensive care. Unable to obtain ROS 2/2 to patient's mental status. No past medical history on file. No past surgical history on file. No family history on file. Social History Substance Use Topics - Smoking status: Not on file - Smokeless tobacco: Not on file - Alcohol use Not on file Medications: Reviewed Allergies: ALLERGIES Allergen Reactions - Darvocet A500 [Prop* Other: See Comments Hot flashes - Penicillins Hives Review of Systems: Unable to obtain due to patient's mental status OBJECTIVE: PHYSICAL EXAM BP 135/68 Pulse 59 Temp (Src) 98.2 (Axillary) Resp 20 Wt 188 lb 11.2 oz (85.6kg) SpO2 100% Physical Exam Performed: GENERAL: Lethargic but arousable LUNGS: Lungs clear to auscultation, Good diaphragmatic excursion CARDIAC: Normal S1 and S2; no rubs, murmurs, or gallops ABDOMEN: Abdomen soft, non-tender, BS normal, No masses or organomegaly EXTREMITIES: Extremities normal, no deformities, edema, clubbing or skin discoloration. Good capillary refill., No ulcers NEURO: Moves all four extremities. Withdrawals from pain. Lines, Drains, and Airways No matching active lines, drains, or airways Diagnostic tests reviewed: Most recent labs and imaging results CARE COORDINATION: No Patient Care Coordination Note on file. Assessment AND Plan, all Hosp Problems Active Hospital Problems as of 03/25/2018 Noted - Resolved Hospital Hyperlipidemia 03/25/2018 - Present Current Assessment AND Plan Assessment: HLD on statin therapy PLAN: Check lipids with AM labs. Adjust as needed Hypertension 03/25/2018 - Present Current Assessment AND Plan Assessment: HTN, controlled PLAN: Patient currently normotensive, does not appear to be on anti-hypertensive therapy at the moment. Monitor BP. Hydralazine PRN for SBP>160. GERD (gastroesophageal reflux disease) 03/25/2018 - Present Current Assessment AND Plan Assessment: GERD without esophagitis PLAN: Continue with PPI * (Principal)Seizure (HCC) 03/25/2018 - Present Current Assessment AND Plan Assessment: History of seizure disorder with recurrent breakthrough seizures, suspect medication non-compliance v breakthrough seizure. Low suspicion for infectious precipitant, drug ingestion, ETOH, strenuous exercise, or sleep deprivation. PLAN: Imaging negative for acute process. Keppra level obtained and pending. Load patient with 1g keppra now. Seizure precautions. Check 20 minute EEG. Neurology consult. Ativan PRN for breakthrough seizures. Obtain records from [facility]. Stroke (HCC) 03/25/2018 - Present Current Assessment AND Plan Assessment: Prior CVA (04/2017), unspecified location. PLAN: Unspecified location. Per report occurred in April 2017 at [facility]. Continue with ASA, statin. Low concern for new acute stroke given lack of findings on CT scan. Will obtain records from OSH. Neurology consult as above. Will check lipid panel, A1c, TSH for risk stratification. Medication and Non-Pharmacologic VTE Prophylaxis/Anticoagulants Anticoagulant AND Antiplatelet Medications Start Dose Route Frequency Ordered Stop 03/26/18 0900 aspirin 81 mg chewable tab(s) 81 mg ORAL DAILY 03/25/18 2049 -- 03/26/18 0900 clopidogrel 75 mg tab(s) (PLAVIX) 75 mg ORAL DAILY 03/25/180 -- 03/25/182099 enoxaparin 40 mg injection (LOVENOX) (Medical At Risk ) 40 mg SUBCUTANEOUS DAILY 03/25/181951 -- 03/25/181999 pneumatic compression stockings (wi,oh) VTE Prophylaxis: VTE prophylaxis appropriate SIGNATURE: Inocencio Vargas MD PATIENT NAME: Yuval Nichols Jr. DATE: March 25, 2018 TIME: 10:20 PM PAGER/CONTACT #: [id number] ED NOTE Observed: 03/25/2018 Status: COMPLETED Source: [place] 5:35 PM CLINIC OTHER CAMPUS REPOSITORY HNO ID: [id number] Author: Cassandra Gillette) TEODORO Clarke Service: Nursing Author Type: Registered Nurse Type: ED Notes Filed: 03/25/2018 5:36 PM Note Text: [facility] here to transport pt down to [facility]. Report given to transfer team. ED NOTE Observed: 03/25/2018 Status: COMPLETED Source: [place] 5:10 PM [facility] REPOSITORY HNO ID: [id number] Author: Cassandra OlmedoRn) TEODORO Clarke Service: Nursing Author Type: Registered Nurse Type: ED Notes Filed: 03/25/2018 5:38 PM Note Text: Pt was assisted in bed with repositioning. IVF maintained via gravity W/O. ED NOTE Observed: 03/25/2018 Status: COMPLETED Source: [place] 2:48 PM [facility] REPOSITORY HNO ID: [id number] Author: Cassandra OlmedoRn) TEODORO Clarke Service: Nursing Author Type: Registered Nurse Type: ED Notes Filed: 03/25/2018 2:49 PM Note Text: BGL: 87. Bedside rounding completed at this time. Family remains at bedside. Pt resting in bed, sleeping. ED PROV NOTE Observed: 03/25/2018 Status: COMPLETED Source: [place] 2:40 PM [facility] REPOSITORY HNO ID: [id number] Author: Alfred Blum DO Service: Emergency Medicine Author Type: Physician Type: ED Provider Notes Filed: 03/26/2018 7:08 AM Note Text: ED Provider Note Patient Name: Yuval Nichols Jr. SERVICE DATE: 03/25/18 History Patient presents with: Mental Status Changes Altered Level Of Consciousness 47-year-old male past medical history of stroke with altered reported residual deficits, seizure disorder on Keppra, hypertension hyperlipidemia acid reflux presents via EMS with altered mental status. Patient's sons provides elements of past medical history and history of present illness as patient is nonverbal upon arrival. He was last seen normal around 9/10 PM yesterday evening. He usually awakes at 8:00 in the morning to take his medications but patient was found at 9 AM this morning with decreased mental status. Paramedics were called. Last reported seizure was approximately June 2017. Patient reported to have urinary incontinence per nursing staff upon ED arrival. Upon arrival he is nonverbal and unable to follow commands. Patient's sons report that he has had prolonged postictal phases in the past lasting several days in length No past medical history on file. No past surgical history on file. No family history on file. Social History Social History Main Topics - Smoking status: Not on file - Smokeless tobacco: Not on file - Alcohol use Not on file - Drug use: Unknown - Sexual activity: Not on file ALLERGIES No Known Allergies Review of Systems Unable to perform ROS: Patient nonverbal Physical Exam BP 134/64 Pulse 68 Temp (Src) 99.9 (Axillary) Resp 15 Wt 200 lb (90.7kg) SpO2 93% Physical Exam Constitutional: He appears well-developed and well-nourished. HENT: Head: Normocephalic and atraumatic. Eyes: Left eye exhibits no discharge. Left pupil reactive to light extraocular motion intact. Right eye with reported chronic abnormalities with hazy cornea Neck: No tracheal deviation present. No thyromegaly present. Cardiovascular: Normal rate and regular rhythm. Pulmonary/Chest: Effort normal and breath sounds normal. Abdominal: Soft. Bowel sounds are normal. Musculoskeletal: Patient does not follow commands but will intermittently make purposeful movements including moving all 4 extremities to reposition himself in a position of comfort on his bed Neurological: Patient will not answer questions upon my interview and exam but does cursing at staff when attempting IV access. He will make purposeful movements when repositioning himself in bed moving all 4 extremities. Skin: Skin is warm and dry. Psychiatric: Non-verbal Diagnostic Testing ED Labs Ordered and Reviewed COMP METABOLIC PANEL - Abnormal; Notable for the following: Result Value Ref Range Glucose 101 (*) 74 - 99 mg/dL All other components within normal limits MAGNESIUM BLD - Abnormal; Notable for the following: Magnesium 1.5 (*) 1.7 - 2.3 mg/dL All other components within normal limits CBC + DIFF - Abnormal; Notable for the following: Abs Lymph 0.93 (*) 1.00 - 4.00 k/uL All other components within normal limits CK CREATINE KINASE TROPONIN T ALCOHOL/ETHANOL BLD PROTHROMBIN TIME/PT ACTIVATED PTT GLUCOSE - ED(POC) TOX SCREEN ROUT UR URINALYSIS LEVETIRACETAM GLUCOSE, BLOOD (POC) Narrative: Meter ID:[id number] BLOOD CULTURE DRAW BLOOD CULTURE DRAW EKG ordered and interpreted as normal sinus rhythm rate 65 no appreciable acute ischemic changes ED imaging studies ordered and reviewed Portable chest x-ray shows small left pleural effusion/patchy atelectasis versus infiltrate CT brain negative CTA head and neck without significant large special occlusive disease Procedures ED Course / Clinical Impression Clinical Impressions as of Mar 25 144 Altered mental status, unspecified altered mental status type Hypomagnesemia MDM / Disposition / Plan IV started Treated with IV fluids Nursing notes and vital signs reviewed Triage note reviewed Placed on cardiac nurse Discussed CT brain attack findings with the reading neuroradiologist Dr. Trinh - confirms no acute intracranial process Medications administered magnesium sulfate Patient's sons provide past medical history and history of present illness Patient arrives nonverbal and not following commands. History limited therefore stroke alert activated. CT brain CTA head and neck unremarkable. Patient was noted to have purposeful movement throughout ED stay specifically readjusting himself using all 4 extremities to move himself into a position of comfort on his bed. He would also swear at staff when attempting IV placement. Blood work including cardiac markers serum ethanol coagulation studies CBC CMP all unremarkable. Minimal hypomagnesemia noted replaced. EKG unremarkable. Chest x- ray with left pleural effusion and questionable patchy left atelectasis versus infiltrate. Patient without fever cough or leukocytosis or abnormal lung sounds. Low suspicion for clinical pneumonia. Family reports similar prolonged episodes of postictal phase following seizure activity in the past lasting up to 2?3 days in length. He was reportedly incontinent of urine per nursing staff upon ED arrival. Patient discussed with [facility] transfer center and attempt will be made to transfer patient to high level care facility for further neurological monitoring and care. MDM The patient was TRANSFERRED to: [facility] Condition at time of disposition: stable SIGNATURE: Alfred Blum DO Critical Care I spent a total of 30 minutes of critical care time in the evaluation and management of this patient. This was necessary to treat or prevent deterioration of the following condition(s): MANAGER ENROLLMENT impairment, which the patient had and/or has a high probability of suddenly developing. The patient received IV magnesium sulfate, IV Fluids and Consultation by neuroradiologist during the time that critical care was provided. Critical care time excludes separately billed procedures. DO Alfred Wei DO 03/26/18 0708 ED NOTE Observed: 03/25/2018 Status: COMPLETED Source: [place] 1:30 PM CLINIC OTHER CAMPUS REPOSITORY HNO ID: [id number] Author: Cassandra Gillette) TEODORO Clarke Service: Nursing Author Type: Registered Nurse Type: ED Notes Filed: 03/25/2018 1:35 PM Note Text: Okay for pt to be stroke protocol per Dr Radha blum at this time. Bedside rounding completed at this time. Family remains at bedside. XR CHEST 1V FRONTAL Observed: 03/25/2018 Status: F Source: [facility] 1:03 PM [facility] OTHER CAMPUS REPOSITORY * * *Final Report* * * DATE OF EXAM: Mar 25 2018 1:03PM MDX [id number] - XR CHEST 1V FRONTAL PORT / PROCEDURE REASON: Fatigue and malaise * * * * Physician Interpretation * * * * EXAMINATION: CHEST RADIOGRAPH (PORTABLE SINGLE VIEW AP) Exam Date/Time: 03/25/2018 1:03 PM Clinical History: Fatigue and malaise, MQ: XCPMC_5 Comparison: None RESULT: SMALL LEFT PLEURAL EFFUSION AND PATCHY LEFT BASILAR ATELECTASIS/INFILTRATE. . IMPRESSION: Lines, tubes, and devices: None. Lungs and pleura: There is small left pleural effusion and patchy left basilar atelectasis/infiltrate. Cardiomediastinal silhouette: Exaggerated cardiomediastinal silhouette. Other: The bony structures are grossly intact. Insole Toe Snipping Machine Operator: PSCB Transcribe Date/Time: Mar 25 2018 1:12P Dictated by : SANJUANA FRANCO MD This examination was interpreted and the report reviewed and electronically signed by: SANJUANA FRANCO MD on Mar 25 2018 1:12PM EST [id number] ED NOTE Observed: 03/25/2018 Status: COMPLETED Source: [place] 12:48 PM [facility] REPOSITORY HNO ID: [id number] Author: Cassandra OlmedoRn) TEODORO Clarke Service: Nursing Author Type: Registered Nurse Type: ED Notes Filed: 03/25/2018 12:48 PM Note Text: Portable xray at bedside. CTA HEAD W IVCON Observed: 03/25/2018 Status: F Source: [place] 12:39 PM [facility] OTHER CAMP[facility] REPOSITORY * * *Final Report* * * DATE OF EXAM: Mar 25 2018 12:39PM [facility] 0022 - CTA HEAD W IVCON / PROCEDURE REASON: Confusion, acute, unexplained * * * * Physician Interpretation * * * * EXAMINATION: CTA NECK W IVCON, CTA HEAD W IVCON CLINICAL HISTORY: Unexplained confusion. TECHNIQUE: Spiral high resolution axial images were obtained through the head, neck and superior mediastinum following bolus administration of intravenous contrast for CT angiography. Post-processed 3D maximum intensity projections were created, reviewed and archived. MQ: CTAHN_4 Contrast: 80 mL Omnipaque 350 IV Dose-Length Product (DLP): 654 mGy*cm. CT Dose Reduction Employed: Automated exposure control (AEC) COMPARISON: 03/25/2018 RESULT: BRAIN: Evaluation of the individual slices of the CTA demonstrates no evidence of an acute stroke. ASPECT Score = 10 Hemorrhage: No evidence of acute intracranial hemorrhage. ECASS hemorrhagic transformation score: Not Applicable Spot Sign Presence: Not Applicable Spot Sign Number: Not Applicable NECK: Soft tissues: Mild disruption of the soft tissue planes of the right manufacturing process engineer space related to the prior facial reconstruction procedure. Metallic plates and screws are again noted along the right zygomatic arch, right infraorbital rim, and ventral right maxilla and additional metallic plate and screws are noted in the right medial epicanthal region extending cephalad to the nasal bridge. Soft tissue planes of the neck are otherwise maintained throughout. No evidence of a soft tissue mass in the neck or significant lymphadenopathy. Spine: Developmental fusion of C2 and C3 and partial bony fusion of C3 and C4. Severe disc space narrowing at C5-6 and C6-7. Osteophyte formation likely account for moderate cord compression at C3-4 and mild eccentric cord compression at C5-6. Lung apices: The visualized lung apices are clear. CT ARTERIOGRAM: Extracranial Circulation: Aortic Arch: There is a normal branching pattern from the aortic arch.. There is no significant stenosis in the proximal brachiocephalic vessels. Carotid Stenosis: Right Common: No significant stenosis. Right Internal Carotid Plaque: No significant plaque formation. Cervical right ICA is within normal limits of caliber and configuration. Right Internal Carotid Stenosis (% by NASCET Criteria): 0 Left Common: No significant stenosis. Left Internal Carotid Plaque: No significant plaque formation. Cervical left ICA is within normal limits of caliber and configuration. Left Internal Carotid Stenosis (% by NASCET Criteria): 0 Cervical Vertebral Arteries: Patency: Bilateral. Both cervical vertebral arteries appear to be within normal limits of caliber and configuration. Dominance: Codominant Intracranial Circulation: Anterior Circulation: Distal ICAs are patent and within normal limits of caliber and configuration. Proximal ACAs and MCAs are patent. Proximal ACAs and MCAs are within normal limits of caliber and configuration. No evidence of focal significant stenosis, intraluminal filling defect, abrupt vessel occlusion, aneurysm, or vascular malformation in the anterior intracranial circulation. Relative paucity of vessels in the region of the right frontal parenchymal defect. Vertebrobasilar Circulation: The distal vertebral arteries are patent and nearly equivalent in caliber. No significant stenosis in the distal vertebral or basilar arteries. The proximal right PICA, right AICA and both SCA's are patent. The proximal naphthalene operator helper appear to be within normal limits. Neither PCOM is seen. There is uniform enhancement of the superior sagittal, straight, and both transverse and both sigmoid sinuses. IMPRESSION: No significant stenosis in either carotid bifurcation by NASCET criteria. Patent cervical vertebral arteries. No clear evidence of prior cervical internal carotid or vertebral artery dissection. No evidence of significant large vessel intracranial occlusive disease. Insole Toe Snipping Machine Operator: PSCB Transcribe Date/Time: Mar 25 2018 12:50P Dictated by : JOSH WEISS MD This examination was interpreted and the report reviewed and electronically signed by: JOSH WEISS MD on Mar 25 2018 1:03PM EST [id number] CTA NECK W IVCON Observed: 03/25/2018 Status: F Source: [place] 12:39 PM [facility]AMP[facility] REPOSITORY * * *Final Report* * * DATE OF EXAM: Mar 25 2018 12:39PM [facility] 0024 - CTA NECK W IVCON / PROCEDURE REASON: Confusion, acute, unexplained * * * * Physician Interpretation * * * * EXAMINATION: CTA NECK W IVCON, CTA HEAD W IVCON CLINICAL HISTORY: Unexplained confusion. TECHNIQUE: Spiral high resolution axial images were obtained through the head, neck and superior mediastinum following bolus administration of intravenous contrast for CT angiography. Post-processed 3D maximum intensity projections were created, reviewed and archived. MQ: CTAHN_4 Contrast: 80 mL Omnipaque 350 IV Dose-Length Product (DLP): 654 mGy*cm. CT Dose Reduction Employed: Automated exposure control (AEC) COMPARISON: 03/25/2018 RESULT: BRAIN: Evaluation of the individual slices of the CTA demonstrates no evidence of an acute stroke. ASPECT Score = 10 Hemorrhage: No evidence of acute intracranial hemorrhage. ECASS hemorrhagic transformation score: Not Applicable Spot Sign Presence: Not Applicable Spot Sign Number: Not Applicable NECK: Soft tissues: Mild disruption of the soft tissue planes of the right manufacturing process engineer space related to the prior facial reconstruction procedure. Metallic plates and screws are again noted along the right zygomatic arch, right infraorbital rim, and ventral right maxilla and additional metallic plate and screws are noted in the right medial epicanthal region extending cephalad to the nasal bridge. Soft tissue planes of the neck are otherwise maintained throughout. No evidence of a soft tissue mass in the neck or significant lymphadenopathy. Spine: Developmental fusion of C2 and C3 and partial bony fusion of C3 and C4. Severe disc space narrowing at C5-6 and C6-7. Osteophyte formation likely account for moderate cord compression at C3-4 and mild eccentric cord compression at C5-6. Lung apices: The visualized lung apices are clear. CT ARTERIOGRAM: Extracranial Circulation: Aortic Arch: There is a normal branching pattern from the aortic arch.. There is no significant stenosis in the proximal brachiocephalic vessels. Carotid Stenosis: Right Common: No significant stenosis. Right Internal Carotid Plaque: No significant plaque formation. Cervical right ICA is within normal limits of caliber and configuration. Right Internal Carotid Stenosis (% by NASCET Criteria): 0 Left Common: No significant stenosis. Left Internal Carotid Plaque: No significant plaque formation. Cervical left ICA is within normal limits of caliber and configuration. Left Internal Carotid Stenosis (% by NASCET Criteria): 0 Cervical Vertebral Arteries: Patency: Bilateral. Both cervical vertebral arteries appear to be within normal limits of caliber and configuration. Dominance: Codominant Intracranial Circulation: Anterior Circulation: Distal ICAs are patent and within normal limits of caliber and configuration. Proximal ACAs and MCAs are patent. Proximal ACAs and MCAs are within normal limits of caliber and configuration. No evidence of focal significant stenosis, intraluminal filling defect, abrupt vessel occlusion, aneurysm, or vascular malformation in the anterior intracranial circulation. Relative paucity of vessels in the region of the right frontal parenchymal defect. Vertebrobasilar Circulation: The distal vertebral arteries are patent and nearly equivalent in caliber. No significant stenosis in the distal vertebral or basilar arteries. The proximal right PICA, right AICA and both SCA's are patent. The proximal naphthalene operator helper appear to be within normal limits. Neither PCOM is seen. There is uniform enhancement of the superior sagittal, straight, and both transverse and both sigmoid sinuses. IMPRESSION: No significant stenosis in either carotid bifurcation by NASCET criteria. Patent cervical vertebral arteries. No clear evidence of prior cervical internal carotid or vertebral artery dissection. No evidence of significant large vessel intracranial occlusive disease. Insole Toe Snipping Machine Operator: MONIKA Transcribe Date/Time: Mar 25 2018 12:50P Dictated by : JOSH WEISS MD This examination was interpreted and the report reviewed and electronically signed by: JOSH WEISS MD on Mar 25 2018 1:03PM EST [id number] ED NOTE Observed: 03/25/2018 Status: COMPLETED Source: [place] 12:36 PM [facility] REPOSITORY HNO ID: [id number] Author: Cassandra OlmedoRn) TEODORO Clarke Service: Nursing Author Type: Registered Nurse Type: ED Notes Filed: 03/25/2018 12:46 PM Note Text: Patient returned to the Emergency Department from CT. Pt returned to ED agitated. Family at bedside is assisting with controlling the pt's behavior. Pt is reaching for macario catheter. Provided another warm blanket. Speech/conversation is slightly better, words are more clear. Pt is slightly reluctant to listen to ED staff and family, but can be re-directed. When re-directed pt states aw fuck clearly. ED NOTE Observed: 03/25/2018 Status: COMPLETED Source: [place] 12:20 PM [facility] REPOSITORY HNO ID: [id number] Author: Cassandra OlmedoRn) Vince, RN Service: Nursing Author Type: Registered Nurse Type: ED Notes Filed: 03/25/2018 12:20 PM Note Text: Patient transported to CT with Nurse and Tech via cart. CBC AND DIFFERENTIAL Collected: 03/25/2018 Status: F Source: [place] 11:00 AM [facility] REPOSITORY TYPE CODE TESTS RESULT OUT OF REFERENCE UNITS RANGE LAB WBC 3.70-11.00 k/uL WBC 9.08 LAB RBC 4.20-6.00 m/uL RBC 4.52 LAB HGB 13.0-17.0 g/dL Hemoglobin 13.2 LAB HCT 39.0-51.0 % Hematocrit 41.9 LAB MCV 80.0-100.0 fL MCV 92.7 LAB MCH 26.0-34.0 pG MCH 29.2 LAB MCHC 30.5-36.0 g/dL MCHC 31.5 LAB RDWCV 11.5-15.0 % RDW-CV 13.0 LAB PLTCT 150-400 k/uL Platelet Count 225 LAB MPV 9.0-12.7 fL MPV 10.8 LAB ANEUT % Neut% 82.0 LAB AANEUT 1.45-7.50 k/uL Abs Neut 7.44 LAB ALYMP % Lymph% 10.2 LAB AALYMP 1.00-4.00 k/uL Low Abs Lymph 0.93 LAB AMONO % Tyler% 6.8 LAB AAMONO <0.87 k/uL Abs Tyler 0.62 LAB AEOS % Eosin% 0.8 LAB AAEOS <0.46 k/uL Abs Eosin 0.07 LAB ABASO % Baso% 0.2 LAB AABASO <0.11 k/uL Abs Baso <0.03 Performed By: #### CBCDIF, CK, CMP, MG1 #### [facility] [address] [place] [address] CK Collected: 03/25/2018 Status: F Source: [facility] 11:00 AM OTHER CAMPUS REPOSITORY TYPE CODE TESTS RESULT OUT OF RANGE REFERENCE UNITS LAB CK 51-298 U/L CK 183 Performed By: #### CBCDIF, CK, CMP, MG1 #### [facility] [address] [place] [address] COMP METABOLIC PANEL Collected: 03/25/2018 Status: F Source: [place] 11:00 AM [facility] OTHER CAMPUS REPOSITORY TYPE CODE TESTS RESULT OUT OF REFERENCE UNITS RANGE LAB TP 6.3-8.0 g/dL Protein, Total 6.9 LAB ALB 3.9-4.9 g/dL Albumin 4.1 LAB CA 8.5-10.2 mg/dL Calcium, Total 9.4 LAB TBIL 0.2-1.3 mg/dL Bilirubin, Total 0.3 LAB ALKP 38-113 U/L Alkaline Phosphatase 38 LAB AST 14-40 U/L AST 16 LAB GLU 74-99 mg/dL Glucose High 101 Result Comment: The [place] Diabetes Association (ADA) provides guidance for cutoff values for fasting glucose and random glucose. The ADA defines fasting as no caloric intake for at least 8 hours. Fas ting plasma glucose results between 100 to 125 mg/dL indicate increased risk for diabetes (prediabetes). Fasting plasma glucose results greater than or equal to 126 mg/dL meet the criteria for diagnosis of diabetes. In the absence of unequivocal hyperglycemia, results should be confirmed by repeat testing. In a patient with classic symptoms of hyperglycemia or hyperglycemic crisis, random plasma glucose results greater than or equal to 200 mg/dL meet the criteria for diagnosis of diabetes. Reference: Standards of Medical Care in Diabetes 2016, [place] Diabetes Association. Diabetes Care. 2016.39(Suppl 1). LAB BUN 9-24 mg/dL BUN 10 LAB CRET 0.73-1.22 mg/dL Creatinine 0.91 LAB NA 136-144 mmol/L Sodium 140 LAB K 3.7-5.1 mmol/L Potassium 4.2 LAB CL 97-105 mmol/L Chloride 102 LAB CO2 22-30 mmol/L CO2 27 LAB AGAP 9-18 mmol/L Anion Gap 11 LAB ALT 10-54 U/L ALT 13 LAB GFRAA eGFR- Amer. >60 LAB GFRNAA . eGFR-All Other Races >60 Result Comment: eGFR (Estimated GFR) Units of measure: mL/min/1.73 meters squared eGFR is derived from the reexpressed MDRD Study equation using the following parameters: serum creatinine, age, gender and race. The creatinine assay has been calibrated to be traceable to IDMS. An eGFR <60 mL/min/1.73m2 for >3 months is consistent with chronic kidney disease. Refer to KDOQI guidelines for clinical interpretation. In patients with unstable renal function, e.g. those with acute kidney injury, the eGFR may not accurately reflect actual GFR. Performed By: #### CBCDIF, CK, CMP, MG1 #### [facility] [address] [place] [address] MAGNESIUM Collected: 03/25/2018 Status: F Source: [place] 11:00 [facility] OTHER [place] REPOSITORY TYPE CODE TESTS RESULT OUT OF REFERENCE UNITS RANGE LAB MG 1.7-2.3 mg/dL Low Magnesium 1.5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 (Protonix) 20 mg PO DAILY [facility] Last Admin: 07/15/17 08:30 Dose: 20 mg Senna/Docusate Sodium (Senokot-S, Sharmila-Colace) 2 tablet PO BID [facility] Last Admin: 07/15/17 08:32 Dose: 2 tablet Sertraline HCl (Zoloft) 50 mg PO DAILY [facility] Last Admin: 07/15/17 08:30 Dose: 50 mg Tamsulosin HCl (Flomax) 0.4 mg PO QHS [facility] Last Admin: 07/14/17 21:54 Dose: 0.4 mg Assessment/Plan Debility 2/2 status epilepticus, complicated by a previous right medial occipital lobe stroke. Goal of rehab is muslim of functional independence. Plan: - Physical therapy for gait and balance - Occupational Therapy for ADLs - Speech therapy - As needed analgesics - Bowel protocol - Stroke prevention on ASA, Statin and Lovenox - DVT prophylaxis: SCDs, ASA, Lovenox - Seizures => Keppra 750mg BID - Hx BPH: continue Flomax - Hx Anxiety: continue Zoloft - Night terrors Started on Seroquel 25mg at HS, will obtain an EKG prior to giving first dose 07/15/17 1505 <Electronically signed by Aure HASKINS> Date Aure Longo EXTERNAL RELATIONS MANAGER-C 07/15/17 1156<Electronically signed by Savage Becker MD> Cosigner Signature (if applicable): Date Savage Becker MD CC: EXTERNAL RELATIONS MANAGER Aure Longo; No Primary Care Physician; Savage Becker MD Signed CBC-COMPLETE BLOOD CNT Collected: 07/15/2017 Status: F Source: [place] NO DIFF 5:30 AM [facility] REPOSITORY TYPE CODE TESTS RESULT OUT OF RANGE REFERENCE UNITS LAB L100.1000 4.4-11.0 K/mm3 Normal WBC 4.8 LAB L100.1200 4.6-6.2 M/mm3 Low RBC 4.54 LAB L100.1300 13.0-16.5 g/dl Normal HGB 13.7 LAB L100.1400 40-54 % Normal HCT 41.7 LAB L100.1500 80-94 fL Normal MCV 91.9 LAB L100.1600 27.0-32.0 pg Normal MCH 30.2 LAB L100.1700 32-36 g/gl Normal MCHC 32.9 LAB L100.1810 11.6-14.6 % Normal RDW CV 12.5 LAB L100.1820 35.1-43.9 fl Normal RDW SD 41.7 LAB L100.1900 150-450 K/mm3 Normal PLT 197 LAB L100.2000 6.2-12.0 fl Normal MPV 10.4 Performed By: #### L100.0500 #### [facility] [address] [place], [address] BASIC METABOLIC Collected: 07/15/2017 Status: F Source: [place] PROFILE (BMP) 5:30 AM [facility] REPOSITORY TYPE CODE TESTS RESULT OUT OF RANGE REFERENCE UNITS LAB L501.0100 74-106 mg/dL Normal GLU 94 Result Comment: Please note revised GLUCOSE reference range effective 2017. LAB L501.1000 7-18 mg/dL Normal BUN 7 LAB L501.1100 0.70-1.30 mg/dL Normal CREAT,SERUM 0.92 Result Comment: The validity of the calculated GFR AND GFRAA in patients over 70 years has not been determined. Clinical correlation is essential. LAB L501.1110 >60 mL/min Normal EST GFR 94 Result Comment: Non- GFR Calc LAB L501.1115 >60 mL/min Normal EST GFR - AA 113 Result Comment: GFR Calc LAB L501.1255 ml/min Normal Estimated CRCL 101.39 LAB L501.1300 10-20 RATIO Low BUN/CRE 7.6 LAB L501.2200 8.5-10 mg/dL .1 CA Normal 8.7 LAB L501.5300 136-14 mmol/L 5 NA Normal 141 LAB L501.5600 3.5-5. mmol/L 1 K Normal 3.8 LAB L501.5900 98-107 mmol/L CL Normal 105 LAB L501.6100 21.0-3 mmol/L 2.0 CO2 Normal 29.0 LAB L501.6200 5-15 GAP Normal 7 Performed By: #### L500.2500 #### [facility] [address] [place], [address] TRANSFER TO [facility] Observed: 07/14/2017 Status: F Source: [facility] 4:11 PM [facility] REPOSITORY [facility] Medical Records Department [address] [place] [address] Transfer to [facility] MR#: [id number] Acct: [id number] Name: YUVAL NICHOLS Jr. Rep #: [id number] : 1970 46 From: Sanjay Marsh DO PCP: Care Physician, No Primary Status: ADM IN YUVAL NICHOLS Jr. (Patient) (Health Ins. Claim No.) (Day of Discharge to Facility) Certification of patient admission REQUIRED AT TIME OF ADMISSION. I CERTIFY THAT POST-HOSPITAL ECF SERVICES ARE REQUIRED TO BE GIVEN ON AN IN-PATIENT BASIS BECAUSE OF THE ABOVE NAMED PATIENT'S NEED FOR PRISON CARE ON A CONTINUING BASIS FOR THE CONDITION(S) FOR WHICH HE/SHE WAS RECEIVING IN-PATIENT HOSPITAL SERVICES PRIOR TO HIS/HER TRANSFER TO THE F. 07/14/17 1611 <Electronically signed by Sanjay Marsh DO> Date Sanjay Marsh DO - Diet 07/13/17 11:15 Diet: Regular Diet Food consistency:: Mechanical Soft/Ground Liquid Consistency:: Regular/Thin Dietary Modifications:: Mechanical Soft Diet Is pt able to select menu?: No Diet Comments: Supervision w/ assist, thin via straw, upright 90, meds crushed in puree - Wound(s) R eye Wound Type: past injury - Therapies Weight Bearing: Full weight bearing Physical Therapy: Eval and Treat Occupational Therapy: Eval and Treat Speech Therapy: Eval and Treat - Problem/Diagnosis (1) Cerebrovascular disease Status: Chronic Comment: recent occipital infarct Current Visit: Yes (2) Dysphagia Status: Acute Current Visit: Yes (3) Seizure disorder Status: Chronic Current Visit: Yes (4) GERD (gastroesophageal reflux disease) Status: Chronic Current Visit: Yes (5) Anxiety and depression Status: Chronic Current Visit: Yes - Allergies/Procedures Done in Hospital Allergies/Adverse Reactions: Allergies Penicillins Allergy (Verified 07/08/17 21:32) Hives propoxyphene napsylate [From Darvocet-N] Allergy (Verified 07/08/17 21:32) Other hot flashes Procedures: Electroencephalogram - Type of Care/Length of Stay Estimated LOS: Convalescent Care Less Than 30 days Type of Care Needed: Acute Rehab Rehab Potential: Good Prognosis: Good - Additional Orders/Day of Discharge H AND P will serve as current which was dated: 07/08/17 Day of Discharge: 07/14/17 - Dietary and Speech Recommendations Dietitian Recommendations/Changes: Will provide Ensure pudding or magic cup w/ meals for additional calories/protein if consumed. - Follow Up Care Primary Care Physician: Care Physician,No Primary [Primary Care Provider] - 07/14/17 1611 <Electronically signed by Sanjay Marsh DO> Date Sanjay Marsh DO CC: No Primary Care Physician; Melisa Howard MD Signed HIP 2-3 VIEWS WITH Observed: 07/13/2017 Status: F Source: [place] PELVIS 12:05 PM [facility] REPOSITORY [facility] Imaging Services [address] [place] [address] Hip 2-3 Views with Pelvis MR#: [id number] Acct: [id number] Name: YUVAL NICHOLS Jr. Rep #: [id number] : 1970 M 46 From: Constantine Gallardo MD PCP: Care Physician, No Primary Status: ADM IN Study: Hip 2-3 Views with Pelvis Date of Exam: 07/13/17 Exam# [id number] Ordering Dr: Savage Becker MD STUDY: X-RAY - PELVIS AND RIGHT HIP REASON FOR EXAM: Male, 46 years old. Right hip pain. TECHNIQUE: Radiological exam, hip, unilateral, with pelvis when performed; 2 or 3 views. COMPARISON: None. FINDINGS: There is a non-specific bowel gas pattern. Normal visualized soft tissue structures. Normal bilateral iliac wings, sacroiliac joints and visualized sacrum. There is deformity of the right superior and inferior pubic rami most likely secondary to old trauma with healed fractures. There is narrowing with sclerosis of the pubic symphysis. Normal bilateral ischial tuberosities. Normal visualized femoral head. Normal acetabulum. There is mild articular joint space narrowing of the hip. RAD/Hip 2-3 Views with Pelvis IMPRESSION: Deformity of the right superior and inferior pubic rami secondary to healed old fractures. Degenerative changes of the right hip joint. Electronically Signed: Constantine Gallardo MD at 14:45 EDT Tel [phone], Service support , CC: No Primary Care Physician; Savage Becker MD Insole Toe Snipping Machine Operator: Signed ELECTROENCEPHALOGRAM Observed: 07/13/2017 Status: F Source: [place] 9:20 AM [facility]POS[facility] Pulmonary Services/Neurology [address] [place] [address] MR#: [id number] Acct: [id number] Name: YUVAL NICHOLS Jr. Rep #: [id number] : 1970 46 From: Savage Becker MD Referring Dr: Sanjay Marsh DO Status: ADM IN Ordering Dr: Date: Location: ICU ICU09-23 Sex: M C - Electroencephalogram Date of service 07/12/17 18 channel bedside electroencephalogram is performed utilizing the International 10-20 electrode placement protocol on this 46-year-old male with a history of seizures. EEG is performed to evaluate for improvement of epileptiform changes after anticonvulsant therapy. Photic stimulation and EKG reference leads were placed, hyperventilation was not performed. Background activity remains low at 5-7 Hz symmetrically throughout the recording. There are intermittent low amplitude left temporal parietal sharp waves noted throughout the recording however these are much less frequent compared to the previous recording. No seizures are noted. Impression: Abnormal EEG due to the presence of diffuse moderate slowing as well as intermittent epileptiform changes, improved compared to previous electroencephalogram. 07/13/17 0920 <Electronically signed by Savage Becker MD> Date Savage Becker MD CC: No Primary Care Physician; Savage Becker MD Date Dictated: 07/12/17 1153 Date Transcribed: 07/12/17 115 Insole Toe Snipping Machine Operator: NF Signed ELECTROENCEPHALOGRAM Observed: 07/13/2017 Status: F Source: [place] 9:20 AM [facility] REPOSITORY [facility] Pulmonary Services/Neurology [address] [place] [address] MR#: [id number] Acct: [id number] Name: YUVAL NICHOLS Jr. Rep #: [id number] : 1970 46 From: Savage Becker MD Referring Dr: Sanjay Marsh DO Status: ADM IN Ordering Dr: Date: Location: ICU ICU09-23 Sex: M C - Electroencephalogram Date of service 07/09/17 This is an 18 channel EEG performed with EKG reference leads, and photic stimulation utilizing the international 1020 electrode placement protocol on this 46-year-old male with a witnessed seizure. Background activity is slow at 5-6 Hz symmetrically. There are intermittent at times continuous left temporal sharp waves focused around the T3 electrode. Stimulation generates a normal symmetric driving response in the posterior leads. EKG rhythm recording is normal sinus rhythm throughout. Impression: This is an abnormal electroencephalogram due to the presence of left temporal sharp waves frequently, this is a epileptiform focus. 07/13/17 0920 <Electronically signed by Savage Becker MD> Date Savage Becker MD CC: No Primary Care Physician; Savage Becker MD Date Dictated: 07/11/17 1142 Date Transcribed: 07/11/17 114 Insole Toe Snipping Machine Operator: NF Signed 12 LEAD ELECTROCARDIOGRAM Observed: 07/11/2017 Status: F Source: [place] 1:31 PM [facility] REPOSITORY [facility] Cardiovascular Services [address] [place] [id number] 12 Lead EKG 07/08/17 1711 MR#: [id number] Acct: [id number] Name: JANYJALEESAYUVAL Jr. Rep #: [id number] : 1970 46 From: Bobby Ortega MD Attending Dr: Sanjay Marsh DO Status: ADM IN Ordering Dr: Anastasiia Jaramillo MD Date: 07/08/17 Location: ICU Sex: M C Admitted: 07/08/17 Test Reason : STROKE Blood Pressure : / mmHG Vent. Rate : 055 BPM Atrial Rate : 055 BPM P-R Int : 126 ms QRS Dur : 098 ms QT Int : 410 ms P-R-T Axes : 000 -24 -12 degrees QTc Int : 392 ms Sinus bradycardia Inferior infarct , age undetermined Abnormal ECG Confirmed by BOBBY ORTEGA ([id number]), assistant film editor MARTHA SABILLON ([id number]) on 07/11/2017 1:30:55 PM Referred By: Confirmed By:BOBBY ORTEGA 07/11/17 1330 Date Bobby Ortega MD CC: No Primary Care Physician; nAastasiia Jaramillo MD Signed BRAIN WITHOUT Observed: 07/11/2017 Status: F Source: [place] CONTRAST 10:44 AM [facility] REPOSITORY [facility] Imaging Services [address] [place] [address] Brain without Contrast MR#: [id number] Acct: [id number] Name: YUVAL NICHOLS Jr. Rep #: [id number] : 1970 M 46 From: Jeronimo Barnett DO PCP: Care Physician, No Primary Status: ADM IN Study: Brain without Contrast Date of Exam: 07/11/17 Exam# [id number] Ordering Dr: Savage Becker MD STUDY: MRI BRAIN WITHOUT CONTRAST REASON FOR EXAM: Male, 46 years old. Status post seizure with abnormal thalamic signal undergoing bilateral-up examination. TECHNIQUE: Standardized multiplanar fat and water weighted pulse sequences were obtained. COMPARISON: MRI BRAIN-July 09, 2017 FINDINGS: Normal size of the ventricles and extra-axial spaces for the patient's age. There is re-demonstration of an area of encephalomalacia of the middle frontal gyrus of the right frontal lobe with minimal surrounding white matter gliosis (axial T2 series 6, image 18; axial T2 FLAIR series 7, image 18). There are a limited number of small white matter hyperintensities, distributed throughout the deep white matter tracts of the cerebral hemispheres, consistent with mild chronic white matter ischemic changes. There is no evidence for recent intracranial ischemia or other cause of cytotoxic edema on diffusion weighted imaging (DWI). Normal T2* images of the brain without demonstrated susceptibility artifact. There is no demonstrated hemosiderin stain. There are prominent perivascular spaces (PVS) involving the basal ganglia. There is mild prominence of the pulvinar of the left thalamus (axial T2 series 8, image 12), with minimal increased signal in the DWI images (axial DWI series 5, image 14), with normal signal on the ADC map (axial series 500 image 14). This finding is stable and unchanged as compared the prior examination of July 09, 2017. There is otherwise no enhancement T1 postcontrast images. There is no extra-axial fluid accumulation. Normal flow voids within the major intracranial circulation suggesting patency by spin echo criteria. Normal sella turcica, pituitary gland, infundibular stalk, optic chiasm and hypothalamus. Normal tectal plate and pineal gland. Normal midbrain, paul and medulla. Normal cerebellum. Normal basal cisterns. Normal bilateral temporal bones. Normal bilateral internal auditory canals. No demonstrated orbital abnormality, within the constraints of a routine brain study. Again noted are postsurgical changes with surgical plating involving the right maxilla and right zygomatic temporal arch (axial T2 series 6, image 5). Normal visualized soft tissue structures. Normal visualized upper cervical spine. MRI/Brain without Contrast IMPRESSION: 1. Mild stable asymmetric prominence of the pulvinar of the right thalamus, unchanged compared to the prior examination of July 09, 2017. 2. Encephalomalacia with surrounding white matter gliosis of the right frontal lobe. 3. No acute or evolving process. 4. Postsurgical changes the right maxilla and right zygomatic temporal arch. Electronically Signed: Jeronimo Barnett DO at 13:45 EDT Tel , Service support , CC: No Primary Care Physician; Savage Becker MD Insole Toe Snipping Machine Operator: Signed CBC W/DIFF, AUTOMATED Collected: 07/11/2017 Status: F Source: [place] 4:50 AM [facility] REPOSITORY TYPE CODE TESTS RESULT OUT OF RANGE REFERENCE UNITS LAB L100.1000 4.4-11.0 K/mm3 Normal WBC 4.9 LAB L100.1200 4.6-6.2 M/mm3 Low RBC 4.24 LAB L100.1300 13.0-16.5 g/dl Low HGB 12.8 LAB L100.1400 40-54 % Low HCT 39.4 LAB L100.1500 80-94 fL Normal MCV 92.9 LAB L100.1600 27.0-32.0 pg Normal MCH 30.2 LAB L100.1700 32-36 g/gl Normal MCHC 32.5 LAB L100.1810 11.6-14.6 % Normal RDW CV 12.2 LAB L100.1820 35.1-43.9 fl Normal RDW SD 40.6 LAB L100.1900 150-450 K/mm3 Normal PLT 203 LAB L100.2000 6.2-12.0 fl Normal MPV 10.4 LAB L100.2100 47-70 % Normal NEUT% 59.7 LAB L100.2200 19-41 % Normal LY% 22.3 LAB L100.2300 0-10 % High MONO% 13.8 LAB L100.2400 0-5 % Normal EO% 3.6 LAB L100.2500 0-1 % Normal BASO% 0.4 LAB L100.2550 0.0-0.9 % Normal IM GRAN % 0.200 Result Comment: IG% - Immature Granulocytes (promyelocytes, myelocytes and metamyelocytes) > 1% indicates that a LEFT SHIFT is Present. LAB L100.2620 2.0-7.7 X10 3/uL Normal Absolute Neut 3.0 LAB L100.2720 0.83-4.51 X10 3/ul Normal Absolute Lymph 1.10 Performed By: #### L100.0100 #### [facility] [address] [place], [place], [address] BASIC METABOLIC Collected: 07/11/2017 Status: F Source: [place] PROFILE (BMP) 4:50 AM [facility] REPOSITORY TYPE CODE TESTS RESULT OUT OF RANGE REFERENCE UNITS LAB L501.0100 74-106 mg/dL Normal GLU 98 Result Comment: Please note revised GLUCOSE reference range effective 2017. LAB L501.1000 7-18 mg/dL Normal BUN 8 LAB L501.1100 0.70-1.30 mg/dL Normal CREAT,SERUM 0.83 Result Comment: The validity of the calculated GFR AND GFRAA in patients over 70 years has not been determined. Clinical correlation is essential. LAB L501.1110 >60 mL/min Normal EST GFR 105 Result Comment: Non- GFR Calc LAB L501.1115 >60 mL/min Normal EST GFR - AA 127 Result Comment: GFR Calc LAB L501.1255 ml/min Normal Estimated CRCL 112.38 LAB L501.1300 10-20 RATIO Low BUN/CRE 9.6 LAB L501.2200 8.5-10 mg/dL Low .1 CA 8.4 LAB L501.5300 136-14 mmol/L 5 NA Normal 138 LAB L501.5600 3.5-5. mmol/L 1 K Normal 3.7 Result Comment: Slight Hemolysis, Result may be falsely increased. LAB L501.5900 98-107 mmol/L Normal CL 103 LAB L501.6100 21.0-32.0 mmol/L Normal CO2 26.0 LAB L501.6200 5-15 Normal 9 GAP Performed By: #### L500.2500, L501.3620 #### [facility] [address] [place], [address] CPK TOTAL, CREATINE Collected: 07/11/2017 Status: F Source: [place] KINASE 4:50 AM [facility] REPOSITORY TYPE CODE TESTS RESULT OUT OF RANGE REFERENCE UNITS LAB L501.3620 39-308 U/L Normal CPK TOTAL 108 Performed By: #### L500.2500, L501.3620 #### [facility] [address] [facility] [place], [address] ABD DECUB AND/OR Observed: 07/10/2017 Status: F Source: [place] ERECT([place] 7:52 PM [facility] REPOSITORY [facility] Imaging Services [address] [place] [address] Abd Decub and/or Erect([facility] MR#: [id number] Acct: [id number] Name: YUVAL NICHOLS Jr. Rep #: [id number] : 1970 M 46 From: David Husain DO PCP: Care Physician, No Primary Status: ADM IN Study: [facility] Date of Exam: 07/10/17 Exam# [id number] Ordering Dr: Henny Biggs STUDY: X-RAY - ABDOMEN/PELVIS REASON FOR EXAM: Male, 46 years old. Abdominal distention. TECHNIQUE: AP supine and decubitus views of the abdomen and pelvis. COMPARISON: None. FINDINGS: Normal visualized lung bases. IVC filter in place showing normal orientation. Mobile gallstones are noted. There is an unremarkable bowel gas pattern. There is no demonstrated free abdominal air. The visualized liver, spleen and kidneys are grossly normal in size and morphology. Normal soft tissue structures. Normal visualized osseous structures. RAD/Abd Decub and/or Erect([place] IMPRESSION: 1. No evidence of air-fluid levels or dilatation to suggest ileus versus obstruction. 2. Multiple gallstones. 3. IVC filter showing normal orientation. Electronically Signed: David Husain DO at 20:38 EDT , Service support , CC: No Primary Care Physician; Henny Biggs Insole Toe Snipping Machine Operator: Signed CONSULTATION Observed: 07/09/2017 Status: F Source: [place] 1:23 PM [facility] REPOSITORY [facility] Medical Records Department [address] [place] [address] Consultation 07/09/17 1314 MR#: [id number] Acct: [id number] Name: YUVAL NICHOLS Jr. Rep #: [id number] : 1970 46 From: Savage Becker MD PCP: Care Physician, No Primary Status: ADM [facility] Reason for Consult Date of Consultation: 07/09/17 Reason for Consultation: seizure History of Present Illness: The patient is a 46 year old M unable to give history, as below he apparently had a sz in the ED. currently stable in ICU, breathing room air, awakens to voice but unable to answer questions or follow commands. stable per varnish thinner, no sz overnight. 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 In the ED patient noted initially to answer yes to every questions and was unable to follow any commands. In the ED NIH 8-->RN 13, difficult to assess secondary to not following commands. In the ED work- up included AF, HR 55-->78, BP 165/96, RR 13, 99% on 2L NC, unremarkable CBC, normal coags, unremarkable BMP, normal trop x 1, CT brain w/ no acute evidence stroke, stable encephalomalacia R frontal area underlying remote aurea holes, stable fracture R orbit and facial bones with surgical fusion unchanged from prior study, CXR with atelectasis LUE otherwise unremarkable, CTA Head and Neck unremarkable. In the ED patient administered narcan secondary to concern for vicodin accidental overdose noted per son and keppra 1,000 IV load. While in the ED obtaining CT Head, patient was noted to have onset suspected generalized seizure activity lasting 20 seconds. Patient with recent CVA Rere thus no TPA candidate. Neurology contacted upon his presentation and recommended given normal appearing CTA Head and Neck admission, pending UTox/EtOH levels, MRI brain without and without, EEG with planned evaluation in AM in addition to continued keppra 750 mg BID. Patient following start of Keppra load had repeat generalized seizure lasing 1 min 30 seconds, resolved following IV ativan in the ED. Neurology updated and requested continued plan of care. Past Medical History Past Medical History (Chronic Problems): Chronic Problems (This Medical Record has been edited. Action required.) CVA (cerebral vascular accident) (Chronic) 04/2017 right medial occipital lobe CVA Seizure disorder (Chronic) HTN (hypertension) (Chronic) HLD (hyperlipidemia) (Chronic) GERD (gastroesophageal reflux disease) (Chronic) Iron deficiency anemia (Chronic) Anxiety and depression (Chronic) Allergies Penicillins Allergy (Verified 07/08/17 21:32) Hives propoxyphene napsylate [From Darvocet-N] Allergy (Verified 07/08/17 21:32) Other hot flashes Home Medications: Ambulatory Orders Medication Instructions Recorded Aspirin [Aspirin, Baby] 81 mg PO DAILY@0800 10/17/13 Surgical History: - - Interval facial surgery as well as right eye surgery and bur hole status post head trauma as youth, left lower extremity surgery status post trauma as youth. Psychiatric History: Anxiety, Depression Lives: With Family Smoking Status: Former smoker Tobacco Use: Non-smoker Alcohol: None Drugs: None - *Family History Maternal History Items: Diabetes, Heart Disease Paternal History Items: - - from suicide. Review of Systems Unable to obtain accurate/complete ROS d/t: unobtainable due to ams Patient Problems: Active and Suspected Problems (This Medical Record has been edited. Action required.) Acute ischemic stroke (Acute) Seizure in response to acute event (Acute) Objective: right eye appears remote traumaleft eye normal symmetric grimace bilat spontaneous movemtns - Physical Exam Vital Signs Temp Pulse Resp BP Pulse Ox 37.7 C H 56 L 15 145/81 H 94 07/09/17 13:00 07/09/17 13:00 07/09/17 13:00 07/09/17 13:00 07/09/17 13:00 Oxygen Flow Rate (L/min) 2 Oxygen Delivery Method Room Air Weight: 88.4 kg Body Mass Index (BMI) 27.5 Intake and Output for Last 24 Hours Intake Total 190 / 190 684 / 684 Output Total 800 / 800 225 / 225 Balance -610 / -610 459 / 459 Laboratory Tests Past 24 Hrs WBC RBC Hgb Hct MCV MCH WBC 7.3 RBC 4.37 L Hgb 13.2 Hct 41.3 MCV 94.5 H MCH 30.2 MCHC 32.0 RDW 12.8 RDW Differential 43.8 mri reviewed, subtle abnormal high signal left thalamus consistent with recent sz. Current Home Med List Medication Instructions Recorded Confirmed Type Aspirin [Aspirin, Baby] 81 mg PO DAILY@0800 10/17/13 07/08/17 History Current Medications Generic Name Dose Route Start Last Admin Trade Name Freq PRN Reason Stop Dose Admin Aspirin 300 mg 07/09/17 10:00 07/09/17 09:38 Assessment/Plan Active and Suspected Problems (This Medical Record has been edited. Action required.) Acute ischemic stroke (Acute) Seizure in response to acute event (Acute) 1. gtc, now postictal improving, continue keppra, change to po when able eeg when feasible, repeat mri next week to eval for resolution of left thalamic signal abnormalities 2. recent occip infarct s/ptpa: no evidence new stroke, continue bp control, statin , asa 07/09/17 1323 <Electronically signed by Savage Becker MD> Date Savage Becker MD Cosigner Signature (if applicable): Date CC: No Primary Care Physician; Melisa Howard MD Signed CBC-COMPLETE BLOOD CNT Collected: 07/09/2017 Status: F Source: [place] NO DIFF 4:40 AM [facility] REPOSITORY TYPE CODE TESTS RESULT OUT OF RANGE REFERENCE UNITS LAB L100.1000 4.4-11.0 K/mm3 Normal WBC 7.3 LAB L100.1200 4.6-6.2 M/mm3 Low RBC 4.37 LAB L100.1300 13.0-16.5 g/dl Normal HGB 13.2 LAB L100.1400 40-54 % Normal HCT 41.3 LAB L100.1500 80-94 fL High MCV 94.5 LAB L100.1600 27.0-32.0 pg Normal MCH 30.2 LAB L100.1700 32-36 g/gl Normal MCHC 32.0 LAB L100.1810 11.6-14.6 % Normal RDW CV 12.8 LAB L100.1820 35.1-43.9 fl Normal RDW SD 43.8 LAB L100.1900 150-450 K/mm3 Normal PLT 214 LAB L100.2000 6.2-12.0 fl Normal MPV 10.0 Performed By: #### L100.0500 #### [facility] [address] [place], [place], [id number] COMPREHENSIVE METABOLIC Collected: 07/09/2017 Status: F Source: [place] PROFIL 4:40 AM [facility] REPOSITORY TYPE CODE TESTS RESULT OUT OF RANGE REFERENCE UNITS LAB L501.0100 74-106 mg/dL Normal GLU 86 Result Comment: Please note revised GLUCOSE reference range effective 2017. LAB L501.1000 7-18 mg/dL Normal BUN 10 LAB L501.1100 0.70-1.30 mg/dL Normal CREAT,SERUM 0.99 Result Comment: The validity of the calculated GFR AND GFRAA in patients over 70 years has not been determined. Clinical correlation is essential. LAB L501.1110 >60 mL/min Normal EST GFR 85 Result Comment: Non- GFR Calc LAB L501.1115 >60 mL/min Normal EST GFR - AA 103 Result Comment: GFR Calc LAB L501.1255 ml/min Normal Estimated CRCL 94.22 LAB L501.1300 10-20 RATIO Normal BUN/CRE 10.1 LAB L501.1500 6.4-8. g/dL Normal 2 T PROT 7.0 LAB L501.1800 3.2-5. g/dL Normal 0 ALB 3.4 LAB L501.1950 2.2-4. g/dL Normal 2 GLOB 3.6 LAB L501.2000 0.9-2. RATIO Normal 4 A/G 0.9 LAB L501.2200 8.5-10 mg/dL Low .1 CA 8.4 LAB L501.4100 15-37 U/L Normal AST 19 LAB L501.4305 45-117 U/L Low ALK P 36 LAB L501.4405 16-61 U/L Normal ALT 24 Result Comment: Please note revised ALT reference range effective 2017. LAB L501.4600 0.20-1.00 mg/dL Normal T BILI 0.40 LAB L501.5300 136-145 mmol/L Normal NA 139 LAB L501.5600 3.5-5.1 mmol/L Normal K 3.5 LAB L501.5900 98-107 mmol/L Normal CL 103 LAB L501.6100 21.0-32.0 mmol/L Normal CO2 28.0 LAB L501.6200 5-15 Normal GAP 8 Performed By: #### L500.4050, L500.4100 #### [facility] [address] [place], [address] LIPID PROFILE Collected: 07/09/2017 Status: F Source: [place] 4:40 AM [facility] REPOSITORY TYPE CODE TESTS RESULT OUT OF RANGE REFERENCE UNITS LAB L501.4900 200 mg/dL High CHOL 205 Result Comment: <200 mg/dL Desirable 200-240 mg/dL Borderline >240 mg/dL High Risk LAB L501.5000 mg/dL Normal TRIG 147 Result Comment: The drugs N-Acetylcysteine and Metamizole may falsely depress this assay. Serum Triglycerides Reference Interval Normal <150 mg/dL Borderline high 150 - 199 mg/dL High 200 - 499 mg/dL Very High > or = 500 mg/dL LAB L501.6400 mg/dL Low HDL 33 Result Comment: The drugs N-Acetylcysteine and Metamizole may falsely depress this assay. Reference Range HDL <40 mg/dL Low HDL Cholesterol HDL >or= 60 mg/dL High HDL Cholesterol LAB L501.6500 0-130 mg/dL High LDL 143 LAB L501.6600 5-40 mg/dL Normal VLDL 29 Performed By: #### L500.4050, L500.4100 #### [facility] [address] [place], [address] URINALYSIS, COMPLETE Collected: 07/08/2017 Status: F Source: [place] 9:55 PM [facility] REPOSITORY Order Comment: How was Urine Obtained? CATHETER SPECIMEN TYPE CODE TESTS RESULT OUT OF RANGE REFERENCE UNITS LAB L400.3000 Yellow COLOR Normal Yellow LAB L400.3050 Clear Normal CLARITY Sl. Cloudy LAB L400.3200 Normal mg/dl Normal GLUCOSE, UR Normal LAB L400.3300 Negative mg/dL Normal BILIRUBIN URINE Negative LAB L400.3400 Negative mg/dl Normal KETONE UR Negative LAB L400.3465 1.002-1.030 Normal SP.GR. DIPSTX 1.010 LAB L400.3550 5.0 - 8.0 pH UR Normal 8.0 LAB L400.3600 Negative mg/dl PROT Normal DIPSTX Negative LAB L400.3700 Normal mg/dl High 1 UROBILI LAB L400.3750 Negative Normal NITRITE UR Negative LAB L400.3780 Negative /ul High 10 OCCULT BLOOD-UR LAB L400.3800 Negative /ul LEUK Normal ESTERASE Negative LAB L400.4050 0-5 /hpf WBC 0 Normal SEEN LAB L400.4100 0-5 /hpf Normal RBC-UA 0-5 SEEN LAB L400.4150 0-5 /hpf SQUAM 0 Normal EPI SEEN LAB L400.4300 None Seen /hpf 0 Normal BACTERIA SEEN LAB L400.4350 <or=2+ /hpf 0 Normal MUCUS, URINE SEEN Performed By: #### L400.0001 #### [facility] [address] [place], [address] M R STAPH AUREUS Collected: 07/08/2017 Status: F Source: [place] DNA BY PCR 9:40 PM [facility] REPOSITORY TYPE CODE TESTS RESULT OUT OF RANGE REFERENCE UNITS LAB L8200.1100 Negative Normal MRSA Negative RESULT Performed By: #### L8200.1000 #### [facility] [address] [place], [address] BRAIN W/WO CONTRAST Observed: 07/08/2017 Status: F Source: [place] 9:22 PM [facility] REPOSITORY [facility] Imaging Services [address] [place] [address] Brain W/WO Contrast MR#: [id number] Acct: [id number] Name: YUVAL NICHOLS Jr. Rep #: [id number] : 1970 M 46 From: David Husain DO PCP: Care Physician, No Primary Status: ADM IN Study: Brain W/WO Contrast Date of Exam: 07/08/17 Exam# [id number] Ordering Dr: Henny Biggs STUDY: MRI BRAIN WITH AND WITHOUT CONTRAST REASON FOR EXAM: Male, 46 years old. Seizure and altered mental status. TECHNIQUE: Standardized multiplanar fat and water weighted pulse sequences were obtained. 8 ml of Gadavist contrast material was administered intravenously for the contrast portion of the examination. COMPARISON: None. FINDINGS: Normal size of the ventricles and extra-axial spaces for the patient's age. Right frontal region of encephalomalacia and postoperative craniotomy changes are present. Right facial postoperative changes and plating are present. There is no evidence for recent intracranial ischemia or other cause of cytotoxic edema on diffusion weighted imaging (DWI). Normal T2* images of the brain without demonstrated susceptibility artifact. There is no demonstrated hemosiderin stain. Normal bilateral basal ganglia. Normal thalami. There is no extra-axial fluid accumulation. Normal flow voids within the major intracranial circulation suggesting patency by spin echo criteria. Normal venous enhancement. There is no enhancing intra-axial or extra-axial abnormality. Normal sella turcica, pituitary gland, infundibular stalk, optic chiasm and hypothalamus. Normal tectal plate and pineal gland. Normal midbrain, paul and medulla. Normal cerebellum. Normal basal cisterns. Normal bilateral temporal bones. Normal bilateral internal auditory canals. No demonstrated orbital abnormality, within the constraints of a routine brain study. Normal visualized paranasal sinuses. Normal calvarium and skull base. Normal visualized soft tissue structures. Normal visualized upper cervical spine. MRI/Brain W/WO Contrast IMPRESSION: 1. Right frontal encephalomalacia changes and postoperative changes as above. No evidence of acute intracranial bleed, mass or ischemia. Electronically Signed: David Husain DO at 12:41 EDT , Service support , CC: No Primary Care Physician; Henny Biggs Insole Toe Snipping Machine Operator: Signed HISTORY AND PHYSICAL Observed: 07/08/2017 Status: F Source: [place] EXAM 8:26 PM [facility] REPOSITORY [facility] Medical Records Department [address] [place] [address] History and Physical 07/08/17 1936 MR#: [id number] Acct: [id number] Name: YUVAL NICHOLS Jr. Rep #: [id number] : 1970 46 From: Henny Biggs PCP: Care Physician, No Primary Status: ADM IN Y Location: ICU ICU06-1 Problem List (1) CVA (cerebral vascular accident) Status: Chronic Qualifiers: CVA mechanism: unspecified Qualified Code(s): I63.9 - Cerebral infarction, unspecified Comment: 04/2017 right medial occipital lobe CVA (2) Seizure disorder Status: Chronic (3) HTN (hypertension) Status: Chronic Qualifiers: Hypertension type: essential hypertension Qualified Code(s): I10 - Essential (primary) hypertension (4) HLD (hyperlipidemia) Status: Chronic Qualifiers: Hyperlipidemia type: unspecified Qualified Code(s): E78.5 - Hyperlipidemia, unspecified (5) GERD (gastroesophageal reflux disease) Status: Chronic Qualifiers: Esophagitis presence: esophagitis presence not specified Qualified Code(s): K21.9 - Gastro-esophageal reflux disease without esophagitis (6) Iron deficiency anemia Status: Chronic Qualifiers: Iron deficiency anemia type: unspecified iron deficiency Qualified Code(s): D50.9 - Iron deficiency anemia, unspecified (7) Anxiety and depression Status: Chronic (8) Acute ischemic stroke Status: Acute (9) Seizure in response to acute event Status: Acute History of Present Illness Date of Admission: 07/08/17 Chief Complaint: Aphasia, Seizure The patient is a 46 y/o M w/ PMHx: Seizure disorder s/p Trauma as Youth w/ facial/head surgery, 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 In the ED patient noted initially to answer yes to every questions and was unable to follow any commands. In the ED NIH 8-->RN 13, difficult to assess secondary to not following commands. In the ED work-up included AF, HR 55-->78, BP 165/96, RR 13, 99% on 2L NC, unremarkable CBC, normal coags, unremarkable BMP, normal trop x 1, CT brain w/ no acute evidence stroke, stable encephalomalacia R frontal area underlying remote aurea holes, stable fracture R orbit and facial bones with surgical fusion unchanged from prior study, CXR with atelectasis LUE otherwise unremarkable, CTA Head and Neck unremarkable. In the ED patient administered narcan secondary to concern for vicodin accidental overdose noted per son and keppra 1,000 IV load. While in the ED obtaining CT Head, patient was noted to have onset suspected generalized seizure activity lasting 20 seconds. Patient with recent CVA Rere thus no TPA candidate. Neurology contacted upon his presentation and recommended given normal appearing CTA Head and Neck admission, pending UTox/EtOH levels, MRI brain without and without, EEG with planned evaluation in AM in addition to continued keppra 750 mg BID. Patient following start of Keppra load had repeat generalized seizure lasing 1 min 30 seconds, resolved following IV ativan in the ED. Neurology updated and requested continued plan of care. Past Medical History Past Medical History (Chronic Problems): Chronic Problems (This Medical Record has been edited. Action required.) CVA (cerebral vascular accident) (Chronic) 04/2017 right medial occipital lobe CVA Seizure disorder (Chronic) HTN (hypertension) (Chronic) HLD (hyperlipidemia) (Chronic) GERD (gastroesophageal reflux disease) (Chronic) Iron deficiency anemia (Chronic) Anxiety and depression (Chronic) Allergies Penicillins Allergy (Verified 05/16/16 04:12) Hives propoxyphene napsylate [From Darvocet-N] Allergy (Verified 05/16/16 04:12) Other hot flashes Home Medications: Ambulatory Orders Medication Instructions Recorded Aspirin [Aspirin, Baby] 81 mg PO DAILY@0800 10/17/13 Carboxymethylcellulose Sodium 15 ml OP DAILY 10/17/13 Surgical History: - - Interval facial surgery as well as right eye surgery and bur hole status post head trauma as youth, left lower extremity surgery status post trauma as youth. Psychiatric History: Anxiety, Depression Lives: With Family Smoking Status: Former smoker Tobacco Use: Non-smoker Alcohol: None Drugs: None - *Family History Maternal History Items: Diabetes, Heart Disease Paternal History Items: - - from suicide. Review of Systems Constitutional: Denies: Chills, Fever, Weight Change HEENT: Denies: Head Aches, Sinus Congestion, Sinus Drainage Cardiovascular: Denies: Chest Pain, Palpitations Respiratory: Denies: Cough, Shortness of breath at rest, Sputum production Gastrointestinal: Denies: Abdominal Pain, Nausea, Vomiting Genitourinary: Denies: Dysuria Musculoskeletal: Denies: Joint Pain, Joint Tenderness Skin: Denies: Rash, Wounds Neurological: Reports: Balance problems, Confusion, Focal weakness. Denies: Numbness, Tingling Psychiatric: Reports: Anxiety, Depression. Denies: Homicidal Ideations, Suicidal Ideations Hematologic/ Lymphatic: Reports: Anemia - ROS given per family present, Patient unable to give ROS secondary to post-ictal status.. Denies: Easy Bruising, Easy Bleeding VTE Information - Inpt Only VTE Present on Admission: No VTE Mechan Device Prophylaxis: SCD's VTE Pharm Prophylaxis ordered?: Yes Patient Problems: Active and Suspected Problems (This Medical Record has been edited. Action required.) Acute ischemic stroke (Acute) Seizure in response to acute event (Acute) Subjective: Laying in the ED bed, recent seizure, s/p ativan, no acute distress. Objective: Physical Examination: General: Minimally awakens to stimuli, recent seizure, post- ictal s/p ativan, not alert, not oriented, unable to follow commands, laying in the ED bed, NAD. Skin: normal color, turgor, no icterus, cyanosis. HEENT: AT/NC, several old facial/head scars from trauma as youth, R eye prosthesis, blind R eye, unable to assess EOM, LP sluggish, dry MM, no carotid bruits or JVD noted. Lungs: Diminished BS BL bases, no rales, ronchi or wheezing. Heart: regular rate and rhythm; no gallop, rub audible. Abdomen: soft, NTTP, ND, normal BS, no HSM. Extremities: no cyanosis, clubbing, or edema. Neurological: Minimally awakens to stimuli, recent seizure, post-ictal s/p ativan, not alert, not oriented, unable to follow commands, laying in the ED bed; cognitive function not baseline intact; LE sluggish; unable to assess CN, unable to assess sensation, occasional movement L side UE w/ pain, equiv bab. Psychiatric: affect appears flat, sedate, no acute evidence of depressive or anxiety feelings. - Physical Exam Vital Signs Temp Pulse Resp BP Pulse Ox 97.2 F L 78 24 H 153/119 H 100 07/08/17 16:47 07/08/17 19:00 07/08/17 19:00 07/08/17 19:00 07/08/17 19:00 Oxygen Flow Rate (L/min) 2 Oxygen Delivery Method Nasal Cannula Weight: 203 lb 7.787 oz Body Mass Index (BMI) 29.2 Finger Stick Blood Glucose 90 Laboratory Tests Past 24 Hrs POC Glucose POC Glucose 90 Assessment/Plan Active and Suspected Problems (This Medical Record has been edited. 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 In the ED patient noted initially to answer yes to every questions and was unable to follow any commands. (1) R Sided Hemiplegia, Aphasia concerning for Recurrent CVA w/ Seizure Activity w/ Prior Seizure history youth s/p head trauma w/ Prior 04/2017 Acute R Medial Occipital CVA: In the ED work-up included AF, HR 55-->78, BP 165/96, RR 13, 99% on 2L NC, unremarkable CBC, normal coags, unremarkable BMP, normal trop x 1, CT brain w/ no acute evidence stroke, stable encephalomalacia R frontal area underlying remote aurea holes, stable fracture R orbit and facial bones with surgical fusion unchanged from prior study, CXR with atelectasis LUE otherwise unremarkable, CTA Head and Neck unremarkable. UTox, EtOH level pending, family denies elicit drugs. Will admit to the ICU, will obtain MRI Brain without and without, CTA head and neck without acute findings, recent ECHO 04/2017 thus will not repeat, obtain EEG in AM, PT/OT/Speech/Nutrition evaluation per protocol. Pending Neurology evaluation. Will allow permissive HTN, IVFs, maintain on MN ASA given unsafe oral intake, once appropriate restart BP regimen, statin w/ AM FLP, fall precautions. Mag, Phos, TSH pending. PRN ativan IV for recurrent seizure activity. 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 (3) Hypertension: Permissive. (4) Hyperlipidemia: Holding oral agent, FLP in AM. (5) Anxiety and Depression: Holding oral regimen. (6) GERD: Famotidine IV. (7) DVT Prophylaxis: SCDs, lovenox. Code Visit Inpatient E AND M: 78360 Init Hosp L3 07/08/172025 <Electronically signed by Henny Biggs > Date Henny Biggs Cosigner Signature: Date (if applicable) CC: No Primary Care Physician; Henny Biggs Signed URINE DRUG SCREEN Collected: 07/08/2017 Status: F Source: [place] ([place]) 8:18 PM [facility] REPOSITORY TYPE CODE TESTS RESULT OUT OF RANGE REFERENCE UNITS LAB L505.0075 TO BE Normal CONFIRMED Result Comment: CONFIRMATORY TESTING FOR ALL POSITIVE URINE DRUG SCREEN RESULTS WILL ONLY BE SENT OUT UPON PHYSICIAN ORDER. VISTA Urine Drug Screen methods provide only preliminary analytical test results. A more specific alternate chemical method must be used in order to obtain a confirmed analytical result. Gas chromatography/mass spectrometery (GC/MS) is the preferred confirmatory method. Clinical consideration and professional judgement should be applied to any drug of abuse test result, particularly when preliminary positive results are used. URINE TCA TESTING MUST BE ORDERED SEPARATELY. USE TEST MNEMONIC: UTCA LAB L505.5005 VISTA UDS PH 6 Normal LAB L505.5015 <1000 ng/mL AMPHETAMINES Normal NEGATIVE LAB L505.5025 < 200 ng/mL BARBITIURATES Normal NEGATIVE LAB L505.5035 < 200 ng/mL BENZODIAZIPINE Normal NEGATIVE LAB L505.5045 < 300 ng/mL COCAINE Normal NEGATIVE LAB L505.5055 < 500 ng/mL ECSTACY Normal NEGATIVE LAB L505.5065 < 300 ng/mL METHADONE Normal NEGATIVE LAB L505.5075 < 300 ng/mL OPIATES Normal NEGATIVE LAB L505.5085 < 25 ng/mL PCP Normal NEGATIVE LAB L505.5095 < 50 ng/mL THC Normal NEGATIVE Performed By: #### L505.5000 #### [facility] [address] [place], [address] EMERGENCY DEPARTMENT Observed: 07/08/2017 Status: F Source: [place] SUMMARY 7:40 PM [facility] REPOSITORY [facility] Medical Records Department [address] [place] [address] Emergency Department Summary 07/08/17 1804 MR#: [id number] Acct: [id number] Name: YUVAL NICHOLS Jr. Rep #: [id number] : 1970 46 From: Anastasiia Jaramillo MD PCP: Care Physician, No Primary Status: REG ER - ER Visit Summary Date of Service: 07/08/17 Chief Complaint: Aphasia History of Present Illness: The patient is a 46 M presenting with change in mental status. Approximately 35 minutes prior to arrival patient developed change in mental status. He is unable to answer questions other than he answers all questions with the word yes. He is unable to follow commands. He has a history of stroke April 2017. At that time he presented with left-sided weakness and change in mental status. Physical Examination: Vitals are stable. Patient is afebrile. Alert no acute distress. HEENT exam chronic right eye irregularity and drainage Neck is supple. Lungs are clear and equal bilaterally. Heart is regular rate and rhythm. Abdomen is soft nontender nondistended. Extremities are unremarkable. Skin is warm and dry. NIH 8 Remainder of exam is unremarkable. Emergency Department Course and Treatment: Patient is unable to follow commands or answer questions. He has weakness of the right upper extremity. Stroke team was activated on patient arrival. CT head shows no acute process. EKG is sinus bradycardia rate of 55. CBC chemistries unremarkable. INR is 1.0. Troponin is negative. Discussed with Dr. Howard who recommends a stat CTA head and neck. Patient had a stroke 2 months ago and is not a TPA candidate. While in CT scan he had 20 second generalized seizure. CTA head and neck was unremarkable. Discussed with Dr. Howard. He recommends loading with Keppra. Recommends admission for MRI, EEG. Discussed with the hospitalist for admission. Disposition: Admission Impression: Generalized seizure, aphasia, right upper extremity weakness This note was generated with Meltyation software. It may contain incorrect words, spelling, and punctuation that were not noted in review of the chart prior to signing ED Disposition - Plan for ED Patient: Chief Complaint: Alt LOC Referrals: Care Physician,No Primary [Primary Care Provider] - What to do if you have Problems For any increased pain, shortness of breath, bleeding, nausea or vomiting, chest pain, or any unexpected problems, contact your Primary Care Provider. Call [facility] ([phone]) or report to the closest Emergency Room. Call 911 if necessary. 07/08/17 1940 <Electronically signed by Anastasiia Jaramillo MD> Date Anastasiia Jaramillo MD Cosigner Signature (If Indicated): Date CC: No Primary Care Physician CTA HEAD W/WO Observed: 07/08/2017 Status: F Source: [place] CONTRAST 5:40 PM [facility] REPOSITORY [facility] Imaging Services [address] [place] [address] CTA Head W/WO Contrast MR#: [id number] Acct: [id number] Name: YUVAL NICHOLS Jr. Rep #: [id number] : 1970 46 From: Lalo Garza DO PCP: Care Physician, No Primary Status: REG ER Study: CTA Head W/WO Contrast Date of Exam: 07/08/17 Exam# [id number] Ordering Dr: Anastasiia Jaramillo MD STUDY: CTA OF THE BRAIN REASON FOR EXAM: Male, 46 years old. Stroke protocol. RADIATION DOSAGE (If Supplied By Facility): CTDIvol = ( 25.77 ) mGy, DLP = ( 694.99 ) mGycm TECHNIQUE: CT angiography was performed with a multi-detector CT scanner. Data acquisition was obtained from the skull base through the vertex following intravenous administration of ml of . MIP images were reconstructed from the axial data set. Post-processing of the angiographic images was performed, with multiplanar reformation and 3D reconstruction. Individualized dose optimization techniques were used for this CT. COMPARISON: CT of the head, July 08, 2017. FINDINGS: Normal bilateral petrous carotid arteries. Normal right cavernous carotid artery with a normal supraclinoid bifurcation. Normal left cavernous carotid artery with a normal supraclinoid bifurcation. Normal right A1 segments of the anterior cerebral artery. Normal left A1 segments of the anterior cerebral artery. Normal intact anterior communicating artery (ACOM). Normal bilateral A2 segments of the anterior cerebral arteries. Normal right M1 and M2 segments of the middle cerebral arteries, with a normal M1 bifurcation. Normal left M1 and M2 segments of the middle cerebral arteries, with a normal M1 bifurcation. There is non-visualization of the right posterior communicating artery (PCOM). Normal left posterior communicating artery (PCOM). Normal bilateral vertebral arteries. Normal basilar artery with a normal basilar bifurcation. The visualized bilateral superior cerebellar (SCA) arteries are normal. Normal bilateral P1, P2 and visualized P3 segments of the posterior cerebral arteries. There is no demonstrated aneurysm of the [place]. There is encephalomalacia in the right frontal area underlying remote aurea holes. This is unchanged from the earlier CT. CT/CTA Head W/WO Contrast IMPRESSION: Normal [place] without a demonstrated aneurysm or hemodynamically significant stenosis. Electronically Signed: Lalo Garza DO at 18:17 EDT Tel [phone], Service support , CC: No Primary Care Physician; Anastasiia Jaramillo MD Insole Toe Snipping Machine Operator: Signed CTA NECK W/WO Observed: 07/08/2017 Status: F Source: [place] CONTRAST 5:40 PM [facility] REPOSITORY [facility] Imaging Services [address] [place] [address] CTA Neck W/WO Contrast MR#: [id number] Acct: [id number] Name: YUVAL NICHOLS Jr. Rep #: [id number] : 1970 M 46 From: Lalo Garza DO PCP: Care Physician, No Primary Status: REG ER Study: CTA Neck W/WO Contrast Date of Exam: 07/08/17 Exam# [id number] Ordering Dr: Anastasiia Jaramillo MD STUDY: CTA NECK WITH CONTRAST REASON FOR EXAM: Male, 46 years old. Stroke protocol. CVA. RADIATION DOSAGE (If Supplied By Facility): CTDIvol = ( 25.77 ) mGy, DLP = ( 694.99 ) mGycm TECHNIQUE: CT angiography with multi-detector data acquisition was performed from the aortic arch to the skull base following intravenous administration of 75 ml of Isovue 370 contrast. MIP images were reconstructed from the axial data set. Post-processing of the angiographic images was performed, with multiplanar reformation and 3D reconstruction. Individualized dose optimization techniques were used for this CT. COMPARISON: None. FINDINGS: AORTIC ARCH: Normal visualized aortic arch. Normal origins of the brachiocephalic, left common carotid, and left subclavian arteries. RIGHT CAROTID ARTERIES: Normal right common carotid artery (CCA). Normal right common carotid bulb. Normal origin of the right internal carotid (ICA) artery without a hemodynamically significant stenosis. Normal visualized cervical portion of the right internal carotid artery. Normal origin of the right external carotid artery (ECA). LEFT CAROTID ARTERIES: Normal left common carotid artery (CCA). Normal left common carotid bulb. Normal origin of the left internal carotid (ICA) artery without a hemodynamically significant stenosis. Normal visualized cervical portion of the left internal carotid artery. Normal origin of the left external carotid artery (ECA). VERTEBRAL ARTERIES: Normal bilateral vertebral arteries. There are marked degenerative changes of the cervical spine. CT/CTA Neck W/WO Contrast IMPRESSION: Normal bilateral cervical carotid and vertebral arteries. 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 Possible OD. Altered mental status. TECHNIQUE: Single AP portable view of the chest. COMPARISON: December 04, 2015. FINDINGS: Without There is a decreased inspiratory effort. There is no focal mass or infiltrate in the lungs. There is a linear density in the left upper lobe with subpleural calcifications. Normal size heart. Normal mediastinum and davonte. Normal visualized pulmonary arteries. Normal visualized aortic arch and descending thoracic aorta. Normal visualized thoracic spine. Normal visualized ribs, clavicles, and shoulders. There is no demonstrated abnormality of the visualized soft tissue structures of the upper abdomen. RAD/Chest 1 View IMPRESSION: Limited inspiration. Atelectasis versus infiltrate in the left upper lobe. The study is otherwise unremarkable Electronically Signed: Lalo Garza DO at 17:33 EDT Tel [phone], Service support , CC: No Primary Care Physician; Anastasiia Jaramillo MD Insole Toe Snipping Machine Operator: Signed BRAIN/HEAD WITHOUT Observed: 07/08/2017 Status: F Source: [place] CONTRAST 5:08 PM [facility] REPOSITORY [facility] Imaging Services [address] [place] [address] Brain/Head without Contrast MR#: [id number] Acct: [id number] Name: YUVAL NICHOLS Jr. Rep #: [id number] : 1970 M 46 From: Lalo Garza DO PCP: Care Physician, No Primary Status: REG ER Study: Brain/Head without Contrast Date of Exam: 07/08/17 Exam# [id number] Ordering Dr: Anastasiia Jaramillo MD STUDY: CT BRAIN WITHOUT CONTRAST REASON FOR EXAM: Male, 46 years old. CVA. Prior head injury. RADIATION DOSAGE (If Supplied By Facility): CTDIvol = ( 44.99 ) mGy, DLP = ( 796.11 ) mGycm TECHNIQUE: Transaxial CT imaging of the brain was performed without administration of intravenous contrast material. Individualized dose optimization techniques were used for this CT. COMPARISON: July 25, 2016 FINDINGS: Again seen are small calcific densities in the subcutaneous fat of the bilateral parietal regions. The soft tissues are otherwise unremarkable. There are remote aurea holes in the right frontal bone. The calvarium is otherwise intact. There are surgical changes about the right orbit which appear unchanged from prior exam. Normal size ventricles and extra-axial spaces for the patient's age. Normal white matter tracts of the cerebral hemispheres. There is minimal hypodensity beneath the aurea holes in the right frontal lobe which is chronic. Normal basal ganglia and thalami. Normal brainstem. Normal cerebellum. There is no intracranial hemorrhage. There are no findings of an acute ischemic infarction. Normal visualized paranasal sinuses. CT/Brain/Head without Contrast IMPRESSION: 1. No evidence for acute intracranial process. Again seen is stable encephalomalacia in the right frontal area underlying remote aurea holes. 2. Stable fracture of the right orbit and facial bones with surgical fusion unchanged from prior study N.B. : The above information has been verbally conveyed by Lalo Garza DO to Anastasiia Jaramillo, Referring Physician, on 07/08/2017 17:25:10 (ET). Electronically Signed: Lalo Garza DO at 17:25 EDT Tel [phone], Service support , N.B. : The above information has been verbally conveyed by Lalo Garza DO to Anastasiia Jaramillo, Referring Physician, on 07/08/2017 17:25:10 (ET). CC: No Primary Care Physician; Anastasiia Jaramillo MD Insole Toe Snipping Machine Operator: Signed BEDSIDE GLUCOSE Collected: 07/08/2017 Status: F Source: [place] 4:56 PM [facility] REPOSITORY TYPE CODE TESTS RESULT OUT OF RANGE REFERENCE UNITS LAB L501.080 70-110 mg/dL Normal BEDSIDE GLU 90 Result Comment: MANAGEMENT OF PATIENT CARE PER NURSING PROTOCOL Performed By: #### L501.080 #### [facility] [place] [address] CBC W/DIFF, AUTOMATED Collected: 07/08/2017 Status: F Source: [place] 4:52 PM [facility] REPOSITORY TYPE CODE TESTS RESULT OUT OF RANGE REFERENCE UNITS LAB L100.1000 4.4-11.0 K/mm3 Normal WBC 5.1 LAB L100.1200 4.6-6.2 M/mm3 Normal RBC 4.66 LAB L100.1300 13.0-16.5 g/dl Normal HGB 14.1 LAB L100.1400 40-54 % Normal HCT 43.9 LAB L100.1500 80-94 fL High MCV 94.2 LAB L100.1600 27.0-32.0 pg Normal MCH 30.3 LAB L100.1700 32-36 g/gl Normal MCHC 32.1 LAB L100.1810 11.6-14.6 % Normal RDW CV 12.5 LAB L100.1820 35.1-43.9 fl Normal RDW SD 42.2 LAB L100.1900 150-450 K/mm3 Normal PLT 246 LAB L100.2000 6.2-12.0 fl Normal MPV 10.6 LAB L100.2100 47-70 % Normal NEUT% 58.0 LAB L100.2200 19-41 % Normal LY% 26.7 LAB L100.2300 0-10 % High MONO% 11.1 LAB L100.2400 0-5 % Normal EO% 3.6 LAB L100.2500 0-1 % Normal BASO% 0.4 LAB L100.2550 0.0-0.9 % Normal IM GRAN % 0.200 Result Comment: IG% - Immature Granulocytes (promyelocytes, myelocytes and metamyelocytes) > 1% indicates that a LEFT SHIFT is Present. LAB L100.2620 2.0-7.7 X10 3/uL Normal Absolute Neut 2.9 LAB L100.2720 0.83-4.51 X10 3/ul Normal Absolute Lymph 1.35 Performed By: #### L100.0100 #### [facility] [address] [place], [address] PROTHROMBIN TIME W/INR Collected: 07/08/2017 Status: F Source: [place] 4:52 PM [facility] REPOSITORY TYPE CODE TESTS RESULT OUT OF RANGE REFERENCE UNITS LAB L300.4150 11.7-14.9 SECONDS Normal PROTIME 13.0 LAB L300.4200 Normal INR 1.0 Performed By: #### L300.3900, L300.4310 #### [facility] [address] [place], [address] PARTIAL THROMBOPLAST Collected: 07/08/2017 Status: F Source: [place] TIME 4:52 PM [facility] REPOSITORY TYPE CODE TESTS RESULT OUT OF RANGE REFERENCE UNITS LAB L300.4310 24.1-36.2 Seconds Normal PTT 25.5 Performed By: #### L300.3900, L300.4310 #### [facility] [address] [place], [address] BASIC METABOLIC Collected: 07/08/2017 Status: F Source: [place] PROFILE (BMP) 4:52 PM [facility] REPOSITORY Order Comment: 'TROP' Serial specimen #1, #2, #3, or #4: 1 TYPE CODE TESTS RESULT OUT OF RANGE REFERENCE UNITS LAB L501.0100 74-106 mg/dL Normal GLU 88 Result Comment: Please note revised GLUCOSE reference range effective 2017. LAB L501.1000 7-18 mg/dL Normal BUN 11 LAB L501.1100 0.70-1.30 mg/dL Normal CREAT,SERUM 1.14 Result Comment: The validity of the calculated GFR AND GFRAA in patients over 70 years has not been determined. Clinical correlation is essential. LAB L501.1110 >60 mL/min Normal EST GFR 73 Result Comment: Non- GFR Calc LAB L501.1115 >60 mL/min Normal EST GFR - AA 88 Result Comment: GFR Calc LAB L501.1255 ml/min Normal Estimated CRCL 81.82 LAB L501.1300 10-20 RATIO Low BUN/CRE 9.6 LAB L501.2200 8.5-10 mg/dL Normal .1 CA 9.2 LAB L501.5300 136-14 mmol/L Normal 5 NA 139 LAB L501.5600 3.5-5. mmol/L Normal 1 K 4.4 LAB L501.5900 98-107 mmol/L Normal CL 103 LAB L501.6100 21.0-3 mmol/L Normal 2.0 CO2 31.0 LAB L501.6200 5-15 Normal GAP 5 Performed By: #### L500.2500, L501.4010 #### [facility] [address] [facility] [place], [place], [id number] TROPONIN-I Collected: 07/08/2017 Status: F Source: [place] 4:52 PM [facility] REPOSITORY Order Comment: 'TROP' Serial specimen #1, #2, #3, or #4: 1 TYPE CODE TESTS RESULT OUT OF RANGE REFERENCE UNITS LAB L501.4010 <0.06 ng/mL Normal < 0.02 TROPONIN-I Result Comment: TROPONIN-I EXPECTED VALUES <0.05 NEGATIVE 0.06 - 0.59 AT RISK OF PR > OR = 0.60 SUGGEST PR Performed By: #### L500.2500, L501.4010 #### [facility] [address] [place], [place], [address] ALCOHOL, BLOOD Collected: 07/08/2017 Status: F Source: [place] (MEDICAL)-SERUM 4:52 PM [facility] REPOSITORY TYPE CODE TESTS RESULT OUT OF RANGE REFERENCE UNITS LAB L501.9100 mg/dL Normal SERUM 5.0 ETOH Result Comment: The serum:whole blood ethanol ratio is approximately 1.14 and varies slightly with hematocrit. Medical Alcohol reference interval and critical value in non-tolerant individuals; 50 - 100 Impairment 100 Intoxication 100 - 250 Severe Poisoning 250 - 400 Deep/possible fatal coma Performed By: #### L501.9100 #### [facility] [address] [place], [address] LIVER PROFILE Collected: 07/08/2017 Status: F Source: [place] 4:52 PM [facility] REPOSITORY TYPE CODE TESTS RESULT OUT OF RANGE REFERENCE UNITS LAB L501.1500 6.4-8.2 g/dL Normal T PROT 7.8 LAB L501.1800 3.2-5.0 g/dL Normal ALB 3.9 LAB L501.1950 2.2-4.2 g/dL Normal GLOB 3.9 LAB L501.4100 15-37 U/L Normal AST 22 LAB L501.4305 45-117 U/L Low ALK P 40 LAB L501.4405 16-61 U/L Normal ALT 27 Result Comment: Please note revised ALT reference range effective 2017. LAB L501.4600 0.20-1.00 mg/dL Normal T BILI 0.40 LAB L501.4700 0.00-0.30 mg/dL Normal D BILI 0.09 Performed By: #### L500.3400, L501.5200 #### [facility] [address] [place], [address] MAGNESIUM Collected: 07/08/2017 Status: F Source: [place] 4:52 PM [facility] REPOSITORY TYPE CODE TESTS RESULT OUT OF RANGE REFERENCE UNITS LAB L501.5200 1.6-2.6 mg/dL Normal MG 1.9 Result Comment: Please note revised Magnesium reference range effective 2017. Performed By: #### L500.3400, L501.5200 #### [facility] [address] [place], [address] PHOSPHORUS Collected: 07/08/2017 Status: F Source: [place] 4:52 PM [facility] REPOSITORY TYPE CODE TESTS RESULT OUT OF RANGE REFERENCE UNITS LAB L501.2300 2.5-4.9 mg/dL Normal PHOS 3.4 Performed By: #### L501.2300 #### [facility] [address] [place], [address] CBC Collected: 06/27/2017 Status: F Source: [facility] 9:17 AM [facility] REPOSITORY TYPE CODE TESTS RESULT OUT OF REFERENCE UNITS RANGE LAB WBC(LOINC) 4.60-10.80 10 3/mcL WBC 5.00 LAB RBCCT(LOINC 4.04-6.13 10 6/mcL ) RBC 4.57 LAB HGB(LOINC) 14.0-18.0 G/dL Low Hgb 13.8 LAB HCT(LOINC) 42.0-52.0 % Low Hct 41.4 LAB MCV(LOINC) 80.0-94.0 fL MCV 90.6 LAB MCH(LOINC) 27.0-31.2 pg MCH 30.1 LAB MCHC(LOINC) 31.8-35.4 G/dL MCHC 33.3 LAB RDW(LOINC) 11.5-14.5 % RDW 13.2 LAB PLT(LOINC) 130-400 10 3/mcL Platelet 208 LAB MPV(LOINC) 7.4-10.4 fL MPV 9.3 Performed By: #### CBC, ADIFF, ANEU, CMP, LIPID, GFR #### [address] [address] .AUTO DIFF Collected: 06/27/2017 Status: F Source: [facility] 9:17 AM [facility] REPOSITORY TYPE CODE TESTS RESULT OUT OF REFERENCE UNITS RANGE LAB AFUA(LOINC) 37.0-80.0 % Neutrophil % 55.8 LAB LYM(LOINC) 10.0-50.0 % Lymphocyte % 31.3 LAB MON(LOINC) 1.7-13.0 % Monocyte % 8.8 LAB EO(LOINC) 0.0-7.0 % Eosinophil % 3.4 LAB BAS(LOINC) 0.0-2.5 % Basophil % 0.7 LAB ABLYM(LOIN 0.77-3.85 10 3/mcL C) Lymphocyte, 1.60 Absolute LAB BLANCA(LOINC 0.15-1.00 10 3/mcL ) Monocyte, 0.40 Absolute LAB AEOS(LOINC 0.00-0.40 10 3/mcL ) Eosinophil, 0.20 Absolute LAB ABAS(LOINC 0.00-0.19 10 3/mcL ) Basophil, 0.00 Absolute Performed By: #### CBC, ADIFF, ANEU, CMP, LIPID, GFR #### [id number] [place], [place] [address] .NEUABS Collected: 06/27/2017 Status: F Source: [facility] 9:17 AM [facility] REPOSITORY TYPE CODE TESTS RESULT OUT OF REFERENCE UNITS RANGE LAB ANEU(LOINC) 2.85-6.16 10 3/mcL Low Neutrophil, 2.80 Absolute Performed By: #### CBC, ADIFF, ANEU, CMP, LIPID, GFR #### [address] [place], [place] [address] CMP Collected: 06/27/2017 Status: F Source: [facility] 9:17 AM [facility] REPOSITORY TYPE CODE TESTS RESULT OUT OF REFERENCE UNITS RANGE LAB 1547-9 70-105 mg/dL GLUCOSE 82 LAB NA(LOINC) 136-146 mEq/L Sodium Level 141 LAB K(LOINC) 3.5-5.1 mEq/L Potassium Level 4.5 LAB CL(LOINC) 98-107 mEq/L Chloride 103 LAB CO2(LOINC) 22-29 mEq/L CO2 29 LAB EBAL(LOINC mEq/L ) Electrolyte Balance 9.0 LAB BUN(LOINC) 7.0-18.0 mg/dL BUN 10.9 LAB CRE(LOINC) 0.6-1.2 mg/dL Creatinine Lvl (s) 0.9 LAB BC(LOINC) 7-27 ratio BUN/Creatinine 12 Ratio LAB CA(LOINC) 8.4-10.2 mg/dL Calcium Lvl 9.3 LAB PROT(LOINC 6.0-8.3 G/dL ) Total Protein 7.0 LAB ALB(LOINC) 3.5-5.0 G/dL Albumin Level 4.5 LAB GLB(LOINC) G/dL Globulin 2.5 LAB AG(LOINC) 1.1-2.5 ratio A/G Ratio 1.8 LAB BILT(LOINC 0.2-1.0 mg/dL ) Bili Total 0.3 LAB AP(LOINC) 40-135 IU/L Low Alk Phos 37 LAB AST(LOINC) 10-40 IU/L AST/SGOT 18 LAB ALT(LOINC) 10-35 IU/L ALT/SGPT 15 Performed By: #### CBC, ADIFF, ANEU, CMP, LIPID, GFR #### [facility] [address] [place], [place] [address] LIPID Collected: 06/27/2017 Status: F Source: [facility] 9:17 AM [facility] REPOSITORY TYPE CODE TESTS RESULT OUT OF REFERENCE UNITS RANGE LAB CHOL(LOINC 131-200 mg/dL ) Cholesterol 193 Result Comment: Cholesterol Reference Interval: Less than 200 Desirable 200-239 Borderline high risk 240 and above High risk LAB TRIG(LOINC) 40-150 mg/dL Triglycerides 109 Result Comment: Triglyceride Reference Interval: Less than 150 Normal 150-199 Borderline high risk 200-499 High risk 500 or higher Very high risk LAB HD(LOINC) 35-90 mg/dL HDL Cholesterol 39 Result Comment: HDL Reference Interval: Less than 40 Low - high risk 60 or above Optimal/lowers risk LAB LDL(LOINC) 0-130 mg/dL LDL High Cholesterol 132 Result Comment: LDL is a calculated result and requires a 12-hr fast. LDL Reference Interval: Less than 100 Optimal 100-129 Near or above optimal 130-159 Borderline high risk 160-189 High risk 190 and above Very high risk Performed By: #### CBC, ADIFF, ANEU, CMP, LIPID, GFR #### [address] [place], [place] [address] .GFR Collected: 06/27/2017 Status: F Source: [facility] 9:17 [place] [facility] REPOSITORY TYPE CODE TESTS RESULT OUT OF REFERENCE UNITS RANGE LAB GFRAA(LOINC ml/min/1.73 ) sqm GFR 104 Spanish Result Comment: GFR Population mean for , Non- Americans Ages 20-29 = 116 mL/min/1.73 sq.m. Ages 30-39 = 107 mL/min/1.73 sq.m. Ages 40-49 = 99 mL/min/1.73 sq.m. Ages 50-59 = 93 mL/min/1.73 sq.m. Ages 60-69 = 85 mL/min/1.73 sq.m. Ages 70+ = 75 mL/min/1.73 sq.m. Chronic Kidney Disease: Less than 60 mL/min/1.73 square meters End Stage Renal Disease: Less than 15 mL/min/1.73 square meters LAB GFRNO(LOINC) ml/min/1.73sqm GFR Non- >60 Result Comment: GFR Population mean for , Non- Americans Ages 20-29 = 116 mL/min/1.73 sq.m. Ages 30-39 = 107 mL/min/1.73 sq.m. Ages 40-49 = 99 mL/min/1.73 sq.m. Ages 50-59 = 93 mL/min/1.73 sq.m. Ages 60-69 = 85 mL/min/1.73 sq.m. Ages 70+ = 75 mL/min/1.73 sq.m. Chronic Kidney Disease: Less than 60 mL/min/1.73 square meters End Stage Renal Disease: Less than 15 mL/min/1.73 square meters Performed By: #### CBC, ADIFF, ANEU, CMP, LIPID, GFR #### [place] [address] [place], [place] [address] XR FINGER 4TH DIGIT Observed: 06/20/2017 Status: F Source: [employer] 3 VIEWS LEFT 5:54 PM FOUNDATION REPOSITORY ORIGINAL XR FINGER 4TH DIGIT 3 VIEWS LEFT CLINICAL STATEMENT: pain, fell this morning, unable to bend finger COMPARISON: None FINDINGS: There is an avulsion fracture of the middle phalanx at the volar aspect at the proximal interphalangeal joint. No dislocation is identified. There is a 2 mm radiopaque density within the soft tissues adjacent to the middle phalanx at the medial mandible or aspect. The joint spaces are maintained. IMPRESSION: 1. Acute avulsion fracture of the middle phalanx at the proximal interphalangeal joint. 2. Radiopaque 2 mm density within the soft tissues just distal to the interphalangeal joint at the medial and volar aspect of the second phalanx, likely compatible with a foreign body. I have personally reviewed the images of this examination and agree with the resident's findings and interpretation. Interpreted By: Titus Kim MD Preliminary Report By: Melinda Salcedo DO Electronically Signed By: Titus Kim MD Dictated Date: 06/20/2017 6:06:44 PM Prelim Date: 06/20/2017 6:10:34 PM Sign Date: 06/20/2017 6:33:06 PM ALLERGIES ALLERGIES DATE TYPE / CODE NAME / CODE REACTION SEVERITY SOURCE 04/24/2018 Drug propoxyphene Other Unknown [place] Allergy/416 napsylate/[id number] Community 437846(SN 6(RXNORM) [facility] ED CT) Repository 04/24/2018 Drug Penicillins/[id number] Hives Unknown [place] Allergy/416 476(RXNORM) Community 385680([facility] ED CT) Repository 03/25/2018 DRUG/095616 PROPOXYPHENE OTHER: SEE C [facility] 003(SNOMED N-ACETAMINOPHEN Other [place] CT) Repository 03/25/2018 Drug PENICILLINS HIVES [facility] Class/24490 Other [place] 1003(SNOMED Repository CT) NG/[id number] PROPOXYPHENE [facility] 6(SNOMED N-ACETAMINOPHEN [facility] CT) Repository NG/28741147 PENICILLINS [facility] 6(SNOMED [facility] CT) Repository Drug NO KNOWN ALLERGIES [facility] Class/33931 Other [place] 1003(SNOMED Repository CT) ENCOUNTERS ENCOUNTERS ADMIT/DISCHARGE ACCOUNT NUMBER ADMITTING ENCOUNTER LOCATION SOURCE CLASS 05/03/2018 [id number] Ambulatory [facility] ding:PSN Repository 04/24/2018/04/28/19 [id number] Agyepong, Inpatient [facility] [place] [facility] 19 [facility] ding:PCURoom Repository : NBG486Zwz: 1 04/24/2018 [id number] Agyepong, Ambulatory BMSBuilding: [place] Roche BMS.[facility] Repository 04/24/2018 [id number] Agyepong, Ambulatory BMSBuilding: [place] Roche BMS.[facility] Repository 04/24/2018 [id number] Agyepong, Ambulatory BMSBuilding: [place] Roche BMS.[facility] Repository 04/24/2018 [id number] Agyepong, Ambulatory BMSBuilding: [place] Roche BMS.[facility] Repository 04/24/2018 [id number] Agyepong, Ambulatory BMSBuilding: [place] Roche BMS.[facility] Repository 04/24/2018/04/28/19 [id number] Ambulatory BMSBuilding: [place] [facility] Repository 04/08/2018/04/10/20 [id number] GEREMIAS, Inpatient [address] [facility] Other [place] Repository 04/08/2018/04/10/20 [id number] GEREMIAS, Inpatient [place] [facility] [address] MEDICAL Repository CENTERBuildi nARoom: 5214Bed: 04/06/2018 [id number] Ambulatory [facility] ding:OLS.ACW Repository 100 03/25/2018/03/31/20 [id number] ASPEN ALMAZAN Inpatient [place] [address] Encounter [facility] Repository 03/25/2018/03/31/20 [id number] ASPEN ALMAZAN Inpatient [address] MEDICAL Repository [place] 8120Bed: 03/25/2018/03/25/20 [id number] Emergency [address] Repository 10/21/2017/10/22/19 [id number] Ambulatory [address] ding:OT Repository 07/14/2017/08/02/19 [id number] Rosita, [place] [address] [place] [facility] ding:RURoom: Repository QQ258Zuc: 1 07/14/2017 [id number] Rosita, Ambulatory BMSBuilding: [place] BMS.[facility] Repository 07/14/2017 [id number] Rosita, Ambulatory BMSBuilding: [place] BMS.[facility] Repository 07/14/2017 [id number] Becker, Ambulatory BMSBuilding: [place] Savage BMS.[facility] Repository 07/14/2017/08/02/19 [id number] Ambulatory BMSBuilding: [place] 18 [facility] Repository 07/08/2017/07/15/19 [id number] Kalyan, Inpatient [place] 18 [facility] ding:PCURoom Repository : KDB455Krd: 1 07/08/2017 [id number] White, Ambulatory BMSBuilding: [place] Henny BMS.[facility] Repository 07/08/2017 [id number] White, Ambulatory BMSBuilding: [place] Henny BMS.[facility] Repository 07/08/2017 [id number] White, Ambulatory BMSBuilding: [place] Henny BMS.[facility] Repository 07/08/2017 [id number] White, Ambulatory BMSBuilding: [place] Henny BMS.[facility] Repository 07/08/2017 [id number] White, Ambulatory BMSBuilding: [place] Henny BMS.[facility] Repository 07/08/2017 [id number] White, Ambulatory BMSBuilding: [place] Henny BMS.[facility] Repository 07/08/2017 [id number] White, Ambulatory BMSBuilding: [place] Henny BMS.[facility] Repository 07/08/2017 [id number] White, Ambulatory BMSBuilding: [place] Henny BMS.[facility] Repository 06/27/2017/07/02/19 [id number] Ambulatory [address] ding:[facility] Repository 06/20/2017/06/20/19 [id number] Emergency BBuilding:[address] Repository PAYERS PAYERS ENCOUNTER GUARANTOR PAYER SUBSCRIBER SOURCE 05/03/2018 YUVAL I Primary YUVAL I [place] [id number] [place] Insurance:MEDICAIDPol LAIRDDOB: [place], [place] ic Number: [id number] 86[address]Jfm: (333) [id number] Repository [phone] () Date:2018-01-31 05/03/2018 Secondary NOT GIVENUNK [place] Insurance:SELF PAY [facility] Number: Effective Repository Date:2018-01-31 04/24/2018 YUVAL I Primary YUVAL I [place] [id number] [place] Insurance:CARESOURCEP LAIRDDOB: [facility] Number: [id number] Hospital 813[address]Xxv: (441) [id number] Repository [phone] () Date:2018-04-24 [address]ATTN: [place] [address]EK: 04/24/2018 Secondary NOT GIVENUNK [place] Insurance:SELF PAY [facility] Number: Effective Repository Date:2018-04-24 04/24/2018 YUVAL I Primary YUVAL I [place] [id number] [place] Insurance:CARESOURCEP LAIRDDOB: [facility] Number: [id number] Hospital [address]Fca: (903) [id number] Repository [phone] (HP) Date:2018-04-24 [address]ATTN: [place] [address]TJ: 04/24/2018 Secondary NOT GIVENUNK [place] Insurance:SELF PAY [facility] Number: Effective Repository Date:2018-04-24 04/24/2018 YUVAL I Primary YUVAL I [place] [id number] [place] Insurance:CARESOURCEP LAIRDDOB: [facility] Number: [id number] Hospital 114[address]Xeq: [phone]) [id number] Repository [phone] () Date:2018-04-24 [address]ATTN: [place] [address]QZ: 04/24/2018 Secondary NOT GIVENUNK [place] Insurance:SELF PAY [facility] Number: Effective Repository Date:2018-04-24 04/24/2018 YUVAL I Primary YUVAL I [place] [id number] [place] Insurance:CARESOURCEP LAIRDDOB: [facility], [facility] [place], [facility] Number: [id number] Hospital [address]Osx: 330 [id number] Repository [phone] () Date:2018-04-24 [address]ATTN: [place] [address]PB: 04/24/2018 Secondary NOT GIVENUNK [place] Insurance:SELF PAY [facility] Number: Effective Repository Date:2018-04-24 04/24/2018 YUVAL I Primary YUVAL I [place] [id number] [place] Insurance:CARESOURCEP LAIRDDOB: [facility] Number: [id number] Hospital [address]Aij: (505) [id number] Repository [phone] () Date:2018-04-24 [address]ATTN: [place] [address]YC: 04/24/2018 Secondary NOT GIVENUNK [place] Insurance:SELF PAY [facility] Effective Repository Date:2018-04-24 04/24/2018 YUVAL I Primary YUVAL Baron [id number] [place] Insurance:CARESOURCEP LAIRDDOB: [facility], [facility] [place] [facility] Number: [id number] Hospital 689[address]Vxm: (129) [id number] Repository [phone] () Date:2018-04-24 [address]ATTN: [place] [address]NK: 04/24/2018 Secondary NOT GIVENUNK [place] Insurance:SELF PAY [facility] Number: Effective Repository Date:2018-04-24 04/24/2018 YUVAL I Primary YUVAL Baron [id number] [place] Insurance:CARESOURCEP LAIRDDOB: [facility] Number: [id number] Hospital [address]Qea: [phone]) [id number] Repository [phone] () Date:2018-04-24 [address]ATTN: [place] [address]LK: 04/24/2018 Secondary NOT GIVENUNK [place] Insurance:SELF PAY [facility], [facility] Number: Effective Repository Date:2018-04-24 04/08/2018 YUVAL NICHOLS Primary YUVAL NICHOLS [facility] Insurance:[facility]LECT [facility]da: [facility] MEDICAIDPolicy [id number] Repository [place] Number: [place] [id number] [address]Ngq: 330) Date: [phone] () 04/06/2018 YUVAL NICHOLS Primary YUVAL Nogueraoster Jr.924 [place] [facility], [facility] Number: [id number] Hospital 775[address]Slk: (164) [id number] Repository [phone] () Date:2018-04-06 04/06/2018 Secondary NOT GIVENUNK [place] Insurance:SELF PAY Community [facility] Number: Effective Repository Date:2018-04-06 03/25/2018 YUVAL Slade LA[place] Primary YUVAL NICHOLS [facility] JR.: Insurance:CARESOURCE JR.: Health System [id number] MEDICAIDPolicy [id number] Repository [place] Number: NASIM JACOBO [id number] 86[address]Ztr: 330) Date: [phone] () 10/21/2017 YUVAL CARMICHAELRD Primary YUVAL NICHOLS [place] Jr.924 [place] Insurance:MEDICAIDPol Jr.: [facility], [facility] icy Number: [id number] Hospital [address]Kcj: (898) [id number] Repository [phone] () Date:2017-07-24 10/21/2017 Secondary NOT GIVENUNK [place] Insurance:SELF PAY [facility], [facility] Number: Effective Repository Date:2017-08-12 07/14/2017 YUVAL NICHOLS Primary YUVAL Nogueraoster Jr.924 [place] Insurance:MEDICAIDPol Jr.: [facility], [facility] icy Number: [id number] Hospital 407[address]Efz: (515) [id number] Repository [phone] () Date:2017-07-14 07/14/2017 Secondary NOT GIVENUNK [place] Insurance:SELF PAY [facility], [facility] Number: Effective Repository Date:2017-07-14 07/14/2017 YUVAL NICHOLS Primary YUVAL NICHOLS [place] Jr.[address] [place] Insurance:MEDICAIDPol Jr.: [facility], [facility] [place] icy Number: [id number] Hospital [address]Ars: 330 [id number] Repository [phone] (HP) Date:2017-07-14 07/14/2017 Secondary NOT GIVENUNK [place] Insurance:SELF PAY [facility], [facility] Number: Effective Repository Date:2017-07-14 07/14/2017 YUVAL Slade LAIJALEESA Primary YUVAL NICHOLS [place] Jr.[address] [place] Insurance:MEDICAIDPol Jr.: [facility], [facility] icy Number: [id number] Hospital [address]12[address]Lqd: 330 [id number] Repository [phone] () Date:2017-07-14 07/14/2017 Secondary NOT GIVENUNK [place] Insurance:SELF PAY [facility] Number: Effective Repository Date:2017-07-14 07/14/2017 YUVAL NICHOLS Primary YUVAL Nogueraoster Jr.924 [place] Insurance:MEDICAIDPol Jr.: [facility], [facility] [place] icy Number: [id number] Hospital 74[address]Omv: 330 [id number] Repository [phone] () Date:2017-07-14 07/14/2017 Secondary NOT GIVENUNK [place] Insurance:SELF PAY [facility] Number: Effective Repository Date:2017-07-14 07/14/2017 YUVAL NICHOLS Primary YUVAL Nogueraoster Jr.924 [place] Insurance:MEDICAIDPol Jr.: [facility], [facility] [place] icy Number: [id number] Hospital 07[address]Cxl: 330 [id number] Repository [phone] () Date:2017-07-14 07/14/2017 Secondary NOT GIVENUNK [place] Insurance:SELF PAY [facility] Number: Effective Repository Date:2017-07-14 07/08/2017 YUVAL NICHOLS Primary YUVAL NICHOLS [place] Jr.924 [place] Insurance:MEDICAIDPol Jr.: [facility], [facility] [place] icy Number: [id number] Hospital 3[address]Okz: 330 [id number] Repository [phone] () Date:2017-07-08 07/08/2017 Secondary NOT GIVENUNK [place] Insurance:SELF PAY [facility] Number: Effective Repository Date:2017-07-08 07/08/2017 YUVAL NICHOLS Primary YUVAL Nogueraoster Jr.924 [place] Insurance:MEDICAIDPol Jr.: [facility], [facility] [place] icy Number: [id number] Hospital 315[address]Nxa: (363) [id number] Repository [phone] () Date:2017-07-08 07/08/2017 Secondary NOT GIVENUNK [place] Insurance:SELF PAY [facility] Number: Effective Repository Date:2017-07-08 07/08/2017 YUVAL I [place] Primary YUVAL NICHOLS [place] Jr.[address] [place] Insurance:MEDICAIDPol Jr.: [facility], [facility] [place], [place] icy Number: [id number] Hospital 27[address]Azl: 330 [id number] Repository [phone] () Date:2017-07-08 07/08/2017 Secondary NOT GIVENUNK [place] Insurance:SELF PAY [facility] Number: Effective Repository Date:2017-07-08 07/08/2017 YUVAL Slade [place] Primary YUVAL CARMICHAELRD [place] Jr.924 [place] Insurance:MEDICAIDPol Jr.: [facility], [facility] [place] icy Number: [id number] Hospital [address]Jcq: 330 [id number] Repository [phone] () Date:2017-07-08 07/08/2017 Secondary NOT GIVENUNK [place] Insurance:SELF PAY [facility], [facility] Number: Effective Repository Date:2017-07-08 07/08/2017 YUVAL NICHOLS Primary YUVAL NICHOLS [place] Jr.924 [place] Insurance:MEDICAIDPol Jr.: [facility], [facility]–1983 [place] icy Number: [id number] Hospital [address]Tue: 330 [id number] Repository [phone] () Date:2017-07-08 07/08/2017 Secondary NOT GIVENUNK [place] Insurance:SELF PAY [facility] Number: Effective Repository Date:2017-07-08 07/08/2017 YUVAL CARMICHAELRD Primary YUVAL NICHOLS [place] Jr.924 [place] Insurance:MEDICAIDPol Jr.: [facility], [facility] [place] icy Number: [id number] Hospital 35[address]Dpw: 330 [id number] Repository [phone] () Date:2017-07-08 07/08/2017 Secondary NOT GIVENUNK [place] Insurance:SELF PAY [facility] Number: Effective Repository Date:2017-07-08 07/08/2017 YUVAL I [place] Primary YUVAL NICHOLS [place] Jr.924 [place] Insurance:MEDICAIDPol Jr.: [place] icy Number: [id number] Hospital 359[address]Avz: (119) [id number] Repository [phone] () Date:2017-07-08 07/08/2017 Secondary NOT GIVENUNK [place] Insurance:SELF PAY [facility] Number: Effective Repository Date:2017-07-08 07/08/2017 YUVAL Slade [place] Primary YUVAL Slade LAIJALEESA [place] Jr.924 [place] Insurance:MEDICAIDPol Jr.: [place] icy Number: [id number] Hospital 311[address]Xmo: 330 [id number] Repository [phone] () Date:2017-07-08 07/08/2017 Secondary NOT GIVENUNK [place] Insurance:SELF PAY [facility] Number: Effective Repository Date:2017-07-08 07/08/2017 [facility]UVAL Slade [facility] YUVAL NICHOLS [place] Jr.924 [place] Insurance:MEDICAIDPol Jr.: [place] icy Number: [id number] Hospital 614[address]Ngp: 330 [id number] Repository [phone] () Date:2017-07-08 07/08/2017 Secondary NOT GIVENUNK [place] Insurance:SELF PAY [facility] Number: Effective Repository Date:2017-07-08 06/27/[address] [facility] YUVAL NICHOLS Community HealthDOB: Insurance:MEDICAID [facility]: [facility] [id number] [facility] Number: [id number] Repository [facility] [id number] [address] [place] [address] Date:2017-06-[address] [address]Yer: (218) [id number] [facility] [address]Fia: [phone] () Name:DERIAN Rai [id number], [place] (HP)Tel: [phone]: () [phone] 06/20/2017 YUVAL NICHOLS Primary YUVAL NICHOLS Community HealthDOB: Insurance:MEDICAID OF [facility]: [facility] [id number] [facility] Number: [id number] Repository [facility] [id number] [address] Date:2017-06-20 - [facility] [address]Clh: ([phone]) [id number] [phone] () Name:DERIAN Rai [address]Hoo: [phone] [id number], [place] [phone]: ([phone]) (HP) [phone] ()
== END ==
LOC: OLS.ACW100 05:00
PROVIDERS: Visit Provider Family Medicine
DX: R41.82 Altered mental status, unspecified (principal); I69.354 Hemiplegia and hemiparesis following cerebral infarction affecting left non-dominant side; I10 Essential (primary) hypertension; E78.5 Hyperlipidemia, unspecified; G40.89 Other seizures
CPT/HCPCS: 36415; 80053; 80061; 84443; 85027

== ENCOUNTER 2018-04-24 17:09 | Inpatient (IN) | payer MEDICAID, SELFPAY ==
[2018-04-24] VITALS (10 sets, daily range): BP systolic 138–161; BP diastolic 79–94; PULSE 56–68; RESP 8–18; TEMP 36.9–37.7; O2SAT 96–100; BMI 24.3; BMI 25.7
--- NOTE | 2018-04-24 17:33 | CT_ITS ---
STUDY: CT BRAIN WITHOUT CONTRAST REASON FOR EXAM: Male, 47 years old. Headache today, previous trauma RADIATION DOSAGE (If Supplied By Facility): CTDIvol = ( 44.99 ) mGy, DLP = ( 779.24 ) mGycm TECHNIQUE: Transaxial CT imaging of the brain was performed without administration of intravenous contrast material. Individualized dose optimization techniques were used for this CT. COMPARISON: 07/08/2017 FINDINGS: Stable postsurgical changes noted in the right zygomatic arch and right orbital region from previous trauma. Stable subcutaneous granulomas calcifications Normal size ventricles and extra-axial spaces for the patient's age. Normal white matter tracts of the cerebral hemispheres. Stable likely postsurgical hypoattenuation in the right frontal lobe. Normal basal ganglia and thalami. Normal brainstem. Normal cerebellum. There is no intracranial hemorrhage. There are no findings of an acute ischemic infarction. Normal visualized paranasal sinuses. CT/Brain/Head without Contrast IMPRESSION: Age consistent and postsurgical changes, no acute findings Stable surgical hardware in the right zygomatic arch and orbit from previous trauma Electronically Signed: Roberto Mackey MD at 18:01 EST , Service support ,
--- NOTE | 2018-04-24 17:34 | EKG12_ITS ---
Test Reason : Blood Pressure : / mmHG Vent. Rate : 054 BPM Atrial Rate : 054 BPM P-R Int : 144 ms QRS Dur : 098 ms QT Int : 414 ms P-R-T Axes : 056 020 029 degrees QTc Int : 392 ms Sinus bradycardia Otherwise normal ECG Confirmed by ANTOINE LEE, MADAI ([id number]), purchasing expeditor BRINDA SABILLON ([id number]) on 04/27/2018 1:36:05 PM Referred By: Melchor Morrison Confirmed By:MADAI SCHULTZ MD
--- NOTE | 2018-04-24 17:50 | RAD_ITS ---
STUDY: X-RAY CHEST REASON FOR EXAM: Male, 47 years old. Cough, headache TECHNIQUE: Single AP portable view of the chest. COMPARISON: 07/08/2017 FINDINGS: The lungs are clear and expanded. There is no demonstrated pleural abnormality. Normal size heart. Normal mediastinum and davonte. Normal visualized pulmonary arteries. Normal visualized aortic arch and descending thoracic aorta. Normal visualized thoracic spine. Normal visualized ribs, clavicles, and shoulders. There is no demonstrated abnormality of the visualized soft tissue structures of the upper abdomen. RAD/Chest 1 View IMPRESSION: Normal x-ray examination of the chest. Electronically Signed: Roberto Mackey MD at 18:02 EST , Service support ,
--- NOTE | 2018-04-24 17:54 | CT_ITS ---
STUDY: CTA OF THE BRAIN REASON FOR EXAM: Male, 47 years old. CVA The clinical history provided for the CT of the head was headache with previous trauma, the chest x-ray history describes headache with cough. RADIATION DOSAGE (If Supplied By Facility): CTDIvol = ( 26.13 ) mGy, DLP = ( 697.00 ) mGycm TECHNIQUE: CT angiography was performed with a multi-detector CT scanner. Data acquisition was obtained from the skull base through the vertex following intravenous administration of 100 ml of Omnipaque 370. MIP images were reconstructed from the axial data set. Post-processing of the angiographic images was performed, with multiplanar reformation and 3D reconstruction. Individualized dose optimization techniques were used for this CT. COMPARISON: April 24, 2018 CT scan head FINDINGS: Normal bilateral petrous carotid arteries. Normal right cavernous carotid artery with a normal supraclinoid bifurcation. Normal left cavernous carotid artery with a normal supraclinoid bifurcation. Normal right A1 segments of the anterior cerebral artery. There is a mildly beaded appearance of the left A1 which may represent fibromuscular dysplasia. Normal intact anterior communicating artery (ACOM). Normal bilateral A2 segments of the anterior cerebral arteries. Normal right M1 and M2 segments of the middle cerebral arteries, with a normal M1 bifurcation. Normal left M1 and M2 segments of the middle cerebral arteries, with a normal M1 bifurcation. Normal right posterior communicating artery (PCOM). Normal left posterior communicating artery (PCOM). Normal bilateral vertebral arteries. Normal basilar artery with a normal basilar bifurcation. The visualized bilateral superior cerebellar (SCA) arteries are normal. Normal bilateral P1, P2 and visualized P3 segments of the posterior cerebral arteries. There is no demonstrated aneurysm of the de[place] of [place]. There is right frontal low attenuation underlying the area of calvarial defect. There is been a aurea hole in the right frontoparietal region. There is postoperative change involving the right maxillary sinus and right zygomatic arch and right nasal bone. 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 CT/CTA Head W/WO Contrast IMPRESSION: Normal deering of [place] without a demonstrated aneurysm or hemodynamically significant stenosis. Postoperative change in the right frontal region postoperative change calvarium. 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 Electronically Signed: Zonia Ratliff MD at 19:33 EST Tel , Service support ,
--- NOTE | 2018-04-24 17:54 | CT_ITS ---
STUDY: CTA NECK WITH AND WITHOUT CONTRAST REASON FOR EXAM: Male, 47 years old. Headache cough CVA RADIATION DOSAGE (If Supplied By Facility): CTDIvol = ( 26.13 ) mGy, DLP = ( 697.00 ) mGycm TECHNIQUE: CT angiography with multi-detector data acquisition was performed from the aortic arch to the skull base prior to and after intravenous administration of 100ML ml of Isovue 370 contrast. MIP images were reconstructed from the axial data set. Post-processing of the angiographic images was performed, with multiplanar reformation and 3D reconstruction. Individualized dose optimization techniques were used for this CT. COMPARISON: July 08, 2017 CT angiogram carotid FINDINGS: AORTIC ARCH: Normal visualized aortic arch. Normal origins of the brachiocephalic, left common carotid, and left subclavian arteries. RIGHT CAROTID ARTERIES: Normal right common carotid artery (CCA). Normal right common carotid bulb. Normal origin of the right internal carotid (ICA) artery without a hemodynamically significant stenosis. Normal visualized cervical portion of the right internal carotid artery. Normal origin of the right external carotid artery (ECA). LEFT CAROTID ARTERIES: Normal left common carotid artery (CCA). There is mild atherosclerotic plaque formation with minimal narrowing of the left carotid bulb. Normal origin of the left internal carotid (ICA) artery without a hemodynamically significant stenosis. There is atherosclerotic tortuous elongation of the cervical portion of the left internal carotid artery. Normal origin of the left external carotid artery (ECA). VERTEBRAL ARTERIES: Normal bilateral vertebral arteries. There is visualized postoperative change. In the right facial bones compatible with history of trauma including right lateral wall of the orbit trauma. There is advanced degenerative change of the cervical spine at the level of C3-C4 there is a broad disc osteophyte protrusion extending into the right side of the canal causing moderate right neural foramina narrowing moderate central stenosis. CT/CTA Neck W/WO Contrast IMPRESSION: Trace carotid bulb calcification otherwise Normal bilateral cervical carotid and vertebral arteries. Degenerative change of the cervical spine for which an MRI would be suggested for follow-up. Electronically Signed: Zonia Ratliff MD at 19:36 EST Tel , Service support ,
[2018-04-24 18:39] LABS: Absolute Lymphocyte Count 1.13 X10^3/ul (0.83-4.51); Absolute Neutrophil Count 3.6 X10^3/uL (2.0-7.7); Basophil# 0.01 X10^3/uL; Basophil% 0.2 % (0-1); Eosinophil# 0.17 X10^3/uL; Eosinophils% 3.1 % (0-5); Hematocrit 38.8 % (40-54); Hemoglobin 12.3 g/dl (13.0-16.5); Lymphocyte # 1.13 X10^3/ul (4.0); Lymphocyte % 20.8 % (19-41); Mean Corp Hgb Conc 31.7 g/gl (32-36); Mean Corpuscular Hgb 29.1 pg (27.0-32.0); Mean Corpuscular Volume 91.9 fL (80-94); Mean Platelet Vol. 10.3 fl (6.2-12.0); Monocyte# 0.54 X10^3/uL; Monocyte% 9.9 % (0-10); Neutrophil # 3.57 X10^3/uL (2.7-7.7); Neutrophil % 65.8 % (47-70); POSITIVE COUNT NO; POSITIVE DIFFERENTIAL NO; POSITIVE MORPHOLOGY NO; Platelet Count 171 K/mm3 (150-450); RBC Distribution Width CV 13.2 % (11.6-14.6); RBC Distribution Width SD 44.2 fl (35.1-43.9); Red Blood Count 4.22 M/mm3 (4.6-6.2); White Blood Count 5.4 K/mm3 (4.4-11.0)
[2018-04-24 18:53] LABS: Prothrombin Time (Protime)PT. 13.1 SECONDS (11.7-14.9)
[2018-04-24 18:54] LABS: Partial Thromboplast Time 26.9 Seconds (24.1-36.2)
[2018-04-24 18:59] LABS: Anion Gap 9 (5-15); BUN 11 mg/dL (7-18); BUN/Creat Ratio 11.4 RATIO (10-20); Chloride 103 mmol/L (98-107); Creatinine, Serum 0.96 mg/dL (0.70-1.30); EST Glomerular Filtration Rate 88 mL/min (>60); Est Glom Filt Rate - Afr Amer 107 mL/min (>60); Estimated Creatinine Clearance 90.05 ml/min; Glucose 109 mg/dL (74-106); Potassium 3.7 mmol/L (3.5-5.1); Sodium Level 138 mmol/L (136-145)
--- NOTE | 2018-04-24 19:41 | ED.DCSUM_ITS ---
- ER Visit Summary Date of Service: 04/24/18 Chief Complaint: Headache, vision loss History of Present Illness: The patient is a 47 M with medical history significant for prior stroke and seizure disorder presents to the emergency department with headache and vision loss. The patient symptoms began yesterday. The patient was recently hospitalized for a seizure. He ended up at [facility]. He was discharged to nursing facility and [facility]. Apparently there, he fell and hit his head. He had a resulting intraparenchymal hemorrhage. He was transferred back to [facility]. The patient has been at home and doing well. Family member states that yesterday, he started complaint of a headache and thinks that he hit his head. Today he had told her that he can see out of his eye. He is also having some slurred speech which is chronic. His symptoms began greater than 8 hours ago. Physical Examination: The patient has complete vision loss in the left eye. He does not blink to threat. He has mild dysarthria. He has mild weakness of the right upper and lower extremity. His NIH is 5, but his symptoms have been going on for greater than 8 hours. He has no evidence of external head trauma. His heart is regular rhythm. His lungs are clear. His abdomen is soft. The rest of exam is unremarkable. Test Results: [] Emergency Department Course and Treatment: Patient presents with vision loss of the left eye. It started greater than 8 hours ago. He also has history of recent head bleed. Patient was sent for immediate stat head CT which was unremarkable. There is chronic and cephalo-Amelie and postoperative changes. Patient underwent CTA of the head and neck. There is no evidence of acute obstruction. His labs are unremarkable. At this time, I do feel the patient likely suffered a recurrent stroke. I do feel that he can require admission for MRI and further stroke workup. Patient was discussed with the hospitalist. Treatment Plan: [] Disposition: Admission Impression: 1. Headache 2. Vision loss This note was generated with [employer] dictation software. It may contain incorrect words, spelling, and punctuation that were not noted in review of the chart prior to signing ED Disposition - Plan for ED Patient: Chief Complaint: Headache Referrals: Mike Carrillo MD [Primary Care Provider] -
--- NOTE | 2018-04-24 19:49 | ED.RN ---
PT ABLE TO DRINK FROM CUP BUT UNABLE TO USE SPOON WITHOUT SUPERVISION.
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
--- NOTE | 2018-04-24 21:30 | ECHOD_ITS ---
Reason For Study: TIA/CVA Procedure This was a 2D Doppler, Color Flow transthoracic echocardiogram. The exam was of fair technical quality due to diminished acoustic windows. Exam performed portable in patient room. Left Ventricle Normal LV size. Left ventricular systolic function is normal. The estimated ejection fraction is 65 %. No evidence for diastolic dysfunction. No regional wall motion abnormalities noted. Right Ventricle Normal RV size. Normal systolic function. Atria Normal left atrium. Normal right atrium. No doppler evidence for ASD. Mitral Valve There is no mitral annular calcification. Normal mitral valve. Trivial mitral valve insufficiency. Tricuspid Valve Normal tricuspid valve. Mild tricuspid valve insufficiency. Right ventricular systolic pressure estimated to be 32 mmHg. Aortic Valve Trisinus/trileaflet aortic valve. Normal aortic valve. Pulmonic Valve The pulmonic valve is not well visualized. Trivial pulmonic valve insufficiency. Great Vessels Normal sized aortic root. Pericardium/Pleural No pericardial effusion. MMode/2D Measurements & Calculations LVIDd: 4.6 cm IVSd: 1.0 cm Ao root diam: 3.3 cm LVIDs: 2.8 cm LVPWd: 0.88 cm RVDd: 4.8 cm FS: 37.9 % LAV(MOD-bp): 27.8 ml LVAd ap4: 26.0 cm2 SV(MOD-sp4): 49.0 ml LAV(MOD-bp) Indexed: 14.1 ml/m2 EDV(MOD-sp4): 68.6 ml LAV(MOD-sp2): 47.1 ml EDV(sp4-el): 72.0 ml LAV(MOD-sp4): 16.8 ml LVAs ap4: 12.4 cm2 ESV(MOD-sp4): 19.7 ml ESV(sp4-el): 19.1 ml EF(MOD-sp4): 71.4 % EF(sp4-el): 73.5 % SV(sp4-el): 53.0 ml LA A4 area: 9.3 cm2 LA dimension(2D): 3.7 cm RA A4 area: 13.8 cm2 Doppler Measurements & Calculations MV E max julian: 71.0 cm/sec Lat Peak E' Julian: 10.5 cm/sec Med Peak E' Julian: 8.6 cm/sec MV A max julian: 52.8 cm/sec E/E' lat: 6.8 E/E' med: 8.3 MV E/A: 1.3 Ao V2 max: 121.9 cm/sec LV V1 max: 104.6 cm/sec PA V2 max: 104.0 cm/sec Ao max P.9 mmHg LV V1 max P.4 mmHg Ao V2 mean: 82.3 cm/sec Ao mean P.0 mmHg Ao V2 VTI: 28.0 cm TR max julian: 269.3 cm/sec TR max P.0 mmHg Interpretation Summary Left ventricular systolic function is normal. The estimated ejection fraction is 65 %. Trivial mitral valve insufficiency. Mild tricuspid valve insufficiency. Trivial pulmonic valve insufficiency. Right ventricular systolic pressure estimated to be 32 mmHg. No evidence for diastolic dysfunction. Ordering Physician: Melchor Morrison Referring Physician: Mike Carrillo Performed By: Heaven Garcia, CATHERINE, RVT
[2018-04-24] MEDS: Tamsulosin HCl 0.4 MG Capsule 0.8 MG PO (23:39)
[2018-04-24] MEDS: levETIRAcetam 750 MG Tablet PO (23:39)
[2018-04-24] MEDS: QUEtiapine 25 MG Tablet PO (23:39)
[2018-04-24] MEDS: Atorvastatin Calcium 80 MG Tablet PO (23:39)
[2018-04-24] MEDS: Glycerin/Hypromellose/PEG400 15 ml Bottle RIGHT EYE (23:40)
[2018-04-25] VITALS (14 sets, daily range): BP systolic 96–122; BP diastolic 52–75; PULSE 51–110; RESP 16–18; TEMP 36.6–37.2; O2SAT 94–98
[2018-04-25 07:45] LABS: International Normalized Ratio 1.1; Prothrombin Time (Protime)PT. 14.4 SECONDS (11.7-14.9)
[2018-04-25 08:03] LABS: Anion Gap 9 (5-15); BUN 8 mg/dL (7-18); BUN/Creat Ratio 8.8 RATIO (10-20); Calcium,Total 8.6 mg/dL (8.5-10.1); Chloride 105 mmol/L (98-107); Cholesterol 145 mg/dL (200); EST Glomerular Filtration Rate 95 mL/min (>60); Est Glom Filt Rate - Afr Amer 115 mL/min (>60); Estimated Creatinine Clearance 105.75 ml/min; Glucose 91 mg/dL (74-106); High Density Lipoprotein 35 mg/dL; Potassium 3.2 mmol/L (3.5-5.1); Sodium Level 140 mmol/L (136-145); Triglycerides 86 mg/dL; Very Low Density Lipoprotein 17 mg/dL (5-40)
[2018-04-25] MEDS: Docusate Sodium 100 MG Capsule PO (09:04)
[2018-04-25] MEDS: Aspirin 81 MG TAB.CHEW PO (09:04)
[2018-04-25] MEDS: Sertraline 50 MG Tablet PO (09:04)
[2018-04-25] MEDS: levETIRAcetam 750 MG Tablet PO ×2 (09:04→22:51)
[2018-04-25] MEDS: Pantoprazole Sodium 40 MG Tablet PO (09:04)
[2018-04-25] MEDS: Etodolac 200 MG Capsule 400 MG PO ×2 (09:05→17:30)
[2018-04-25] MEDS: Glycerin/Hypromellose/PEG400 15 ml Bottle RIGHT EYE ×2 (09:05→22:52)
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
--- NOTE | 2018-04-25 16:34 | PCM.PROGNOTE ---
Subjective: Patient was seen and examined today, neurology saw the patient today and feels that he may be postictal. It is recommended that he continue Keppra. 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 Oral: Moist Mucosa Neck: Supple, Trachea Midline, Thyroid Normal Size and Texture Lungs: Clear to auscultation, Normal air movement, No rhonchi, No wheeze, No rales Cardiovascular: Regular rate, Regular Rhythm, Normal S1, Normal S2, No murmurs, No Ectopic Activity Abdomen: Bowel Sounds Present, Soft, Non Tender, Non-Distended, No hernias noted Extremities: No clubbing, No cyanosis, No edema Skin: No rashes, No breakdown Musculoskeletal: No Tenderness to Palpation of Joints or Extremities Neurological: - - Patient is able to drink from a glass but is not able to follow directions or commands Psych/Mental Status: - - Patient is alert but confused, he does not follow directions appropriately Vital Signs Temp Pulse Resp BP Pulse Ox 97.9 F 52 L 16 119/75 98 04/25/18 12:21 04/25/18 13:03 04/25/18 12:21 04/25/18 12:21 04/25/18 12:21 Oxygen Delivery Method Room Air Weight: 83.8 kg Body Mass Index (BMI) 25.7 Finger Stick Blood Glucose 90 Intake and Output for Last 24 Hours 04/23/18 04/24/18 04/25/18 23:59 23:59 23:59 Intake Total 300 / 300 Output Total 925 / 925 Balance -625 / -625 Laboratory Tests Past 24 Hrs 04/24/18 04/24/18 04/24/18 18:35 18:35 18:35 WBC 5.4 RBC 4.22 L Hgb 12.3 L Hct 38.8 L MCV 91.9 MCH 29.1 MCHC 31.7 L RDW 13.2 RDW Differential 44.2 H Plt Count 171 MPV 10.3 Immature Gran % (Auto) 0.200 Neut % (Auto) 65.8 Lymph % (Auto) 20.8 [place] % (Auto) 9.9 Eos % (Auto) 3.1 Baso % (Auto) 0.2 Absolute Neuts (auto) 3.6 Absolute Lymphs (auto) 1.13 Total Counted Not Reportable PT 13.1 INR 1.0 APTT 26.9 Sodium 138 Potassium 3.7 Chloride 103 Carbon Dioxide 26.0 Anion Gap 9 BUN 11 Creatinine 0.96 Estim Creat Clear Calc 90.05 Est GFR (MDRD) Af Amer 107 Est GFR (MDRD) Non-Af 88 BUN/Creatinine Ratio 11.4 Glucose 109 H Calcium 9.0 Troponin I < 0.015 Triglycerides Cholesterol LDL Cholesterol VLDL Cholesterol HDL Cholesterol 04/25/18 04/25/18 07:05 07:05 WBC RBC Hgb Hct MCV MCH MCHC RDW RDW Differential Plt Count MPV Immature Gran % (Auto) Neut % (Auto) Lymph % (Auto) [place] % (Auto) Eos % (Auto) Baso % (Auto) Absolute Neuts (auto) Absolute Lymphs (auto) Total Counted PT 14.4 INR 1.1 APTT Sodium 140 Potassium 3.2 L Chloride 105 Carbon Dioxide 26.0 Anion Gap 9 BUN 8 Creatinine 0.90 Estim Creat Clear Calc 105.75 Est GFR (MDRD) Af Amer 115 Est GFR (MDRD) Non-Af 95 BUN/Creatinine Ratio 8.8 L Glucose 91 Calcium 8.6 Troponin I Triglycerides 86 Cholesterol 145 LDL Cholesterol 93 VLDL Cholesterol 17 HDL Cholesterol 35 L Medical Necessity - Tobacco Use Smoking Status: Never smoker Assessment/Plan All Active Problems (This Medical Record has been edited. Action required.) Mental status change (Acute) Acute ischemic stroke (Acute) Seizure in response to acute event (Acute) Acute ischemic stroke (Acute) Seizure in response to acute event (Acute) Dysphagia (Acute) #1 vision loss from patient's left eye-etiology unclear, possibly secondary to postictal state, I talked with ophthalmology today by phone, they recommend the patient go to their office for complete eye exam tomorrow, they did not feel that it was in the emergency tonight for the patient to be seen in their office, the on-call physician stated that a complete eye exam would not be able to be done at the hospital. I will try to make arrangements for the patient to be transported to the [facility] office tomorrow for an eye exam to rule out any intraocular pathology in the left eye. #2 seizure disorder #3 probable postictal state-EEG will be performed, neurology saw the patient today. Code Visit Inpatient E&M: 92740 Subs Hosp L2
[2018-04-25 18:50] LABS: CPK Total, Creatine Kinase 64 U/L (39-308); LDH 198 U/L (87-241)
[2018-04-25] MEDS: Petrolatum,White 3.75GM OPTH.TUBE 1 APPLIC OP (22:50)
[2018-04-25] MEDS: Atorvastatin Calcium 80 MG Tablet PO (22:51)
[2018-04-25] MEDS: QUEtiapine 25 MG Tablet PO (22:51)
[2018-04-25] MEDS: Tamsulosin HCl 0.4 MG Capsule 0.8 MG PO (22:51)
[2018-04-26] VITALS (10 sets, daily range): BP systolic 116–143; BP diastolic 72–85; PULSE 46–62; RESP 16–18; TEMP 36–37; O2SAT 94–97
[2018-04-26] MEDS: Pantoprazole Sodium 40 MG Tablet PO (09:17)
[2018-04-26] MEDS: levETIRAcetam 750 MG Tablet PO (09:17)
[2018-04-26] MEDS: Docusate Sodium 100 MG Capsule PO (09:17)
[2018-04-26] MEDS: Etodolac 200 MG Capsule 400 MG PO ×2 (09:17→16:55)
[2018-04-26] MEDS: Sertraline 50 MG Tablet PO (09:17)
[2018-04-26] MEDS: Aspirin 81 MG TAB.CHEW PO (09:17)
[2018-04-26] MEDS: Glycerin/Hypromellose/PEG400 15 ml Bottle RIGHT EYE ×2 (09:18→20:56)
[2018-04-26] MEDS: Petrolatum,White 3.75GM OPTH.TUBE 1 APPLIC OP ×2 (09:18→20:56)
--- NOTE | 2018-04-26 13:20 | CASEMGMT ---
Patient's mom and sister were asking about completing advance directives. SW spoke with them, introduced self and role at [facility]. SW explained to them that the patient has to be alert and oriented and understand what documents they are completing and signing. At this time patient is not able to do this as he is not alert and oriented. Patient has a in a prison and per family he has 2 sons who are not responsible enough to make decisions. Mirian SARAVIA MSW
--- NOTE | 2018-04-26 15:44 | EEG ---
- Electroencephalogram Date of service 04/26/2018 History EEG is being done in this 47 yr M to rule out seizures EEG Description: This is an 18 channel EEG with 10-20 lead placement system. Bipolar montages, Referential and Circumferential montages were reviewed. Photic stimulation and Hyperventilation were performed. The posterior dominant rhythm was absent. Photo stimulation elicited normal driving response but no abnormal photoparoxysmal response, Hyperventilation elicited abnormal photoparoxysmal response and epileptiform discharges. Sleep was identified. There is abnormal background slowing noted in theta and delta frequency. There is frequent intermittent generalized epileptiform discharges noted during the record but no electrographic seizures noted during this recording. EEG Interpretation This is an abnormal EEG due to moderate to severe generalized back ground slowing with frequent intermittent generalized epileptiform discharges seen during the record. No electrographic seizures noted during the record.
[2018-04-26 16:17] LABS: AST(SGOT) 17 U/L (15-37); Alanine Aminotransfer ALT/SGPT 21 U/L (16-61); Albumin, Serum 3.6 g/dL (3.2-5.0); Alkaline Phosphatase 39 U/L (45-117); Bilirubin, Direct 0.12 mg/dL (0.00-0.30); Globulin 3.8 g/dL (2.2-4.2); Protein, Total 7.4 g/dL (6.4-8.2)
[2018-04-26] MEDS: levETIRAcetam IV 1,000 MG/100 ML BAG 400 MG IV (16:30)
--- NOTE | 2018-04-26 16:49 | CASEMGMT ---
Per physician patient's family would like for him to go to [facility]. JABARI Peacock faxed referral to [facility]. Mirian SARAVIA MSW
--- NOTE | 2018-04-26 19:00 | PCM.PROGNOTE ---
Subjective: Patient was seen and examined today, he appears more alert and responds to questions. I talked with neurology concerning his EEG results which show an active seizure focus, neurology requested that I obtain a liver profile and place the patient on IV Keppra and give him an additional bolus of Keppra. I talked at length with the patient's sister today, the patient lives with his mother and his mother is stated that she is unable to care for him and requests that he be placed short-term in a skilled facility. In addition, this morning the patient went to an hide and skin processing worker office (Dr. uMstafa) and had a thorough eye exam by Dr. Mustafa, Dr. Mustafa called me and stated that he could find no abnormalities on the eye exam and felt that the patient's vision loss could be secondary to an undiagnosed stroke or intracranial process. I talked with neurology today, neurology could not confirm that the patient had a stroke and in fact said that he probably did not so it is possible that the patient's vision loss may be secondary to a postictal encephalopathy. - Physical Exam General: Alert, Cooperative, No apparent distress, Well developed HEENT: Atraumatic, PERRLA, EOMI, Normocephalic Oral: Moist Mucosa Neck: Supple, Trachea Midline, Thyroid Normal Size and Texture Lungs: Clear to auscultation, Normal air movement, No rhonchi, No wheeze, No rales Cardiovascular: Regular rate, Regular Rhythm, Normal S1, Normal S2, No murmurs, No Ectopic Activity Abdomen: Bowel Sounds Present, Soft, Non Tender, Non-Distended Extremities: No edema, Capillary Refill Less than 3 Seconds Skin: No rashes, No breakdown Musculoskeletal: No Tenderness to Palpation of Joints or Extremities Neurological: Neuro grossly intact Psych/Mental Status: Flat Affect, - - Patient has some confusion, he responds appropriately to some questions. Vital Signs Temp Pulse Resp BP Pulse Ox 98.6 F 53 L 16 129/78 H 94 04/26/18 16:10 04/26/18 16:10 04/26/18 16:10 04/26/18 16:10 04/26/18 16:10 Oxygen Delivery Method Room Air Weight: 83.8 kg Body Mass Index (BMI) 25.7 Finger Stick Blood Glucose 90 Intake and Output for Last 24 Hours 12/31/18 01/01/19 01/02/19 23:59 23:59 23:59 Intake Total 780 / 780 860 / 860 Output Total 1625 / 1625 450 / 450 Balance -845 / -845 410 / 410 Laboratory Tests Past 24 Hrs 04/26/18 12:40 Total Bilirubin 0.40 Direct Bilirubin 0.12 AST 17 ALT 21 Alkaline Phosphatase 39 L Total Protein 7.4 Albumin 3.6 Globulin 3.8 Medical Necessity - Tobacco Use Smoking Status: Never smoker Assessment/Plan All Active Problems (This Medical Record has been edited. Action required.) Mental status change (Acute) Acute ischemic stroke (Acute) Seizure in response to acute event (Acute) Acute ischemic stroke (Acute) Seizure in response to acute event (Acute) Dysphagia (Acute) #1 vision loss from patient's left eye-etiology unclear, possibly secondary to postictal state with encephalopathy, continue present treatment #2 seizure disorder-neurology is adjusting the patient's seizure medications #3 probable postictal state #4 generalized debility secondary to chronic seizures-PT and OT are seeing the patient, he will need placement in a [facility] facility for rehab Code Visit Inpatient E&M: 58399 Subs Hosp L2
--- NOTE | 2018-04-26 19:04 | PN_ITS ---
Subjective: Patient was seen and examined today, he appears more alert and responds to questions. I talked with neurology concerning his EEG results which show an active seizure focus, neurology requested that I obtain a liver profile and place the patient on IV Keppra and give him an additional bolus of Keppra. I talked at length with the patient's sister today, the patient lives with his mother and his mother is stated that she is unable to care for him and requests that he be placed short-term in a skilled facility. In addition, this morning the patient went to an de icer kit assembler office (Dr. Mustafa) and had a thorough eye exam by Dr. Mustafa, Dr. Mustafa called me and stated that he could find no abnormalities on the eye exam and felt that the patient's vision loss could be secondary to an undiagnosed stroke or intracranial process. I talked with neurology today, neurology could not confirm that the patient had a stroke and in fact said that he probably did not so it is possible that the patient's vision loss may be secondary to a postictal encephalopathy. - Physical Exam General: Alert, Cooperative, No apparent distress, Well developed HEENT: Atraumatic, PERRLA, EOMI, Normocephalic Oral: Moist Mucosa Neck: Supple, Trachea Midline, Thyroid Normal Size and Texture Lungs: Clear to auscultation, Normal air movement, No rhonchi, No wheeze, No rales Cardiovascular: Regular rate, Regular Rhythm, Normal S1, Normal S2, No murmurs, No Ectopic Activity Abdomen: Bowel Sounds Present, Soft, Non Tender, Non-Distended Extremities: No edema, Capillary Refill Less than 3 Seconds Skin: No rashes, No breakdown Musculoskeletal: No Tenderness to Palpation of Joints or Extremities Neurological: Neuro grossly intact Psych/Mental Status: Flat Affect, - - Patient has some confusion, he responds appropriately to some questions. Vital Signs Temp Pulse Resp BP Pulse Ox 98.6 F 53 L 16 129/78 H 94 04/26/18 16:10 04/26/18 16:10 04/26/18 16:10 04/26/18 16:10 04/26/18 16:10 Oxygen Delivery Method Room Air Weight: 83.8 kg Body Mass Index (BMI) 25.7 Finger Stick Blood Glucose 90 Intake and Output for Last 24 Hours 12/31/18 01/01/19 01/02/19 23:59 23:59 23:59 Intake Total 780 / 780 860 / 860 Output Total 1625 / 1625 450 / 450 Balance -845 / -845 410 / 410 Laboratory Tests Past 24 Hrs 04/26/18 12:40 Total Bilirubin 0.40 Direct Bilirubin 0.12 AST 17 ALT 21 Alkaline Phosphatase 39 L Total Protein 7.4 Albumin 3.6 Globulin 3.8 Medical Necessity - Tobacco Use Smoking Status: Never smoker Assessment/Plan All Active Problems (This Medical Record has been edited. Action required.) Mental status change (Acute) Acute ischemic stroke (Acute) Seizure in response to acute event (Acute) Acute ischemic stroke (Acute) Seizure in response to acute event (Acute) Dysphagia (Acute) #1 vision loss from patient's left eye-etiology unclear, possibly secondary to postictal state with encephalopathy, continue present treatment #2 seizure disorder-neurology is adjusting the patient's seizure medications #3 probable postictal state #4 generalized debility secondary to chronic seizures-PT and OT are seeing the patient, he will need placement in a care home facility for rehab Code Visit Inpatient E&M: 68572 Subs Hosp L2
[2018-04-26] MEDS: Tamsulosin HCl 0.4 MG Capsule 0.8 MG PO (20:56)
[2018-04-26] MEDS: QUEtiapine 25 MG Tablet PO (20:57)
[2018-04-26] MEDS: levETIRAcetam IV 100 ML 400 MG IV (20:57)
[2018-04-26] MEDS: 0.9% NaCl Peripheral Flush Adult/Peds IV (20:57)
[2018-04-26] MEDS: Atorvastatin Calcium 80 MG Tablet PO (20:57)
[2018-04-27] VITALS (11 sets, daily range): BP systolic 124–146; BP diastolic 65–81; PULSE 53–80; RESP 16–19; TEMP 36.4–36.7; O2SAT 93–98
[2018-04-27] MEDS: Etodolac 200 MG Capsule 400 MG PO ×2 (09:09→16:54)
[2018-04-27] MEDS: Aspirin 81 MG TAB.CHEW PO (09:09)
[2018-04-27] MEDS: Glycerin/Hypromellose/PEG400 15 ml Bottle RIGHT EYE ×2 (09:10→22:02)
[2018-04-27] MEDS: Docusate Sodium 100 MG Capsule PO (09:10)
[2018-04-27] MEDS: Petrolatum,White 3.75GM OPTH.TUBE 1 APPLIC OP ×2 (09:11→22:01)
[2018-04-27] MEDS: levETIRAcetam IV 100 ML 400 MG IV ×2 (09:11→22:00)
[2018-04-27] MEDS: Pantoprazole Sodium 40 MG Tablet PO (09:11)
[2018-04-27] MEDS: Sertraline 50 MG Tablet PO (09:12)
[2018-04-27] MEDS: 0.9% NaCl Peripheral Flush Adult/Peds IV (09:16)
--- NOTE | 2018-04-27 11:42 | CASEMGMT ---
Shanna from [facility] came to [facility] to talk with patient. SW went into the room before hand and patient's sister was in the room. SW let her know [facility] can take patient. SW let her know that Shanna from [facility] will be coming in to talk with them. JABARI told her we will have to wait on insurance to [facility]: [facility] under pending pre-cert. Mirian SARAVIA MSW
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
--- NOTE | 2018-04-27 17:28 | PCM.PROGNOTE ---
Subjective: Patient seen and examined today, he appears more alert, I talked at length with his sister who is in the room. According to the patient, he still has no vision in his left eye. Nursing however state that the patient was up walking in the bathroom and seemed to find his way without difficulty. - Physical Exam General: Alert, Cooperative, No apparent distress, Well developed HEENT: Atraumatic, PERRLA, Normocephalic, - - Patient has absent right eye Oral: Moist Mucosa Neck: Supple, Trachea Midline, Thyroid Normal Size and Texture Lungs: Clear to auscultation, Normal air movement Cardiovascular: Regular rate, Regular Rhythm, Normal S1, Normal S2, No murmurs, No Ectopic Activity, PMI Normal, No rub noted, No Gallop Abdomen: Bowel Sounds Present, Soft, Non Tender, Non-Distended, No hernias noted Extremities: No clubbing, No cyanosis, No edema, Capillary Refill Less than 3 Seconds Skin: No rashes, No breakdown Musculoskeletal: No Tenderness to Palpation of Joints or Extremities Neurological: Cranial nerves II-XII grossly intact, Neuro grossly intact, Sensory exam intact to light touch and pain, Coordination normal Psych/Mental Status: Normal Affect, Appropriate, Alert and oriented to time, place, person, mood and affect Vital Signs Temp Pulse Resp BP Pulse Ox 98.1 F 65 19 H 133/80 H 95 04/27/18 15:05 04/27/18 15:05 04/27/18 15:05 04/27/18 15:05 04/27/18 15:05 Oxygen Delivery Method Room Air Weight: 83.8 kg Body Mass Index (BMI) 25.7 Finger Stick Blood Glucose 90 Intake and Output for Last 24 Hours 04/25/18 04/26/18 04/27/18 23:59 23:59 23:59 Intake Total 780 / 780 1010 / 1010 343 / 343 Output Total 1625 / 1625 700 / 700 450 / 450 Balance -845 / -845 310 / 310 -107 / -107 Medical Necessity - Tobacco Use Smoking Status: Never smoker Assessment/Plan All Active Problems (This Medical Record has been edited. Action required.) Mental status change (Acute) Acute ischemic stroke (Acute) Seizure in response to acute event (Acute) Acute ischemic stroke (Acute) Seizure in response to acute event (Acute) Dysphagia (Acute) #1 vision loss from patient's left eye-etiology unclear, possibly secondary to postictal state with encephalopathy, continue present treatment #2 seizure disorder-neurology is adjusting the patient's seizure medications, patient is currently on IV Keppra #3 probable postictal state #4 generalized debility secondary to chronic seizures-PT and OT are seeing the patient, he will need placement in a assisted facility for rehab Code Visit Inpatient E&M: 31120 Subs Hosp L2
[2018-04-27] MEDS: Tamsulosin HCl 0.4 MG Capsule 0.8 MG PO (22:02)
[2018-04-27] MEDS: Atorvastatin Calcium 80 MG Tablet PO (22:03)
[2018-04-27] MEDS: QUEtiapine 25 MG Tablet PO (22:03)
[2018-04-28] VITALS (7 sets, daily range): BP systolic 111–127; BP diastolic 68–73; PULSE 52–65; RESP 16; TEMP 36.3–36.6; O2SAT 91–97
[2018-04-28] MEDS: Pantoprazole Sodium 40 MG Tablet PO (09:56)
[2018-04-28] MEDS: Docusate Sodium 100 MG Capsule PO (09:56)
[2018-04-28] MEDS: Aspirin 81 MG TAB.CHEW PO (09:57)
[2018-04-28] MEDS: Etodolac 200 MG Capsule 400 MG PO (09:57)
[2018-04-28] MEDS: Glycerin/Hypromellose/PEG400 15 ml Bottle RIGHT EYE (09:57)
[2018-04-28] MEDS: Sertraline 50 MG Tablet PO (09:57)
[2018-04-28] MEDS: Petrolatum,White 3.75GM OPTH.TUBE 1 APPLIC OP (09:57)
[2018-04-28] MEDS: 0.9% NaCl Peripheral Flush Adult/Peds IV (09:59)
[2018-04-28] MEDS: levETIRAcetam IV 100 ML 400 MG IV (09:59)
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
[2018-04-28] MEDS: levETIRAcetam 500 MG Tablet PO (11:49)
--- NOTE | 2018-04-28 11:51 | CASEMGMT ---
JABARI received a call from Sarina at [facility] and she received insurance approval. JABARI notified physician. Faxed orders once completed. Completed convalescent in [facility]. JABARI spoke with patient, his mom, and sister letting them know about discharge. They will transport patient. Patient is much more alert and oriented today. He did indicate he wants his mom to be his power of associate attorney. JABARI told them JABARI will let [facility] know so they can complete the documents. JABARI called Sarina at [facility] and let her know that patient will be coming today. JABARI told her family will be bringing him and SW will let her know what time he will be leaving. JABARI also told her patient would like to complete advance directives once he is there. She will pass this information along to the social media content manager there. Plan: [facility] under intermediate level of care on a convalescent stay. Family transported patient. Mirian JOHNSON
--- NOTE | 2018-04-28 12:52 | EEG ---
- Electroencephalogram Date of service 04/28/2018 History EEG is being done in this 47 yr M to rule out seizures EEG Description: This is an 18 channel EEG with 10-20 lead placement system. Bipolar montages, Referential and Circumferential montages were reviewed. Photic stimulation and Hyperventilation were performed. The posterior dominant rhythm was absent. Photo stimulation elicited normal driving response but no abnormal photoparoxysmal response, Hyperventilation elicited abnormal photoparoxysmal response and epileptiform discharges but as compared to previous EEG done on 04/26/18, it has decreased in frequency. Sleep was identified. There is abnormal background slowing noted in theta and delta frequency. There is intermittent generalized epileptiform discharges noted during the record but frequency has decreased as compared to the previous EEG done on 04/26/18 and no electrographic seizures noted during this recording. EEG Interpretation This is an abnormal EEG due to moderate to severe generalized back ground slowing with intermittent generalized epileptiform discharges seen during the record. No electrographic seizures noted during the record.
--- NOTE | 2018-04-28 17:19 | PCM.DC.SUM ---
Discharge Date and Diagnosis Date of Admission: 04/24/18 Date of Discharge: 04/28/18 - Primary Discharge Diagnosis #1 vision loss from patient's left eye-etiology unclear, possibly secondary to postictal state with encephalopathy #2 seizure disorder #3 probable postictal state #4 generalized debility secondary to chronic seizures #5 GERD #6 cerebrovascular disease # 7 hypertension No evidence for acute stroke - Secondary Discharge Diagnosis Chronic Problems (This Medical Record has been edited. Action required.) CVA (cerebral vascular accident) (Chronic) 04/2017 right medial occipital lobe CVA Seizure disorder (Chronic) HTN (hypertension) (Chronic) HLD (hyperlipidemia) (Chronic) GERD (gastroesophageal reflux disease) (Chronic) Iron deficiency anemia (Chronic) Anxiety and depression (Chronic) Cerebrovascular disease (Chronic) recent occipital infarct CVA (cerebral vascular accident) (Chronic) 04/2017 right medial occipital lobe CVA Seizure disorder (Chronic) HTN (hypertension) (Chronic) HLD (hyperlipidemia) (Chronic) GERD (gastroesophageal reflux disease) (Chronic) Iron deficiency anemia (Chronic) Anxiety and depression (Chronic) Cerebrovascular disease (Chronic) recent occipital infarct Hospital Course and Treatment Operations: None Procedures: 2-D Echocardiogram, Electroencephalogram Summary of Care Provided: The patient is a 47 year old M seen in the emerge C room at [facility] with complaint of vision loss in the left eye. Patient also was not communicative, he was not able to speak, he did respond to painful stimuli. Workup in the emergency room included a CT of the head and neck which showed no evidence of acute obstruction, CT of the brain was unremarkable for acute pathology. Patient's labs were unremarkable. Patient was thought by the emergency room physician to have suffered a stroke, he was admitted to PCU, seen in consultation by neurology, and it was neurology's opinion that the patient was postictal and had suffered a seizure at home. Patient's seizure medications were adjusted, he underwent an EEG which showed a strong seizure focus, patient also underwent an eye exam at an senior systems engineer office to exclude any eye pathology-this exam did not show any eye pathology. Patient's MRI did not show an acute stroke. Over the next few days, patient's mentation improved, he became more responsive and it appeared that he was able to see from his left eye. Family requested the patient go to a longterm facility for short-term rehab. On 04/28/18, patient was seen and examined: On examination he appeared in good health and spirits. The absence of the right eye is noted. Vital signs as documented. Skin warm and dry and without overt rashes. Neck without JVD. Lungs clear. Heart exam notable for regular rhythm, normal sounds and absence of murmurs, rubs or gallops. Abdomen unremarkable and without evidence of organomegaly, masses, or abdominal aortic enlargement. Extremities nonedematous. Neuro: Cranial nerves II through XII are grossly intact, no focal motor deficits were noted, sensation to light touch and pinprick intact. Psych: Patient is alert and responds to simple questions appropriately On 04/28/18, patient was seen and examined felt to be in stable condition for transfer to longterm facility for short-term rehab - Physical Exam Vital Signs Temp Pulse Resp BP Pulse Ox 97.5 F L 57 L 16 113/73 92 04/28/18 09:53 04/28/18 10:51 04/28/18 09:53 04/28/18 09:53 04/28/18 09:53 Oxygen Delivery Method Room Air Weight: 83.8 kg Body Mass Index (BMI) 25.7 Finger Stick Blood Glucose 90 Intake and Output for Last 24 Hours 04/26/18 04/27/18 04/28/18 23:59 23:59 23:59 Intake Total 1010 / 1010 843 / 843 702 / 702 Output Total 700 / 700 775 / 775 800 / 800 Balance 310 / 310 68 / 68 -98 / -98 Home Medications: Medications to take at Discharge Etodolac [Etodolac ER] 400 mg PO BID 10/17/13 Mineral Oil/Petrolatum,White [Lubricant Eye Ointment] 3.5 gm OP BID 07/08/17 Acetaminophen [Tylenol Tablet] 650 mg PO Q6H PRN PRN tablet 07/14/17 Aspirin [Aspirin, Baby] 81 mg PO DAILY@0800 07/14/17 Atorvastatin Calcium [Lipitor] 20 mg PO QHS #30 tab 08/01/17 Quetiapine Fumarate [Seroquel] 25 mg PO QHS #30 tab 08/01/17 Sertraline HCl [Zoloft] 50 mg PO DAILY #30 tab 08/01/17 Tamsulosin HCl [Flomax] 0.8 mg PO QHS #30 cap 08/01/17 Docusate Sodium 100 mg PO DAILY 04/24/18 Omeprazole 40 mg PO DAILY 04/24/18 Polyvinyl Alcohol [Artificial Tears] 1 - 2 drop RIGHT EYE BID 04/24/18 Acetaminophen [Tylenol Tablet] 650 mg PO Q4H PRN PRN tablet 04/28/18 levETIRAcetam tablet [Keppra tablet] 1,500 mg PO BID #60 tab 04/28/18 Following Prescrptions Were Given to Patient: levETIRAcetam tablet [Keppra tablet] 1,500 mg PO BID #60 tab Primary Care Physician: Mike Carrillo MD [Primary Care Provider] - Please Follow Up With: Tone Howard MD When: in 3 weeks-call for appointment Disposition: [facility] facility Minutes spent on discharge:: 32 Patient Condition:: Stable Medical Necessity - Tobacco Use Smoking Status: Never smoker Meaningful Use Info Meaningful Use Diagnoses (Choose all that apply): None applicable Code Visit Inpatient E&M: 79193 Disch Hosp
--- NOTE | 2018-04-28 17:25 | DS.PCM_ITS ---
Discharge Date and Diagnosis Date of Admission: 04/24/18 Date of Discharge: 04/28/18 - Primary Discharge Diagnosis #1 vision loss from patient's left eye-etiology unclear, possibly secondary to postictal state with encephalopathy #2 seizure disorder #3 probable postictal state #4 generalized debility secondary to chronic seizures #5 GERD #6 cerebrovascular disease # 7 hypertension No evidence for acute stroke - Secondary Discharge Diagnosis Chronic Problems (This Medical Record has been edited. Action required.) CVA (cerebral vascular accident) (Chronic) 04/2017 right medial occipital lobe CVA Seizure disorder (Chronic) HTN (hypertension) (Chronic) HLD (hyperlipidemia) (Chronic) GERD (gastroesophageal reflux disease) (Chronic) Iron deficiency anemia (Chronic) Anxiety and depression (Chronic) Cerebrovascular disease (Chronic) recent occipital infarct CVA (cerebral vascular accident) (Chronic) 04/2017 right medial occipital lobe CVA Seizure disorder (Chronic) HTN (hypertension) (Chronic) HLD (hyperlipidemia) (Chronic) GERD (gastroesophageal reflux disease) (Chronic) Iron deficiency anemia (Chronic) Anxiety and depression (Chronic) Cerebrovascular disease (Chronic) recent occipital infarct Hospital Course and Treatment Operations: None Procedures: 2-D Echocardiogram, Electroencephalogram Summary of Care Provided: The patient is a 47 year old M seen in the emerge C room at [facility] with complaint of vision loss in the left eye. Patient also was not communicative, he was not able to speak, he did respond to painful stimuli. Workup in the emergency room included a CT of the head and neck which showed no evidence of acute obstruction, CT of the brain was unremarkable for acute pathology. Patient's labs were unremarkable. Patient was thought by the emergency room physician to have suffered a stroke, he was admitted to PCU, seen in consultation by neurology, and it was neurology's opinion that the patient was postictal and had suffered a seizure at home. Patient's seizure medications were adjusted, he underwent an EEG which showed a strong seizure focus, patient also underwent an eye exam at an [facility] office to exclude any eye pathology-this exam did not show any eye pathology. Patient's MRI did not show an acute stroke. Over the next few days, patient's mentation improved, he became more responsive and it appeared that he was able to see from his left eye. Family requested the patient go to a group home facility for short- term rehab. On 04/28/18, patient was seen and examined: On examination he appeared in good health and spirits. The absence of the right eye is noted. Vital signs as documented. Skin warm and dry and without overt rashes. Neck without JVD. Lungs clear. Heart exam notable for regular rhythm, normal sounds and absence of murmurs, rubs or gallops. Abdomen unremarkable and without evidence of organomegaly, masses, or abdominal aortic enlargement. Extremities nonedematous. Neuro: Cranial nerves II through XII are grossly intact, no focal motor deficits were noted, sensation to light touch and pinprick intact. Psych: Patient is alert and responds to simple questions appropriately On 04/28/18, patient was seen and examined felt to be in stable condition for transfer to group home facility for short-term rehab - Physical Exam Vital Signs Temp Pulse Resp BP Pulse Ox 97.5 F L 57 L 16 113/73 92 04/28/18 09:53 04/28/18 10:51 04/28/18 09:53 04/28/18 09:53 04/28/18 09:53 Oxygen Delivery Method Room Air Weight: 83.8 kg Body Mass Index (BMI) 25.7 Finger Stick Blood Glucose 90 Intake and Output for Last 24 Hours 04/26/18 04/27/18 04/28/18 23:59 23:59 23:59 Intake Total 1010 / 1010 843 / 843 702 / 702 Output Total 700 / 700 775 / 775 800 / 800 Balance 310 / 310 68 / 68 -98 / -98 Home Medications: Medications to take at Discharge Etodolac [Etodolac ER] 400 mg PO BID 10/17/13 Mineral Oil/Petrolatum,White [Lubricant Eye Ointment] 3.5 gm OP BID 07/08/17 Acetaminophen [Tylenol Tablet] 650 mg PO Q6H PRN PRN tablet 07/14/17 Aspirin [Aspirin, Baby] 81 mg PO DAILY@0800 07/14/17 Atorvastatin Calcium [Lipitor] 20 mg PO QHS #30 tab 08/01/17 Quetiapine Fumarate [Seroquel] 25 mg PO QHS #30 tab 08/01/17 Sertraline HCl [Zoloft] 50 mg PO DAILY #30 tab 08/01/17 Tamsulosin HCl [Flomax] 0.8 mg PO QHS #30 cap 08/01/17 Docusate Sodium 100 mg PO DAILY 04/24/18 Omeprazole 40 mg PO DAILY 04/24/18 Polyvinyl Alcohol [Artificial Tears] 1 - 2 drop RIGHT EYE BID 04/24/18 Acetaminophen [Tylenol Tablet] 650 mg PO Q4H PRN PRN tablet 04/28/18 levETIRAcetam tablet [Keppra tablet] 1,500 mg PO BID #60 tab 04/28/18 Following Prescrptions Were Given to Patient: levETIRAcetam tablet [Keppra tablet] 1,500 mg PO BID #60 tab Primary Care Physician: Mike Carrillo MD [Primary Care Provider] - Please Follow Up With: Tone Howrad MD When: in 3 weeks-call for appointment Disposition: [facility] facility Minutes spent on discharge:: 32 Patient Condition:: Stable Medical Necessity - Tobacco Use Smoking Status: Never smoker Meaningful Use Info Meaningful Use Diagnoses (Choose all that apply): None applicable Code Visit Inpatient E&M: 36486 Disch Hosp
== END 2018-04-28 13:41 | disposition intermediate care facility (04) | DRG 53 ==
LOC: ED 20:37 → PCU 21:08
PROVIDERS: Psychiatry & Neurology Neurology; Admitting Provider Hospitalist; Emergency Provider Emergency Medicine; Family Provider Family Medicine; PCP Family Medicine; Referring Provider Hospitalist; Visit Provider Internal Medicine
DX: G40.909 Epilepsy, unspecified, not intractable, without status epilepticus (principal); K21.9 Gastro-esophageal reflux disease without esophagitis; H54.60 Unqualified visual loss, one eye, unspecified; R53.81 Other malaise; I67.9 Cerebrovascular disease, unspecified; I10 Essential (primary) hypertension; Z97.0 Presence of artificial eye; E78.5 Hyperlipidemia, unspecified; D50.9 Iron deficiency anemia, unspecified; F41.8 Other specified anxiety disorders; H05 Disorders of orbit; R51 Headache
CPT/HCPCS: 36415; 70450; 70496; 70498; 70551; 71045; 80048; 80061; 80076; 82550; 83615; 84484; 85025; 85610; 85730; 92523; 93005; 93306; 95819; 97162; 97165; 99285; Q9967; A4216

== ENCOUNTER → 2018-05-03 07:11 | Outpatient (CLI) | payer MEDICAID, SELFPAY ==
[2018-04-24 21:35] VITALS: BMI 25.7
--- NOTE | 2018-05-03 10:04 | NEURO ---
NCS and/or EMG Patient Report Ordering Doctor: Aure Longo DATE OF SERVICE: 05/03/18 This is a left upper extremity nerve conduction study performed on this 47-year-old male with a history of weakness in his left hand as well as numbness present for 6 months. Left upper extremity sensory motor nerve conduction studies performed. The median motor and sensory distal latencies are prolonged with mild reduction of conduction velocity and amplitude. The ulnar motor and sensory and radial sensory responses are normal. The median F wave is mildly prolonged compared to the ulnar f wave. Impression: Abnormal nerve conduction study of the left upper extremity consistent with moderate carpal tunnel syndrome.
== END ==
PROVIDERS: Family Provider Family Medicine; PCP Family Medicine; Referring Provider Nurse Practitioner Acute Care; Visit Provider Nurse Practitioner Acute Care
DX: R25.1 Tremor, unspecified (principal); R53.1 Weakness; R52 Pain, unspecified
CPT/HCPCS: 95909

== ENCOUNTER 2019-01-08 13:47 | Emergency (ER) | payer MEDICAID, SELFPAY ==
[2018-04-24 21:35] VITALS: BMI 25.7
[2019-01-08 13:48] VITALS: BP 149/92; PULSE 71; RESP 16; TEMP 37.2; O2SAT 98; BMI 29.0
--- NOTE | 2019-01-08 14:14 | CT_ITS ---
STUDY: CT BRAIN WITHOUT CONTRAST REASON FOR EXAM: Male, 48 years old. Multiple facial abrasions secondary to a fall. RADIATION DOSAGE (If Supplied By Facility): CTDIvol = ( 44.99 ) mGy, DLP = ( 779.24 ) mGycm TECHNIQUE: Transaxial CT imaging of the brain was performed without administration of intravenous contrast material. Individualized dose optimization techniques were used for this CT. COMPARISON: Comparison is made with prior study dated April 24, 2018. FINDINGS: Normal soft tissue structures. The patient is status post right frontal craniotomy. There is evidence of focal encephalomalacia in the anterior aspect of the right frontal lobe. It appears to be increased density at that site in the surrounding brain tissue. This is unchanged from prior study. With the history of trauma, hemorrhagic contusion should be ruled out although no surrounding edema is seen. There is mild cerebral atrophy with widening of the extra-axial spaces and ventricular dilatation. Normal white matter tracts of the cerebral hemispheres. Normal basal ganglia and thalami. Normal brainstem. Normal cerebellum. There is no intracranial hemorrhage. There are no findings of an acute ischemic infarction. Stable postsurgical changes in the right zygomatic arch and right orbital region. CT/Brain/Head without Contrast IMPRESSION: Stable deformity and postsurgical changes in the right zygomatic region as well as the right orbital region. Focal encephalomalacia in the superior aspect of the right anterior frontal lobe with the increased density in the surrounding brain tissue suggestive of a focal hemorrhagic contusion. This is unchanged as compared to prior study. Electronically Signed: Constantine Gallardo, at 15:01 EDT , Service support ,
--- NOTE | 2019-01-08 15:17 | ED.VISSUMM ---
- ER Visit Summary Date of Service: 01/08/19 Chief Complaint: [Fall with head injury] History of Present Illness: The patient is a 48 M [presents to the emergency department after sustaining a fall prior to arrival in the emergency department. Patient states that he was walking through a parking lot and tripped over a parking block. Patient denies loss of consciousness. Patient is concerned because he has history of prior intracranial hemorrhage. Patient denies any neck pain. He did sustain multiple abrasions. Patient has history of hypertension, high cholesterol, seizure disorder, prior stroke.] Physical Examination: [HEENT-PERRLA, EOMI. Cranial nerves II through XII grossly intact. TMs clear. Mucous membranes moist. No adenopathy. Patient has superficial abrasions to the right side of the face and a small subcentimeter superficial laceration to the right orbit that is well approximated and not bleeding. No bony tenderness or step-offs noted. Cardiovascular-regular rate and rhythm without murmur or ectopy Lungs-clear to auscultation, chest wall stable without crepitus or subcu emphysema Abdomen-normoactive bowel sounds, soft, nontender, no rebound or rigidity, no peritoneal signs. Skin exam-patient has multiple abrasions to the knuckles of both hands as well as the left elbow and bilateral anterior shins. Extremities-intact ?4, normal range of motion, normal pulses. Patient has multiple abrasions but no long bone tenderness or deformity noted. No tenderness or deformity to the fingers.] Test Results: [CT scan of the brain without contrast showed increased density right frontal brain which is chronic and was present on prior study.] Emergency Department Course and Treatment: [Patient was given Adacel booster and wounds were cleansed and dressed.] Treatment Plan: [Follow-up with primary care physician 3 to 5 days.] Disposition: [Discharged to home in stable condition] Impression: [Mechanical fall Closed head injury Multiple abrasions] This note was generated with [employer] dictation software. It may contain incorrect words, spelling, and punctuation that were not noted in review of the chart prior to signing ED Disposition - Plan for ED Patient: Referrals: Mike Carrillo MD [Primary Care Provider] -
--- NOTE | 2019-01-08 15:20 | ED.DEP ---
ED Disposition - Plan for ED Patient: Instructions: FALL, Mechanical, HEAD INJURY, No Wake-Up (Adult) Referrals: Mike Carrillo MD [Primary Care Provider] - 3-5 Days
[2019-01-08] MEDS: Diphth,Pertuss(Acell),Tet Vac 0.5 ML Vial IM (15:23)
[2019-01-08 15:28] VITALS: BP 131/72; PULSE 84; RESP 16; O2SAT 96
== END 2019-01-08 15:29 | disposition home or self-care (01) ==
LOC: ED 14:35
PROVIDERS: Emergency Provider Emergency Medicine; Family Provider Family Medicine; PCP Family Medicine
DX: S01.111A Laceration without foreign body of right eyelid and periocular area, initial encounter (principal); S00.81XA Abrasion of other part of head, initial encounter; W18.09XA Striking against other object with subsequent fall, initial encounter; Y93.01 Activity, walking, marching and hiking; Y92.830 Public park as the place of occurrence of the external cause; Y99.8 Other external cause status; I10 Essential (primary) hypertension; E78.00 Pure hypercholesterolemia, unspecified; G40.909 Epilepsy, unspecified, not intractable, without status epilepticus; K21.9 Gastro-esophageal reflux disease without esophagitis; Z86.73 Personal history of transient ischemic attack (TIA), and cerebral infarction without residual deficits; Z79.899 Other long term (current) drug therapy
CPT/HCPCS: 70450; 90471; 90715; 99284

== ENCOUNTER 2019-01-17 11:13 | Emergency (ER) | payer MEDICAID, SELFPAY ==
[2019-01-17 11:13] VITALS: BP 130/99; PULSE 106; RESP 18; TEMP 36.7; O2SAT 96; BMI 29.8
--- NOTE | 2019-01-17 11:43 | CT_ITS ---
STUDY: CT BRAIN WITHOUT CONTRAST REASON FOR EXAM: Male, 48 years old. Right hand weakness. RADIATION DOSAGE (If Supplied By Facility): CTDIvol = ( 44.99 ) mGy, DLP = ( 863.60 ) mGycm TECHNIQUE: Transaxial CT imaging of the brain was performed without administration of intravenous contrast material. Individualized dose optimization techniques were used for this CT. COMPARISON: Comparison is made with prior study dated January 08, 2019. FINDINGS: Normal soft tissue structures. Once again, the patient is status post right frontal craniotomy. Stable focal area of encephalomalacia in the anterior aspect of the right frontal lobe. This is unchanged. Mild degree of cerebral atrophy. Normal white matter tracts of the cerebral hemispheres. Normal basal ganglia and thalami. Normal brainstem. Normal cerebellum. There is no intracranial hemorrhage. There are no findings of an acute ischemic infarction. Stable postsurgical changes in the right zygomatic arch and right orbital region. CT/Brain/Head without Contrast IMPRESSION: Chronic involutional changes of the brain. Prior right frontal craniotomy with encephalomalacia in the right frontal lobe anteriorly. Prior surgery involving the right zygomatic arch and right orbital region. Electronically Signed: Constantine Gallardo, at 12:39 EDT , Service support ,
--- NOTE | 2019-01-17 11:43 | EKG12_ITS ---
Test Reason : WEAKNESS Blood Pressure : / mmHG Vent. Rate : 067 BPM Atrial Rate : 067 BPM P-R Int : 136 ms QRS Dur : 098 ms QT Int : 414 ms P-R-T Axes : 043 013 038 degrees QTc Int : 437 ms Normal sinus rhythm Possible Left atrial enlargement Left ventricular hypertrophy Abnormal ECG Confirmed by LETTY LEE, APRIL ([id number]), editor & co founder MINI COHEN ([id number]) on 01/19/2019 10:23:03 A M Referred By: HOLDEN Confirmed By:HUMAIRA SAENZ MD
--- NOTE | 2019-01-17 11:44 | ED.VIS.GEN ---
History of Present Illness Chief Complaint: Neuro S/Sx Informant: Patient Onset: Today Current Severity: Mild Maximum Severity: Moderate Narrative: Patient presents with shaking of his right hand that he noted upon waking this morning. He states he was not able to hold his phone and dropped it. Symptoms seem to be improving at this time. He states he recently had an episode where he had shaking and weakness in his left arm and hand. This lasted for a couple months but currently seems to be improved. Patient does have a history of seizure disorder as well as prior CVA. He has chronic left-sided weakness. He is on Keppra. When asked who he sees for neurology they state that they come in and see Dr. Aaron when she rotates here to the hospital. Past Medical History - Allergies and Home Meds Allergies/Adverse Reactions: Allergies Penicillins Allergy (Verified 01/17/19 11:16) Hives propoxyphene napsylate [From Darvocet-N] Allergy (Verified 01/17/19 11:16) Other hot flashes Primary Care Physician: Mike Carrillo MD [Primary Care Provider] - Prior records reviewed: Yes Past Medical History: - - Reviewed Surgical History: - - Interval facial surgery as well as right eye surgery and bur hole status post head trauma as youth, left lower extremity surgery status post trauma as youth. Smoking Status: Former smoker - Family History Maternal Family History: Reports: Diabetes, Heart Disease Paternal Family History: Reports: - - from suicide. Review of Systems General: Denies: Chills, Fever Eyes: Denies: Visual changes - bilaterally ENT: Denies: Bilateral ear pain Cardiovascular: Denies: Chest pain Respiratory: Denies: Dyspnea, Cough Gastrointestinal: Denies: Abdominal pain, Nausea, Vomiting, Diarrhea Musculoskeletal: Denies: Back pain, Extremity Pain Skin: Denies: Wounds Neurological: Reports: Weakness. Denies: Headache Hematologic: Denies: Easy bruising, Easy bleeding Allergy: Denies: Uticaria Physical Exam Vital Signs/Narrative: Vital Signs Temp Pulse Resp BP Pulse Ox 01/17/19 11:13 98.1 F 106 H 18 130/99 H 96 General: Well nourished Head: Normocephalic ENT: Moist mucous membranes Neck: Supple Cardiovascular: Regular rate, Regular rhythm Respiratory: No distress, CTA bilaterally Abdomen: Soft, Nontender Back: Nontender Extremities: Nontender Skin: Normal color Neurological: Alert, Oriented x3, - - Patient has good hand grasp strength bilaterally. He is able to hold both arms at 90 degrees with no drift or weakness. He does have difficulty with ataxia of both upper extremities, but patient states that would be his baseline. Psychological: Normal affect Diagnostic/Tx/Re-eval Impressions Brain CT 01/17/19 11:43 IMPRESSION: Chronic involutional changes of the brain. Prior right frontal craniotomy with encephalomalacia in the right frontal lobe anteriorly. Prior surgery involving the right zygomatic arch and right orbital region. Electronically Signed: Constantine Gallardo, at 12:39 EDT , Service support , 01/17/19 11:43 Brain/Head without Contrast [CT] Stat Laboratory Results 01/17/19 01/17/19 12:04 12:04 WBC 5.0 RBC 4.87 Hgb 14.1 Hct 44.2 MCV 90.8 MCH 29.0 MCHC 31.9 L RDW Std Deviation 42.5 RDW Coeff of Desiree 13.0 Plt Count 230 MPV 10.6 Immature Gran % (Auto) 0.200 Neut % (Auto) 63.1 Lymph % (Auto) 26.4 [place] % (Auto) 7.3 Eos % (Auto) 2.2 Baso % (Auto) 0.8 Absolute Neuts (auto) 3.2 Absolute Lymphs (auto) 1.33 Nucleated RBC % 0 Sodium 140 Potassium 3.7 Chloride 102 Carbon Dioxide 28.0 Anion Gap 10 BUN 7 Creatinine 0.93 Estim Creat Clear Calc 98.12 Est GFR (MDRD) Af Amer 111 Est GFR (MDRD) Non-Af 92 BUN/Creatinine Ratio 7.6 L Glucose 101 Calcium 9.2 - EKG Initial EKG Interpretation: Sinus Rhythm - Sinus at 67. Evidence of LVH. - Medical Decision Making On repeat evaluation patient is resting comfortably. He continues to have normal neuro exam noted on testing, other than his chronic ataxia. I recommended he call neurology to be seen by Dr. Aaron as soon as possible. ED Disposition - Plan for ED Patient: Disposition: Home or Assisted Living Diagnosis: Episode of shaking Instructions: WEAKNESS, Unk Cause Referrals: Mike Carrillo MD [Primary Care Provider] - Additional Instructions: Follow-up with Dr Aaron as soon as possible.
[2019-01-17 12:23] LABS: Absolute Lymphocyte Count 1.33 X10^3/uL (0.83-4.51); Absolute Neutrophil Count 3.2 X10^3/uL (2.0-7.7); Basophil# 0.04 X10^3/uL; Basophil% 0.8 % (0-1); Eosinophil# 0.11 X10^3/uL; Eosinophils% 2.2 % (0-5); Hematocrit 44.2 % (40-54); Hemoglobin 14.1 g/dL (13.0-16.5); Lymphocyte # 1.33 X10^3/ul (4.0); Lymphocyte % 26.4 % (19-41); Mean Corp Hgb Conc 31.9 g/dL (32-36); Mean Corpuscular Volume 90.8 fL (80-94); Mean Platelet Vol. 10.6 fl (6.2-12.0); Monocyte# 0.37 X10^3/uL; Monocyte% 7.3 % (0-10); NRBC Flagged by Analyzer 0 % (0-5); Neutrophil # 3.18 X10^3/uL (2.7-7.7); Neutrophil % 63.1 % (47-70); Platelet Count 230 K/mm3 (150-450); RBC Distribution Width SD 42.5 fl (35.1-43.9); Red Blood Count 4.87 M/mm3 (4.6-6.2)
[2019-01-17 12:24] LABS: Anion Gap 10 (5-15); BUN 7 mg/dL (7-18); BUN/Creat Ratio 7.6 RATIO (10-20); Calcium,Total 9.2 mg/dL (8.5-10.1); Chloride 102 mmol/L (98-107); Creatinine, Serum 0.93 mg/dL (0.70-1.30); EST Glomerular Filtration Rate 92 mL/min (>60); Est Glom Filt Rate - Afr Amer 111 mL/min (>60); Estimated Creatinine Clearance 98.12 ml/min; Glucose 101 mg/dL (74-106); Potassium 3.7 mmol/L (3.5-5.1); Sodium Level 140 mmol/L (136-145)
[2019-01-17 13:25] VITALS: BP 143/91; PULSE 63; RESP 16; O2SAT 99; BMI 29.8
== END 2019-01-17 13:26 | disposition home or self-care (01) ==
PROVIDERS: Emergency Provider Emergency Medicine; Family Provider Family Medicine; PCP Family Medicine
DX: R25.1 Tremor, unspecified (principal); G40.909 Epilepsy, unspecified, not intractable, without status epilepticus; Z86.73 Personal history of transient ischemic attack (TIA), and cerebral infarction without residual deficits; Z79.899 Other long term (current) drug therapy; Z87.891 Personal history of nicotine dependence
CPT/HCPCS: 70450; 80048; 85025; 93005; 99283; A4216

== ENCOUNTER → 2019-02-05 13:50 | Outpatient (CLI) | payer MEDICAID, SELFPAY ==
[2019-01-17 13:25] VITALS: BMI 29.8
[2019-02-09 16:11] LABS: KEPPRA (LEVETIRACETAM) 53.7 ug/mL (10.0-40.0)
== END ==
PROVIDERS: Family Provider Family Medicine; PCP Family Medicine; Referring Provider Clinical Nurse Specialist Acute Care; Visit Provider Clinical Nurse Specialist Acute Care
DX: R56.9 Unspecified convulsions (principal)
CPT/HCPCS: 36415; 80177